=== PATIENT | female | born 1940 | race Caucasian/White ===

== ENCOUNTER 2020-08-04 12:43 | Outpatient (CLI) | payer MEDICARE, SELFPAY ==
[2020-08-04 13:02] LABS: Basophils Absolute Auto 0.08 K/mm3 (0.00-0.10); Basophils Percent Auto 1.2 % (0.0-1.0); Eosinophils Absolute Auto 0.06 K/mm3 (0.02-0.50); Eosinophils Percent Auto 0.9 % (1.0-6.0); Hematocrit 40.3 % (35.0-42.0); Hemoglobin 13.7 g/dL (11.7-13.8); Immature Granulocyte Absolute 0.02 K/mm3 (0.00-0.00); Immature Granulocyte Percent A 0.3 % (0.0-0.0); Lymphocytes Absolute Auto 2.56 K/mm3 (1.10-4.50); Lymphocytes Percent Auto 37.2 % (18.0-42.0); Mean Corpuscular Hemoglobin 30.2 pg (27.0-31.0); Mean Platelet Volume 11.6 fl (9.2-11.8); Monocytes Absolute Auto 0.37 K/mm3 (0.10-0.90); Monocytes Percent Auto 5.4 % (2.0-11.0); Neutrophils Absolute Auto 3.8 K/mm3 (1.7-7.2); Platelet Count Result 163 K/mm3 (150-420); Red Blood Count 4.53 M/mm3 (4.20-5.40); Red Cell Distribution Width 12.6 % (11.6-14.4); White Blood Count 6.9 K/mm3 (4.8-10.8)
[2020-08-04 13:26] LABS: Hemoglobin A1C 10.8 % (<5.7)
[2020-08-04 13:40] LABS: Glucose 283 mg/dL (70-99)
== END 2020-08-04 12:44 | disposition home or self-care (01) ==
PROVIDERS: PCP Family Medicine
DX: H35.63 Retinal hemorrhage, bilateral (principal); H35.82 Retinal ischemia; E11.3513 Type 2 diabetes mellitus with proliferative diabetic retinopathy with macular edema, bilateral
CPT/HCPCS: 36415; 82947; 83036; 85025

== ENCOUNTER 2021-03-23 11:12 | Outpatient (NON) | payer MEDICARE, SELFPAY ==
[2021-03-23 11:26] LABS: Basophils Absolute Auto 0.07 K/mm3 (0.00-0.10); Basophils Percent Auto 1.1 % (0.0-1.0); Eosinophils Absolute Auto 0.03 K/mm3 (0.02-0.50); Eosinophils Percent Auto 0.5 % (1.0-6.0); Hematocrit 41.5 % (35.0-42.0); Hemoglobin 14.2 g/dL (11.7-13.8); Immature Granulocyte Absolute 0.01 K/mm3 (0.00-0.00); Immature Granulocyte Percent A 0.2 % (0.0-0.0); Immature Platelet Fraction Pct 5.8 % (1.0-7.0); Lymphocytes Absolute Auto 1.72 K/mm3 (1.10-4.50); Lymphocytes Percent Auto 27.7 % (18.0-42.0); Mean Corpuscular HGB Conc 34.2 g/dL (32.0-36.0); Mean Corpuscular Hemoglobin 30.5 pg (27.0-31.0); Mean Corpuscular Volume 89.2 fL (78.0-102.0); Mean Platelet Volume 11.7 fl (9.2-11.8); Monocytes Absolute Auto 0.32 K/mm3 (0.10-0.90); Monocytes Percent Auto 5.2 % (2.0-11.0); Neutrophils Absolute Auto 4.1 K/mm3 (1.7-7.2); Neutrophils Percent Auto 65.3 % (50.0-70.0); Platelet Count Result 133 K/mm3 (150-420); Red Blood Count 4.65 M/mm3 (4.20-5.40); Red Cell Distribution Width 13.2 % (11.6-14.4); White Blood Count 6.2 K/mm3 (4.8-10.8)
[2021-03-23 11:34] LABS: Hemoglobin A1C 11.2 % (<5.7)
[2021-03-23 11:55] LABS: Alanine Aminotransferase 35 U/L (14-59); Albumin Level 4.1 g/dL (3.4-5.0); Alkaline Phosphatase 99 U/L (46-116); Anion Gap 9 mmol/L (8-16); Aspartate Amino Transferase 19 U/L (15-37); Bilirubin,Total 0.5 mg/dL (0.00-1.00); Blood Urea Nitrogen 21 mg/dL (7-18); Carbon Dioxide 28 mmol/L (21-32); Chloride 101 mmol/L (98-108); Cholesterol 203 mg/dL (0-200); Estimated Glomerular Filt Rate > 60; Glucose 281 mg/dL (70-99); HDL Direct 72 mg/dL (40-60); LDL Cholesterol Calculated 123 mg/dL (<130); Osmolality Calculated 299 mOsm/kg (285-295); Potassium 4.4 mmol/L (3.5-5.1); Sodium 138 mmol/L (136-145); Triglycerides 40 mg/dL (0-150)
== END 2021-03-23 11:13 | disposition home or self-care (01) ==
LOC: CHSLAB 11:16
PROVIDERS: Visit Provider Nurse Practitioner Family
DX: E11.9 Type 2 diabetes mellitus without complications (principal); I10 Essential (primary) hypertension
CPT/HCPCS: 36415; 80053; 80061; 83036; 85025; 85055

== ENCOUNTER 2021-08-14 20:02 | Inpatient (IN) | payer MEDICARE, SELFPAY ==
--- NOTE | ~2021-08-14 | CT_ITS ---
EXAMINATION: CT diagnostic chest w con DATE: 08/14/2021 22:39 INDICATION: Right axillary pain, redness, and swelling TECHNIQUE: Transaxial computed tomographic images of the chest were obtained after the administration of 75 cc of Omnipaque 350 intravenous contrast. The dose-length product (DLP) was 126.87 mGy-cm. Ite rative reconstruction was used. COMPARISON: None FINDINGS: There is scarring of the lung apices. Subtle groundglass opacities of the left lower lobe m ay reflect atelectasis or scarring. There is no pleural effusion or pneumothorax. The heart size is n ormal. Punctate calcifications in otherwise normal appearing liver and spleen likely represent healed granulomatous disease. There is moderate thoracic spondylosis. There is an approximately 5.6 x 4.2 cm fluid and soft tissue density mass of the right axilla with in distinct margins. There is edematous stranding of the surrounding fat. IMPRESSION: 1. Fluid and soft tissue density mass of the right axilla measuring up to 5.6 cm with surrounding fat stranding. Differential includes abscess versus phlegmon or less likely lymph node or other soft tis luz marina mass. Reviewed, dictated and finalized at location [employer] IMPRESSION: 1. Fluid and soft tissue density mass of the right axilla measuring up to 5.6 c m with surrounding fat stranding. Differential includes abscess versus phlegmon or less likely lymph node or other soft tissue mass.
[2021-08-14 20:07] VITALS: BP 147/58; PULSE 51; RESP 16; TEMP 38.1; O2SAT 100
[2021-08-14 21:06] VITALS: BP 138/62; PULSE 60; RESP 18; O2SAT 100
--- NOTE | 2021-08-14 21:12 | ED.GENADULT ---
HPI - General Adult General Chief complaint: Skin/Abscess/Foreign Body <Jose Armando Keating PA-C - Last Filed: 08/14/21 21:48> Stated complaint: infection right armpit <ANGELA Tadeo Last Filed: 08/14/21 21:48> Time Seen by Provider: 08/14/21 20:52 <ANGELA Tadeo Last Filed: 08/14/21 21:48> Source: patient and family <ANGELA Tadeo Last Filed: 08/14/21 21:48> Mode of arrival: ambulatory <ANGELA Tadeo Last Filed: 08/14/21 21:48> Limitations: physical limitation <ANGELA Tadeo Last Filed: 08/14/21 21:48> History of Present Illness HPI narrative: Patient 80-year-old female with a history of DM (managed with oral medications) presents to the ED with a 1 month history of a painful mass to the right axilla as well as a 1 day history of fever. Patient found to have temperature of 100.6 ?F upon arrival to our ED. Patient arrives to the ED with daughter although daughter states patient currently lives independently. Daughter recently started checking patient's blood glucose and obtained a level in the 300s earlier today. Patient states that she is compliant with medications. No recent history of headache, chest pain, cough, nausea, vomiting, dysuria, or hematuria. She states lesion to the right axilla has progressively become larger since onset. Daughter was unaware of this lesion until earlier today. No drainage from the area. Patient has received the COVID-19 vaccine and booster. <ANGELA Tadeo Last Filed: 08/14/21 21:48> Related Data Allergies/adverse reactions: Allergies Allergy/AdvReac Type Severity Reaction Status Date / Time No Known Allergies Allergy Unverified 03/25/21 10:56 <ANGELA Tadeo Last Filed: 08/14/21 21:48> Review of Systems Review of Systems: CONSTITUTIONAL: Fever, mild fatigue EYES: Denies visual changes, redness, or discharge. ENT: Denies rhinorrhea, congestion, sore throat, or otalgia. CARDIOVASCULAR: Denies chest pain, palpitations, or edema. RESPIRATORY: Denies cough or dyspnea. GASTROINTESTINAL: Denies abdominal pain, nausea, vomiting, or diarrhea. GENITOURINARY: Denies dysuria or hematuria. SKIN: Denies rash or itching. MUSCULOSKELETAL: Right lateral chest wall/axilla pain associated with mass. NEUROLOGIC: Denies headache, numbness, dizziness, or weakness. PSYCHIATRIC: Denies anxiety or depression. <Jose Armando Keating PA-C - Last Filed: 08/14/21 21:48> All systems reviewed & are unremarkable except as noted in HPI and below <Jose Armando Keating PA-C - Last Filed: 08/14/21 21:48> [facility] Past Medical History Medical History: Medical History Type 2 diabetes mellitus <Jose Armando Keating PA-C - Last Filed: 08/14/21 21:48> Surgical History Surgical History: Surgical History Hx of tonsillectomy <Jose Armando Keating PA-C - Last Filed: 08/14/21 21:48> Family History Family History: Family History Other Diabetes mellitus Family history of cardiovascular disease Family history of thyroid disease <Jose Armando Keating PA-C - Last Filed: 08/14/21 21:48> Social History Social History: Social History Smoking status: Never smoker Alcohol intake: never Substance use: never Gender identity (if verbalized by the patient): Female <Jose Armando Keating PA-C - Last Filed: 08/14/21 21:48> Exam Narrative: GENERAL: Mildly fatigued appearing elderly female HEAD: Normocephalic, atraumatic. EYES: PERRLA and EOMI. ENT: Nares clear, no rhinorrhea or epistaxis. Mucous membranes moist. Oropharynx without tonsillar hypertrophy exudate or other lesions. NECK: Supple. No adenopathy or masses. No carotid bruits or JVD CHEST: Clear to auscultation. N
[2021-08-14 21:28] LABS: Basophils Absolute Auto 0.1 K/mm3 (0.0-0.1); Basophils Percent Auto 0.3 % (0.2-1.2); Hematocrit 37.8 % (37.0-47.0); Hemoglobin 13.2 g/dL (12.0-15.0); Immature Granulocyte Absolute 0.19 K/mm3 (0.00-0.031); Immature Granulocyte Percent A 1.1 % (0-0.5); Lymphocytes Absolute Auto 1.57 K/mm3 (0.9-3.2); Lymphocytes Percent Auto 8.7 % (18.3-44.2); Mean Corpuscular HGB Conc 34.9 g/dl (32-36); Mean Corpuscular Hemoglobin 30.3 pg (26-34); Mean Corpuscular Volume 86.9 fl (80-100); Mean Platelet Volume 10.3 fl (7.4-10.4); Monocytes Percent Auto 5.5 % (2.6-8.5); Neutrophils Absolute Auto 15.2 K/mm3 (1.3-6.7); Neutrophils Percent Auto 84.4 % (45.5-73.1); Platelet Count Result 204 k/mm3 (150-375); Red Blood Count 4.35 M/mm3 (4.2-5.4); Red Cell Distribution Width 12.4 % (11.5-14.5)
[2021-08-14 21:37] LABS: Lactic Acid Reflex 1.3 mmol/L (0.7-2.1)
[2021-08-14 21:38] LABS: Alanine Aminotransferase 16 U/L (4-35); Albumin Level 3.8 g/dL (3.5-5.1); Alkaline Phosphatase 152 U/L (38-126); Anion Gap 12 mmol/L (8-16); Aspartate Amino Transferase 25 U/L (14-36); Bilirubin,Total 0.9 mg/dL (0.2-1.3); Blood Urea Nitrogen 10 mg/dL (7-17); Carbon Dioxide 22 mmol/L (22-30); Chloride 93 mmol/L (98-107); Estimated CRCL calculation 53 ml/min; Estimated Glomerular Filt Rate > 60; Glucose 273 mg/dL (65-110); Potassium 4.2 mmol/L (3.4-5.0); Sodium 127 mmol/L (137-145)
[2021-08-14] MEDS: SODIUM CHLORIDE 0.9% IV 1,000 ML 500 ML IV CONT (21:53)
[2021-08-14] MEDS: cefTRIAXone 2 GM in SODIUM CHLORIDE 0.9% IV 100 ML 200 ML IVPB (22:57)
[2021-08-14 23:44] LABS: Add Urine Microscopic? YES; Appearance Urine Clear (Clear); Bilirubin Urine Negative (Negative); Blood Urine Negative (Negative); Color Urine Straw (Yellow); Glucose Urine UA 3+ mg/dL (Negative); Ketones Urine 1+ mg/dL (Negative); Leukocyte Esterase Ur Negative LEU/UL (Negative); Nitrate Urine Negative (Negative); Protein Urine Negative (Negative); RBC Urine 0-2 /hpf (0-2); Specific Grav Ur 1.013 (1.001-1.035); Urobilinogen Urine Negative mg/dL (<2.0); WBC Urine 0-3 /hpf
[2021-08-14 23:50] VITALS: BP 145/64; PULSE 93; RESP 18; O2SAT 99
--- NOTE | 2021-08-15 | PM.IMHP ---
H&P: HPI History of Present Illness Date/Time: 08/15/21 00:00 Chief Complaint: Armpit swelling Narrative: This is an 80-year-old female with past medical history significant for dyslipidemia, type 2 diabetes mellitus. Patient presents to the emergency room for evaluation of mass in her armpit which is tender red and warm according to the patient this has been going on for least 1 month and initially was unsure about what he was and has gotten worse over the course of the last few days has not been feeling well has had chills and subjective fevers, poor appetite, denies any nausea, vomiting, abdominal pain, diarrhea. Preliminary workup in the emergency room was significant for CT of the chest fluid and soft tissue density mass of the right axilla measuring up to 5.6 cm with surrounding fat stranding, WBC 18,000, sodium 127. Patient has been admitted for further evaluation, management and treatment. Review of Systems Review of Systems: Jb armpit swelling redness warmth chills subjective fevers Constitutional: Constitutional: Reports chills, Reports fever(s), Reports malaise and Denies night sweats Eyes: Eyes: Denies change in vision ENT: Denies dysphagia, Denies nasal congestion, Denies nasal discharge, Denies nasal obstruction and Denies odynophagia Cardiovascular: Cardiovascular: Denies syncope, Denies pedal edema, Denies leg edema, Denies radiating jaw, neck or arm pain, Denies palpitations, Denies dyspnea, Denies dyspnea on exertion and Denies orthopnea Respiratory: Respiratory: Denies cough and Denies dyspnea Gastrointestinal: Gastrointestinal: Denies abdominal pain, Denies dyspepsia, Denies heartburn, Denies diarrhea, Denies nausea and Denies vomiting Genitourinary: Genitourinary: Denies dysuria Musculoskeletal: Comments: Right RP did swelling warmth and tenderness Integumentary/Breasts: Comments: Right arm P did swelling tenderness and warmth Neurologic: Denies vertigo, Denies dizziness, Denies syncope, Denies focal weakness and Denies Sensory deficit (Neuro) Psychiatric: Psychiatric: Reports no additional psychiatric complaints and Reports as per HPI Endocrine: Endocrine: Denies cold intolerance, Denies heat intolerance, Denies polyphagia, Denies polydipsia, Denies polyuria and Denies palpitations Hematologic/Lymphatic: Hematologic/Lymphatic: Reports no additional hematologic/lymphatic complaints and Reports as per HPI Allergic/Immunologic: Allergic/Immunologic: Reports no additional allergic/immunologic complaints and Reports as per HPI [facility] Past Medical History Medical History Type 2 diabetes mellitus Surgical History Surgical History Hx of tonsillectomy Family History Family History Other Diabetes mellitus Family history of cardiovascular disease Family history of thyroid disease Social History Social History Smoking status: Never smoker Alcohol intake: never Substance use: never Gender identity (if verbalized by the patient): Female Spiritual care concerns: No Meds Home Medications and Allergies Home Medications Medication Instructions Recorded Confirmed Type metformin 500 mg tablet,extended 500 mg PO BID #60 tablet 03/23/21 Rx release 24 hr atorvastatin 10 mg tablet See Rx Instructions .ROUTE 05/15/21 Rx .COMPLEX #30 tablet semaglutide [Rybelsus] 3 mg PO DAILY 08/15/21 08/15/21 History Allergies Allergy/AdvReac Type Severity Reaction Status Date / Time No Known Allergies Allergy Unverified 03/25/21 10:56 Vital Signs Vital Signs - 24 hr 08/14/21 20:07 08/14/21 21:06 08/14/21 23:50 Temperature 100.6 F H Pulse Rate 51 L 60 93 Respiratory Rate 16 18 18 Blood Pressure 147/58 H 138/62 145/64 H Pulse Oximetry 100 100 99 Exa
[2021-08-15 00:14] LABS: EDCOVIDSCREEN Negative (Negative)
[2021-08-15 00:15] VITALS: BP 120/70; PULSE 91; RESP 14; O2SAT 99
--- NOTE | 2021-08-15 01:09 | ADMGEN ---
This patient, Nusrat Hernández, was admitted to Medical Room 243-01. Patient/family oriented to hospital policies and general routines including ID bracelet, bed and alarms, visiting hours, pain management, procedures, bathroom and other care routines, personal items, smoking policy, room service/diet, and visiting hours. Information on how to activate the Rapid Response Team has been discussed. Patient/Family are encouraged to report perceived risks to care and to ask questions if they do not understand what they are told or what they should do.
[2021-08-15 01:10] VITALS: BP 124/55; PULSE 90; RESP 18; TEMP 36.3; O2SAT 100; BMI 20.7
[2021-08-15] MEDS: SODIUM CHLORIDE 0.9% IV 1,000 ML 125 ML IV CONT ×3 (01:17→20:51)
[2021-08-15 03:12] VITALS: BP 124/58; PULSE 86; RESP 16; TEMP 36.4; O2SAT 100
[2021-08-15 08:18] LABS: Glucose Point of Care 139 mg/dl (65-105)
[2021-08-15 09:30] LABS: Anion Gap 8 mmol/L (8-16); Blood Urea Nitrogen 6 mg/dL (7-17); Carbon Dioxide 23 mmol/L (22-30); Chloride 100 mmol/L (98-107); Estimated CRCL calculation 68 ml/min; Estimated Glomerular Filt Rate > 60; Glucose 164 mg/dL (65-110); Potassium 3.3 mmol/L (3.4-5.0); Sodium 131 mmol/L (137-145)
[2021-08-15 10:19] VITALS: O2SAT 97
--- NOTE | 2021-08-15 10:56 | PM.CNGS ---
Assessment and Plan Assessment and plan (1) Abscess of axilla, right: Code(s): L02.411 - Cutaneous abscess of right axilla Status: Acute Assessment and Plan: patient appears to have a fluctuant area in the right axilla that should be amenable to bedside incision and drainage. Will plan to proceed with I and D right axillary abscess with local anesthetic. Will get cultures of fluid collection to help identify adequate antibiotic choice. (2) Uncontrolled diabetes mellitus: Code(s): E11.65 - Type 2 diabetes mellitus with hyperglycemia Status: Acute History of Present Illness Consult details Consult date: 08/15/21 Reason for consult: other ( Right axillary abscess.) Requesting physician: Jesus Aguilar MD Narrative: This is an 80-year-old woman who presented to the emergency department last night with complaints of right axillary swelling and pain. She states that this has been gradually enlarging over the past several weeks. She does not know how it initially started. She has never had anything like this before. She was slightly febrile in the emergency department. A CT of her chest was performed and this showed evidence of a likely abscess in the right axillary region. She was admitted to the hospital and placed on broad-spectrum IV antibiotics. Review of Systems Review of Systems: All systems reviewed & are unremarkable except as noted in HPI and below Constitutional: Constitutional: Reports fever(s) Eyes: Eyes: Denies change in vision ENT: Denies hearing loss, Denies neck pain and Denies sore throat Cardiovascular: Cardiovascular: Denies chest pain and Denies dyspnea Respiratory: Respiratory: Denies cough, Denies dyspnea and Denies wheezing Gastrointestinal: Gastrointestinal: Denies change in bowel habits, Denies nausea and Denies vomiting Genitourinary: Genitourinary: Denies hematuria and Denies dysuria Musculoskeletal: Musculoskeletal: Denies arthralgias, Denies joint swelling and Denies neck pain Integumentary/Breasts: Skin/Breast: Reports as per HPI Allergic/Immunologic: Allergic/Immunologic: Denies wheezing PMFSH Past Medical History Medical History Type 2 diabetes mellitus Surgical History Surgical History Hx of tonsillectomy Family History Family History Other Diabetes mellitus Family history of cardiovascular disease Family history of thyroid disease Social History Social History Smoking status: Never smoker Alcohol intake: never Substance use: never Gender identity (if verbalized by the patient): Female Spiritual care concerns: No Meds Home Medications and Allergies Home Medications Medication Instructions Recorded Confirmed Type metformin 500 mg tablet,extended 500 mg PO BID #60 tablet 03/23/21 08/15/21 Rx release 24 hr atorvastatin 10 mg tablet See Rx Instructions .ROUTE 05/15/21 08/15/21 Rx .COMPLEX #30 tablet semaglutide [Rybelsus] 3 mg PO DAILY 08/15/21 08/15/21 History Allergies Allergy/AdvReac Type Severity Reaction Status Date / Time No Known Allergies Allergy Unverified 03/25/21 10:56 Vital Signs Vital Signs - 24 hr 08/14/21 20:07 08/14/21 21:06 08/14/21 23:50 Temperature 38.1 C H Pulse Rate 51 L 60 93 Respiratory Rate 16 18 18 Blood Pressure 147/58 H 138/62 145/64 H Pulse Oximetry 100 100 99 08/15/21 00:15 08/15/21 01:10 08/15/21 03:12 Temperature 36.3 C L 36.4 C Pulse Rate 91 90 86 Respiratory Rate 14 18 16 Blood Pressure 120/70 124/55 L 124/58 L Pulse Oximetry 99 100 100 08/15/21 10:19 Temperature Pulse Rate Respiratory Rate Blood Pressure Pulse Oximetry 97 Exam Const: General: alert; No acute distress Orientation/consciousness:
[2021-08-15 11:39] LABS: Glucose Point of Care 178 mg/dl (65-105)
--- NOTE | 2021-08-15 11:45 | W.PM.PROC2 ---
Procedure Note - Detailed Date of Procedure 08/15/21 Pre-op Diagnosis Right axillary abscess Post-op Diagnosis same Procedure Performed Incision and drainage of right axillary abscess Surgeon Devaughn Prado, DO Anesthesia local ( 1% lidocaine with epinephrine) Description of Procedure consent obtained prior to procedure. Patient was placed supine in hospital bed. Her right axillary area was prepped and draped in sterile fashion using Betadine prep. 1% lidocaine with epinephrine was infiltrated directly over the right axillary abscess. A 2 cm incision was made using 11 blade scalpel and incision was carried down all the way to the abscess cavity. About 1-2 oz of purulence fluid was evacuated. Cultures were taken for aerobic and anaerobic culture and sensitivity. The wound was then packed with quarter-inch iodoform gauze. 4 x 4 gauze and Medipore tape applied. Estimated Blood Loss 5 Urine Output 950 Packing Yes ( Quarter-inch iodoform) Complications No immediate complications Condition stable Disposition no change
--- NOTE | 2021-08-15 13:36 | PM.IMPN ---
Progress Note: A&P Assessment and Plan (1) Abscess of axilla, right: Code(s): L02.411 - Cutaneous abscess of right axilla Status: Acute Assessment and Plan: Primaxin plus ancomycin Cultures in progress (2) Fever: Code(s): R50.9 - Fever, unspecified Status: Acute Assessment and Plan: Supportive care Tylenol as needed (3) Acute hyponatremia: Code(s): E87.1 - Hypo-osmolality and hyponatremia Status: Acute Assessment and Plan: Gentle IV hydration with 0.9 normal saline Continue to monitor (4) Type 2 diabetes mellitus: Code(s): E11.9 - Type 2 diabetes mellitus without complications Status: Acute Assessment and Plan: Hold metformin and semaglutide Insulin sliding scale as needed Diabetic diet Subjective Date/time seen: 08/15/21 13:36 Interval history: admitted 08/14 with right axillary abscess and cellulitis 08/15 visit. Pain and right axillae improving. Denied other pain or shortness of breath fevers or chills. Denied GI dysfunction. Abnormal bleeding. Review of Systems Review of Systems: All systems reviewed & are unremarkable except as noted in HPI and below Exam Narrative: HEENT: PERRL, sclerae nonicteric, pharyngeal mucosa pink and intact NECK: No JVD CHEST: Clear to auscultation. Normal effort. HEART: NL S1/S2, regular, no murmur ABDOMEN: BS+, soft, nontender, no mass, no bruits EXTREMITIES: No cyanosis, edema, or clubbing NEUROLOGIC: CN intact and symmetric to inspection. MUSCULOSKELETAL: Tone and strength symmetric. PSYCH: Alert. Oriented to person, place, and time. SKIN: Right axillary wound with good granulation tissue and surrounding erythema Objective Data Vital Signs Vital Signs: Vital Signs - 24 hr 08/14/21 20:07 08/14/21 21:06 08/14/21 23:50 Temperature 100.6 F H Pulse Rate 51 L 60 93 Respiratory Rate 16 18 18 Blood Pressure 147/58 H 138/62 145/64 H Pulse Oximetry 100 100 99 08/15/21 00:15 08/15/21 01:10 08/15/21 03:12 Temperature 97.4 F L 97.6 F Pulse Rate 91 90 86 Respiratory Rate 14 18 16 Blood Pressure 120/70 124/55 L 124/58 L Pulse Oximetry 99 100 100 08/15/21 10:19 Temperature Pulse Rate Respiratory Rate Blood Pressure Pulse Oximetry 97 Intake/Output Intake/Output: Intake & Output 08/12/21 08/13/21 08/14/21 08/15/21 23:59 23:59 23:59 23:59 Intake Total 1350 1100 Output Total 950 950 Balance 400 150 Meds/Results Medications: Active Medications Generic Name Dose Route Start Last Admin Trade Name Freq PRN Reason Stop Dose Admin Acetaminophen 650 mg 08/14/21 23:16 Acetaminophen 325 Mg Tablet PO Q4H PRN Mild Pain (1-3) or Fever Atorvastatin Calcium 10 mg 08/15/21 21:00 Atorvastatin 10 Mg Tablet BY MOUTH HS KRISHAN Dextrose 12.5 gm 08/15/21 08:58 Dextrose 50% 25 Gm/50 Ml Syringe IV PUSH PRN PRN Hypoglycemia Protocol Glucagon 1 mg 08/15/21 08:58 Glucagon For Inj 1 Mg Vial IM PRN PRN Hypoglycemia Protocol Glucose 15 gm 08/15/21 08:58 Glucose Oral Gel 15 Gm Of Glucse In 37.5 Gm Tube PO PRN PRN Hypoglycemia Protocol Sodium Chloride 1,000 mls @ 125 mls/hr 08/14/21 23:20 08/15/21 10:03 Normal Saline Iv IV CONT 125 mls/hr .Q8H KRISHAN Administration Vancomycin HCl 1,000 mg in 250 mls @ 250 mls/hr 08/15/21 16:00 Vancomycin 1,000 Mg/D5w 250 Ml IVPB Q18H KRISHAN Dextrose 1,000 mls @ 100 mls/hr 08/15/21 08:58 Dextrose 5% 1,000 Ml IVPB PRN PRN Hypoglycemia Protocol Insulin Aspart 2 - 5 units 08/15/21 12:00 Insulin Aspart (*Bkc) 100 Units/Ml SUB-Q TIDWM KRISHAN Protocol Insulin Glargine 10 units 08/15/21 21:00 Insulin Glargine (*Bkc) 100 Units/Ml 0.2 units/kg (10 units) SUB-Q HS KRISHAN Metformin HCl 500 mg 08/15/21 17:00 Metformin Hcl Xr 500 Mg Tab.Sr.24h PO BIDWM KRISHAN Morphine Sulfate 4 mg 08/14
[2021-08-15 14:47] VITALS: BP 123/54; PULSE 85; RESP 18; TEMP 36.7; O2SAT 100
[2021-08-15 16:48] LABS: Glucose Point of Care 344 mg/dl (65-105)
[2021-08-15] MEDS: INSULIN ASPART (*BKC) 100 UNITS/ML SUB-Q (17:06)
[2021-08-15 18:39] LABS: Creatinine Urine 75.3 mg/dL
[2021-08-15 18:42] LABS: Sodium Urine Random 86 meq/L
[2021-08-15 19:44] VITALS: BP 117/52; PULSE 76; RESP 18; TEMP 37.1; O2SAT 99
[2021-08-15] MEDS: INSULIN GLARGINE (*BKC) 100 UNITS/ML 10 UNITS SUB-Q (20:51)
[2021-08-15 23:04] LABS: Glucose Point of Care 185 mg/dl (65-105)
[2021-08-16] MEDS: SODIUM CHLORIDE 0.9% IV 1,000 ML 125 ML IV CONT (05:28)
[2021-08-16] MEDS: ACETAMINOPHEN 325 MG TABLET 650 MG PO ×2 (05:34→14:46)
[2021-08-16 05:48] VITALS: BP 140/52; PULSE 73; RESP 18; TEMP 36.3; O2SAT 100
[2021-08-16 06:16] LABS: Hematocrit 35.1 % (37.0-47.0); Hemoglobin 11.7 g/dL (12.0-15.0); Mean Corpuscular HGB Conc 33.3 g/dl (32-36); Mean Corpuscular Hemoglobin 30.3 pg (26-34); Mean Corpuscular Volume 90.9 fl (80-100); Mean Platelet Volume 10.9 fl (7.4-10.4); Platelet Count Result 213 k/mm3 (150-375); Red Blood Count 3.86 M/mm3 (4.2-5.4); Red Cell Distribution Width 12.5 % (11.5-14.5); White Blood Count 10.4 K/mm3 (4.5-10.0)
[2021-08-16 06:28] LABS: Anion Gap 9 mmol/L (8-16); Blood Urea Nitrogen 8 mg/dL (7-17); Calcium 8.2 mg/dL (8.4-10.2); Carbon Dioxide 21 mmol/L (22-30); Chloride 104 mmol/L (98-107); Estimated CRCL calculation 56 ml/min; Estimated Glomerular Filt Rate > 60; Glucose 156 mg/dL (65-110); Potassium 3.2 mmol/L (3.4-5.0); Sodium 134 mmol/L (137-145)
[2021-08-16 08:02] LABS: Glucose Point of Care 145 mg/dl (65-105)
[2021-08-16] MEDS: POTASSIUM CHLORIDE 20 MEQ TABLET 40 MEQ PO ×2 (10:16→12:45)
[2021-08-16] MEDS: ENOXAPARIN 30 MG/0.3 ML SYRINGE SUB-Q (10:16)
--- NOTE | 2021-08-16 11:22 | PM.IMPN ---
Progress Note: A&P Assessment and Plan (1) Abscess of axilla, right: Code(s): L02.411 - Cutaneous abscess of right axilla Status: Acute Assessment and Plan: Primaxin plus vancomycin Cultures in progress (2) Acute hyponatremia: Code(s): E87.1 - Hypo-osmolality and hyponatremia Status: Acute Assessment and Plan: 08/16 Improved from 127 to 134 with hydration Continue to monitor (3) Type 2 diabetes mellitus: Qualifiers: Diabetes mellitus intermediate insulin use: unspecified roasterman insulin use status Diabetes mellitus complication status: with hyperglycemia Qualified Code(s): E11.65 - Type 2 diabetes mellitus with hyperglycemia Code(s): E11.9 - Type 2 diabetes mellitus without complications Status: Acute Assessment and Plan: Hold metformin and semaglutide Diabetic diet 08/16 FBS 239, 11am 177 continue glargine and SSI (4) Hypokalemia: Code(s): E87.6 - Hypokalemia Status: Acute Assessment and Plan: 08/16 3.2, po KCL ordered F/u lab Subjective Date/time seen: 08/16/21 11:22 Interval history: admitted 08/14 with right axillary abscess and cellulitis 08/16 visit. Right axillary pain continues to improve daily. Appetite improving. Denied other pain or shortness of breath fevers or chills. Denied GI dysfunction. Abnormal bleeding. Review of Systems Review of Systems: All systems reviewed & are unremarkable except as noted in HPI and below Exam Narrative: HEENT: PERRL, sclerae nonicteric, pharyngeal mucosa pink and intact NECK: No JVD CHEST: Clear to auscultation. Normal effort. HEART: NL S1/S2, regular, no murmur ABDOMEN: BS+, soft, nontender, no mass, no bruits EXTREMITIES: No cyanosis, edema, or clubbing NEUROLOGIC: CN intact and symmetric to inspection. MUSCULOSKELETAL: Tone and strength symmetric. PSYCH: Alert. Oriented to person, place, and time. SKIN: Right axillary wound with good granulation tissue and surrounding erythema Objective Data Vital Signs Vital Signs: Vital Signs - 24 hr 08/15/21 14:47 08/15/21 19:44 08/16/21 05:48 Temperature 98.1 F 98.7 F 97.4 F L Pulse Rate 85 76 73 Respiratory Rate 18 18 18 Blood Pressure 123/54 L 117/52 L 140/52 L Pulse Oximetry 100 99 100 Intake/Output Intake/Output: Intake & Output 08/13/21 08/14/21 08/15/21 08/16/21 23:59 23:59 23:59 23:59 Intake Total 1350 2880 1300 Output Total 950 1150 Balance 400 1730 1300 Meds/Results Medications: Active Medications Generic Name Dose Route Start Last Admin Trade Name Freq PRN Reason Stop Dose Admin Acetaminophen 650 mg 08/14/21 23:16 08/16/21 05:34 Acetaminophen 325 Mg Tablet PO 650 mg Q4H PRN Administration Mild Pain (1-3) or Fever Atorvastatin Calcium 10 mg 08/15/21 21:00 Atorvastatin 10 Mg Tablet BY MOUTH KRISHAN Dextrose 12.5 gm 08/15/21 08:58 Dextrose 50% 25 Gm/50 Ml Syringe IV PUSH PRN PRN Hypoglycemia Protocol Enoxaparin Sodium 30 mg 08/16/21 09:00 08/16/21 10:16 Enoxaparin 30 Mg/0.3 Ml Syringe SUB-Q 30 mg DAILY KRISHAN Administration Glucagon 1 mg 08/15/21 08:58 Glucagon For Inj 1 Mg Vial IM PRN PRN Hypoglycemia Protocol Glucose 15 gm 08/15/21 08:58 Glucose Oral Gel 15 Gm Of Glucse In 37.5 Gm Tube PO PRN PRN Hypoglycemia Protocol Vancomycin HCl 1,000 mg in 250 mls @ 250 mls/hr 08/15/21 16:00 08/16/21 10:16 Vancomycin 1,000 Mg/D5w 250 Ml IVPB 250 mls/hr Q18H KRISHAN Administration Dextrose 1,000 mls @ 100 mls/hr 08/15/21 08:58 Dextrose 5% 1,000 Ml IVPB PRN PRN Hypoglycemia Protocol Insulin Aspart 2 - 5 units 08/15/21 12:00 08/16/21 09:35 Insulin Aspart (*Bkc) 100 Units/Ml SUB-Q Not Given TIDWM [facility] Protocol Insulin Glargine 10 units 08/15/21 21:00 08/15/21 20:51 Insulin Glargine (*Bkc) 100 Units/Ml 0.2 units/kg (10 units) 10 units SUB-Q Adm
--- NOTE | 2021-08-16 12:08 | PM.PNGS ---
Progress Note: A&P Assessment and Plan (1) Abscess of axilla, right: Code(s): L02.411 - Cutaneous abscess of right axilla Status: Acute Assessment and Plan: Continue daily packing changes Culture showing gram + cocci, awaiting sensitivities Will likely need home health for wound care (2) Uncontrolled diabetes mellitus: Code(s): E11.65 - Type 2 diabetes mellitus with hyperglycemia Status: Acute Subjective Subjective Date/Time Seen: 08/16/21 12:08 Interval history: Doing well after I&D axillary abscess yesterday. No fevers. Pain controlled. Exam Skin: Other: Erythema improving. Dressing with slight purulent drainage. Objective Data Vital Signs Vital Signs: Vital Signs - 24 hr 08/15/21 14:47 08/15/21 19:44 08/16/21 05:48 Temperature 36.7 C 37.1 C 36.3 C L Pulse Rate 85 76 73 Respiratory Rate 18 18 18 Blood Pressure 123/54 L 117/52 L 140/52 L Pulse Oximetry 100 99 100 Intake/Output Intake/Output: Intake & Output 08/13/21 08/14/21 08/15/21 08/16/21 23:59 23:59 23:59 23:59 Intake Total 1350 2880 1300 Output Total 950 1150 Balance 400 1730 1300 Meds/Results Medications: Active Medications Generic Name Dose Route Start Last Admin Trade Name Freq PRN Reason Stop Dose Admin Acetaminophen 650 mg 08/14/21 23:16 08/16/21 05:34 Acetaminophen 325 Mg Tablet PO 650 mg Q4H PRN Administration Mild Pain (1-3) or Fever Atorvastatin Calcium 10 mg 08/15/21 21:00 Atorvastatin 10 Mg Tablet BY MOUTH KRISHAN Dextrose 12.5 gm 08/15/21 08:58 Dextrose 50% 25 Gm/50 Ml Syringe IV PUSH PRN PRN Hypoglycemia Protocol Enoxaparin Sodium 30 mg 08/16/21 09:00 08/16/21 10:16 Enoxaparin 30 Mg/0.3 Ml Syringe SUB-Q 30 mg DAILY KRISHAN Administration Glucagon 1 mg 08/15/21 08:58 Glucagon For Inj 1 Mg Vial IM PRN PRN Hypoglycemia Protocol Glucose 15 gm 08/15/21 08:58 Glucose Oral Gel 15 Gm Of Glucse In 37.5 Gm Tube PO PRN PRN Hypoglycemia Protocol Vancomycin HCl 1,000 mg in 250 mls @ 250 mls/hr 08/15/21 16:00 08/16/21 10:16 Vancomycin 1,000 Mg/D5w 250 Ml IVPB 250 mls/hr Q18H KRISHAN Administration Dextrose 1,000 mls @ 100 mls/hr 08/15/21 08:58 Dextrose 5% 1,000 Ml IVPB PRN PRN Hypoglycemia Protocol Insulin Aspart 2 - 5 units 08/15/21 12:00 08/16/21 09:35 Insulin Aspart (*Bkc) 100 Units/Ml SUB-Q Not Given TIDWM [facility] Protocol Insulin Glargine 10 units 08/15/21 21:00 08/15/21 20:51 Insulin Glargine (*Bkc) 100 Units/Ml 0.2 units/kg (10 units) 10 units SUB-Q Administration HS [facility] Metformin HCl 500 mg 08/15/21 17:00 Metformin Hcl Xr 500 Mg Tab.Sr.24h PO BIDWM [facility] Miscellaneous Information 1 each 08/15/21 00:01 08/16/21 07:39 Lovenox Needs Dose Verified. Based On Crcl Of 68 Patient's Dose Could Be 40mg. Please Cl XX 09/14/21 00:00 Not Given CLARIFY [facility] Morphine Sulfate 4 mg 08/14/21 23:16 Morphine Sulfate (*Crx) 4 Mg/Ml Inj IV PUSH Q2H PRN Pain Rated 7-10 Non-Formulary Medication 3 mg 08/15/21 09:00 Semaglutide [Rybelsus] PO 09/14/21 08:59 DAILY [facility] Ondansetron HCl 4 mg 08/14/21 23:16 Ondansetron Inj 4 Mg/2 Ml Vial IV PUSH Q4H PRN Nausea Potassium Chloride 40 meq 08/16/21 13:00 Potassium Chloride 20 Meq Tablet PO 08/16/21 13:01 ONCE ONE Radiology Results: ITS Impressions Chest CT 08/14/21 22:48 IMPRESSION: 1. Fluid and soft tissue density mass of the right axilla measuring up to 5.6 cm with surrounding fat stranding. Differential includes abscess versus phlegmon or less likely lymph node or other soft tissue mass. Labs Labs: Laboratory Results - last 24 hr 08/15/21 08/15/21 08/15/21 16:29 17:49 19:57 WBC RBC Hgb Hct MCV MCH MCHC RDW Plt Count MPV Sodium Potassium Chloride Carbon Dioxid
[2021-08-16 12:25] LABS: Glucose Point of Care 239 mg/dl (65-105)
[2021-08-16] MEDS: INSULIN ASPART (*BKC) 100 UNITS/ML SUB-Q (12:45)
[2021-08-16 14:00] VITALS: BP 120/78; PULSE 73; RESP 14; TEMP 35.8; O2SAT 100
[2021-08-16 16:45] LABS: Glucose Point of Care 177 mg/dl (65-105)
[2021-08-16] MEDS: INSULIN GLARGINE (*BKC) 100 UNITS/ML 10 UNITS SUB-Q (21:04)
[2021-08-16 22:00] VITALS: BP 146/60; PULSE 77; RESP 21; TEMP 36.4; O2SAT 100
[2021-08-16 22:13] LABS: Glucose Point of Care 192 mg/dl (65-105)
[2021-08-17 03:42] LABS: Hematocrit 35.5 % (37.0-47.0); Mean Corpuscular HGB Conc 33.8 g/dl (32-36); Mean Corpuscular Volume 88.8 fl (80-100); Platelet Count Result 234 k/mm3 (150-375); Red Cell Distribution Width 12.5 % (11.5-14.5); White Blood Count 7.5 K/mm3 (4.5-10.0)
[2021-08-17 03:59] LABS: Anion Gap 8 mmol/L (8-16); Blood Urea Nitrogen 7 mg/dL (7-17); Calcium 8.8 mg/dL (8.4-10.2); Carbon Dioxide 22 mmol/L (22-30); Chloride 105 mmol/L (98-107); Estimated CRCL calculation 68 ml/min; Estimated Glomerular Filt Rate > 60; Glucose 134 mg/dL (65-110); Sodium 135 mmol/L (137-145)
[2021-08-17 04:20] LABS: Vancomycin Trough 7.6 ug/mL (10.0-20.0)
[2021-08-17 06:00] VITALS: BP 141/63; PULSE 71; RESP 21; TEMP 36.3; O2SAT 100
[2021-08-17 08:17] LABS: Glucose Point of Care 131 mg/dl (65-105)
[2021-08-17] MEDS: ENOXAPARIN 30 MG/0.3 ML SYRINGE SUB-Q (08:36)
--- NOTE | 2021-08-17 09:33 | PM.PNGS ---
Progress Note: A&P Assessment and Plan (1) Abscess of axilla, right: Code(s): L02.411 - Cutaneous abscess of right axilla Status: Acute Assessment and Plan: Continue daily packing changes Culture showing gram + cocci, awaiting sensitivities Okay to discharge home from our standpoint on oral antibiotics when okay with other services. Will need home health for dressing changes and talked with patient about having her family help with dressing changes on the other days alternating with home health. (2) Uncontrolled diabetes mellitus: Code(s): E11.65 - Type 2 diabetes mellitus with hyperglycemia Status: Acute Additional Plan I have discussed the plan of care with Dr. Prado. Subjective Subjective Date/Time Seen: 08/17/21 09:33 Post Op day: 2 (I&D right axillary abscess) Patient reports: feels better, pain is less and afebrile Interval history: Patient seen and examined. Reports overall feeling better and feels like she is regaining her strength. Reports her right axillary swelling has come down, and she only has pain during dressing changes or when the area is touched. Review of Systems Review of Systems: All systems reviewed & are unremarkable except as noted in HPI and below Exam Const: General: comfortable, no acute distress, alert and awake Orientation/consciousness: patient oriented x3 Skin: Other: Right axillary dressing and packing removed. Erythema and induration improving, small amount of shen drainage on dressing with incision open and draining well. Psych: Insight: Good insight present (Psych) Judgement: Good judgement present (Psych) Objective Data Vital Signs Vital Signs: Vital Signs - 24 hr 08/16/21 14:00 08/16/21 22:00 08/17/21 06:00 Temperature 96.5 F L 97.6 F 97.4 F L Pulse Rate 73 77 71 Respiratory Rate 14 21 H 21 H Blood Pressure 120/78 146/60 H 141/63 H Pulse Oximetry 100 100 100 Intake/Output Intake/Output: Intake & Output 08/14/21 08/15/21 08/16/21 08/17/21 23:59 23:59 23:59 23:59 Intake Total 1350 2880 3475 800 Output Total 950 1150 700 650 Balance 400 1730 2775 150 Meds/Results Medications: Active Medications Generic Name Dose Route Start Last Admin Trade Name Freq PRN Reason Stop Dose Admin Acetaminophen 650 mg 08/14/21 23:16 08/16/21 14:46 Acetaminophen 325 Mg Tablet PO 650 mg Q4H PRN Administration Mild Pain (1-3) or Fever Atorvastatin Calcium 10 mg 08/15/21 21:00 Atorvastatin 10 Mg Tablet BY MOUTH [facility] Dextrose 12.5 gm 08/15/21 08:58 Dextrose 50% 25 Gm/50 Ml Syringe IV PUSH PRN PRN Hypoglycemia Protocol Enoxaparin Sodium 30 mg 08/16/21 09:00 08/17/21 08:36 Enoxaparin 30 Mg/0.3 Ml Syringe SUB-Q 30 mg DAILY KRISHAN Administration Glucagon 1 mg 08/15/21 08:58 Glucagon For Inj 1 Mg Vial IM PRN PRN Hypoglycemia Protocol Glucose 15 gm 08/15/21 08:58 Glucose Oral Gel 15 Gm Of Glucse In 37.5 Gm Tube PO PRN PRN Hypoglycemia Protocol Dextrose 1,000 mls @ 100 mls/hr 08/15/21 08:58 Dextrose 5% 1,000 Ml IVPB PRN PRN Hypoglycemia Protocol Vancomycin HCl 1,250 mg in 250 mls @ 200 mls/hr 08/17/21 05:00 08/17/21 06:02 Vancomycin 1,250 Mg/D5w 250 Ml IVPB Infused Q12H [facility] Infusion Insulin Aspart 2 - 5 units 08/15/21 12:00 08/17/21 08:35 Insulin Aspart (*Bkc) 100 Units/Ml SUB-Q Not Given TIDWM [facility] Protocol Insulin Glargine 10 units 08/15/21 21:00 08/16/21 21:04 Insulin Glargine (*Bkc) 100 Units/Ml 0.2 units/kg (10 units) 10 units SUB-Q Administration [facility] Metformin HCl 500 mg 08/15/21 17:00 Metformin Hcl Xr 500 Mg Tab.Sr.24h PO BIDWM [facility] Miscellaneous Information 1 each 08/15/21 00:01 08/17/21 08:35 Lovenox Needs Dose Verified. Based On Crcl Of 68 Patient's Dose Could Be 40mg. Please Cl XX 09/14/21 00:00 Not Given CLARIFY [facility] Morphine Sulfate 4 mg 08/14
[2021-08-17] MEDS: ACETAMINOPHEN 325 MG TABLET 650 MG PO (09:41)
[2021-08-17 12:03] LABS: Glucose Point of Care 208 mg/dl (65-105)
[2021-08-17] MEDS: INSULIN ASPART (*BKC) 100 UNITS/ML SUB-Q (12:13)
[2021-08-17 13:34] LABS: Hemoglobin A1C 10.3 % (<5.7)
[2021-08-17 14:12] VITALS: BP 156/69; PULSE 80; RESP 14; TEMP 36.4; O2SAT 100
--- NOTE | 2021-08-17 14:55 | PM.DS ---
DS: Admitting Diagnosis Discharge Date 08/17/2021 Admitting Diagnosis 1. Right axillary abscess. 2. Hyponatremia. 3. Type 2 diabetes mellitus. DS: Discharge Diagnosis Discharge Diagnosis (1) Abscess of axilla, right: Code(s): L02.411 - Cutaneous abscess of right axilla Status: Acute Assessment and Plan: status post I and D, culture grew out Streptococcus group A (2) Acute hyponatremia: Code(s): E87.1 - Hypo-osmolality and hyponatremia Status: Acute (3) Type 2 diabetes mellitus: Qualifiers: Diabetes mellitus watermaster insulin use: unspecified watermaster insulin use status Diabetes mellitus complication status: with hyperglycemia Qualified Code(s): E11.65 - Type 2 diabetes mellitus with hyperglycemia Code(s): E11.9 - Type 2 diabetes mellitus without complications Status: Acute DS: Summary Hospital Course Reason for hospitalization: 80-year-old female with uncontrolled diabetes admitted through the emergency department with fever and right axillary abscess. Hospital Course: The patient presented to the emergency department on 08/14/2021 for evaluation of a painful ingrowing mass in the right axilla that have been present for nearly 1 month. She decided to seek treatment when she developed a fever and on arrival to the ED her temperature was 100.6?. She did not have a fever throughout the rest of her say. Blood pressures were stable though there were some readings up into the 140s systolic. [place] [address] on admission and with treatment it dropped to 7.5 on day of discharge. She had a random glucose of 344 and was started on 10 units glargine with improvement. Her hemoglobin A1c was 10.3% and the patient admitted that she has not been taking her metformin or semaglutide prescribed by her primary care provider in February 2021. After much discussion it was obvious that she did not understand how to do Accu-Cheks or monitor her glucose at home and she would not be able to administer insulin to herself. I spoke with her primary care provider via phone who agreed and we decided to go ahead and start the patient back on metformin and semaglutide with close follow-up. The patient was encouraged to monitor Accu-Cheks and keep a log and the nurse was going to instruct her on this. She would benefit from seeing a diabetes educator as an outpatient. The patient did have sodium is lows 127 on admission though she was also hyperglycemic as detailed above. Sodium was 135 on day of discharge with improving glucose as well. A couple of days she had mild hypokalemia potassium was replaced and monitored. Dr. Prado performed a bedside incision and drainage on 08/15/2021 and she was started on vancomycin on admission. Wound cultures were obtained and group A Streptococcus was isolated. With antibiotics and local wound care, her fever resolved and infection improved and she was safe for discharge home with home health for dressing changes. She was sent with a prescription for Keflex for 7 more days. Status at Discharge Cognitive/behavioral status at discharge: Stable mood. Fair insight to medical problems. Functional status at discharge: uses cane/walker Overall status at discharge: patient is back to baseline Time Spent with Patient Time attestation: Total time spent providing and/or coordinating discharge services: 40 minutes. Time spent: Greater than 30 minutes Exam Narrative: General: Well-developed elderly female sitting in a chair at the side of the bed. Weight: 49.7 kg. BMI: 20.7. HEENT: PERRL, EOMI. Sclerae anicteric. Oral mucosa moist. Neck: Supple. Respiratory: Lungs are clear to auscultation bilaterally. Cardiovascular: Regular rate and rhythm with S1-S2. 2/6 high-pitched systolic murmur at the upper sternal border. Musculoskeletal: Right axillary dressing is clean, dry, and intact and was not removed for evaluation. No surrounding erythema or warmth. Gastrointestinal:
== END 2021-08-17 18:35 | disposition home health service (06) | DRG 603 ==
LOC: ANHED 23:16 → ANH2MED 08-15 00:36
PROVIDERS: Internal Medicine; Physician Assistant; Admitting Provider Internal Medicine; Emergency Provider Emergency Medicine; PCP Nurse Practitioner Family; Visit Provider Internal Medicine
DX: L02.411 Cutaneous abscess of right axilla (principal); E87.1 Hypo-osmolality and hyponatremia; B95.0 Streptococcus, group A, as the cause of diseases classified elsewhere; E11.65 Type 2 diabetes mellitus with hyperglycemia; Z20.822 Contact with and (suspected) exposure to COVID-19; E78.5 Hyperlipidemia, unspecified; E87.6 Hypokalemia; Z91.14 Patient's other noncompliance with medication regimen
CPT/HCPCS: 36415; 51701; 71260; 80048; 80053; 80202; 81001; 82533; 82570; 82948; 83036; 83605; 84300; 84443; 85025; 85027; 87040; 87070; 87075; 87077; 87205; 87426; 96361; 96365; 96366; 96367; 96372; 99285; A9270; C9803; G0378; J0696; J0743; J1650; J1815; J3370; J7030; Q9967

== ENCOUNTER 2021-08-24 09:52 | Outpatient (CLI) | payer MEDICARE, SELFPAY ==
[2021-08-24 10:33] LABS: Alanine Aminotransferase 27 U/L (14-59); Albumin Level 3.8 g/dL (3.4-5.0); Alkaline Phosphatase 137 U/L (46-116); Anion Gap 7 mmol/L (8-16); Aspartate Amino Transferase 24 U/L (15-37); Bilirubin,Total 0.5 mg/dL (0.00-1.00); Blood Urea Nitrogen 9 mg/dL (7-18); Calcium 9.3 mg/dL (8.5-10.1); Carbon Dioxide 30 mmol/L (21-32); Chloride 99 mmol/L (98-108); Estimated Glomerular Filt Rate > 60; Glucose 162 mg/dL (70-99); Osmolality Calculated 284 mOsm/kg (285-295); Potassium 4.2 mmol/L (3.5-5.1); Sodium 136 mmol/L (136-145); Total Protein 7.6 g/dL (6.4-8.2)
== END 2021-08-24 09:53 | disposition home or self-care (01) ==
LOC: CHSLAB 09:54
PROVIDERS: PCP Family Medicine; Visit Provider Family Medicine
DX: E87.6 Hypokalemia (principal); E87.1 Hypo-osmolality and hyponatremia
CPT/HCPCS: 36415; 80053

== ENCOUNTER 2021-09-02 15:11 | Outpatient (NON) | payer MEDICARE, SELFPAY | END 2021-09-02 15:12 | disposition home or self-care (01) | LOC: CHSLAB 15:14 | PROVIDERS: PCP Nurse Practitioner Family; Visit Provider Nurse Practitioner Family | DX: R19.7 Diarrhea, unspecified (principal) | CPT/HCPCS: 87045; 87269; 87324; 87427 ==

== ENCOUNTER 2021-11-21 11:16 | Inpatient (IN) | payer MEDICARE, SELFPAY ==
[2021-11-21] VITALS (7 sets, daily range): BP systolic 106–143; BP diastolic 45–71; PULSE 72–89; RESP 16–22; TEMP 37.2–37.8; O2SAT 97–100; BMI 22.1
--- NOTE | ~2021-11-21 | CT_ITS ---
EXAMINATION: CT abdomen pelvis w con DATE: 11/21/2021 13:09 INDICATION: Nausea, loss of appetite. Labial abscess. TECHNIQUE: Computed tomography (CT) of the abdomen and pelvis was performed with 100 CC Omnipaque 350 intravenous contrast. Automated exposure control and iterative reconstruction technique were employe d. Exam dose: 362.83 mGy-cm total exam DLP. COMPARISON: None. FINDINGS: There is minimal dependent atelectasis of both lower lobes. Normal heart size. No pericardi al or pleural effusion. Numerous calcified hepatic and splenic granulomas consistent with old granulomatous disease. No hepat ic, splenic, pancreatic, and adrenal or renal space-occupying mass lesion is evident with the excepti on of a probable small cyst in each kidney. The gallbladder is present. No gallbladder wall thickening or pericholecystic fluid or fat stranding. No bile duct or pancreatic duct dilatation. No urinary tract calculus or hydroureteronephrosis is evident. The urinary bladder is relatively evac uated with moderate thickening of the wall; cystitis is not excluded. Uterus and adnexal areas are un remarkable. There is atherosclerotic calcification but normal caliber of the abdominal aorta and iliac arteries. No intraperitoneal or retroperitoneal or pelvic mass lesion or adenopathy or ascites. Normal appendix. Diverticulosis of the colon; no evidence of diverticulitis. No bowel obstruction, chaz wel wall thickening, pneumatosis or intraperitoneal free air. There is subcutaneous fat soft tissue infiltration along the left perineum extending into the left bu ttock, without evidence of abscess formation or skin thickening. There is left inguinal lymphadenopat hy with an inguinal lymph node measuring up to 12 x 20 mm. Scoliosis and degenerative change of the lumbar spine including severe degenerative disc disease thro ughout the lumbar and lumbosacral area. No suspicious osteolytic or osteoblastic lesions. IMPRESSION: Soft tissue fat infiltration of left perineum and buttock area and left inguinal adenopa thy, consistent with clinically reported infection. No abscess cavity is evident. Diffuse thickening and urinary bladder wall; cystitis is not excluded Diverticulosis of the colon; no evidence of diverticulitis Reviewed, dictated and finalized at [facility]. Reviewed, dictated and finalized at location [facility]. IMPRESSION: Soft tissue fat infiltration of left perineum and buttock area and left inguinal adenopathy, consistent with clinically reported infection. No ab scess cavity is evident. Diffuse thickening and urinary bladder wall; cystitis is not excluded Diverticulosis of the colon; no evidence of diverticulitis
--- NOTE | ~2021-11-21 | US_ITS ---
EXAMINATION: US soft tissue pelvic DATE: 11/25/2021 08:24 INDICATION: Left labial abscess. TECHNIQUE: Multiple transabdominal sonographic images of the pelvis were obtained. COMPARISON: CT abdomen and pelvis 11/23/21, 11/21/21 FINDINGS: In the left perineum, there is heterogeneous echogenicity measuring 8.5 x 5.1 x 4.2 cm, consistent wi th cellulitis. IMPRESSION: 1. Cellulitis in left perineum. No well-defined drainable abscess. Reviewed, dictated and finalized at location [facility].
--- NOTE | ~2021-11-21 | US_ITS ---
EXAMINATION: US abdomen limited DATE: 11/25/2021 08:31 INDICATION: Abnormal liver function tests. TECHNIQUE: Multiple grayscale and Doppler ultrasound images of the abdomen were obtained. COMPARISON: CT abdomen and pelvis 11/23/21 FINDINGS: The visualized portions of the head and body of the pancreas are normal. The liver is vicente l without focal lesion. There is normal flow in main portal vein. The gallbladder is normal in size. No gallstones or gallbladder wall thickening. There is no sonographic Anderson sign. The common duct is normal and measures 4 mm. IMPRESSION: 1. Normal right upper quadrant ultrasound. Reviewed, dictated and finalized at location [facility].
--- NOTE | ~2021-11-21 | CT_ITS ---
EXAMINATION: CT abdomen pelvis w con DATE: 11/23/2021 14:36 INDICATION: Perineal cellulitis. TECHNIQUE: Computed tomography (CT) of the abdomen and pelvis was performed with 100 mL Omnipaque 350 intravenous contrast. Automated exposure control and iterative reconstruction technique were employe d. The dose-length product was 269.65 mGy-cm. COMPARISON: CT abdomen and pelvis 11/21/2021 FINDINGS: The visualized portions of the lung bases demonstrate moderate-sized pleural effusions and dependent atelectasis. The heart size is normal. No pericardial effusion. The liver demonstrates juan carlos portal edema. Calcifications in the liver and spleen are consistent with old granulomatous disease. T here is a small sliding hiatal hernia. The gallbladder is normal in size. The pancreas and adrenal gl ands are normal. There is cortical thinning of the kidneys. There are cysts in the kidneys measuring up to 3 mm. The bladder is distended. There is diverticulosis of the colon without evidence of divert iculitis. The appendix is normal. There is a mildly enlarged left inguinal lymph node measuring 16 x 21 mm. There is no free intraperitoneal fluid. There is subcutaneous fat stranding in the perineum o n the left. No soft tissue gas identified. There is thoracolumbar dextroscoliosis and severe spondylo sis. IMPRESSION: 1. Subcutaneous fat stranding in the peritoneum on the left, consistent with cellulitis. No abscess o r soft tissue gas. 2. Mild left inguinal lymphadenopathy, likely reactive. 3. Worsened moderate-sized pleural effusions. Reviewed, dictated and finalized at location B. IMPRESSION: 1. Subcutaneous fat stranding in the peritoneum on the left, consistent with ce llulitis. No abscess or soft tissue gas. 2. Mild left inguinal lymphadenopathy, likely reactive. 3. Worsened moderate-sized pleural effusions.
--- NOTE | ~2021-11-21 | US_ITS ---
EXAMINATION: US soft tissue pelvic DATE: 11/27/2021 15:52 INDICATION: Left labial cellulitis. TECHNIQUE: Multiple grayscale ultrasound images of the pelvis were obtained. COMPARISON: CT abdomen and pelvis 11/23/2021 FINDINGS: In the left perineum, there is a large distribution of heterogeneous echogenicity. IMPRESSION: 1. Heterogeneous echogenicity in the left perineum, consistent with cellulitis. No definite drainable fluid collection identified. Consider CT of the pelvis and proximal thighs with contrast. Reviewed, dictated and finalized at location A. IMPRESSION: 1. Heterogeneous echogenicity in the left perineum, consistent with cellulitis. No definite drainable fluid collection identified. Consider CT of the pelvis a nd proximal thighs with contrast.
[2021-11-21 11:44] LABS: Basophils Absolute Auto 0.1 K/mm3 (0.0-0.1); Basophils Percent Auto 0.4 % (0.2-1.2); Eosinophils Absolute Auto 0.5 K/mm3 (0-0.3); Eosinophils Percent Auto 2.7 % (0-4.4); Hematocrit 39.8 % (37.0-47.0); Hemoglobin 13.2 g/dL (12.0-15.0); Immature Platelet Fraction Pct 8.4 % (0.9-11.2); Lymphocytes Percent Auto 5.5 % (18.3-44.2); Mean Corpuscular HGB Conc 33.2 g/dl (32-36); Mean Corpuscular Hemoglobin 30.6 pg (26-34); Mean Corpuscular Volume 92.3 fl (80-100); Mean Platelet Volume 11.2 fl (7.4-10.4); Monocytes Absolute Auto 1.6 K/mm3 (0.1-0.6); Monocytes Percent Auto 8.3 % (2.6-8.5); Neutrophils Absolute Auto 16.1 K/mm3 (1.3-6.7); Neutrophils Percent Auto 81.1 % (45.5-73.1); Platelet Count Result 139 k/mm3 (150-375); Red Blood Count 4.31 M/mm3 (4.2-5.4); Red Cell Distribution Width 13.6 % (11.5-14.5); White Blood Count 19.9 K/mm3 (4.5-10.0)
--- NOTE | 2021-11-21 11:44 | ED.NAVMDI ---
HPI - Nausea/Vomiting/Diarrhea General Chief complaint: Nausea/Vomiting/Diarrhea <Karina Clayton PA-C - Last Filed: 11/21/21 15:39> Stated complaint: n/v <Karina Clayton PA-C - Last Filed: 11/21/21 15:39> Time Seen by Provider: 11/21/21 11:16 <Karina Clayton PA-C - Last Filed: 11/21/21 15:39> Source: patient <ANGELA Chiu Last Filed: 11/21/21 15:39> Mode of arrival: EMS <ANGELA Chiu Last Filed: 11/21/21 15:39> Limitations: no limitations <ANGELA Chiu Last Filed: 11/21/21 15:39> History of Present Illness HPI Narrative: This is a 80-year-old female that presents to the emergency department for left labial swelling noted over the last week. Associated with nausea and generalized weakness. Reports her blood sugars have been running high in the 200s this week. Denies fever, drainage from the area, vomiting, dysuria, or abdominal pain. <ANGELA Chiu Last Filed: 11/21/21 15:39> Related Data Home medications: Home Medications Medication Instructions Recorded Confirmed loperamide 2 mg tablet 2 mg PO Q6H PRN 08/31/21 <ANGELA Chiu Last Filed: 11/21/21 15:39> Allergies/Adverse reactions: Allergies Allergy/AdvReac Type Severity Reaction Status Date / Time No Known Allergies Allergy Verified 11/21/21 11:28 <ANGELA Chiu Last Filed: 11/21/21 15:39> Review of Systems Review of Systems: CONSTITUTIONAL: Denies fever GASTROINTESTINAL: Reports nausea. Denies abdominal pain, vomiting GENITOURINARY: Denies dysuria <ANGELA Chiu Last Filed: 11/21/21 15:39> All systems reviewed & are unremarkable except as noted in HPI and below <ANGELA Chiu Last Filed: 11/21/21 15:39> [facility] Past Medical History Medical History: Medical History (Updated 11/21/21 @ 15:39 by Karmen De La Garza PA-C) Hyperlipidemia Hypertension Type 2 diabetes mellitus Complicated by diabetic retinopathy. <Karina Clayton PA-C - Last Filed: 11/21/21 15:39> Surgical History Surgical History: Surgical History (Updated 11/21/21 @ 15:37 by Karmen De La Garza PA-C) History of cataract extraction History of tonsillectomy <Karina Clayton PA-C - Last Filed: 11/21/21 15:39> Family History Family History: Family History Other Diabetes mellitus Family history of cardiovascular disease Family history of thyroid disease <Karina Clayton PA-C - Last Filed: 11/21/21 15:39> Social History Social History: Social History (Updated 11/21/21 @ 15:38 by Karmen De La Garza PA-C) Social History: Surrogate decision maker: Jyoti Finnegan, daughter. Code status: Do not resuscitate. Smoking status: Never smoker Alcohol intake: never Substance use: never Additional living arrangements comments: Lives in [place]. Ambulates with a walker. Spiritual care concerns: No <Karina Clayton PA-C - Last Filed: 11/21/21 15:39> Exam Narrative: GENERAL: Elderly, well-nourished, and in no acute distress. HEAD: Normocephalic, atraumatic. EYES: EOMI. ENT: Mucous membranes moist. Oropharynx without tonsillar hypertrophy exudate or other lesions. CHEST: Clear to auscultation. No respiratory distress. No wheezes rales or rhonchi HEART: Regular rate and rhythm. No murmur heard. Normal peripheral pulses. ABDOMEN: Soft, nontender, nondistended, normal active bowel sounds. EXTREMITIES: Normal range of motion. No edema. SKIN: Warm, dry, no rash. NEURO: No focal deficits. Alert and oriented x3. PSYCH: Normal mood and affect FEMALE GENITAL: Large area of edema and erythema to the left labia diffusely <Karina Clayton PA-C - Last Filed: 11/21/21 15:39> Course OUTPATIENT PROGRAM COORDINATOR/PA Physician Supervision For this patient encounter, I reviewed the OUTPATIENT PROGRAM COORDINATOR or PA documentation, treatment plan, and medical decision making; and I had face-to-fac
[2021-11-21 11:53] LABS: Alanine Aminotransferase 60 U/L (4-35); Alkaline Phosphatase 302 U/L (38-126); Anion Gap 10 mmol/L (8-16); Aspartate Amino Transferase 58 U/L (14-36); Bilirubin,Total 2.2 mg/dL (0.2-1.3); Blood Urea Nitrogen 11 mg/dL (7-17); Calcium 8.4 mg/dL (8.4-10.2); Carbon Dioxide 24 mmol/L (22-30); Chloride 94 mmol/L (98-107); Estimated CRCL calculation 58 ml/min; Estimated Glomerular Filt Rate > 60; Glucose 189 mg/dL (65-110); Lipase 70 U/L (23-300); Potassium 3.6 mmol/L (3.4-5.0); Sodium 128 mmol/L (137-145)
[2021-11-21 12:01] LABS: Add Urine Microscopic? YES; Appearance Urine Clear (Clear); Bilirubin Urine Negative (Negative); Blood Urine Negative (Negative); Color Urine Amber (Yellow); Glucose Urine UA 3+ mg/dL (Negative); Ketones Urine 2+ mg/dL (Negative); Leukocyte Esterase Ur Negative LEU/UL (Negative); Mucus Urine Rare /lpf; Nitrate Urine Negative (Negative); Protein Urine 2+ mg/dL (Negative)
[2021-11-21] MEDS: SODIUM CHLORIDE 0.9% IV 500 ML 999 ML IV CONT (12:07)
[2021-11-21 12:11] LABS: Lactic Acid Reflex 2.3 mmol/L (0.7-2.0)
[2021-11-21 12:13] LABS: INR 1.2
[2021-11-21 12:14] LABS: Partial Thromboplastin Time 38.9 SECONDS (22.3-36.8)
[2021-11-21] MEDS: SODIUM CHLORIDE 0.9% IV 1,000 ML 999 ML IV CONT (14:01)
[2021-11-21 14:58] LABS: Reflex Lactic Acid Yes or No Add Lactic
[2021-11-21 15:28] LABS: Lactic Acid 1.3 mmol/L (0.7-2.0)
--- NOTE | 2021-11-21 16:45 | PM.IMHP ---
H&P: HPI History of Present Illness Date/Time: 11/21/21 16:45 Chief Complaint: Left labial swelling, weakness, and elevated blood sugars. Narrative: This is a pleasant 80-year-old female with type 2 diabetes mellitus who presented to the emergency department from home for evaluation of left labial swelling, weakness, and elevated blood sugars. About a week and half ago she noticed a small bump on her left labia which has gotten progressively larger and more painful as the days have gone on. She has been taking ibuprofen though that upset her stomach and she is now having nausea and her appetite has dropped off. Her glucose has also been climbing and has been consistently in the 200s this week. Additionally she reports a low-grade temperature of right around 100? F. She decided come in today for evaluation as the pain is just not improving and the swelling seems to be expanding. Temperature was 100.1? F on arrival to the emergency department at her other vital signs have been stable. A CT of the abdomen and pelvis showed soft tissue fat infiltration of the left perineum and buttock area and left inguinal adenopathy with no abscess evident. I was asked to admit the patient in this setting for further treatment of cellulitis of the labia and perineum. At the time my evaluation she is resting comfortably and has no specific complaints aside from discomfort in the perineum from sitting down. Review of Systems Review of Systems: Twelve systems were reviewed. No blurry vision, polydipsia, or polyuria. She denies cold and flu symptoms. No cough. No sick contacts. No vomiting or diarrhea. No dysuria. Except as documented, all other systems were reviewed and are negative. [facility] Past Medical History Medical History (Updated 11/21/21 @ 23:39 by Karmen De La Garza PA-C) Hyperlipidemia Hypertension Type 2 diabetes mellitus Complicated by diabetic retinopathy. Surgical History Surgical History (Updated 11/21/21 @ 15:37 by Karmen De La Garza PA-C) History of cataract extraction History of tonsillectomy Family History Family History Other Diabetes mellitus Family history of cardiovascular disease Family history of thyroid disease Social History Social History (Updated 11/21/21 @ 15:38 by Karmen De La Garza PA-C) Social History: Surrogate decision maker: Jyoti Finnegan, daughter. Code status: Do not resuscitate. Smoking status: Never smoker Alcohol intake: never Substance use: never Additional living arrangements comments: Lives in [place]. Ambulates with a walker. Spiritual care concerns: No Meds Home Medications and Allergies Home Medications Medication Instructions Recorded Confirmed Type flash glucose scanning reader #1 ea 08/18/21 11/21/21 Rx loperamide 2 mg tablet 2 mg PO Q6H PRN 08/31/21 11/21/21 History dulaglutide 0.75 mg/0.5 mL 0.75 mg SUBCUT WEEKLY #2 ml 09/04/21 11/21/21 Rx subcutaneous pen injector atorvastatin 10 mg tablet See Rx Instructions .ROUTE 10/05/21 11/21/21 Rx .COMPLEX #90 tablet metformin 500 mg tablet,extended See Rx Instructions .ROUTE 10/05/21 11/21/21 Rx release 24 hr .COMPLEX #180 tablet flash glucose sensor See Rx Instructions .ROUTE 11/03/21 11/21/21 Rx .COMPLEX #1 kit Allergies Allergy/AdvReac Type Severity Reaction Status Date / Time No Known Allergies Allergy Verified 11/21/21 11:28 Vital Signs Vital Signs - 24 hr 11/21/21 11:17 11/21/21 14:19 11/21/21 15:09 Temperature 98.9 F Pulse Rate 89 84 72 Respiratory Rate 22 H 20 18 Blood Pressure 143/63 H 114/45 L 115/47 L Pulse Oximetry 100 98 97 Exam Narrative: General: Well-developed elderly female sitting up in bed. Nontoxic in appearance. Weight: 55 kg. BMI: 22.2. HEENT: Wearing glasses. PERRL, EOMI. Sclerae anicteric. Tacky mucous membranes. Neck: Supple. Respiratory: Lungs are clear to auscultation bilaterally.
--- NOTE | 2021-11-21 16:59 | ADMGEN ---
This patient, Nusrat Hernández, was admitted to 3 [facility] Surg Room 312-01 at 1640. Patient/family oriented to hospital policies and general routines including ID bracelet, bed and alarms, visiting hours, pain management, procedures, bathroom and other care routines, personal items, smoking policy, room service/diet, and visiting hours. Information on how to activate the Rapid Response Team has been discussed. Patient/Family are encouraged to report perceived risks to care and to ask questions if they do not understand what they are told or what they should do.
[2021-11-21 17:01] LABS: Glucose Point of Care 168 mg/dl (65-105)
[2021-11-22] MEDS: SODIUM CHLORIDE 0.9% IV 1,000 ML 100 ML IV CONT (00:55)
[2021-11-22] MEDS: diphenhydrAMINE HCl INJ 50 MG/ML VIAL 25 MG IV PUSH (00:55)
[2021-11-22 06:00] VITALS: BP 125/61; PULSE 81; RESP 22; TEMP 37.6; O2SAT 96
[2021-11-22 06:12] LABS: Hematocrit 31.1 % (37.0-47.0); Hemoglobin 10.8 g/dL (12.0-15.0); Immature Platelet Fraction Pct 7.4 % (0.9-11.2); Mean Corpuscular HGB Conc 34.7 g/dl (32-36); Mean Corpuscular Volume 89.4 fl (80-100); Mean Platelet Volume 11.3 fl (7.4-10.4); Platelet Count Result 126 k/mm3 (150-375); Red Blood Count 3.48 M/mm3 (4.2-5.4); Red Cell Distribution Width 13.2 % (11.5-14.5); White Blood Count 12.5 K/mm3 (4.5-10.0)
[2021-11-22 06:21] LABS: Alanine Aminotransferase 43 U/L (4-35); Albumin Level 2.9 g/dL (3.5-5.1); Alkaline Phosphatase 240 U/L (38-126); Anion Gap 3 mmol/L (8-16); Aspartate Amino Transferase 40 U/L (14-36); Bilirubin,Total 1.5 mg/dL (0.2-1.3); Blood Urea Nitrogen 10 mg/dL (7-17); Calcium 7.7 mg/dL (8.4-10.2); Carbon Dioxide 25 mmol/L (22-30); Chloride 100 mmol/L (98-107); Estimated CRCL calculation 71 ml/min; Estimated Glomerular Filt Rate > 60; Glucose 123 mg/dL (65-110); Hemoglobin A1C 6.6 % (<5.7); Magnesium 1.9 mg/dL (1.6-2.3); Potassium 3.3 mmol/L (3.4-5.0); Sodium 128 mmol/L (137-145)
[2021-11-22 08:04] LABS: Glucose Point of Care 137 mg/dl (65-105)
[2021-11-22] MEDS: ENOXAPARIN 40 MG/0.4 ML SYRINGE SUB-Q (08:07)
[2021-11-22] MEDS: CALCIUM CARBONATE (OSCAL) 500 MG TABLET PO ×2 (08:07→17:06)
[2021-11-22 11:49] LABS: Glucose Point of Care 181 mg/dl (65-105)
[2021-11-22 13:48] VITALS: BP 124/59; PULSE 85; RESP 20; TEMP 36.6; O2SAT 97
--- NOTE | 2021-11-22 15:55 | PM.IMPN ---
Progress Note: A&P Assessment and Plan (1) Cellulitis of labia: Code(s): N76.2 - Acute vulvitis Status: Acute Assessment and Plan: Left labia has an area that appears to be coming to a head though has not opened, or drained that I can see on exam. No large area of fluctuance or abscess noted on CT upon admission. White blood cell count today 12.5 (19.9). Continue with IV antibiotics to include imipenem and vancomycin. Daily skin exams, with consult to surgery should abscess developed. Blood cultures show no growth. (2) Type 2 diabetes mellitus: Qualifiers: Diabetes mellitus half-way insulin use: unspecified continuous churn buttermaker insulin use status Diabetes mellitus complication status: with hyperglycemia Qualified Code(s): E11.65 - Type 2 diabetes mellitus with hyperglycemia Code(s): E11.9 - Type 2 diabetes mellitus without complications Status: Acute Assessment and Plan: Glucose has been running high over the past 1 week, concurrent with her infection. Continue Trulicity Continue sliding scale insulin, Accu-Cheks, and hypoglycemic protocol. Hemoglobin A1c 6.6 Diabetic diet (3) Hyponatremia: Code(s): E87.1 - Hypo-osmolality and hyponatremia Status: Acute Assessment and Plan: Hyponatremic at 128 upon arrival. She continues to be hyponatremic today, after IV fluid resuscitation. Salt tabs 1 g q.a.m. (4) Elevated LFTs: Code(s): R79.89 - Other specified abnormal findings of blood chemistry Status: Acute Assessment and Plan: May be related to infection, but these continue to be down trending after admission. Abdominal exam is benign. Hypoalbuminemia today at 2.9. Blood pressures have remained stable Hepatitis panel Additional Plan Plan to discuss tomorrow with the patient whether not she desires assessment for her depression, as this may be having a negative impact on her health. Of note she has quite a distinct systolic ejection murmur consistent with moderate aortic stenosis. Will advise that she follow up outpatient with Cardiology. Subjective Date/time seen: 11/22/21 15:55 80-year-old female past medical history of diabetes mellitus, dyslipidemia, and hypertension, who presents to us for swelling of the labia. Interval history: She reports she is feeling much better today, and without pain, unless the site is touched directly. She states she noticed drainage last night coming from the labia. She denies current fevers, chills, shortness of breath, chest pain. She does report incidentally that her in April, and she does suffer from sometimes crippling depression where-in she does not leave her house for days to weeks. She has not seen seen anyone for this. She reports she noticed the bump on her labia a week and half ago, and was also having issues with nausea, decreased appetite, and high blood sugars, but she was too embarrassed to go see her doctor due to the bump on her labia. Review of Systems Review of Systems: All systems reviewed & are unremarkable except as noted in HPI and below Exam Narrative: GENERAL APPEARANCE: Alert and oriented x 3, in no apparent distress. HEENT: PERRL, EOMI. Sclerae anicteric. Moist mucous membranes. NECK: Supple. No JVD or obvious carotid bruits. RESPIRATORY: Respirations are nonlabored. Breath sounds are equal and clear bilaterally. No wheezes, Rhonchi, or rales. CARDIOVASCULAR: Systolic ejection murmur over the pulmonary and aortic areas, with radiation to the bilateral carotids, with normal S1-S2. No murmurs, gallops, or rubs. GASTROINTESTINAL: Soft, flat, and benign. No mass, tenderness, guarding, or rebound. No organomegaly or hernia. Bowel sounds are present. SKIN: Warm, dry, well perfused. Good turgor. Firm, erythematous, warm, nonfluctuant area on the left labia majora, without evidence of the drainage on exam. EXTREMITIES: Chr
[2021-11-22 16:40] LABS: Glucose Point of Care 149 mg/dl (65-105)
[2021-11-22 20:33] LABS: Glucose Point of Care 229 mg/dl (65-105)
[2021-11-22 22:00] VITALS: BP 152/77; PULSE 83; RESP 18; TEMP 37.2; O2SAT 96
[2021-11-23 06:00] VITALS: BP 153/67; PULSE 81; RESP 18; TEMP 36.6; O2SAT 96
[2021-11-23 06:29] LABS: Estimated CRCL calculation 71 ml/min; Estimated Glomerular Filt Rate > 60
[2021-11-23 07:43] LABS: Glucose Point of Care 169 mg/dl (65-105)
[2021-11-23] MEDS: CALCIUM CARBONATE (OSCAL) 500 MG TABLET PO ×2 (08:52→18:31)
[2021-11-23] MEDS: ENOXAPARIN 40 MG/0.4 ML SYRINGE SUB-Q (08:52)
[2021-11-23 08:59] LABS: Basophils Absolute Auto 0.1 K/mm3 (0.0-0.1); Basophils Percent Auto 0.6 % (0.2-1.2); Eosinophils Absolute Auto 0.1 K/mm3 (0-0.3); Eosinophils Percent Auto 0.5 % (0-4.4); Hematocrit 32.9 % (37.0-47.0); Hemoglobin 11.4 g/dL (12.0-15.0); Immature Granulocyte Percent A 0.9 % (0-0.5); Lymphocytes Absolute Auto 1.67 K/mm3 (0.9-3.2); Lymphocytes Percent Auto 15.2 % (18.3-44.2); Mean Corpuscular HGB Conc 34.7 g/dl (32-36); Mean Corpuscular Hemoglobin 30.6 pg (26-34); Mean Corpuscular Volume 88.4 fl (80-100); Mean Platelet Volume 11.9 fl (7.4-10.4); Monocytes Absolute Auto 0.9 K/mm3 (0.1-0.6); Monocytes Percent Auto 8.3 % (2.6-8.5); Neutrophils Absolute Auto 8.2 K/mm3 (1.3-6.7); Neutrophils Percent Auto 74.5 % (45.5-73.1); Platelet Count Result 175 k/mm3 (150-375); Red Blood Count 3.72 M/mm3 (4.2-5.4); Red Cell Distribution Width 13.2 % (11.5-14.5)
[2021-11-23 09:08] LABS: Alanine Aminotransferase 46 U/L (4-35); Albumin Level 2.9 g/dL (3.5-5.1); Alkaline Phosphatase 309 U/L (38-126); Anion Gap 5 mmol/L (8-16); Aspartate Amino Transferase 46 U/L (14-36); Bilirubin,Total 0.7 mg/dL (0.2-1.3); Blood Urea Nitrogen 8 mg/dL (7-17); Calcium 7.9 mg/dL (8.4-10.2); Carbon Dioxide 25 mmol/L (22-30); Chloride 100 mmol/L (98-107); Estimated CRCL calculation 71 ml/min; Estimated Glomerular Filt Rate > 60; Glucose 157 mg/dL (65-110); Sodium 130 mmol/L (137-145)
[2021-11-23 11:29] LABS: Glucose Point of Care 223 mg/dl (65-105)
--- NOTE | 2021-11-23 11:43 | PM.IMPN ---
Progress Note: A&P Assessment and Plan (1) Cellulitis of labia: Code(s): N76.2 - Acute vulvitis Status: Acute Assessment and Plan: Left labia has an area has come to a head, with some mild drainage, of concern, the initial area has extended down to the perineum and left buttock, with the patient endorsing new significant tenderness and burning in the perineum. White blood cell count today 11 (12.5), (19.9). Patient continues to be afebrile. Patient is also endorsing significant discomfort in the bladder area, with hesitancy to use her bed craft. Initial CT of abdomen pelvis showed diffuse thickening of urinary bladder wall, initial UA showed protein, glucose, ketones, urobilinogen, and 6-10 rbc's per high powered field. Will proceed to rule out concurrent UTI. Repeat CT showed subcutaneous fat stranding in the perineum on the left, consistent with cellulitis. No abscess or soft tissue gas. I discussed these results with the radiologist in comparison with her prior imaging, the opinion was that not much change had occurred between the two images. CT also showed worsened moderate sized pleural effusions bilaterally. Left labial wound culture UA with reflex to culture today. Continue with broad-spectrum IV antibiotics to include imipenem and vancomycin. Daily skin exams, with consult to surgery pending CT abdomen pelvis Blood cultures show no growth. 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 Continue Trulicity Continue sliding scale insulin, Accu-Cheks, and hypoglycemic protocol. Hemoglobin A1c 6.6 Diabetic diet (3) Elevated LFTs: Code(s): R79.89 - Other specified abnormal findings of blood chemistry Status: Acute Assessment and Plan: May be related to infection, but these continue to be down trending after admission. Abdominal exam is benign. Hypoalbuminemia today at 2.9. Blood pressures have remained stable Hepatitis panel (4) Electrolyte abnormality: Code(s): E87.8 - Other disorders of electrolyte and fluid balance, not elsewhere classified Status: Acute Assessment and Plan: K 3.0 today. KCl 40meq today and tomorrow AM. Recheck in AM. Hyponatremic at 130 today, somewhat improved from 128. Salt tabs 1 g q.a.m. Ca 7.9 today. OSCAL 500 BID Additional Plan Discussed patient's mental health, patient declined to meet with a psychiatrist, and is not interested in psychiatric medications to treat her depression at this time. Denies SI, HI. Discussed likely finding of aortic stenosis with the patient, she is not followed by a computer applications engineer, we will provide a referral for her. She is not symptomatic at this time, and we will not pursue additional testing/echocardiogram during her stay. Transition patient from Lovenox SCDs today for DVT prophylaxis. Subjective Date/time seen: 11/23/21 11:43 Interval history: 80-year-old female past medical history of diabetes mellitus, dyslipidemia, and hypertension, who presents to us for swelling of the labia. Patient reports increased discomfort today, though she denies pain. She states her bladder feels uncomfortably full, and that she does not enjoy using her bed craft. She denies urinary urgency, frequency, or dysuria. She states she had a significant amount of burning in her perineum last night that caused her discomfort. She denies any active drainage. We discussed her depression and mental health concerns after the recent loss of her hus
[2021-11-23] MEDS: SODIUM CHLORIDE 1 GM TABLET PO (12:06)
[2021-11-23] MEDS: INSULIN ASPART (*BKC) 100 UNITS/ML SUB-Q (12:06)
[2021-11-23 14:00] VITALS: BP 137/69; PULSE 80; RESP 18; TEMP 37.1; O2SAT 94
[2021-11-23 14:04] LABS: Hepatitis B Surface Antigen Negative (Negative)
[2021-11-23 14:10] LABS: HAV RESULT Negative (Negative); Hepatitis B Core IgM Result Negative (Negative)
[2021-11-23 14:21] LABS: Hepatitis C Virus Antibody Negative (Negative)
[2021-11-23 15:21] LABS: Appearance Urine Clear (Clear); Bilirubin Urine Negative (Negative); Color Urine Yellow (Yellow); Glucose Urine UA 2+ mg/dL (Negative); Ketones Urine Negative (Negative); Leukocyte Esterase Ur Negative LEU/UL (Negative); Nitrate Urine Negative (Negative); Protein Urine Negative (Negative); Specific Grav Ur 1.015 (1.001-1.035); Urobilinogen Urine 0.2 mg/dL (<2.0); pH Urine 7.5 (5.0-9.0)
[2021-11-23 15:26] LABS: Add Urine Microscopic? YES; Blood Urine Trace-Intact (Negative)
[2021-11-23 15:27] LABS: Squamous Epithelial Cell Urine Rare /hpf (Few); WBC Urine 0-3 /hpf
[2021-11-23] MEDS: HYDROmorphone HCL INJ (*CRX) 1 MG/ML SYR 0.5 MG IV PUSH (15:31)
[2021-11-23] MEDS: POTASSIUM CHLORIDE 20 MEQ PACKET (FOR LIQUID) 40 MEQ PO (15:45)
[2021-11-23 16:31] LABS: Glucose Point of Care 160 mg/dl (65-105)
[2021-11-23 19:44] LABS: Vancomycin Trough 8.4 ug/mL (10.0-20.0)
[2021-11-23 21:53] VITALS: BP 140/56; PULSE 80; RESP 18; TEMP 35.6; O2SAT 97
[2021-11-23 22:33] LABS: Glucose Point of Care 148 mg/dl (65-105)
[2021-11-24] MEDS: ACETAMINOPHEN 325 MG TABLET 650 MG PO (03:32)
[2021-11-24 06:00] VITALS: BP 158/71; PULSE 78; RESP 18; TEMP 36.1; O2SAT 100
[2021-11-24 08:23] LABS: Basophils Absolute Auto 0.1 K/mm3 (0.0-0.1); Eosinophils Absolute Auto 0.1 K/mm3 (0-0.3); Eosinophils Percent Auto 0.6 % (0-4.4); Hematocrit 35.6 % (37.0-47.0); Hemoglobin 12.4 g/dL (12.0-15.0); Immature Granulocyte Absolute 0.16 K/mm3 (0.00-0.031); Immature Granulocyte Percent A 1.6 % (0-0.5); Lymphocytes Absolute Auto 1.65 K/mm3 (0.9-3.2); Mean Corpuscular HGB Conc 34.8 g/dl (32-36); Mean Corpuscular Hemoglobin 30.8 pg (26-34); Mean Corpuscular Volume 88.3 fl (80-100); Mean Platelet Volume 10.6 fl (7.4-10.4); Monocytes Absolute Auto 0.9 K/mm3 (0.1-0.6); Monocytes Percent Auto 9.3 % (2.6-8.5); Neutrophils Absolute Auto 6.8 K/mm3 (1.3-6.7); Neutrophils Percent Auto 70.5 % (45.5-73.1); Platelet Count Result 245 k/mm3 (150-375); Red Blood Count 4.03 M/mm3 (4.2-5.4); Red Cell Distribution Width 13.1 % (11.5-14.5); White Blood Count 9.7 K/mm3 (4.5-10.0)
[2021-11-24] MEDS: CALCIUM CARBONATE (OSCAL) 500 MG TABLET PO (08:30)
[2021-11-24] MEDS: SODIUM CHLORIDE 1 GM TABLET PO (08:30)
--- NOTE | 2021-11-24 08:33 | PM.IMPN ---
Progress Note: A&P Assessment and Plan (1) Cellulitis of labia: Code(s): N76.2 - Acute vulvitis Status: Acute Assessment and Plan: Left labia has an area has come to a head, with some mild drainage, with extension down to the perineum and left buttock, with the patient endorsing significant tenderness and burning in the perineum. White blood cell count today 9.7 (11) (12.5), (19.9). Patient continues to be afebrile. She was able to ambulate with walker to the restroom today for the first time. She feels quite weak. Repeat CT showed subcutaneous fat stranding in the perineum on the left, consistent with cellulitis. No abscess or soft tissue gas. I discussed these results with the radiologist. CT also showed worsened moderate sized pleural effusions bilaterally, though patient is asymptomatic with benign exam. UA without evidence of infection. VSS Left labial wound culture with no organisms seen, nursing advised they were not able to collect drainage purulent material. Blood cultures negative Continue vancomycin and imipenem Start daily probiotic given history of C.Diff Consult to gynecology for inputs. Continue Incentive spirometry (2) Type 2 diabetes mellitus: Qualifiers: Diabetes mellitus complication status: with hyperglycemia Diabetes mellitus long-term insulin use: unspecified long-term insulin use status Qualified Code(s): E11.65 - Type 2 diabetes mellitus with hyperglycemia Code(s): E11.9 - Type 2 diabetes mellitus without complications Status: Acute Assessment and Plan: Glucose 148 today. Continue Trulicity Continue sliding scale insulin, Accu-Cheks, and hypoglycemic protocol. Hemoglobin A1c 6.6 Diabetic diet (3) Elevated LFTs: Code(s): R79.89 - Other specified abnormal findings of blood chemistry Status: Acute Assessment and Plan: AST/ALT continue to be down trending after admission. Abdominal exam is benign. Alk Phos is uptrending 315 (309) (240) Hepatitis panel negative RUQ ultrasound ordered. (4) Electrolyte abnormality: Code(s): E87.8 - Other disorders of electrolyte and fluid balance, not elsewhere classified Status: Acute Assessment and Plan: K 3.1 today. KCl 40meq today. Recheck in AM. Hyponatremic at 136 today, somewhat improved from 130 Salt tabs 1 g q.a.m. Repeat labs AM Ca 8.5 today. Continue to monitor D/C Oscal Additional Plan Discussed patient's mental health, patient declined to meet with a psychiatrist, and is not interested in psychiatric medications. Will provide patient with grief support group information via engraver flatware visit today. PT and OT are evaluating this patient, advised patient will benefit from skilled PT services. Discussed heart murmur on exam consistent with aortic stenosis with the patient, she is not followed by a legal arbitrator, we will provide a referral for her. She is not symptomatic at this time, and we will not pursue additional testing/echocardiogram during her stay. Transition patient from Lovenox SCDs today for DVT prophylaxis. Subjective Date/time seen: 11/24/21 08:33 Interval history: 80-year-old female past medical history of diabetes mellitus, dyslipidemia, and hypertension, who presents to us for swelling of the labia. Patient reports she is up and ambulating with a walker to the restroom today for the 1st time. She endorses continued dizziness and weakness. She denies chest pain, shortness a breath, abdominal pain, dysuria, bowel or bladder changes. She was seen by the engraver flatware today at my request, and found his prayer with her to be calming. Review of Systems Review of Systems: All systems reviewed & are unremarkable except as noted in HPI and below Exam Narrative: GENERAL APPEARANCE: Thin elderly woman, sitting in chair. She appeared uncomfortable today is sitting in the chair likely due to her alberto
[2021-11-24 08:38] LABS: Alanine Aminotransferase 42 U/L (4-35); Albumin Level 3.1 g/dL (3.5-5.1); Alkaline Phosphatase 315 U/L (38-126); Anion Gap 7 mmol/L (8-16); Aspartate Amino Transferase 34 U/L (14-36); Bilirubin,Total 0.6 mg/dL (0.2-1.3); Blood Urea Nitrogen 5 mg/dL (7-17); Calcium 8.5 mg/dL (8.4-10.2); Carbon Dioxide 28 mmol/L (22-30); Chloride 101 mmol/L (98-107); Estimated CRCL calculation 71 ml/min; Estimated Glomerular Filt Rate > 60; Glucose 175 mg/dL (65-110); Potassium 3.1 mmol/L (3.4-5.0); Sodium 136 mmol/L (137-145)
[2021-11-24 11:53] LABS: Glucose Point of Care 215 mg/dl (65-105)
[2021-11-24] MEDS: INSULIN ASPART (*BKC) 100 UNITS/ML SUB-Q ×2 (12:26→17:39)
[2021-11-24 14:00] VITALS: BP 163/72; PULSE 83; RESP 18; TEMP 36.9; O2SAT 98
[2021-11-24] MEDS: POTASSIUM CHLORIDE 20 MEQ PACKET (FOR LIQUID) 40 MEQ PO (14:45)
[2021-11-24 16:22] LABS: Glucose Point of Care 170 mg/dl (65-105)
[2021-11-24 16:47] LABS: Glucose Point of Care 220 mg/dl (65-105)
--- NOTE | 2021-11-24 16:59 | WPDCN ---
Assessment and Plan Assessment and plan (1) Type 2 diabetes mellitus: Qualifiers: Diabetes mellitus complication status: with hyperglycemia Diabetes mellitus salvage determiner insulin use: unspecified usp insulin use status Qualified Code(s): E11.65 - Type 2 diabetes mellitus with hyperglycemia Code(s): E11.9 - Type 2 diabetes mellitus without complications Status: Acute Assessment and Plan: - Recommend tighter glucose control as this is the leading cause for a labial infection (2) Cellulitis of labia: Code(s): N76.2 - Acute vulvitis Status: Acute Assessment and Plan: - Labial US ordered for the AM to rule out abscess/fluid collection - If fluid collection noted; would need to perform I&D in OR due to large size/pain control - Will continue vancomycin - Will switch imipenem to zosyn - Can apply ice or heat packs depending on patients preference - Pain control with tylenol, if not adequate, ok to give norco - Will order diflucan 150mg PO once - Will continue to follow daily; will likely need multiple more days in hospital HPI Data of Consult Date/Time: 11/24/21 16:59 Requesting Physician: Brianna Chiu PA-C Primary Care Provider: Nafisa Sutherland NP Consult Narrative Narrative: Nusrat Hernández is a 80 year old female admitted with a left labial cellulitis/abscess. It initially presented about two weeks ago as a small bump on her left labia and progressively worsened. She was having pain; taking ibuprofen which lead to an upset stomach. She began having decreased appetite and low grade fevers leading to dehydration. She has been admitted inpatient since 11/21/21. In the ER, she was found to have a leukocytosis of almost 20; now down trended to 9.7. She has been afebrile. Blood and wound cultures are negative. She has been on vancomycin and imipenem. The abscess began draining today. Of note, she also has uncontrolled DM with her blood glucose >200's. Review of Systems Review of Systems: All systems reviewed & are unremarkable except as noted in HPI and below (HPI) PMFSH Past Medical History Medical History Hyperlipidemia Hypertension Type 2 diabetes mellitus Complicated by diabetic retinopathy. Surgical History Surgical History History of cataract extraction History of tonsillectomy Family History Family History Other Diabetes mellitus Family history of cardiovascular disease Family history of thyroid disease Social History Social History Social History: Surrogate decision maker: Jyoti Finnegan, daughter. Code status: Do not resuscitate. Smoking status: Never smoker Alcohol intake: never Substance use: never Additional living arrangements comments: Lives in [place]. Ambulates with a walker. Spiritual care concerns: No Meds Home Medications and Allergies Home Medications Medication Instructions Recorded Confirmed Type flash glucose scanning reader #1 ea 08/18/21 11/21/21 Rx loperamide 2 mg tablet 2 mg PO Q6H PRN 08/31/21 11/21/21 History dulaglutide 0.75 mg/0.5 mL 0.75 mg SUBCUT WEEKLY #2 ml 09/04/21 11/21/21 Rx subcutaneous pen injector atorvastatin 10 mg tablet See Rx Instructions .ROUTE 10/05/21 11/21/21 Rx .COMPLEX #90 tablet metformin 500 mg tablet,extended See Rx Instructions .ROUTE 10/05/21 11/21/21 Rx release 24 hr .COMPLEX #180 tablet flash glucose sensor See Rx Instructions .ROUTE 11/03/21 11/21/21 Rx .COMPLEX #1 kit Allergies Allergy/AdvReac Type Severity Reaction Status Date / Time No Known Allergies Allergy Verified 11/21/21 11:28 Vital Signs Vital Signs - 24 hr 11/23/21 21:53 11/24/21 06:00 11/24/21 14:00 Temperature 96.0 F L 97.0 F L 98.5 F Pulse Rate 8
[2021-11-24] MEDS: SACCHAROMYCES BOULARDII 250 MG CAPSULE PO (18:25)
[2021-11-24 20:46] VITALS: BP 175/82; PULSE 98; RESP 16; TEMP 37; O2SAT 93
[2021-11-25] MEDS: ACETAMINOPHEN 325 MG TABLET 650 MG PO (00:10)
[2021-11-25 05:36] VITALS: BP 145/55; PULSE 69; RESP 16; TEMP 35.9; O2SAT 100
[2021-11-25 06:31] LABS: Estimated CRCL calculation 71 ml/min; Estimated Glomerular Filt Rate > 60
[2021-11-25 08:27] LABS: Basophils Absolute Auto 0.1 K/mm3 (0.0-0.1); Basophils Percent Auto 1.2 % (0.2-1.2); Eosinophils Absolute Auto 0.1 K/mm3 (0-0.3); Eosinophils Percent Auto 1.1 % (0-4.4); Hematocrit 34.2 % (37.0-47.0); Hemoglobin 11.7 g/dL (12.0-15.0); Immature Granulocyte Percent A 3.3 % (0-0.5); Lymphocytes Absolute Auto 1.71 K/mm3 (0.9-3.2); Lymphocytes Percent Auto 18.6 % (18.3-44.2); Mean Corpuscular HGB Conc 34.2 g/dl (32-36); Mean Corpuscular Hemoglobin 30.9 pg (26-34); Mean Corpuscular Volume 90.2 fl (80-100); Mean Platelet Volume 10.7 fl (7.4-10.4); Monocytes Absolute Auto 0.9 K/mm3 (0.1-0.6); Monocytes Percent Auto 9.4 % (2.6-8.5); Neutrophils Absolute Auto 6.1 K/mm3 (1.3-6.7); Neutrophils Percent Auto 66.4 % (45.5-73.1); Platelet Count Result 280 k/mm3 (150-375); Red Blood Count 3.79 M/mm3 (4.2-5.4); Red Cell Distribution Width 13.3 % (11.5-14.5); White Blood Count 9.2 K/mm3 (4.5-10.0)
[2021-11-25 08:52] LABS: Glucose Point of Care 230 mg/dl (65-105)
[2021-11-25] MEDS: FLUCONAZOLE 150 MG TABLET PO (09:02)
[2021-11-25] MEDS: SACCHAROMYCES BOULARDII 250 MG CAPSULE PO ×2 (09:02→16:52)
[2021-11-25] MEDS: INSULIN ASPART (*BKC) 100 UNITS/ML SUB-Q ×2 (09:03→12:05)
[2021-11-25 09:55] LABS: Alanine Aminotransferase 42 U/L (4-35); Albumin Level 3.1 g/dL (3.5-5.1); Alkaline Phosphatase 293 U/L (38-126); Anion Gap 7 mmol/L (8-16); Aspartate Amino Transferase 35 U/L (14-36); Bilirubin,Total 0.3 mg/dL (0.2-1.3); Blood Urea Nitrogen 7 mg/dL (7-17); Calcium 8.7 mg/dL (8.4-10.2); Carbon Dioxide 24 mmol/L (22-30); Chloride 106 mmol/L (98-107); Estimated CRCL calculation 58 ml/min; Estimated Glomerular Filt Rate > 60; Glucose 173 mg/dL (65-110); Potassium 3.7 mmol/L (3.4-5.0); Sodium 137 mmol/L (137-145)
[2021-11-25 11:50] LABS: Glucose Point of Care 348 mg/dl (65-105)
--- NOTE | 2021-11-25 13:52 | PCOTNOTE ---
Patient refusing to participate in any ADLs out of bed. Patient upset about poor evening, slightly upset with night RN. Patient not seen for OT this date.
--- NOTE | 2021-11-25 13:52 | PCPTNOTE ---
Addendum entered by Juan Deleon, BOTTOM BLEACHER 11/25/21 13:57: Patient declined PT services at 11:05. Original Note: Patient declined PT this A.M. stating she has been out of the room for testing and is having groin pain. PT will continue to follow per plan of care.
--- NOTE | 2021-11-25 13:54 | PM.GYNPNOP ---
LINKING MACHINE OPERATOR - A/P Assessment and plan (1) Cellulitis of labia: Code(s): N76.2 - Acute vulvitis Status: Acute Assessment and Plan: - Labial US this AM shows cellulitis only; no drainable abscess - Continue vancomycin and zosyn - WBC down trending; currently 9.2, afebrile, pain improving - Nurse to apply ice and/or heat packs depending on patients preference-- encouraged to try and lay flat; avoid significant pressure on the area; can place barrier cream - Pain control with tylenol, if not adequate, ok to give norco - Will continue to follow daily; will likely need multiple more days in hospital - When discharged; will be rx'ed bacctrim DS (2) Type 2 diabetes mellitus: Qualifiers: Diabetes mellitus mcc insulin use: unspecified mcc insulin use status Diabetes mellitus complication status: with hyperglycemia Qualified Code(s): E11.65 - Type 2 diabetes mellitus with hyperglycemia Code(s): E11.9 - Type 2 diabetes mellitus without complications Status: Acute Time Spent With Patient Time: Total time spent is greater than 50% in coordination of care (as documented) at patient's floor/unit and/or counseling patient: Time with patient: less than 15 minutes LINKING MACHINE OPERATOR- PN:Subj Post-Op Subjective Date/time seen: 11/25/21 13:54 Interval history: 80-year-old female past medical history of diabetes mellitus, dyslipidemia, and hypertension, admitted with vulvar cellulitis. She reports continued swelling/burning/irritation of her labia. Minimal drainage noted. US performed this morning. Patient reports she has been up and ambulating with a walker. Tolerating regular diet. She is feeling stronger. She denies chest pain, shortness a breath, abdominal pain, dysuria, bowel or bladder changes. Afebrile. WBC downtrending. Review of Systems Review of Systems: All systems reviewed & are unremarkable except as noted in HPI and below (HPI) Exam Const: General: cooperative, comfortable and no acute distress : Other: left labial edema, erythema, and induration measuring 9x6cm extending down into left buttock; small area of drainage of top of left labia, only ~1cc of purulent discharge expressed; mildly tender to touch no obvious change since yesterday LINKING MACHINE OPERATOR - PN: Obj Data Vital Signs Vital Signs: Vital Signs - 24 hr 11/24/21 14:00 11/24/21 20:46 11/25/21 05:36 Temperature 98.5 F 98.6 F 96.7 F L Pulse Rate 83 98 69 Respiratory Rate 18 16 16 Blood Pressure 163/72 H 175/82 H 145/55 H Pulse Oximetry 98 93 100 Intake/Output Intake/Output: Intake & Output 11/22/21 11/23/21 11/24/21 11/25/21 23:59 23:59 23:59 23:59 Intake Total 3530 2210 1340 590 Output Total 8420 024 3709 350 Balance 2230 1260 -660 240 Meds/Results Medications: Active Medications Generic Name Dose Route Start Last Admin Trade Name Freq PRN Reason Stop Dose Admin Acetaminophen 650 mg 11/24/21 02:28 11/25/21 00:10 Acetaminophen 325 Mg Tablet PO 650 mg Q6H PRN Administration Mild Pain (1-3) or Fever Glucagon 1 mg 11/21/21 23:38 Glucagon For Inj 1 Mg Vial IM PRN PRN Hypoglycemia Protocol Glucose 15 gm 11/21/21 23:38 Glucose Oral Gel 15 Gm Of Glucse In 37.5 Gm Tube PO PRN PRN Hypoglycemia Protocol Vancomycin HCl 1,250 mg in 250 mls @ 200 mls/hr 11/24/21 17:00 11/25/21 07:01 Vancomycin 1,250 Mg/D5w 250 Ml IVPB Infused Q12H KRISHAN Infusion Piperacillin/Tazobactam/Dextrose 3.375 gm in 50 mls @ 100 mls/hr 11/24/21 18:00 11/25/21 12:11 Zosyn 3.375 Gm/D5w 50ml Pm IVPB 100 mls/hr Q6H KRISHAN Administration Insulin Aspart 4 - 8 units 11/25/21 08:00 11/25/21 12:05 Insulin Aspart (*Bkc) 100 Units/Ml SUB-Q 6 units TIDWM KRISHAN Administration Protocol Insulin Glargine 8 units 11/25/21 21:00 Insulin Glargine (*Bkc) 100 Units/Ml 0.15 units/kg (8 units) SUB-Q HS KRISHAN Miscellaneous Information 0 each 11/21/21 00:01 11/24/21 08:0
[2021-11-25 14:00] VITALS: BP 144/65; PULSE 86; RESP 18; TEMP 36.2; O2SAT 98
--- NOTE | 2021-11-25 14:23 | PM.IMPN ---
Progress Note: A&P Assessment and Plan (1) Cellulitis of labia: Code(s): N76.2 - Acute vulvitis Status: Acute Assessment and Plan: Left labia has an area that has come to a head, with some mild drainage, with extension down to the perineum and left buttock, with the patient endorsing significant tenderness and burning in the perineum. White blood cell count downtrending. Patient continues to be afebrile. Repeat CT showed subcutaneous fat stranding in the perineum on the left, consistent with cellulitis. No abscess or soft tissue gas. I CT also showed worsened moderate sized pleural effusions bilaterally, though patient is asymptomatic with benign exam. UA without evidence of infection. VSS US shows no drainable fluid collection Left labial wound culture with no organisms seen, nursing advised they were not able to collect drainage purulent material. Blood cultures negative Continue vancomycin, imipenem switched to zosyn per OBGYN Start daily probiotic given history of C.Diff Consult to gynecology for inputs. Continue Incentive spirometry (2) Type 2 diabetes mellitus: Qualifiers: Diabetes mellitus termite exterminator insulin use: unspecified termite exterminator insulin use status Diabetes mellitus complication status: with hyperglycemia Qualified Code(s): E11.65 - Type 2 diabetes mellitus with hyperglycemia Code(s): E11.9 - Type 2 diabetes mellitus without complications Status: Acute Assessment and Plan: Glucose 173 today. Continue Trulicity Continue sliding scale insulin, Accu-Cheks, and hypoglycemic protocol. Hemoglobin A1c 6.6 Diabetic diet Increased from moderate to high dose SS, also added 8 units of Lantus for tonight. She was 348 today at lunch. Need to get tighter glucose control in light of current infection. (3) Elevated LFTs: Code(s): R79.89 - Other specified abnormal findings of blood chemistry Status: Acute Assessment and Plan: AST/ALT continue to be down trending after admission. Abdominal exam is benign. Alk Phos is also downtrending today. Hepatitis panel negative RUQ ultrasound unremarkable. (4) Electrolyte abnormality: Code(s): E87.8 - Other disorders of electrolyte and fluid balance, not elsewhere classified Status: Acute Assessment and Plan: -mild hypokalemia, monitored and replaced, resolved -hyponatremic, mild, resolved, stop salt tabs -Ca 8.7 today. Continue to monitor D/C Oscal Subjective Date/time seen: 11/25/21 14:23 Interval history: 80-year-old female past medical history of diabetes mellitus, dyslipidemia, and hypertension, admitted with vulvar cellulitis. Pt just had an ice pack placed to the area and states it is helping, she has no pain currently. She had trouble sleeping last night. No N/V/abd pain/fever/chills/cp/sob. Review of Systems Review of Systems: All systems reviewed & are unremarkable except as noted in HPI and below Exam Narrative: General: No acute distress, non toxic appearing, elderly Eyes: PERRL, no scleral icterus HEENT: NCAT, external ears normal, MMM Respiratory: No respiratory distress, Lungs CTA bilaterally, no wheezing Cardiovascular: RRR, no murmur Abdominal: Soft, nontender, non distended, no rebound or guarding Musculoskeletal: Moves all 4 extremities, no edema Neurological: A/Ox3, speech clear, no facial asymmetry Skin: Warm, dry, chronic skin changes BLE, vulvar area not examined today as she was just seen by OBGYN and has dressing/ice pack in place Psychiatric: Normal affect, normal mood Objective Data Vital Signs Vital Signs: Vital Signs - 24 hr 11/24/21 20:46 11/25/21 05:36 Temperature 98.6 F 96.7 F L Pulse Rate 98 69 Respiratory Rate 16 16 Blood Pressure 175/82 H 145/55 H Pulse Oximetry 93 100 Intake/Output Intake/Output: Intake & Output 11/22/21 11/23/21 11/24/21 11/25/21 23:59 23:59 23:59 23:59 Intake
--- NOTE | 2021-11-25 15:25 | PCPTNOTE ---
Patient declined PT at this time, due to pain in groin.
[2021-11-25 16:52] LABS: Glucose Point of Care 182 mg/dl (65-105)
[2021-11-25] MEDS: MELATONIN 5 MG TABLET PO (20:18)
[2021-11-25] MEDS: INSULIN GLARGINE (*BKC) 100 UNITS/ML 8 UNITS SUB-Q (20:19)
[2021-11-25 21:33] VITALS: BP 168/86; PULSE 84; RESP 16; TEMP 37.1; O2SAT 100
[2021-11-25 21:53] LABS: Glucose Point of Care 266 mg/dl (65-105)
[2021-11-26 04:20] LABS: Basophils Absolute Auto 0.2 K/mm3 (0.0-0.1); Basophils Percent Auto 1.4 % (0.2-1.2); Eosinophils Absolute Auto 0.2 K/mm3 (0-0.3); Eosinophils Percent Auto 1.4 % (0-4.4); Hematocrit 37.9 % (37.0-47.0); Hemoglobin 12.7 g/dL (12.0-15.0); Immature Granulocyte Absolute 0.44 K/mm3 (0.00-0.031); Immature Granulocyte Percent A 3.6 % (0-0.5); Lymphocytes Absolute Auto 2.25 K/mm3 (0.9-3.2); Lymphocytes Percent Auto 18.2 % (18.3-44.2); Mean Corpuscular HGB Conc 33.5 g/dl (32-36); Mean Corpuscular Hemoglobin 30.8 pg (26-34); Mean Platelet Volume 9.7 fl (7.4-10.4); Monocytes Percent Auto 7.9 % (2.6-8.5); Neutrophils Absolute Auto 8.3 K/mm3 (1.3-6.7); Neutrophils Percent Auto 67.5 % (45.5-73.1); Platelet Count Result 308 k/mm3 (150-375); Red Blood Count 4.12 M/mm3 (4.2-5.4); Red Cell Distribution Width 13.4 % (11.5-14.5); White Blood Count 12.3 K/mm3 (4.5-10.0)
[2021-11-26 04:41] LABS: Alanine Aminotransferase 34 U/L (4-35); Albumin Level 3.3 g/dL (3.5-5.1); Alkaline Phosphatase 283 U/L (38-126); Anion Gap 7 mmol/L (8-16); Aspartate Amino Transferase 30 U/L (14-36); Bilirubin,Total 0.6 mg/dL (0.2-1.3); Blood Urea Nitrogen 15 mg/dL (7-17); Calcium 8.5 mg/dL (8.4-10.2); Carbon Dioxide 27 mmol/L (22-30); Chloride 99 mmol/L (98-107); Estimated CRCL calculation 34 ml/min; Estimated Glomerular Filt Rate 60; Glucose 163 mg/dL (65-110); Potassium 3.9 mmol/L (3.4-5.0); Sodium 133 mmol/L (137-145)
[2021-11-26 05:14] LABS: Vancomycin Trough 23.5 ug/mL (10.0-20.0)
[2021-11-26 05:26] VITALS: BP 157/72; PULSE 77; RESP 16; TEMP 36.1; O2SAT 97
[2021-11-26 08:14] LABS: Glucose Point of Care 187 mg/dl (65-105)
[2021-11-26] MEDS: SACCHAROMYCES BOULARDII 250 MG CAPSULE PO ×2 (08:29→17:28)
--- NOTE | 2021-11-26 09:38 | PM.IMPN ---
Progress Note: A&P Assessment and Plan (1) Cellulitis of labia: Code(s): N76.2 - Acute vulvitis Status: Acute Assessment and Plan: Left labia with cellulitis and extension down to the perineum and left buttock, with the patient endorsing significant tenderness and burning in the perineum. White blood cell count downtrending. Patient continues to be afebrile. Repeat CT showed subcutaneous fat stranding in the perineum on the left, consistent with cellulitis. No abscess or soft tissue gas. US shows no drainable fluid collection Left labial wound culture positive for staph aureus, susceptibility report pending Blood cultures NGTD CHAR FILTER OPERATOR consult placed Continue vancomycin, imipenem switched to zosyn per OBGYN Started daily probiotic given history of C.Diff (2) Type 2 diabetes mellitus: Qualifiers: Diabetes mellitus complication status: with hyperglycemia Diabetes mellitus terminal operations manager insulin use: unspecified terminal operations manager insulin use status Qualified Code(s): E11.65 - Type 2 diabetes mellitus with hyperglycemia Code(s): E11.9 - Type 2 diabetes mellitus without complications Status: Acute Assessment and Plan: Glucose 163 today. Continue Trulicity Continue sliding scale insulin, Accu-Cheks, and hypoglycemic protocol. Hemoglobin A1c 6.6 Diabetic diet Need to get tighter glucose control in light of current infection. Saw improvement today after increasing to high dose sliding scale and adding Lantus 8 yesterday. Will increase to Lantus 10 tonight. (3) Elevated LFTs: Code(s): R79.89 - Other specified abnormal findings of blood chemistry Status: Acute Assessment and Plan: Hepatitis panel negative RUQ ultrasound unremarkable. Trending down (4) Electrolyte abnormality: Code(s): E87.8 - Other disorders of electrolyte and fluid balance, not elsewhere classified Status: Acute Assessment and Plan: -mild hypokalemia, monitored and replaced, resolved -hyponatremic, mild, resolved, stopped salt tabs -Ca 8.5 today. Continue to monitor D/C Oscal (5) Pleural effusion: Code(s): J90 - Pleural effusion, not elsewhere classified Status: Acute Assessment and Plan: -CT also showed worsened moderate sized pleural effusions bilaterally, though patient is asymptomatic with benign exam Subjective Date/time seen: 11/26/21 09:38 Interval history: 80-year-old female past medical history of diabetes mellitus, dyslipidemia, and hypertension, admitted with vulvar cellulitis. Pt was walking back from the bathroom today on my arrival. She states pain is overall improving, she thinks the area was draining overnight. Had some burning when she went to the bathroom and tried to clean herself. No fevers, cp, sob. Review of Systems Review of Systems: All systems reviewed & are unremarkable except as noted in HPI and below Exam Narrative: General: No acute distress, non toxic appearing, elderly Eyes: PERRL, no scleral icterus HEENT: NCAT, external ears normal, MMM Respiratory: No respiratory distress, Lungs CTA bilaterally, no wheezing Cardiovascular: RRR, no murmur Abdominal: Soft, nontender, non distended, no rebound or guarding Musculoskeletal: Moves all 4 extremities, no edema Neurological: A/Ox3, speech clear, no facial asymmetry Skin: Warm, dry, chronic skin changes BLE, left labial erythema and edema extending to perineum, no active drainage Psychiatric: Normal affect, normal mood Objective Data Vital Signs Vital Signs: Vital Signs - 24 hr 11/25/21 14:00 11/25/21 21:33 11/26/21 05:26 Temperature 97.1 F L 98.7 F 96.9 F L Pulse Rate 86 84 77 Respiratory Rate 18 16 16 Blood Pressure 144/65 H 168/86 H 157/72 H Pulse Oximetry 98 100 97 Intake/Output Intake/Output: Intake & Output 11/23/21 11/24/21 11/25/21 11/26/21 23:59 23:59 23:59 23:59 Intake Total 2210 1340 32
[2021-11-26 11:24] LABS: Glucose Point of Care 276 mg/dl (65-105)
[2021-11-26] MEDS: INSULIN ASPART (*BKC) 100 UNITS/ML SUB-Q (12:27)
--- NOTE | 2021-11-26 13:28 | PM.GYNPNOP ---
POWER HAIR CLIPPER - A/P Assessment and plan (1) Cellulitis of labia: Code(s): N76.2 - Acute vulvitis Status: Acute Assessment and Plan: - Labial US and CT continue to show cellulitis only; plan to order repeat US in AM as there are 3 areas draining - Wound culture obtained from drainage today - Continue vancomycin and zosyn-- will likely transition to PO in the next 1-2 days - WBC stable, afebrile, pain improving - Nurse to apply ice and/or heat packs depending on patients preference-- encouraged to try and lay flat; avoid significant pressure on the area; can place barrier cream Time Spent With Patient Time: Total time spent is greater than 50% in coordination of care (as documented) at patient's floor/unit and/or counseling patient: Time with patient: less than 15 minutes POWER HAIR CLIPPER- PN:Karla Post-Op Subjective Date/time seen: 11/26/21 13:28 Interval history: 80-year-old female past medical history of diabetes mellitus, dyslipidemia, and hypertension, admitted with vulvar cellulitis. She reports the swelling/burning/irritation of her left labia is decreased after using the ice packs. She has noticed more drainage; small areas of bleeding on her teodora. Patient reports she has been up and ambulating with a walker; working with OT and feeling stronger. Tolerating regular diet; using restroom normally. She denies chest pain, shortness a breath, abdominal pain, dysuria, bowel or bladder changes. Review of Systems Review of Systems: All systems reviewed & are unremarkable except as noted in HPI and below (HPI) Exam : Other: left labia; erythematous, significant less edema today; 3 areas draining purulent discharge-- wound culture collected POWER HAIR CLIPPER - PN: Obj Data Vital Signs Vital Signs: Vital Signs - 24 hr 11/25/21 14:00 11/25/21 21:33 11/26/21 05:26 Temperature 97.1 F L 98.7 F 96.9 F L Pulse Rate 86 84 77 Respiratory Rate 18 16 16 Blood Pressure 144/65 H 168/86 H 157/72 H Pulse Oximetry 98 100 97 Intake/Output Intake/Output: Intake & Output 11/23/21 11/24/21 11/25/21 11/26/21 23:59 23:59 23:59 23:59 Intake Total 2210 1340 3210 1450 Output Total 950 2000 1620 Balance 1260 -660 1590 1450 Meds/Results Medications: Active Medications Generic Name Dose Route Start Last Admin Trade Name Freq PRN Reason Stop Dose Admin Acetaminophen 650 mg 11/24/21 02:28 11/25/21 00:10 Acetaminophen 325 Mg Tablet PO 650 mg Q6H PRN Administration Mild Pain (1-3) or Fever Glucagon 1 mg 11/21/21 23:38 Glucagon For Inj 1 Mg Vial IM PRN PRN Hypoglycemia Protocol Glucose 15 gm 11/21/21 23:38 Glucose Oral Gel 15 Gm Of Glucse In 37.5 Gm Tube PO PRN PRN Hypoglycemia Protocol Piperacillin/Tazobactam/Dextrose 3.375 gm in 50 mls @ 100 mls/hr 11/24/21 18:00 11/26/21 12:27 Zosyn 3.375 Gm/D5w 50ml Pm IVPB Infused Q6H KRISHAN Infusion Vancomycin HCl 1,250 mg in 250 mls @ 200 mls/hr 11/26/21 12:00 11/26/21 13:13 Vancomycin 1,250 Mg/D5w 250 Ml IVPB 200 mls/hr Q18H KRISHAN Administration Insulin Aspart 4 - 8 units 11/25/21 08:00 11/26/21 12:27 Insulin Aspart (*Bkc) 100 Units/Ml SUB-Q 5 units TIDWM KRISHAN Administration Protocol Insulin Glargine 10 units 11/26/21 21:00 Insulin Glargine (*Bkc) 100 Units/Ml SUB-Q HS KRISHAN Melatonin 5 mg 11/25/21 21:00 11/25/21 20:18 Melatonin 5 Mg Tablet PO 5 mg HS KRISHAN Administration Miscellaneous Information 0 each 11/21/21 00:01 11/24/21 08:02 Dulaglutide [Trulicity] 0.75 Mg/0.5 Ml Pen = Non Form, Recommend Hold While In Hosp. XX 12/21/21 00:00 Not Given CLARIFY KRISHAN Non-Formulary Medication 0.75 mg 11/28/21 09:00 Dulaglutide [Trulicity] SUB-Q 12/28/21 08:59 WEEKLY KRISHAN Saccharomyces Boulardii 250 mg 11/24/21 17:00 11/26/21 08:29 Saccharomyces Boulardii 250 Mg Capsule PO 250 mg BID KRISHAN Administration Radiology Results: ITS Impressions Abdomen/Pelvis CT
[2021-11-26 14:00] VITALS: BP 150/67; PULSE 81; RESP 16; TEMP 36.6; O2SAT 100
[2021-11-26 16:27] LABS: Glucose Point of Care 159 mg/dl (65-105)
[2021-11-26] MEDS: MELATONIN 5 MG TABLET PO (20:44)
[2021-11-26] MEDS: INSULIN GLARGINE (*BKC) 100 UNITS/ML 10 UNITS SUB-Q (20:44)
[2021-11-26 20:58] LABS: Glucose Point of Care 231 mg/dl (65-105)
[2021-11-26 22:00] VITALS: BP 151/66; PULSE 90; RESP 18; TEMP 36.7; O2SAT 97
[2021-11-27 05:50] VITALS: BP 134/70; PULSE 73; RESP 18; TEMP 36.6; O2SAT 98
[2021-11-27 07:05] LABS: Basophils Absolute Auto 0.2 K/mm3 (0.0-0.1); Basophils Percent Auto 1.6 % (0.2-1.2); Eosinophils Absolute Auto 0.2 K/mm3 (0-0.3); Eosinophils Percent Auto 1.7 % (0-4.4); Hemoglobin 11.4 g/dL (12.0-15.0); Lymphocytes Absolute Auto 2.25 K/mm3 (0.9-3.2); Lymphocytes Percent Auto 22.7 % (18.3-44.2); Mean Corpuscular HGB Conc 33.5 g/dl (32-36); Mean Corpuscular Hemoglobin 30.3 pg (26-34); Mean Corpuscular Volume 90.4 fl (80-100); Mean Platelet Volume 9.8 fl (7.4-10.4); Monocytes Absolute Auto 0.7 K/mm3 (0.1-0.6); Monocytes Percent Auto 7.1 % (2.6-8.5); Neutrophils Absolute Auto 6.2 K/mm3 (1.3-6.7); Neutrophils Percent Auto 62.9 % (45.5-73.1); Platelet Count Result 334 k/mm3 (150-375); Red Blood Count 3.76 M/mm3 (4.2-5.4); Red Cell Distribution Width 13.6 % (11.5-14.5); White Blood Count 9.9 K/mm3 (4.5-10.0)
[2021-11-27 07:26] LABS: Alanine Aminotransferase 23 U/L (4-35); Alkaline Phosphatase 209 U/L (38-126); Anion Gap 5 mmol/L (8-16); Aspartate Amino Transferase 24 U/L (14-36); Bilirubin,Total 0.5 mg/dL (0.2-1.3); Blood Urea Nitrogen 19 mg/dL (7-17); Calcium 8.2 mg/dL (8.4-10.2); Carbon Dioxide 27 mmol/L (22-30); Chloride 101 mmol/L (98-107); Estimated CRCL calculation 34 ml/min; Estimated Glomerular Filt Rate 60; Glucose 194 mg/dL (65-110); Potassium 3.4 mmol/L (3.4-5.0); Sodium 133 mmol/L (137-145)
[2021-11-27 08:15] LABS: Glucose Point of Care 225 mg/dl (65-105)
[2021-11-27] MEDS: INSULIN ASPART (*BKC) 100 UNITS/ML SUB-Q (08:29)
[2021-11-27] MEDS: SACCHAROMYCES BOULARDII 250 MG CAPSULE PO ×2 (08:30→16:42)
--- NOTE | 2021-11-27 13:47 | PM.IMPN ---
Progress Note: A&P Assessment and Plan (1) Cellulitis of labia: Code(s): N76.2 - Acute vulvitis Status: Acute Assessment and Plan: - No drainable fluid collection identified. - Wound culture grew out MRSA with sensitivity to the Vancomycin she is on. - Continue abx for now. - GOVERNOR ASSEMBLER HYDRAULIC is covering. (2) Type 2 diabetes mellitus: Qualifiers: Diabetes mellitus custodial insulin use: unspecified extermination supervisor insulin use status Diabetes mellitus complication status: with hyperglycemia Qualified Code(s): E11.65 - Type 2 diabetes mellitus with hyperglycemia Code(s): E11.9 - Type 2 diabetes mellitus without complications Status: Acute Assessment and Plan: - Continue Trulicity. - COntinue SSI, hypoglycemic protocol and glucose checks. - A1C is 6.6. - Diabetic diet. - Continue Lantus 10 units QHS. (3) Elevated LFTs: Code(s): R79.89 - Other specified abnormal findings of blood chemistry Status: Resolved Assessment and Plan: RESOLVED (4) Electrolyte abnormality: Code(s): E87.8 - Other disorders of electrolyte and fluid balance, not elsewhere classified Status: Resolved Assessment and Plan: RESOLVED (5) Pleural effusion: Code(s): J90 - Pleural effusion, not elsewhere classified Status: Acute Assessment and Plan: -CT also showed worsened moderate sized pleural effusions bilaterally, though patient is asymptomatic with benign exam - Continue to monitor. Time Spent With Patient Time with patient: 15 - 25 minutes Subjective Date/time seen: 11/27/21 1130 This pt. was examined at the bedside today in interval assessment. She denies any new complaints and states her pain is well controlled. Her culture grew out MRSA that is sensitive to the Vancomycin she is on. She is being followed by GOVERNOR ASSEMBLER HYDRAULIC. There is no CP, Dyspnea, N/V/D, or urinary complaints. We are awaiting GOVERNOR ASSEMBLER HYDRAULIC recs to change abx to po for discharge. Review of Systems Review of Systems: All systems reviewed & are unremarkable except as noted in HPI and below Exam Const: General: comfortable and no acute distress HENMT: Mouth: Yes moist mucous membranes Eyes: Sclera: sclerae normal Neck: Neck: supple and no JVD Lymphatic: lymphadenopathy not noted Resp: Effort & Inspection: normal respiratory effort Auscultation: clear to auscultation bilaterally Cardio: Rate: regular rate Rhythm: regular rhythm GI: GI Palp: Yes Soft to palpation and No Tenderness to palpation present (GI) Auscultation: normal bowel sounds Skin: General skin exam: normal color and no rashes or lesions noted Other: Perineal area treated by GOVERNOR ASSEMBLER HYDRAULIC. Neuro: General: gait normal Speech: normal speech Motor exam (neuro): 5/5 motor strength present throughout and Normal motor muscle tone present throughout Sensory Exam: normal sensation Extrem: General: normal to inspection Psych: Mental Status: mental status grossly normal Thought content: Yes Normal thought content present Objective Data Vital Signs Vital Signs: Vital Signs - 24 hr 11/26/21 14:00 11/26/21 22:00 11/27/21 05:50 Temperature 97.9 F 98.0 F 97.8 F Pulse Rate 81 90 73 Respiratory Rate 16 18 18 Blood Pressure 150/67 H 151/66 H 134/70 Pulse Oximetry 100 97 98 Intake/Output Intake/Output: Intake & Output 11/24/21 11/25/21 11/26/21 11/27/21 23:59 23:59 23:59 23:59 Intake Total 1340 3210 2290 740 Output Total 1999 1620 300 Balance -660 1590 2290 440 Meds/Results Medications: Active Medications Generic Name Dose Route Start Last Admin Trade Name Freq PRN Reason Stop Dose Admin Acetaminophen 650 mg 11/24/21 02:28 11/25/21 00:10 Acetaminophen 325 Mg Tablet PO 650 mg Q6H PRN Administration Mild Pain (1-3) or Fever Glucagon 1 mg 11/21/21 23:38 Glucagon For Inj 1 Mg Vial IM PRN PRN Hypoglycemia Protocol Glucose 15 gm 11/21/21 23:38 Glucose Oral Gel 15 Gm Of Glucse In 37.5
[2021-11-27 14:00] VITALS: BP 130/70; PULSE 76; RESP 18; TEMP 36.6; O2SAT 98
--- NOTE | 2021-11-27 14:03 | PM.GYNPNOP ---
OPS MANAGER - A/P Assessment and plan (1) Cellulitis of labia: Code(s): N76.2 - Acute vulvitis Status: Acute Assessment and Plan: - Repeat labial US pending to verify no obvious abscess since 3 areas have been draining - Wound culture from admission is growing MRSA sensitive to vanco and bactrim - Transitioned to Bactrim DS today; first dose tonight-- to be continued BID x 10 days - WBC stable, afebrile, pain improving - Nurse to apply ice and/or heat packs depending on patients preference-- encouraged to try and lay flat; avoid significant pressure on the area; can place barrier cream-- can do all at home + juan carlos bottle - If no abscess noted on repeat US and medically stable, ok with discharge home tomorrow, 11/28/21 - My office will contact her with appt for 12/11/21 AM Time Spent With Patient Time: Total time spent is greater than 50% in coordination of care (as documented) at patient's floor/unit and/or counseling patient: Time with patient: less than 15 minutes OPS MANAGER- PN:Subj Post-Op Subjective Date/time seen: 11/27/21 14:03 Interval history: 80-year-old female past medical history of diabetes mellitus, dyslipidemia, and hypertension, admitted with vulvar cellulitis. She reports the swelling/burning/irritation of her left labia is decreased after using the ice/heat. She has noticed less drainage today. Repeat US has not be performed. Patient reports she has been up and ambulating with her walker; feeling stronger. Tolerating regular diet; using restroom normally. She denies chest pain, shortness a breath, abdominal pain, dysuria, bowel or bladder changes. Review of Systems Review of Systems: All systems reviewed & are unremarkable except as noted in HPI and below (HPI) Exam : Other: left labial edema and erythema extending into the left buttock; significantly improved. 1 small area of drainage on top. tender to touch OPS MANAGER - PN: Obj Data Vital Signs Vital Signs: Vital Signs - 24 hr 11/26/21 22:00 11/27/21 05:50 Temperature 98.0 F 97.8 F Pulse Rate 90 73 Respiratory Rate 18 18 Blood Pressure 151/66 H 134/70 Pulse Oximetry 97 98 Intake/Output Intake/Output: Intake & Output 05/10/1311/25/21 11/26/21 11/27/21 23:59 23:59 23:59 23:59 Intake Total 1340 3210 2290 740 Output Total 1999 1620 300 Balance -660 1590 2290 440 Meds/Results Medications: Active Medications Generic Name Dose Route Start Last Admin Trade Name Freq PRN Reason Stop Dose Admin Acetaminophen 650 mg 11/24/21 02:28 11/25/21 00:10 Acetaminophen 325 Mg Tablet PO 650 mg Q6H PRN Administration Mild Pain (1-3) or Fever Glucagon 1 mg 11/21/21 23:38 Glucagon For Inj 1 Mg Vial IM PRN PRN Hypoglycemia Protocol Glucose 15 gm 11/21/21 23:38 Glucose Oral Gel 15 Gm Of Glucse In 37.5 Gm Tube PO PRN PRN Hypoglycemia Protocol Piperacillin/Tazobactam/Dextrose 3.375 gm in 50 mls @ 100 mls/hr 11/24/21 18:00 11/27/21 12:17 Zosyn 3.375 Gm/D5w 50ml Pm IVPB 100 mls/hr Q6H KRISHAN Administration Vancomycin HCl 1,250 mg in 250 mls @ 200 mls/hr 11/26/21 12:00 11/27/21 05:28 Vancomycin 1,250 Mg/D5w 250 Ml IVPB 200 mls/hr Q18H KRISHAN Administration Insulin Aspart 4 - 8 units 11/25/21 08:00 11/27/21 12:18 Insulin Aspart (*Bkc) 100 Units/Ml SUB-Q Not Given TIDWM KRISHAN Protocol Insulin Glargine 10 units 11/26/21 21:00 11/26/21 20:44 Insulin Glargine (*Bkc) 100 Units/Ml SUB-Q 10 units HS KRISHAN Administration Melatonin 5 mg 11/25/21 21:00 11/26/21 20:44 Melatonin 5 Mg Tablet PO 5 mg HS KRISHAN Administration Miscellaneous Information 0 each 11/21/21 00:01 11/27/21 01:18 Dulaglutide [Trulicity] 0.75 Mg/0.5 Ml Pen = Non Form, Recommend Hold While In Hosp. XX 12/21/21 00:00 Not Given CLARIFY KRISHAN Non-Formulary Medication 0.75 mg 11/28/21 09:00 Dulaglutide [Trulicity] SUB-Q 12/28/21 08:59 WEEKLY KRISHAN Saccharomyces Boulardii 250 mg
[2021-11-27 16:31] LABS: Glucose Point of Care 179 mg/dl (65-105)
[2021-11-27] MEDS: MELATONIN 5 MG TABLET PO (20:09)
[2021-11-27] MEDS: INSULIN GLARGINE (*BKC) 100 UNITS/ML 10 UNITS SUB-Q (20:09)
[2021-11-27 20:23] LABS: Glucose Point of Care 198 mg/dl (65-105)
[2021-11-27 21:24] VITALS: BP 135/70; PULSE 71; RESP 18; TEMP 36.6; O2SAT 97
[2021-11-28 05:51] VITALS: BP 158/73; PULSE 73; RESP 19; TEMP 36.1; O2SAT 97
[2021-11-28 07:12] LABS: Basophils Absolute Auto 0.1 K/mm3 (0.0-0.1); Basophils Percent Auto 1.3 % (0.2-1.2); Eosinophils Absolute Auto 0.2 K/mm3 (0-0.3); Eosinophils Percent Auto 2.3 % (0-4.4); Hematocrit 35.3 % (37.0-47.0); Hemoglobin 11.7 g/dL (12.0-15.0); Immature Granulocyte Absolute 0.23 K/mm3 (0.00-0.031); Immature Granulocyte Percent A 2.6 % (0-0.5); Lymphocytes Absolute Auto 1.98 K/mm3 (0.9-3.2); Lymphocytes Percent Auto 22.6 % (18.3-44.2); Mean Corpuscular HGB Conc 33.1 g/dl (32-36); Mean Corpuscular Hemoglobin 30.2 pg (26-34); Mean Corpuscular Volume 91.2 fl (80-100); Mean Platelet Volume 9.9 fl (7.4-10.4); Monocytes Absolute Auto 0.7 K/mm3 (0.1-0.6); Monocytes Percent Auto 7.4 % (2.6-8.5); Neutrophils Absolute Auto 5.6 K/mm3 (1.3-6.7); Neutrophils Percent Auto 63.8 % (45.5-73.1); Platelet Count Result 337 k/mm3 (150-375); Red Blood Count 3.87 M/mm3 (4.2-5.4); Red Cell Distribution Width 13.7 % (11.5-14.5); White Blood Count 8.8 K/mm3 (4.5-10.0)
[2021-11-28 07:33] LABS: Alanine Aminotransferase 22 U/L (4-35); Albumin Level 3.3 g/dL (3.5-5.1); Alkaline Phosphatase 212 U/L (38-126); Anion Gap 5 mmol/L (8-16); Aspartate Amino Transferase 26 U/L (14-36); Bilirubin,Total 0.4 mg/dL (0.2-1.3); Blood Urea Nitrogen 17 mg/dL (7-17); Calcium 8.6 mg/dL (8.4-10.2); Carbon Dioxide 27 mmol/L (22-30); Chloride 103 mmol/L (98-107); Estimated CRCL calculation 34 ml/min; Estimated Glomerular Filt Rate 60; Glucose 147 mg/dL (65-110); Magnesium 2.3 mg/dL (1.6-2.3); Potassium 3.7 mmol/L (3.4-5.0); Sodium 135 mmol/L (137-145)
[2021-11-28 08:12] LABS: Glucose Point of Care 153 mg/dl (65-105)
[2021-11-28] MEDS: SACCHAROMYCES BOULARDII 250 MG CAPSULE PO (09:24)
--- NOTE | 2021-11-28 10:08 | PM.DS ---
DS: Admitting Diagnosis Discharge Date 11/28/2021 Admitting Diagnosis Cellulitis of the labia, type 2 diabetes mellitus, hyponatremia, transaminitis DS: Discharge Diagnosis Discharge Diagnosis (1) Cellulitis of labia: Code(s): N76.2 - Acute vulvitis Status: Acute Assessment and Plan: - No drainable fluid collection identified. - Wound culture grew out MRSA with sensitivity to the Vancomycin she is on. - Continue abx for now. - FRUIT I FARMWORKER is covering. -date of discharge: 11/28/2021 -patient's wound cultures grew out MRSA as well as Staph aureus. Sensitivity show that it is sensitive to sulfamethoxazole. Patient will be discharged home on Bactrim DS for 10 days b.i.d. according to type rolling machine operator. Checker Loader note reviewed they will contact patient for follow-up appointment. Patient may continue with ice and or heat to the affected area depending on patient preference, as well as she is encouraged to try to lay flat and avoid significant pressure on the area. Patient may use a. Vital and barrier cream at home. Repeat ultrasound was performed that showed a heterogenous echogenicity in the left perineum consistent with cellulitis. There was no definite drainable fluid collection identified. Based upon GYNs note patient is stable for discharge today. (2) Type 2 diabetes mellitus: Qualifiers: Diabetes mellitus termite control technician insulin use: unspecified prison insulin use status Diabetes mellitus complication status: with hyperglycemia Qualified Code(s): E11.65 - Type 2 diabetes mellitus with hyperglycemia Code(s): E11.9 - Type 2 diabetes mellitus without complications Status: Acute Assessment and Plan: - Continue Trulicity. - COntinue SSI, hypoglycemic protocol and glucose checks. - A1C is 6.6. - Diabetic diet. - Continue Lantus 10 units QHS. -date of discharge: 11/28/2021 -adequate control. Patient will be advised to continue her home diabetes mellitus regimen. (3) Elevated LFTs: Code(s): R79.89 - Other specified abnormal findings of blood chemistry Status: Resolved Assessment and Plan: RESOLVED (4) Electrolyte abnormality: Code(s): E87.8 - Other disorders of electrolyte and fluid balance, not elsewhere classified Status: Resolved Assessment and Plan: RESOLVED (5) Pleural effusion: Code(s): J90 - Pleural effusion, not elsewhere classified Status: Acute Assessment and Plan: -CT also showed worsened moderate sized pleural effusions bilaterally, though patient is asymptomatic with benign exam - Continue to monitor. -date of discharge: 11/28/2021 -no symptoms or complications related to this incidental finding. Patient is stable for return home today. DS: Summary Hospital Course Reason for hospitalization: Left labial swelling with weakness and elevated glucose. Hospital Course: This very pleasant 80-year-old female patient with significant past medical history of type 2 diabetes mellitus, hypertension and hyperlipidemia presented to the emergency room on November 21, 2021 with complaints of having swelling to her left labia as well as generalized weakness and elevated glucose more so than what they normally are. She endorsed that approximately 1 week prior she had noticed a small bump on her left labia that progressively worsened, got larger and more painful. [id number] medications for pain did not improve the pain and actually just upset her stomach. Her glucose that she checks regularly she is a diabetic rosa into the 100s and consistently stay there. In addition patient developed a low temperature of approximately 100?. CT of the abdomen and pelvis upon arrival to the emergency room showed soft tissue fat infiltration of the left perineum and buttock area as well as left inguinal lymphadenopathy without abscess present. Patient was admitted to the hospital then for treatment of acute left labial cellulitis. Checker Loader was consulted and ultrasound was p
[2021-11-28 12:32] LABS: Glucose Point of Care 174 mg/dl (65-105)
== END 2021-11-28 12:35 | disposition home health service (06) | DRG 758 ==
LOC: ANHED 11:45 → ANH3MEDSUR 14:44
PROVIDERS: Physician Assistant; Student in an Organized Health Care Education/Training Program; Admitting Provider Family Medicine; Emergency Provider Emergency Medicine; PCP Nurse Practitioner Family; Visit Provider Nurse Practitioner Adult Health
DX: N76.2 Acute vulvitis (principal); E87.1 Hypo-osmolality and hyponatremia; J90 Pleural effusion, not elsewhere classified; E11.65 Type 2 diabetes mellitus with hyperglycemia; R79.89 Other specified abnormal findings of blood chemistry; Z66 Do not resuscitate; E78.5 Hyperlipidemia, unspecified; E87.8 Other disorders of electrolyte and fluid balance, not elsewhere classified; I10 Essential (primary) hypertension; E11.319 Type 2 diabetes mellitus with unspecified diabetic retinopathy without macular edema; Z79.899 Other long term (current) drug therapy; Z79.84 Long term (current) use of oral hypoglycemic drugs
CPT/HCPCS: 36415; 51701; 74177; 76705; 76857; 80053; 80074; 80202; 81001; 82565; 82948; 83036; 83605; 83690; 83735; 85025; 85027; 85055; 85610; 85730; 86140; 87040; 87070; 87147; 87181; 87186; 87205; 96361; 96365; 96366; 96368; 96372; 96375; 96376; 97110; 97112; 97116; 97161; 97165; 97530; 99285; A9270; G0378; J0696; J0743; J1170; J1200; J1650; J1815; J2543; J3370; J7030; J7040; Q9967

== ENCOUNTER 2021-12-04 10:31 | Outpatient (CLI) | payer MEDICARE, SELFPAY ==
--- NOTE | ~2021-12-04 | US_ITS ---
EXAMINATION: US soft tissue pelvic INDICATION: Acute vulvitis TECHNIQUE: Targeted ultrasound of the left labia is performed. COMPARISON: 11/27/2021 FINDINGS: There is persistent heterogeneous echogenicity in the region of the left labia. No drainabl e fluid collection is identified. Overall thickness of the heterogeneous area does not appear signifi cantly changed. IMPRESSION: 1. Persistent heterogeneous echogenicity of the left labia without definite interval change. Reviewed, dictated and finalized at location A. IMPRESSION: 1. Persistent heterogeneous echogenicity of the left labia without definite int erval change.
[2021-12-04 10:57] LABS: Basophils Absolute Auto 0.06 K/mm3 (0.00-0.10); Basophils Percent Auto 0.7 % (0.0-1.0); Hematocrit 37.8 % (35.0-42.0); Hemoglobin 12.6 g/dL (11.7-13.8); Immature Granulocyte Absolute 0.02 K/mm3 (0.00-0.00); Immature Granulocyte Percent A 0.2 % (0.0-0.0); Lymphocytes Absolute Auto 1.65 K/mm3 (1.10-4.50); Mean Corpuscular HGB Conc 33.3 g/dL (32.0-36.0); Mean Corpuscular Hemoglobin 30.4 pg (27.0-31.0); Mean Corpuscular Volume 91.3 fL (78.0-102.0); Mean Platelet Volume 10.1 fl (9.2-11.8); Monocytes Absolute Auto 0.37 K/mm3 (0.10-0.90); Monocytes Percent Auto 4.5 % (2.0-11.0); Neutrophils Absolute Auto 6.2 K/mm3 (1.7-7.2); Neutrophils Percent Auto 74.6 % (50.0-70.0); Platelet Count Result 359 K/mm3 (150-420); Red Blood Count 4.14 M/mm3 (4.20-5.40); Red Cell Distribution Width 13.8 % (11.6-14.4); White Blood Count 8.3 K/mm3 (4.8-10.8)
[2021-12-04 11:14] LABS: Alanine Aminotransferase 11 U/L (14-59); Albumin Level 3.9 g/dL (3.4-5.0); Alkaline Phosphatase 176 U/L (46-116); Anion Gap 8 mmol/L (8-16); Aspartate Amino Transferase 15 U/L (15-37); Bilirubin,Total 0.4 mg/dL (0.00-1.00); Blood Urea Nitrogen 34 mg/dL (7-18); Calcium 9.9 mg/dL (8.5-10.1); Carbon Dioxide 26 mmol/L (21-32); Chloride 96 mmol/L (98-108); Estimated Glomerular Filt Rate 24; Glucose 170 mg/dL (70-99); Osmolality Calculated 281 mOsm/kg (285-295); Potassium 5.2 mmol/L (3.5-5.1); Sodium 130 mmol/L (136-145)
== END 2021-12-04 10:32 | disposition home or self-care (01) ==
LOC: CHSLAB 10:36
PROVIDERS: PCP Family Medicine; Visit Provider Nurse Practitioner Family
DX: N76.2 Acute vulvitis (principal)
CPT/HCPCS: 36415; 76857; 80053; 85025

== ENCOUNTER 2021-12-07 13:38 | Outpatient (CLI) | payer MEDICARE, SELFPAY ==
[2021-12-07 14:03] LABS: Basophils Absolute Auto 0.11 K/mm3 (0.00-0.10); Basophils Percent Auto 1.5 % (0.0-1.0); Eosinophils Absolute Auto 0.03 K/mm3 (0.02-0.50); Eosinophils Percent Auto 0.4 % (1.0-6.0); Hematocrit 38.6 % (35.0-42.0); Hemoglobin 12.7 g/dL (11.7-13.8); Immature Granulocyte Absolute 0.03 K/mm3 (0.00-0.00); Immature Granulocyte Percent A 0.4 % (0.0-0.0); Lymphocytes Absolute Auto 2.38 K/mm3 (1.10-4.50); Lymphocytes Percent Auto 32.1 % (18.0-42.0); Mean Corpuscular HGB Conc 32.9 g/dL (32.0-36.0); Mean Corpuscular Hemoglobin 30.2 pg (27.0-31.0); Mean Corpuscular Volume 91.7 fL (78.0-102.0); Mean Platelet Volume 10.6 fl (9.2-11.8); Monocytes Absolute Auto 0.52 K/mm3 (0.10-0.90); Neutrophils Absolute Auto 4.4 K/mm3 (1.7-7.2); Neutrophils Percent Auto 58.6 % (50.0-70.0); Platelet Count Result 305 K/mm3 (150-420); Red Blood Count 4.21 M/mm3 (4.20-5.40); Red Cell Distribution Width 13.4 % (11.6-14.4); White Blood Count 7.4 K/mm3 (4.8-10.8)
[2021-12-07 14:19] LABS: Alanine Aminotransferase 14 U/L (14-59); Albumin Level 4.2 g/dL (3.4-5.0); Alkaline Phosphatase 163 U/L (46-116); Anion Gap 9 mmol/L (8-16); Aspartate Amino Transferase 21 U/L (15-37); Bilirubin,Total 0.5 mg/dL (0.00-1.00); Blood Urea Nitrogen 44 mg/dL (7-18); Calcium 9.8 mg/dL (8.5-10.1); Carbon Dioxide 26 mmol/L (21-32); Chloride 95 mmol/L (98-108); Estimated Glomerular Filt Rate 20; Glucose 168 mg/dL (70-99); Osmolality Calculated 285 mOsm/kg (285-295); Potassium 4.9 mmol/L (3.5-5.1); Sodium 130 mmol/L (136-145); Total Protein 8.3 g/dL (6.4-8.2)
== END 2021-12-07 13:39 | disposition home or self-care (01) ==
LOC: CHSLAB 13:43
PROVIDERS: PCP Family Medicine; Visit Provider Nurse Practitioner Family
DX: E87.1 Hypo-osmolality and hyponatremia (principal)
CPT/HCPCS: 36415; 80053; 85025

== ENCOUNTER 2021-12-08 11:04 | Observation (INO) | payer MEDICARE, SELFPAY ==
[2021-12-08] VITALS (8 sets, daily range): BP systolic 129–163; BP diastolic 54–73; PULSE 75–101; RESP 15–23; TEMP 36.2–37.3; O2SAT 100
--- NOTE | ~2021-12-08 | US_ITS ---
US renal BI 12/08/2021 16:29 Procedure: Realtime transabdominal ultrasound of the kidneys and bladder. Indication: Acute renal insufficiency Comparison: CT dated 11/23/2021 Findings: Renal echotexture is normal bilaterally without hydronephrosis, contour deforming mass or r enal calculus. The right kidney measures 11.1 cm and left kidney measures 11.4 cm. Bladder within no rmal limits. Impression: 1: Unremarkable renal ultrasound. No stones, masses or hydronephrosis. Reviewed, dictated and finalized at location A. Impression: 1: Unremarkable renal ultrasound. No stones, masses or hydronephrosis.
--- NOTE | 2021-12-08 12:42 | ED.RECABL ---
HPI - Recheck/Abnormal Lab/Rx General Chief Complaint: Recheck/Abnormal Lab/Rx Stated Complaint: kidney failure Time Seen by Provider: 12/08/21 12:41 Source: patient Mode of arrival: ambulatory Limitations: no limitations History of Present Illness HPI narrative: Patient had a phone call from her family physician today to go to the emergency room because of elevated creatinine. Patient had regular blood work-up yesterday. Currently is asymptomatic, denying any symptoms. Patient report was nauseated over the last 3 days and probably did not drink enough fluid at that time. Related Data Home Medications Medication Instructions Recorded Confirmed loperamide 2 mg tablet 2 mg PO Q6H PRN 08/31/21 11/21/21 Allergies Allergy/AdvReac Type Severity Reaction Status Date / Time No Known Allergies Allergy Verified 12/08/21 12:43 Review of Systems Review of Systems: All systems reviewed & are unremarkable except as noted in HPI and below PMFSH Past Medical History Medical History Hyperlipidemia Hypertension Type 2 diabetes mellitus Complicated by diabetic retinopathy. Surgical History Surgical History History of cataract extraction History of tonsillectomy Family History Family History Other Diabetes mellitus Family history of cardiovascular disease Family history of thyroid disease Social History Social History Social History: Surrogate decision maker: Jyoti Finnegan, daughter. Code status: Do not resuscitate. Smoking status: Never smoker Alcohol intake: never Substance use: never Additional living arrangements comments: Lives in [place]. Ambulates with a walker. Spiritual care concerns: No Exam Narrative: General appearance: Well-developed, well-nourished Skin: Normal color Head: Normocephalic, nontraumatic Eyes: Clear conjunctiva ENT: Oropharynx normal, ears normal, nose normal Neck: Supple, nontender Chest and respiratory: Airway patent, no respiratory distress, no accessory muscle use Heart: Regular rate/rhythm Abdomen: Soft, nontender, no organomegaly, quiet bowel sounds Vascular: Normal peripheral pulses, normal capillary refill. Musculoskeletal: Normal range of motion, nontender back Neurologic: Alert and oriented ?3, STENCIL TYPIST is normal as tested, no gross motor deficit Course Course Emergency Course: BENJAMÍN high likely secondary to poor fluid intake. Consultations Consultation #1: Dr. Yeboah Date: 12/08/21 Time: 15:45 Vital Signs Vital signs: Vital Signs Temperature 36.3 C L 12/08/21 11:39 Pulse Rate 101 H 12/08/21 11:39 Respiratory Rate 15 12/08/21 11:39 Blood Pressure 148/71 H 12/08/21 11:39 Temperature 36.3 C L 12/08/21 11:39 Pulse Rate 82 12/08/21 14:33 Respiratory Rate 15 12/08/21 14:33 Blood Pressure 150/73 H 12/08/21 14:33 Pulse Oximetry 100 12/08/21 14:33 MDM - Recheck/Abnormal Lab/Rx Differential Diagnosis Differential diagnosis: Likely other (Dehydration, electrolyte imbalance,) Lab Data Result diagrams: 12/08/21 13:04 12/08/21 13:04 Labs: Lab Results 12/08/21 12/08/21 12/08/21 Range/Units 13:04 13:04 14:36 WBC 6.4 (4.5-10.0) K/mm3 RBC 4.27 (4.2-5.4) M/mm3 Hgb 12.9 (12.0-15.0) g/dL Hct 39.1 (37.0-47.0) % MCV 91.6 (80-100) fl MCH 30.2 (26-34) pg MCHC 33.0 (32-36) g/dl RDW 13.9 (11.5-14.5) % Plt Count 260 (150-375) k/mm3 MPV 10.6
[2021-12-08] MEDS: SODIUM CHLORIDE 0.9% IV 1,000 ML 999 ML IV CONT (13:03)
[2021-12-08 13:11] LABS: Basophils Absolute Auto 0.1 K/mm3 (0.0-0.1); Basophils Percent Auto 1.4 % (0.2-1.2); Eosinophils Percent Auto 0.2 % (0-4.4); Hematocrit 39.1 % (37.0-47.0); Hemoglobin 12.9 g/dL (12.0-15.0); Immature Granulocyte Absolute 0.01 K/mm3 (0.00-0.031); Immature Granulocyte Percent A 0.2 % (0-0.5); Lymphocytes Absolute Auto 1.59 K/mm3 (0.9-3.2); Lymphocytes Percent Auto 24.8 % (18.3-44.2); Mean Corpuscular Hemoglobin 30.2 pg (26-34); Mean Corpuscular Volume 91.6 fl (80-100); Mean Platelet Volume 10.6 fl (7.4-10.4); Monocytes Absolute Auto 0.4 K/mm3 (0.1-0.6); Monocytes Percent Auto 6.9 % (2.6-8.5); Neutrophils Absolute Auto 4.3 K/mm3 (1.3-6.7); Neutrophils Percent Auto 66.5 % (45.5-73.1); Platelet Count Result 260 k/mm3 (150-375); Red Blood Count 4.27 M/mm3 (4.2-5.4); Red Cell Distribution Width 13.9 % (11.5-14.5); White Blood Count 6.4 K/mm3 (4.5-10.0)
[2021-12-08 13:22] LABS: Alanine Aminotransferase 21 U/L (6-35); Albumin Level 4.6 g/dL (3.5-5.1); Alkaline Phosphatase 156 U/L (38-126); Anion Gap 11 mmol/L (8-16); Aspartate Amino Transferase 34 U/L (14-36); Bilirubin,Total 0.5 mg/dL (0.2-1.3); Blood Urea Nitrogen 45 mg/dL (7-17); Calcium 9.7 mg/dL (8.4-10.2); Carbon Dioxide 20 mmol/L (22-30); Chloride 102 mmol/L (98-107); Estimated CRCL calculation 16 ml/min; Estimated Glomerular Filt Rate 27; Glucose 149 mg/dL (65-110); Potassium 5.3 mmol/L (3.4-5.0); Sodium 133 mmol/L (137-145)
[2021-12-08 14:45] LABS: Appearance Urine Clear (Clear); Bilirubin Urine Negative (Negative); Color Urine Yellow (Yellow); Glucose Urine UA Negative (Negative); Ketones Urine Negative (Negative); Leukocyte Esterase Ur Negative LEU/UL (Negative); Nitrate Urine Negative (Negative); Protein Urine Negative (Negative); Specific Grav Ur 1.015 (1.001-1.035); Urobilinogen Urine 0.2 mg/dL (<2.0)
[2021-12-08 14:50] LABS: Add Urine Microscopic? YES; Blood Urine Trace-Intact (Negative)
[2021-12-08 14:58] LABS: RBC Urine 0-2 /hpf (0-2); WBC Urine 0-3 /hpf
--- NOTE | 2021-12-08 15:43 | PM.IMHP ---
H&P: HPI History of Present Illness Date/Time: 12/08/21 15:43 Chief Complaint: 80 years old female with past medical history of hyperlipidemia diabetes recent labia majora infection status post incision and drainage was discharged on Bactrim patient presented to her primary care physician lab work was done creatinine was 2.8 patient was sent to the ER for evaluation patient was complaining of nausea decreased appetite few days ago improved yesterday Bactrim was discontinued by her primary care physician and patient was started on clindamycin for recent MRSA infection I offered the patient to do perineal exam patient declined her son was in the room patient stated that her primary care physician/her container finisher have evaluated her perineal area a couple of days ago Review of Systems Review of Systems: Twelve system review was done negative except mentioned in HPI PMFSH Past Medical History Medical History Hyperlipidemia Hypertension Type 2 diabetes mellitus Complicated by diabetic retinopathy. Surgical History Surgical History History of cataract extraction History of tonsillectomy Family History Family History Other Diabetes mellitus Family history of cardiovascular disease Family history of thyroid disease Social History Social History Social History: Surrogate decision maker: Jyoti Finnegan, daughter. Code status: Do not resuscitate. Smoking status: Never smoker Alcohol intake: never Substance use: never Additional living arrangements comments: Lives in [place]. Ambulates with a walker. Spiritual care concerns: No Meds Home Medications and Allergies Home Medications Medication Instructions Recorded Confirmed Type flash glucose scanning reader #1 ea 08/18/21 11/21/21 Rx loperamide 2 mg tablet 2 mg PO Q6H PRN 08/31/21 11/21/21 History dulaglutide 0.75 mg/0.5 mL 0.75 mg SUBCUT WEEKLY #2 ml 09/04/21 11/21/21 Rx subcutaneous pen injector atorvastatin 10 mg tablet See Rx Instructions .ROUTE 10/05/21 11/21/21 Rx .COMPLEX #90 tablet metformin 500 mg tablet,extended See Rx Instructions .ROUTE 10/05/21 11/21/21 Rx release 24 hr .COMPLEX #180 tablet flash glucose sensor See Rx Instructions .ROUTE 11/03/21 11/21/21 Rx .COMPLEX #1 kit clindamycin HCl 300 mg capsule 300 mg PO Q6H 10 Days #40 cap 12/04/21 Rx ondansetron 4 mg disintegrating 4 mg PO Q8H PRN #7 tablet 12/04/21 Rx tablet Allergies Allergy/AdvReac Type Severity Reaction Status Date / Time No Known Allergies Allergy Verified 12/08/21 12:43 Vital Signs Vital Signs - 24 hr 12/08/21 11:39 12/08/21 12:38 12/08/21 12:40 Temperature 97.3 F L Pulse Rate 101 H 90 Respiratory Rate 15 23 H Blood Pressure 148/71 H 163/71 H Pulse Oximetry 100 100 12/08/21 14:33 Temperature Pulse Rate 82 Respiratory Rate 15 Blood Pressure 150/73 H Pulse Oximetry 100 Exam Narrative: General: Well-developed . HEENT: Sclerae anicteric. Neck: Supple. Respiratory: Lungs are clear to auscultation bilaterally. Cardiovascular: Regular rate and rhythm with S1-S2. Gastrointestinal: Abdomen is soft, nontender, and nondistended with positive bowel sounds. Skin: Warm and dry. Extremities: no edema. Neurological: Alert. Oriented. Moves all extremities. Psychiatric: Appropriate H&P: Results Labs Labs: Short CBC 12/08/21 Range/Units 13:04 WBC 6.4 (4.5-10.0) K/mm3 Hgb 12.9 (12.0-15.0) g/dL Hct 39.1 (37.0-47.0) % Plt Count 260 (150-375) k/mm3 BMP 12/08/21 13:04 Sodium 133 L Potassium 5.3 H Chloride 102 Carbon Dioxide 20 L BUN 45 H D Creatinine 1.80 H Glucose 149 H Calcium 9.7 Liver Function 12/08/21 Range/Units
[2021-12-08 16:12] LABS: Creatinine Urine 26.5 mg/dL; Total Protein Urine Random 14 mg/dL
[2021-12-08 16:12] LABS: Creatine Kinase 43 U/L (30-135)
[2021-12-08 16:15] LABS: Potassium Urine Random 25.1 meq/L; Sodium Urine Random 57 meq/L
--- NOTE | 2021-12-08 18:45 | ADMGEN ---
This patient, Nusrat Hernández, was admitted to 3 [facility] Room 313-01. Report received from LINDA Mederos. Patient/family oriented to hospital policies and general routines including ID bracelet, bed and alarms, visiting hours, pain management, procedures, bathroom and other care routines, personal items, smoking policy, room service/diet, and visiting hours. Information on how to activate the Rapid Response Team has been discussed. Patient/Family are encouraged to report perceived risks to care and to ask questions if they do not understand what they are told or what they should do.
[2021-12-08] MEDS: SODIUM CHLORIDE 0.9% IV 1,000 ML 100 ML IV CONT (18:50)
[2021-12-08 20:50] LABS: Glucose Point of Care 152 mg/dl (65-105)
[2021-12-08] MEDS: CLINDAMYCIN HCL 150 MG CAP 300 MG PO (21:05)
[2021-12-08] MEDS: HEPARIN SODIUM 5,000 UNITS/ML VIAL 5000 UNITS SUB-Q (21:13)
[2021-12-09 05:24] VITALS: BP 121/51; PULSE 71; RESP 18; TEMP 36.3; O2SAT 97
[2021-12-09 06:14] LABS: Basophils Absolute Auto 0.1 K/mm3 (0.0-0.1); Basophils Percent Auto 1.6 % (0.2-1.2); Eosinophils Percent Auto 0.9 % (0-4.4); Hematocrit 35.1 % (37.0-47.0); Hemoglobin 11.3 g/dL (12.0-15.0); Immature Granulocyte Absolute 0.01 K/mm3 (0.00-0.031); Immature Granulocyte Percent A 0.2 % (0-0.5); Lymphocytes Absolute Auto 1.76 K/mm3 (0.9-3.2); Lymphocytes Percent Auto 40.8 % (18.3-44.2); Mean Corpuscular HGB Conc 32.2 g/dl (32-36); Mean Corpuscular Hemoglobin 30.1 pg (26-34); Mean Corpuscular Volume 93.4 fl (80-100); Mean Platelet Volume 10.6 fl (7.4-10.4); Monocytes Absolute Auto 0.4 K/mm3 (0.1-0.6); Neutrophils Percent Auto 47.5 % (45.5-73.1); Platelet Count Result 198 k/mm3 (150-375); Red Blood Count 3.76 M/mm3 (4.2-5.4); White Blood Count 4.3 K/mm3 (4.5-10.0)
[2021-12-09] MEDS: CLINDAMYCIN HCL 150 MG CAP 300 MG PO ×2 (06:18→13:18)
[2021-12-09] MEDS: SODIUM CHLORIDE 0.9% IV 1,000 ML 100 ML IV CONT ×2 (06:18→10:05)
[2021-12-09 06:55] LABS: Alanine Aminotransferase 14 U/L (6-35); Albumin Level 3.3 g/dL (3.5-5.1); Alkaline Phosphatase 115 U/L (38-126); Anion Gap 4 mmol/L (8-16); Aspartate Amino Transferase 25 U/L (14-36); Bilirubin,Total 0.2 mg/dL (0.2-1.3); Blood Urea Nitrogen 31 mg/dL (7-17); Calcium 8.6 mg/dL (8.4-10.2); Carbon Dioxide 19 mmol/L (22-30); Chloride 112 mmol/L (98-107); Estimated CRCL calculation 24 ml/min; Estimated Glomerular Filt Rate 43; Glucose 151 mg/dL (65-110); Potassium 4.3 mmol/L (3.4-5.0); Sodium 135 mmol/L (137-145)
[2021-12-09 07:53] LABS: Glucose Point of Care 156 mg/dl (65-105)
[2021-12-09] MEDS: HEPARIN SODIUM 5,000 UNITS/ML VIAL 5000 UNITS SUB-Q (09:53)
--- NOTE | 2021-12-09 10:28 | PM.DS ---
DS: Admitting Diagnosis Discharge Date 12/10/2019 Admitting Diagnosis Acute renal failure DS: Discharge Diagnosis Discharge Diagnosis (1) BENJAMÍN (acute kidney injury): Code(s): N17.9 - Acute kidney failure, unspecified Status: Acute Assessment and Plan: Multifactorial most likely related to Bactrim and dehydration Continue IV fluid DC Bactrim Renal ultrasound Improved repeat CMP in 1 week (2) Electrolyte abnormality: Code(s): E87.8 - Other disorders of electrolyte and fluid balance, not elsewhere classified Status: Resolved Assessment and Plan: Mild hyperkalemia most likely related to Bactrim expected to improve with IV hydrate Resolved repeat CMP in 1 week (3) Hypertension: Code(s): I10 - Essential (primary) hypertension Status: Acute Assessment and Plan: Chest resume home medication (4) Cellulitis of labia: Code(s): N76.2 - Acute vulvitis Status: Acute Assessment and Plan: I offer perineal exam patient decline Continue clindamycin Follow-up with consultant technology and PCP as outpatient (5) Type 2 diabetes mellitus: Qualifiers: Diabetes mellitus long term care social worker insulin use: unspecified long term care social worker insulin use status Diabetes mellitus complication status: with hyperglycemia Qualified Code(s): E11.65 - Type 2 diabetes mellitus with hyperglycemia Code(s): E11.9 - Type 2 diabetes mellitus without complications Status: Acute Assessment and Plan: Insulin sliding scale Hold metformin and Trulicity DS: Summary Hospital Course Hospital Course: Patient presented to the hospital with acute renal failure most likely related to dehydration and Bactrim Bactrim was discontinued before admission patient also has hyperkalemia was treated with IV hydration acute renal failure and hyperkalemia has significantly improved patient to follow-up with PCP as outpatient in 1 week repeat CBC and CMP in 1 week Time Spent with Patient Time attestation: Total time spent providing and/or coordinating discharge services: 35 minutes Exam Narrative: General: Well-developed . HEENT: Sclerae anicteric. Neck: Supple. Respiratory: Lungs are clear to auscultation bilaterally. Cardiovascular: Regular rate and rhythm with S1-S2. Gastrointestinal: Abdomen is soft, nontender, and nondistended with positive bowel sounds. Skin: Warm and dry. Extremities: no edema. Neurological: Alert. Oriented. Moves all extremities. Psychiatric: Appropriate DS: Data Data Completed and Pending Labs on day of discharge: Labs from last 24 hours 12/09/21 12/09/21 12/09/21 07:38 06:02 06:02 WBC 4.3 L RBC 3.76 L Hgb 11.3 L Hct 35.1 L MCV 93.4 MCH 30.1 MCHC 32.2 RDW 14.0 Plt Count 198 MPV 10.6 H Immature Gran % (Auto) 0.2 Neut % (Auto) 47.5 Lymph % (Auto) 40.8 [place] % (Auto) 9.0 H Eos % (Auto) 0.9 Baso % (Auto) 1.6 H Lymph # (Auto) 1.76 [place] # (Auto) 0.4 Eos # (Auto) 0.0 Baso # (Auto) 0.1 Abs Immat Gran (auto) 0.01 Absolute Neuts (auto) 2.0 Absolute Nucleated RBC 0.0 Nucleated RBC % 0.0 Sodium 135 L Potassium 4.3 Chloride 112 H Carbon Dioxide 19 L Anion Gap 4 L BUN 31 H D Creatinine 1.20 H Estim Creat Clear Calc 24 Estimated GFR 43 L Glucose 151 H POC Capillary Glucose 156 H Uric Acid Calcium 8.6 Total Bilirubin 0.2 AST 25 ALT 14 Alkaline Phosphatase 115 Total Creatine Kinase Total Protein 6.0 L Albumin 3.3 L Urine Color Urine Appearance Urine pH Ur Specific [place] Urine Protein Urine Glucose (UA) Urine Ketones Ur Blood (Man) Urine Nitrate Urine Bilirubin Urine Urobilinogen Leukocyte Esterase Rfl Urine RBC Urine WBC Hyaline Casts Granular Casts Urine Osmolality U Random Total Protein Ur Random Sodium Ur Random Potassium Urine Creatinine
[2021-12-09 11:22] VITALS: BMI 20.6
[2021-12-09 11:39] VITALS: BP 130/59; PULSE 86; RESP 20; TEMP 36; O2SAT 100
[2021-12-09 11:48] LABS: Glucose Point of Care 167 mg/dl (65-105)
--- NOTE | 2021-12-09 13:19 | PCNSR ---
On 12/09/21, the student, Marino Jack, provided care and completed [facility] documentation on this patient. I have reviewed the student's documentation and agree with the findings.
[2021-12-09 14:00] VITALS: BP 165/64; PULSE 82; RESP 20; TEMP 36.4; O2SAT 100
[2021-12-09 14:03] VITALS: BP 145/60
[2021-12-11 19:22] LABS: Osmolality, Urine 265 mOsm/kg (50-1200)
== END 2021-12-09 16:30 | disposition home health service (06) ==
LOC: ANHED 15:47 → ANH3MEDSUR 17:56
PROVIDERS: Admitting Provider Internal Medicine; Emergency Provider Emergency Medicine; PCP Family Medicine; Visit Provider Internal Medicine
DX: N17.9 Acute kidney failure, unspecified (principal); E78.5 Hyperlipidemia, unspecified; E11.9 Type 2 diabetes mellitus without complications; E87.8 Other disorders of electrolyte and fluid balance, not elsewhere classified; I10 Essential (primary) hypertension; N76.2 Acute vulvitis
CPT/HCPCS: 36415; 51701; 76775; 80053; 81001; 81050; 82550; 82570; 82948; 83935; 84133; 84156; 84300; 84550; 85025; 96360; 96361; 97161; 99285; A9270; G0378; J1644; J7030

== ENCOUNTER 2021-12-11 12:21 | Outpatient (NON) | payer MEDICARE, SELFPAY ==
[2021-12-11 12:33] LABS: Hematocrit 36.6 % (35.0-42.0); Hemoglobin 12.3 g/dL (11.7-13.8); Mean Corpuscular HGB Conc 33.6 g/dL (32.0-36.0); Mean Corpuscular Hemoglobin 30.3 pg (27.0-31.0); Mean Corpuscular Volume 90.1 fL (78.0-102.0); Platelet Count Result 227 K/mm3 (150-420); Red Blood Count 4.06 M/mm3 (4.20-5.40); Red Cell Distribution Width 13.6 % (11.6-14.4); White Blood Count 6.2 K/mm3 (4.8-10.8)
[2021-12-11 18:57] LABS: Alanine Aminotransferase 21 U/L (14-59); Albumin Level 3.9 g/dL (3.4-5.0); Alkaline Phosphatase 129 U/L (46-116); Anion Gap 10 mmol/L (8-16); Aspartate Amino Transferase 20 U/L (15-37); Bilirubin,Total 0.5 mg/dL (0.00-1.00); Blood Urea Nitrogen 29 mg/dL (7-18); Calcium 9.3 mg/dL (8.5-10.1); Carbon Dioxide 22 mmol/L (21-32); Chloride 100 mmol/L (98-108); Estimated Glomerular Filt Rate 48; Glucose 105 mg/dL (70-99); Osmolality Calculated 279 mOsm/kg (285-295); Potassium 4.4 mmol/L (3.5-5.1); Sodium 132 mmol/L (136-145); Total Protein 7.7 g/dL (6.4-8.2)
== END 2021-12-11 12:22 | disposition home or self-care (01) ==
LOC: CHSHH 12:24
PROVIDERS: Visit Provider Internal Medicine
DX: N17.9 Acute kidney failure, unspecified (principal)
CPT/HCPCS: 80053; 85027

== ENCOUNTER 2022-04-30 12:18 | Emergency (ER) | payer MEDICARE, SELFPAY ==
[2022-04-30 12:24] VITALS: BP 177/70; PULSE 90; RESP 16; TEMP 36.8; O2SAT 100
[2022-04-30 14:57] VITALS: BP 176/101; PULSE 84; O2SAT 100
--- NOTE | 2022-04-30 15:31 | ED.GENADULT ---
HPI - General Adult General Chief complaint: Skin/Abscess/Foreign Body Stated complaint: cellulitis Time Seen by Provider: 04/30/22 12:45 History of Present Illness HPI narrative: 81-year-old female with a past medical history of vaginal cellulitis presents to our department with an abscess on her left labia. Patient's primary doctor did an ultrasound in the office which showed the fluid collection patient's left labia. He sent her to the ER for fluid drainage. Patient denies fever, urinary symptoms, vaginal discharge. She has noticed a small amount of white discharge from the area of fluctuance. Related Data Home Medications Medication Instructions Recorded Confirmed loperamide 2 mg tablet (Imodium 2 mg PO Q6H PRN Diarrhea 08/31/21 12/16/21 A-D) metformin 500 mg tablet,extended 500 mg PO BID 12/08/21 12/16/21 release 24 hr Allergies Allergy/AdvReac Type Severity Reaction Status Date / Time No Known Allergies Allergy Verified 04/30/22 12:58 Review of Systems Review of Systems: CONSTITUTIONAL: Denies fever, chills, or sweats. EYES: Denies visual changes, redness, or discharge. ENT: Denies rhinorrhea, congestion, sore throat, or otalgia. CARDIOVASCULAR: Denies chest pain, palpitations, or edema. RESPIRATORY: Denies cough or dyspnea. GASTROINTESTINAL: Denies abdominal pain, nausea, vomiting, or diarrhea. GENITOURINARY: Denies dysuria or hematuria. SKIN: Denies rash or itching. MUSCULOSKELETAL: Denies back pain, joint pain, or myalgia. NEUROLOGIC: Denies headache, numbness, or weakness. PSYCHIATRIC: Denies anxiety or depression. [facility] Past Medical History Medical History Hyperlipidemia Hypertension Type 2 diabetes mellitus Complicated by diabetic retinopathy. Surgical History Surgical History History of cataract extraction History of tonsillectomy Family History Family History Other Diabetes mellitus Family history of cardiovascular disease Family history of thyroid disease Social History Social History Social History: Surrogate decision maker: Jyoti Finnegan, daughter. Code status: Do not resuscitate. Smoking status: Never smoker Alcohol intake: never Substance use: never Additional living arrangements comments: Lives in [place]. Ambulates with a walker. Spiritual care concerns: No Exam Narrative: GENERAL: Well-appearing, well-nourished, and in no acute distress. HEAD: Normocephalic, atraumatic. EYES: PERRLA and EOMI. ENT: Nares clear, no rhinorrhea or epistaxis. Mucous membranes moist. NECK: Supple. CHEST: Clear to auscultation. No respiratory distress. HEART: Regular rate and rhythm. No murmur heard. Normal peripheral pulses. ABDOMEN: Soft, nontender, nondistended, normal active bowel sounds. EXTREMITIES: Normal range of motion. No edema. SKIN: Warm, dry, no rash. NEURO: No focal deficits. Alert and oriented x3. PSYCH: Normal mood and affect. Gu: Left labia majora is erythematous and there is an area of fluctuance with surrounding induration. Course Vital Signs Vital signs: Vital Signs Temperature 98.3 F 04/30/22 12:24 Pulse Rate 90 04/30/22 12:24 Respiratory Rate 16 04/30/22 12:24 Blood Pressure 177/70 H 04/30/22 12:24 Pulse Oximetry 100 04/30/22 12:24 Oxygen Delivery Room Air 04/30/22 12:24 Temperature 98.3 F 04/30/22 12:24 Pulse Rate 84 04/30/22 14:57 Respiratory Rate 16 04/30/22 12:24 Blood Pressure 176/101 H 04/30/22 14:57 Pulse Oximetry 100 04/30/22 14:57 Oxygen Delivery Room Air 04/30/22 12:24 Procedures Abscess I/D bartholin's gland: Date of Incision: 04/30/22 Side (if applicable): left Sedation/analgesia: other (Local) Local Anesthetic: lidocaine 1% Amount of
[2022-04-30] MEDS: CLINDAMYCIN HCL 150 MG CAP 450 MG PO (15:41)
== END 2022-04-30 16:21 | disposition home or self-care (01) ==
PROVIDERS: Emergency Provider Emergency Medicine; PCP Family Medicine
DX: N75.1 Abscess of Bartholin's gland (principal); E78.5 Hyperlipidemia, unspecified; I10 Essential (primary) hypertension; E11.319 Type 2 diabetes mellitus with unspecified diabetic retinopathy without macular edema; Z98.49 Cataract extraction status, unspecified eye; Z79.84 Long term (current) use of oral hypoglycemic drugs; Z79.85 Long-term (current) use of injectable non-insulin antidiabetic drugs
CPT/HCPCS: 56420; 99283; A9270

== ENCOUNTER 2023-02-07 14:41 | Outpatient (NON) | payer MEDICARE, SELFPAY ==
[2023-02-07 14:53] LABS: Basophils Absolute Auto 0.09 K/mm3 (0.00-0.10); Basophils Percent Auto 1.5 % (0.0-1.0); Eosinophils Absolute Auto 0.04 K/mm3 (0.02-0.50); Eosinophils Percent Auto 0.7 % (1.0-6.0); Hematocrit 39.4 % (35.0-42.0); Hemoglobin 13.4 g/dL (11.7-13.8); Immature Granulocyte Absolute 0.02 K/mm3 (0.00-0.00); Immature Granulocyte Percent A 0.3 % (0.0-0.0); Lymphocytes Absolute Auto 1.59 K/mm3 (1.10-4.50); Lymphocytes Percent Auto 27.3 % (18.0-42.0); Mean Corpuscular Hemoglobin 31.1 pg (27.0-31.0); Mean Corpuscular Volume 91.4 fL (78.0-102.0); Mean Platelet Volume 11.6 fl (9.2-11.8); Monocytes Absolute Auto 0.37 K/mm3 (0.10-0.90); Monocytes Percent Auto 6.3 % (2.0-11.0); Neutrophils Absolute Auto 3.7 K/mm3 (1.7-7.2); Neutrophils Percent Auto 63.9 % (50.0-70.0); Platelet Count Result 159 K/mm3 (150-420); Red Blood Count 4.31 M/mm3 (4.20-5.40); Red Cell Distribution Width 13.1 % (11.6-14.4); White Blood Count 5.8 K/mm3 (4.8-10.8)
[2023-02-07 15:46] LABS: Alanine Aminotransferase 25 U/L (14-59); Alkaline Phosphatase 112 U/L (46-116); Anion Gap 11 mmol/L (8-16); Aspartate Amino Transferase 22 U/L (15-37); Bilirubin,Total 0.4 mg/dL (0.00-1.00); Blood Urea Nitrogen 20 mg/dL (7-18); Calcium 8.9 mg/dL (8.5-10.1); Carbon Dioxide 27 mmol/L (21-32); Chloride 101 mmol/L (98-108); Cholesterol 190 mg/dL (0-200); Estimated Glomerular Filt Rate > 60; Glucose 190 mg/dL (70-99); HDL Direct 71 mg/dL (40-60); LDL Cholesterol Calculated 102 mg/dL (<130); Osmolality Calculated 295 mOsm/kg (285-295); Potassium 3.9 mmol/L (3.5-5.1); Sodium 139 mmol/L (136-145); Total Protein 6.9 g/dL (6.4-8.2); Triglycerides 84 mg/dL (0-150)
[2023-02-09 20:05] LABS: Vitamin D 25 Hydroxy 14 ng/mL (30-100)
== END 2023-02-07 14:42 | disposition home or self-care (01) ==
PROVIDERS: Visit Provider Nurse Practitioner Family
DX: E11.65 Type 2 diabetes mellitus with hyperglycemia (principal); I10 Essential (primary) hypertension; Z79.899 Other long term (current) drug therapy
CPT/HCPCS: 36415; 80053; 80061; 82306; 85025

== ENCOUNTER 2023-11-13 20:33 | Emergency (ER) | payer MEDICARE, SELFPAY ==
--- NOTE | ~2023-11-13 | CT_ITS ---
EXAMINATION: CT abdomen pelvis w con DATE: 11/13/2023 23:11 INDICATION: Sacral decubitus ulcer. TECHNIQUE: Computed tomography (CT) of the abdomen and pelvis was performed with 100 mL Omnipaque 350 intravenous contrast. Automated exposure control and iterative reconstruction technique were employe d. The dose-length product was 350.37 mGy-cm. COMPARISON: None. FINDINGS: The visualized portions of the lung bases demonstrate minimal atelectasis. No pleural effus ion. The heart size is normal. There are calcifications of the aortic valve. No pericardial effusion. There is a small sliding hiatal hernia. Calcifications in the liver and spleen are consistent with o ld granulomatous disease. The gallbladder, pancreas, adrenal glands, and kidneys are normal. There is diverticulosis of the colon without evidence of diverticulitis. There are no dilated loops of bowel. The appendix is normal. Aortic atherosclerosis is noted. There is a sacral decubitus ulcer. There is thoracolumbar dextroscoliosis and severe spondylosis. IMPRESSION: 1. Sacral decubitus ulcer. No evidence of osteomyelitis. 2. Small sliding hiatal hernia. Reviewed, dictated and finalized at location E.
[2023-11-13 20:40] VITALS: BP 154/86; PULSE 90; RESP 20; TEMP 36.6; O2SAT 100
--- NOTE | 2023-11-13 20:46 | ED.GENADULT ---
HPI - General Adult General Chief complaint: Wound/Laceration Stated complaint: Decub Coccyx Time Seen by Provider: 11/13/23 20:35 History of Present Illness HPI narrative: the patient is an 82-year-old woman with history of insulin-dependent diabetes, hypertension, hyperlipidemia, hyponatremia, anxiety. She has been cared for by her daughter at home. More recently, the patient has become nonambulatory although she is able to pivot and move herself around in the bed. She is unable to ambulate due to severe anxiety. She has been completely bedridden and not ambulating since August 2023. She has a scooter that she uses to get around the house. She has been seen by home health. They discharged her from their care on 10/27/2023. The patient has had a decubitus ulcer forming on the sacral region and it started bothering her a bit more over the last few days. She also reports dysuria. The PCP was notified, who called in a prescription for Keflex 500 mg p.o. b.i.d.. She has taken 3 pills of this, starting yesterday. Denies abdominal pain or nausea vomiting or chest pain. No fevers or chills. Related Data Home Medications Medication Instructions Recorded Confirmed escitalopram oxalate 10 mg tablet 10 mg PO DAILY 11/13/23 11/14/23 [id number] acid 0.4 1 tablet PO DAILY 11/13/23 11/14/23 mg-lycopene 300 mcg-lutein 250 mcg tablet vit C 250 mg-vit E 90 mg-zinc 40 1 tablet PO BID 11/13/23 11/14/23 mg-copper 1 gg-taexrj-vuxaon capsule (PreserVision AREDS-2) cholecalciferol (vitamin D3) 1,250 1,250 mcg PO [id number] 11/14/23 11/14/23 mcg (50,000 unit) capsule docusate sodium 50 mg capsule 50 mg PO DAILY 11/14/23 11/14/23 dulaglutide 0.75 mg/0.5 mL 0.75 mg subcut WEEKLY 11/14/23 11/14/23 subcutaneous [facility] ([facility] ibuprofen 200 mg tablet (Motrin IB) 200 mg PO Q6H PRN Pain (Scale 11/14/23 11/14/23 Score 4-6) neomycin-bacitracn Zn-polymyx 3.5 1 applic topical BID 11/14/23 11/14/23 mg-400 unit-5,000 unit/gram top oint (Triple Antibiotic) Allergies Allergy/AdvReac Type Severity Reaction Status Date / Time No Known Allergies Allergy Verified 11/14/23 01:22 Review of Systems Review of Systems: All systems reviewed & are unremarkable except as noted in HPI and below Constitutional: Constitutional: Denies chills, Denies excessive sweating, Denies fatigue, Denies fever(s) and Denies headache(s) Eyes: Eyes: Denies change in vision and Denies photophobia ENT: Denies dysphagia, Denies dizziness, Denies headache(s), Denies lip swelling, Denies nasal congestion, Denies sore throat and Denies tongue swelling Cardiovascular: Cardiovascular: Denies chest pain, Denies syncope, Denies rapid heart rate and Denies dyspnea Respiratory: Respiratory: Denies cough, Denies dyspnea and Denies wheezing Gastrointestinal: Gastrointestinal: Denies abdominal pain, Denies constipation, Denies dysphagia, Denies diarrhea, Denies nausea and Denies vomiting Genitourinary: Genitourinary: Denies hematuria, Denies urinary frequency, Reports dysuria and Denies urinary urgency Musculoskeletal: Musculoskeletal: Denies back pain, Denies myalgias, Denies arthralgias, Denies joint swelling and Denies numbness Integumentary/Breasts: Skin/Breast: Denies pruritus, Denies erythema and Reports rash (at sacrum) Neurologic: Denies confusion, Denies dizziness, Denies syncope, Denies headache(s), Denies focal weakness and Denies numbness Psychiatric: Psychiatric: Denies anxiety and Denies confusion Hematologic/Lymphatic: Hematologic/Lymphatic: Denies easy bleeding and Denies easy bruising Allergic/Immunologic: Allergic/Immunologic: Denies lip swelling, Denies tongue swelling and Denies wheezing PMFSH Past Medical History Medical History Hyperlipidemia Hypertension Type 2 diabetes mellitus Complicated by diabetic retinopathy. Surgical History Surgical History (Reviewe
[2023-11-13 21:29] LABS: Basophils Absolute Auto 0.07 K/mm3 (0.00-0.10); Basophils Percent Auto 0.9 % (0.0-1.0); Eosinophils Absolute Auto 0.06 K/mm3 (0.02-0.50); Eosinophils Percent Auto 0.7 % (1.0-6.0); Hematocrit 39.8 % (35.0-42.0); Hemoglobin 13.3 g/dL (11.7-13.8); Immature Granulocyte Absolute 0.06 K/mm3 (0.00-0.00); Immature Granulocyte Percent A 0.7 % (0.0-0.0); Lymphocytes Absolute Auto 1.87 K/mm3 (1.10-4.50); Lymphocytes Percent Auto 22.9 % (18.0-42.0); Mean Corpuscular HGB Conc 33.4 g/dL (32-36); Mean Corpuscular Hemoglobin 29.8 pg (27.0-31.0); Mean Corpuscular Volume 89.2 fL (78.0-102.0); Mean Platelet Volume 10.4 fl (9.2-11.8); Monocytes Percent Auto 7.4 % (2.0-11.0); Neutrophils Percent Auto 67.4 % (50.0-70.0); Platelet Count Result 235 K/mm3 (150-420); Red Blood Count 4.46 M/mm3 (4.20-5.40); Red Cell Distribution Width 12.9 % (11.6-14.4); White Blood Count 8.2 K/mm3 (4.8-10.8)
[2023-11-13] MEDS: ceFAZolin 1 GM/NS 50 ML 1 GM/50 ML BAG IVPB (21:30)
[2023-11-13 21:41] LABS: Partial Thromboplastin Time 28.2 Sec (23.9-30.70)
[2023-11-13 21:42] LABS: Alanine Aminotransferase 33 U/L (14-59); Albumin Level 3.4 g/dL (3.4-5.0); Alkaline Phosphatase 139 U/L (46-116); Anion Gap 9 mmol/L (4-12); Aspartate Amino Transferase 25 U/L (15-37); Bilirubin,Total 0.4 mg/dL (0.00-1.00); Blood Urea Nitrogen 13 mg/dL (7-18); CRP 2.7 mg/dL (0.0-0.9); Calcium 9.3 mg/dL (8.5-10.1); Carbon Dioxide 30 mmol/L (21-32); Chloride 100 mmol/L (98-108); Estimated CRCL calculation 30 ml/min; Estimated Glomerular Filt Rate 56; Glucose 153 mg/dL (70-99); Magnesium 1.9 mg/dL (1.8-2.4); Osmolality Calculated 291 mOsm/kg (285-295); Potassium 3.9 mmol/L (3.5-5.1); Sodium 139 mmol/L (136-145); Total Protein 6.9 g/dL (6.4-8.2)
[2023-11-13 21:49] LABS: Lactic Acid Reflex 1.3 mmol/L (0.4-2.0)
[2023-11-13 22:01] LABS: Bilirubin Urine Negative (Negative); Blood Urine Negative (Negative); Color Urine Yellow (Yellow); Glucose Urine UA Negative (Negative); Ketones Urine Trace (Negative); Leukocyte Esterase Ur 1+ LEU/UL (Negative); Nitrate Urine Negative (Negative); Protein Urine Negative (Negative); Specific Grav Ur 1.015 (1.010-1.020); Urobilinogen Urine 0.2 mg/dL (0.2-1.0)
[2023-11-13 22:03] VITALS: BP 140/79; PULSE 88; RESP 18; O2SAT 99
--- NOTE | 2023-11-13 22:04 | PC.NURSE ---
Pr rolls side to side per self and is able to lift her bottom to assist in taking off her depend and sitting on bedpan. Pt urinated small amt on bedpan, Urine sent to lab per order. Pt repositioned self in turning to her Rt side lying position. Awaiting lab reports for POC decision.
[2023-11-13 22:10] LABS: Add Urine Microscopic? YES; Appearance Urine Sl Cloudy (Clear); Bacteria Urine 1+ /hpf; Hyaline Casts Urine 15-19 /lpf; Mucus Urine Moderate /lpf; Squamous Epithelial Cell Urine Few /hpf (Few); WBC Clumps Urine Present /hpf; WBC Urine 16-20 /hpf (0-3)
[2023-11-13 22:37] LABS: Erythrocyte Sedimentation Rate 35 mm/hr (0-20)
[2023-11-14 00:47] VITALS: BP 139/67; PULSE 81; RESP 18; TEMP 37; O2SAT 98
[2023-11-14] MEDS: PIPERACILLN/TAZ 3.375GM/NS50ML 3.375 GM/50 ML BAG IVPB (00:47)
--- NOTE | 2023-11-14 01:33 | PC.NURSE ---
Pt asssited in turning and urinated on bedpan. Cleaned and new mepilex applied to wound on coccyx. Pt tolerated well, call received from Jeri gaston bed info given and report called to Callie at [place]. Pt to go to Rm [phone] #[phone]
--- NOTE | 2023-11-14 01:52 | PC.NURSE ---
Pt report given to [facility] for transfer. pt transferred to cot s difficulty.
[2023-11-14 01:58] VITALS: BP 138/79; PULSE 75; RESP 20; O2SAT 100
--- NOTE | 2023-11-16 13:21 | PC.NURSE ---
FINAL URINE CULTURE RESULTS: NO GROWTH.
--- NOTE | 2023-11-20 12:35 | PC.NURSE ---
FINAL BLOOD CULTURE NO GROWTH AFTER 5 DAYS
== END 2023-11-14 01:58 | disposition short-term general hospital (02) ==
PROVIDERS: Emergency Provider Emergency Medicine; PCP Nurse Practitioner Family
DX: L89.159 Pressure ulcer of sacral region, unspecified stage (principal); N39.0 Urinary tract infection, site not specified; I10 Essential (primary) hypertension; E78.5 Hyperlipidemia, unspecified; E11.319 Type 2 diabetes mellitus with unspecified diabetic retinopathy without macular edema; F41.9 Anxiety disorder, unspecified; Z79.85 Long-term (current) use of injectable non-insulin antidiabetic drugs
CPT/HCPCS: 36415; 74177; 80053; 81001; 83605; 83735; 85025; 85610; 85652; 85730; 86140; 87040; 87086; 96365; 96367; 99285; J0690; J2543; Q9967

== ENCOUNTER 2023-11-14 03:46 | Inpatient (IN) | payer MEDICARE, SELFPAY ==
[2023-11-14 02:56] VITALS: BP 154/78; PULSE 77; RESP 16; TEMP 36.2; O2SAT 98; BMI 22.8
[2023-11-14 04:08] VITALS: PULSE 77; RESP 16; O2SAT 98
--- NOTE | 2023-11-14 04:09 | ADMGEN ---
This patient, Nusrat Hernández, was admitted to [address] [place] [address] Room 317-02. Patient/family oriented to hospital policies and general routines including ID bracelet, bed and alarms, visiting hours, pain management, procedures, bathroom and other care routines, personal items, smoking policy, room service/diet, and visiting hours. Information on how to activate the Rapid Response Team has been discussed. Patient/Family are encouraged to report perceived risks to care and to ask questions if they do not understand what they are told or what they should do.
[2023-11-14 06:00] VITALS: BP 181/64; PULSE 85; RESP 18; TEMP 36.4; O2SAT 95
--- NOTE | 2023-11-14 08:39 | PM.IMHP ---
H&P: HPI History of Present Illness Date/Time: 11/14/23 08:39 Chief Complaint: Sacral wound Narrative: This is an 82-year-old female with past medical history significant for diabetes, hypertension, anxiety, and recurrent MRSA infections who presented to [place] [facility] with complaints of pain with urination and generalized weakness with a worsening abscess on her sacrum. She was transferred to [facility] for surgical evaluation of likely MRSA abscess. The patient reports that prior to August this year she was independent of all ADLs but since August has been experiencing increased weakness and fatigue. She reports debilitating anxiety about walking. She is afraid she will fall and break her hip. She was recently started on BuSpar for this. She also reports weakness with ambulation and ?frozen feet?. Because of this she has spent a lot of time in bed. She thought she had the start of a pressure ulcer. She has been having nausea without vomiting as well as suprapubic pain and dysuria. She denies headache, dizziness, shortness of breath, and chest pain. In the ER labs were fairly unremarkable other than an elevated CRP at 2.7. Her UA was concerning for UTI for which she received Rocephin. CT abdomen and pelvis shows a small decubitus ulcer without osteomyelitis. Urine and blood cultures are pending. She was admitted [facility] in this setting with general surgery consult and Wound consult. Review of Systems Review of Systems: All systems reviewed & are unremarkable except as noted in HPI and below PMFSH Past Medical History Medical History (Updated 11/14/23 @ 17:33 by Ya Ely APRN) Diabetic retinopathy Hyperlipidemia Hypertension Left genital labial abscess MRSA infection Type 2 diabetes mellitus Complicated by diabetic retinopathy. Surgical History Surgical History History of cataract extraction History of tonsillectomy Family History Family History Other Diabetes mellitus Family history of cardiovascular disease Family history of thyroid disease Social History Social History (Updated 11/14/23 @ 17:31 by Ya Ely APRN) Social History: Surrogate decision maker: Jyoti Finnegan, daughter. Code status: Do not resuscitate. Smoking status: Never smoker Alcohol intake: never Substance use: never Do You Feel Safe in your Home?: Yes Lack of Transportation: YES Lack of Food: Never True Current Housing: I Have Housing Concerned About Future Housing: No Difficulty Paying Gas/Electric Bills: No Difficulty Paying for Meds: No Currently Unemployed: No Education: High School Diploma/GED Difficulty w/ Childcare or Family Care: No Living arrangements: with family Additional living arrangements comments: Lives in [place] with her son Shahriar. Her daughter Tameka sees her often. Patient requires Min to moderate assist with ADLs. Ambulates with a walker. 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 Spiritual care concerns: No Meds Home Medications and Allergies Home Medications Medication Instructions Recorded Confirmed Type flash glucose scanning reader #1 ea 04/19/23 11/14/23 Rx (FreeStyle Clement 2 [place]) buspirone 5 mg tablet 5 mg PO BID #60 tabs 10/06/23 11/14/23 Rx flash glucose sensor (FreeStyle #1 kit 11/10/23 11/14/23 Rx Clement 2 Sensor kit) escitalopram oxalate 10 mg tablet 10 mg PO DAILY 11/13/23 11/14/23 History neqmrghw-iit-qtfpo acid 0.4 1 tablet PO DAILY 11/13/23 11/14/23 History mg-lycopene 300 mcg-lutein 250 mcg tablet vit C 250 mg-vit E 90 mg-zinc 40 1 tablet PO BID 11/13/23 11/14/23 History mg-copper 1 zq-ovixwr-jwcrku capsule (PreserVision AREDS-2) cholecalciferol (vitamin D3) 1,250 1,250 mcg PO [id number] 11/14/23 11/14/23 History mcg (50,000 unit) capsule docusate
[2023-11-14] MEDS: ESCITALOPRAM OXALATE 10 MG TABLET PO (09:20)
[2023-11-14] MEDS: OPTI-GEN TAB 1 TABLET PO ×2 (09:20→16:56)
[2023-11-14] MEDS: busPIRone HCL 5 MG TABLET PO ×2 (09:20→16:56)
[2023-11-14] MEDS: DOCUSATE SODIUM 100 MG CAPSULE PO (09:20)
[2023-11-14] MEDS: MULTIVITAMINS /C LUTEIN (CENTRUM SILVER) TABLET *BKC 1 TAB PO (09:20)
[2023-11-14] MEDS: IBUPROFEN 200 MG TABLET PO (09:31)
[2023-11-14 09:43] LABS: Basophils Absolute Auto 0.1 K/mm3 (0.0-0.1); Basophils Percent Auto 1.3 % (0.2-1.2); Eosinophils Absolute Auto 0.1 K/mm3 (0-0.3); Eosinophils Percent Auto 1.3 % (0-4.4); Hematocrit 40.5 % (37.0-47.0); Hemoglobin 13.4 g/dL (12.0-15.0); Immature Granulocyte Absolute 0.04 K/mm3 (0.00-0.031); Immature Granulocyte Percent A 0.6 % (0-0.5); Lymphocytes Absolute Auto 1.99 K/mm3 (0.9-3.2); Lymphocytes Percent Auto 29.4 % (18.3-44.2); Mean Corpuscular HGB Conc 33.1 g/dl (32-36); Mean Corpuscular Volume 90.6 fl (80-100); Mean Platelet Volume 10.2 fl (7.4-10.4); Monocytes Absolute Auto 0.6 K/mm3 (0.1-0.6); Monocytes Percent Auto 8.6 % (2.6-8.5); Neutrophils Percent Auto 58.8 % (45.5-73.1); Platelet Count Result 228 k/mm3 (150-375); Red Blood Count 4.47 M/mm3 (4.2-5.4); White Blood Count 6.8 K/mm3 (4.5-10.0)
[2023-11-14 09:55] LABS: Alanine Aminotransferase 23 U/L (6-35); Albumin Level 3.8 g/dL (3.5-5.1); Alkaline Phosphatase 116 U/L (38-126); Anion Gap 5 mmol/L (4-12); Aspartate Amino Transferase 27 U/L (14-36); Bilirubin,Total 0.6 mg/dL (0.2-1.3); Blood Urea Nitrogen 11 mg/dL (7-17); Calcium 9.3 mg/dL (8.4-10.2); Carbon Dioxide 26 mmol/L (22-30); Chloride 101 mmol/L (98-107); Estimated CRCL calculation 33 ml/min; Estimated Glomerular Filt Rate > 60; Glucose 180 mg/dL (65-110); Magnesium 2.1 mg/dL (1.6-2.3); Potassium 4.2 mmol/L (3.4-5.0); Sodium 132 mmol/L (137-145)
[2023-11-14] MEDS: NEOMYCIN/POLYMYXIN/BACITRACIN OINTMENT 15 GM TUBE 1 APPLIC TOPICAL (10:15)
[2023-11-14 14:00] VITALS: BP 166/76; PULSE 88; RESP 18; TEMP 35.6; O2SAT 98
[2023-11-14] MEDS: cefTRIAXone 2 GM/NS 100 ML 2 GM/100 ML BAG IVPB (14:08)
--- NOTE | 2023-11-14 14:33 | PM.CNGS ---
Assessment and Plan Assessment and plan (1) Decubitus ulcer of sacral region: Code(s): L89.159 - Pressure ulcer of sacral region, unspecified stage Status: Acute Assessment and Plan: Necrotic sacral decubitus ulcer with purulent drainage and induration. We would recommend proceeding with complex incision, drainage, and debridement of sacral decubitus ulcer in the OR by Dr. Gibbs. Will continue local wound care for now with dry cover dressings daily. Continue IV ceftriaxone. She has a history of MRSA, will add IV vancomycin to provide appropriate coverage. Wound cultures can be obtained in the OR. We have added her onto the surgery schedule for tomorrow and will make her NPO after midnight. Description of the procedure, risks, benefits, alternatives, and expected recovery/wound care were discussed with the patient in detail. She agrees to proceed. (2) Type 2 diabetes mellitus with hyperglycemia: Code(s): E11.65 - Type 2 diabetes mellitus with hyperglycemia Status: Acute (3) Urinary tract infection: Code(s): N39.0 - Urinary tract infection, site not specified Status: Acute Plan I have discussed the patient's case and plan of care with Dr. Gibbs. Thank you for allowing us to see the patient in consultation and we will continue to follow along with you. History of Present Illness Consult details Consult date: 11/14/23 Reason for consult: other (Sacral wound) Requesting physician: Ya Ely, VALERI Narrative: This is an 82-year-old woman with insulin-dependent diabetes mellitus, hypertension, and other medical problems, who we have been asked to see in surgical consultation for a sacral wound. She was brought in to [facility] yesterday for evaluation of a sacral wound. She reports becoming less ambulatory over the past year. She has had a steady decline due to knee pain and anxiety, per the patient. She was able to pivot and transfer from bed to chair. Her daughter is her primary caregiver, and she has also had home health coming to the house recently for therapy. Her daughter is at the bedside and helps provide additional history. Patient reports she has not walked since August of this year. Her daughter has been helping care for her and they either. Her daughter noticed what she thought was a pimple in the sacral area a few weeks ago. She has been cleaning this area and applying antibiotic ointment to the area. This area has grown in size and began draining purulent drainage about a week ago. She denies fever or chills. Her daughter reports a decrease in drainage over the past few days. Labs in the ER were unremarkable. White blood cell count normal. CT scan of the abdomen and pelvis showed a sacral decubitus ulcer with no evidence of osteomyelitis. She was then transferred to [facility] and our service was consulted. She is now seen on the medical floor with her daughter at the bedside. In review of her electronic medical record, it does appear she has a history of MRSA infection from a culture during hospitalization for cellulitis/abscess of her labia in 2021. She is currently on IV ceftriaxone. Wound care was consulted and saw the patient this morning. They report purulent drainage coming from the sacral wound earlier this morning. Review of Systems Review of Systems: All systems reviewed & are unremarkable except as noted in HPI and below PMFSH Past Medical History Medical History Hyperlipidemia Hypertension Type 2 diabetes mellitus Complicated by diabetic retinopathy. Surgical History Surgical History History of cataract extraction History of tonsillectomy Family History Family History Other Diabetes mellitus Family history of cardiovascular disease Family history of thyroid disease Social Hist
[2023-11-14] MEDS: VANCOMYCIN 1,000 MG/NS 250 ML 1,000 MG/250 ML BAG 250 MG IVPB (16:53)
[2023-11-14 20:38] LABS: Glucose Point of Care 196 mg/dl (65-105)
[2023-11-14 20:40] VITALS: BP 144/70; PULSE 82; RESP 14; TEMP 36.2; O2SAT 98
[2023-11-14] MEDS: HYDROcodone/acetaminophen (*CRX) 5-325 MG TABLET 1 TAB PO (22:48)
[2023-11-15] VITALS (12 sets, daily range): BP systolic 124–151; BP diastolic 51–86; PULSE 67–82; RESP 12–24; TEMP 36.2–37.6; O2SAT 95–99
--- NOTE | 2023-11-15 | ECHO_ITS ---
Patient Info Name: Nusrat Hernández Age: 82 years : 1940 Gender: Female Ht: 60 in Wt: 124 lbs BSA: 1.55 m2 HR: 82 bpm BP: 144 / 70 mmHg Heart Rhythm: Sinus Rhythm Technical Quality: Fair Exam Date: 11/15/2023 9:04 AM Exam Location: Echo Lab Patient Status: Inpatient Admit Date: 11/14/2023 Staff Ordering Physician: Ya Ely APRN Weaving Inspector: Francoise Moody RDCS Attending Provider: Avila Chávez MD Referring Physician: Solis PARKS; Exam Type: CA echo dop color flow w con Study Info Indications - murmur Complete two-dimensional, color flow and Doppler transthoracic echocardiogram is performed with contrast to opacify the left ventricle and to improve the deliniation of the left ventricle endocardial borders. Contrast/Agitated Saline Contrast/Ag. Saline: Definity Amount: 3.00 ml Summary 1. Definity contrast administered improved wall motion interpretation. 2. Left ventricular chamber dimension is normal. 3. Left ventricular systolic function is normal, estimated at 60-65%. 4. The left ventricular diastolic function is abnormal. 5. E/e' 10 is mildly elevated. 6. The aortic valve is not well visualized. Cannot determine number of aortic valve leaflets. 7. There is moderate aortic valve sclerosis. 8. There is mild to moderate aortic valve regurgitation. 9. There is moderate aortic valve stenosis based on a peak velocity of 295.73 cm/s, mean gradient of 21 mmHg, and aortic valve area of 1.44 cm2. 10. No pulmonary hypertension, estimated pulmonary arterial systolic pressure is 16 mmHg. Left Ventricle Definity contrast administered improved wall motion interpretation. E/e' 10 is mildly elevated. Left ventricular chamber dimension is normal. Left ventricular systolic function is normal, estimated at 60-65%. The left ventricular diastolic function is abnormal. Right Ventricle Right ventricular chamber dimension is normal. Right ventricular systolic function is normal. Left Atria Left atrial chamber dimension is normal. Right Atria Right atrial chamber dimension is normal. Aortic Valve The aortic valve is not well visualized. Cannot determine number of aortic valve leaflets. There is moderate aortic valve stenosis based on a peak velocity of 295.73 cm/s, mean gradient of 21 mmHg, and aortic valve area of 1.44 cm2. There is moderate aortic valve sclerosis. There is mild to moderate aortic valve regurgitation. Pulmonic Valve There is no pulmonic regurgitation. Mitral Valve There is no mitral valve stenosis. There is no mitral valve regurgitation. Tricuspid Valve There is no tricuspid valve regurgitation. No pulmonary hypertension, estimated pulmonary arterial systolic pressure is 16 mmHg. Pericardium/Pleural There is no pericardial effusion. Inferior Vena Cava Normal inferior vena cava with >50% collapse upon inspiration consistent with normal right atrial pressure, 5 mmHg. Aorta The aortic root size at the sinus of Valsalva is normal. Left Ventricular Outflow Tract Name Value Normal LVOT 2D LVOT Diameter 2.12 cm LVOT Doppler LVOT Peak Gradient 5 mmHg LVOT Mean Gradient 3 mmHg
[2023-11-15] MEDS: HYDROcodone/acetaminophen (*CRX) 5-325 MG TABLET 1 TAB PO ×2 (03:06→17:03)
[2023-11-15 06:30] LABS: Estimated CRCL calculation 38 ml/min; Estimated Glomerular Filt Rate > 60
--- NOTE | 2023-11-15 07:53 | PM.IMPN ---
Progress Note: A&P Assessment and Plan (1) MRSA infection: Code(s): A49.02 - Methicillin resistant Staphylococcus aureus infection, unspecified site Status: Acute Assessment and Plan: History of MRSA infections to axilla abscess and labia abscess. Now here with sacral abscess with purulent drainage. Wound care consulted recs appreciated Photo in chart Surgery was consulted and is taking her for I&D tomorrow Contact precautions Vancomycin on board Blood cultures pending 11/14: Going for I&D today Preliminary blood cultures with no growth to date (2) Decubitus ulcer of sacral region: Code(s): L89.159 - Pressure ulcer of sacral region, unspecified stage Status: Inactive Assessment and Plan: See 1. (3) Urinary tract infection: Code(s): N39.0 - Urinary tract infection, site not specified Status: Inactive Assessment and Plan: UA concerning for infection in patient with dysuria Started on Rocephin Urine culture pending 11/14: Urine culture pending Output 2050 ml for the last 24 hours (4) Type 2 diabetes mellitus with hyperglycemia: Code(s): E11.65 - Type 2 diabetes mellitus with hyperglycemia Status: Acute Assessment and Plan: Last A1c last year was 6.6% patient taking Trulicity Repeat hemoglobin A1c Sliding scale insulin with corrective low-dose Hypoglycemia protocol ordered 11/14: A1c pending Blood glucose ranging 186-135 (5) Anxiety: Code(s): F41.9 - Anxiety disorder, unspecified Status: Acute Assessment and Plan: Debilitating anxiety related to falling PCP recently started her on BuSpar and escitalopram (6) Weakness: Code(s): R53.1 - Weakness Status: Acute Assessment and Plan: Progressive weakness related to immobility PT OT consult recs appreciated Up ad pasha with assistance Fall precautions (7) Malnutrition: Code(s): E46 - Unspecified protein-calorie malnutrition Status: Acute Assessment and Plan: Appears thin and frail Start Glucerna shakes after surgery Dietitian consulted and recs appreciated Subjective Date/time seen: 11/15/23 07:53 Interval history: 82 year old female with PMH of DM, HTN, anxiety, and recurrent MRSA infections who presented with dysuria, weakness, and sacral abscess. 11/14: No acute events overnight. Patient is going with surgery today at 1:00 pm. for I and D of sacral abscess. She has no questions or concerns at this time. Review of Systems Review of Systems: All systems reviewed & are unremarkable except as noted in HPI and below Exam Narrative: General: well appearing, thin, frail appears stated age. HEENT: normocephalic, atraumatic. Mucous membranes moist. EOMI, PERRLA, bilateral sclera anicteric, no conjunctival injection. Neck supple without JVD, lymphadenopathy, or bruit. Respiratory: clear to auscultation bilaterally. No rales/rhonic/wheezes. Cardiovascular: Regular rate and rhythm, normal S1-S2 upon auscultation. No murmurs, rubs, or clicks. PMI is nondisplaced, capillary refill less than 3 second. Abdomen: Soft, round, no pulsatile masses, nondistended and nontender. No rebound, no guarding. No CVA tenderness, no hepatosplenomegaly. Bowel sounds present to all four quadrants. No high pitch or tinkling sounds, resonant to percussion. Extremities: No cyanosis, clubbing, or edema present. Pulses are palpable 2/2. Active ROM to all four extremities. Neuro: Alert and orientated x 4. PERRLA. Cranial nerves 2-12 intact without focal deficit. Skin: Warm, dry, and intact, without rash, erythema, or lesion. Sacral wound with red demarcation, hard edges, and purulence drainage. Lines: PIV Incisions: Psych: pleasant, cooperative, normal speech, normal affect, no hallucinations, no dysarthria, anxiety Objective Data Vital Signs Vital Signs: Vital Signs - 24 hr 11/14/23 08:00 11/14/23 14:00 11/14/23
[2023-11-15 08:09] LABS: Glucose Point of Care 135 mg/dl (65-105)
[2023-11-15 08:57] LABS: Basophils Absolute Auto 0.1 K/mm3 (0.0-0.1); Basophils Percent Auto 1.6 % (0.2-1.2); Eosinophils Absolute Auto 0.2 K/mm3 (0-0.3); Eosinophils Percent Auto 2.4 % (0-4.4); Hematocrit 42.8 % (37.0-47.0); Hemoglobin 14.4 g/dL (12.0-15.0); Immature Granulocyte Absolute 0.06 K/mm3 (0.00-0.031); Immature Granulocyte Percent A 0.8 % (0-0.5); Lymphocytes Absolute Auto 3.02 K/mm3 (0.9-3.2); Lymphocytes Percent Auto 42.6 % (18.3-44.2); Mean Corpuscular HGB Conc 33.6 g/dl (32-36); Mean Corpuscular Hemoglobin 30.9 pg (26-34); Mean Corpuscular Volume 91.8 fl (80-100); Mean Platelet Volume 10.7 fl (7.4-10.4); Monocytes Absolute Auto 0.6 K/mm3 (0.1-0.6); Monocytes Percent Auto 8.7 % (2.6-8.5); Neutrophils Absolute Auto 3.1 K/mm3 (1.3-6.7); Neutrophils Percent Auto 43.9 % (45.5-73.1); Platelet Count Result 261 k/mm3 (150-375); Red Blood Count 4.66 M/mm3 (4.2-5.4); Red Cell Distribution Width 13.3 % (11.5-14.5); White Blood Count 7.1 K/mm3 (4.5-10.0)
[2023-11-15 09:09] LABS: Alanine Aminotransferase 24 U/L (6-35); Alkaline Phosphatase 115 U/L (38-126); Anion Gap 5 mmol/L (4-12); Aspartate Amino Transferase 31 U/L (14-36); Bilirubin,Total 0.5 mg/dL (0.2-1.3); Blood Urea Nitrogen 11 mg/dL (7-17); Calcium 9.7 mg/dL (8.4-10.2); Carbon Dioxide 29 mmol/L (22-30); Chloride 103 mmol/L (98-107); Estimated CRCL calculation 38 ml/min; Estimated Glomerular Filt Rate > 60; Glucose 124 mg/dL (65-110); Potassium 4.2 mmol/L (3.4-5.0); Sodium 137 mmol/L (137-145)
[2023-11-15] MEDS: PERFLUTREN LIPID MICROSPHERES 1.5 ML VIAL DILUTED TO 10 ML TOTAL VOLUME IV PUSH (09:20)
[2023-11-15] MEDS: cefTRIAXone 2 GM/NS 100 ML 2 GM/100 ML BAG IVPB (09:37)
--- NOTE | 2023-11-15 10:18 | IVDEFINITY ---
Prior to administration of IV Definity the patient was educated on the risks and benefits of the imaging enhancing agent including potential adverse side effects. The patient verbalized understanding. Allergies were verified. No exclusion criteria were identified and at least one of the following inclusion criteria were met: 1) physician request, 2) patient technically difficult to image (per the [place] [employer]ocardi[employer] guidelines of two or more segments not discernable within the apical view), or 3) questionable left ventricular function. ?
--- NOTE | 2023-11-15 11:49 | WPDHPUPDATE1 ---
History and Physical Update Update Date/Time: 11/15/23 11:49 History and Physical has been reviewed, including an updated exam of the patient. There are NO changes in the patient's condition. Risks, benefits, and alternatives have been discussed and questions answered. Patient agrees to proceed with procedure.
[2023-11-15 12:03] LABS: Glucose Point of Care 155 mg/dl (65-105)
--- NOTE | 2023-11-15 12:54 | WPDANESEPPF ---
Anes - Initial Pre Proc Eval Procedure: Operation Date: 11/15/23 13:00 Proposed Procedures p Complex Incision,Drainage and Debridement Sacral Decubitis Ulcer - Pierce Gibbs MD Date/Time: 11/15/23 12:54 Surgeon: Avila Chávez MD Pre Op Diagnosis: Decubitus Ulcer Patient Data Age: 82 Gender: F Height: 1.52 m Weight: 53.2 kg Last Vital Signs Temp 99.7 F H 11/15/23 12:27 Pulse 81 11/15/23 12:27 Resp 16 11/15/23 12:27 BP 141/63 H 11/15/23 12:27 Pulse Ox 98 11/15/23 12:27 O2 Del Method Room Air 11/15/23 12:27 Allergies Allergy/AdvReac Type Severity Reaction Status Date / Time No Known Allergies Allergy Verified 11/14/23 01:22 Home Medications Medication Instructions Recorded Confirmed Type flash glucose scanning reader #1 ea 04/19/23 11/14/23 Rx (FreeStyle Clement 2 [place]) buspirone 5 mg tablet 5 mg PO BID #60 tabs 10/06/23 11/14/23 Rx flash glucose sensor (FreeStyle #1 kit 11/10/23 11/14/23 Rx Clement 2 Sensor kit) escitalopram oxalate 10 mg tablet 10 mg PO DAILY 11/13/23 11/14/23 History rlorplef-sza-dyatd acid 0.4 1 tablet PO DAILY 11/13/23 11/14/23 History mg-lycopene 300 mcg-lutein 250 mcg tablet vit C 250 mg-vit E 90 mg-zinc 40 1 tablet PO BID 11/13/23 11/14/23 History mg-copper 1 sb-vajzwj-khwnif capsule (PreserVision AREDS-2) cholecalciferol (vitamin D3) 1,250 1,250 mcg PO [id number] 11/14/23 11/14/23 History mcg (50,000 unit) capsule docusate sodium 50 mg capsule 50 mg PO DAILY 11/14/23 11/14/23 History dulaglutide 0.75 mg/0.5 mL 0.75 mg subcut WEEKLY 11/14/23 11/14/23 History subcutaneous pen injector (Trulicity) ibuprofen 200 mg tablet (Motrin IB) 200 mg PO Q6H PRN Pain (Scale 11/14/23 11/14/23 History Score 4-6) neomycin-bacitracn Zn-polymyx 3.5 1 applic topical BID 11/14/23 11/14/23 History mg-400 unit-5,000 unit/gram top oint (Triple Antibiotic) Laboratory Tests 11/14/23 11/15/23 11/15/23 20:11 06:04 06:04 WBC 7.1 K/mm3 (4.5-10.0) RBC 4.66 M/mm3 (4.2-5.4) Hgb 14.4 g/dL (12.0-15.0) Hct 42.8 % (37.0-47.0) MCV 91.8 fl (80-100) MCH 30.9 pg (26-34) MCHC 33.6 g/dl (32-36) RDW 13.3 % (11.5-14.5) Plt Count 261 k/mm3 (150-375) MPV 10.7 H fl (7.4-10.4) Immature Gran % (Auto) 0.8 H % (0-0.5) Neut % (Auto) 43.9 L % (45.5-73.1) Lymph % (Auto) 42.6 % (18.3-44.2) [place] % (Auto) 8.7 H % (2.6-8.5) Eos % (Auto) 2.4 % (0-4.4) Baso % (Auto) 1.6 H % (0.2-1.2) Lymph # (Auto) 3.02 K/mm3 (0.9-3.2) [place] # (Auto) 0.6 K/mm3 (0.1-0.6) Eos # (Auto) 0.2 K/mm3 (0-0.3) Baso # (Auto) 0.1 K/mm3 (0.0-0.1) Abs Immat Gran (auto) 0.06 H K/mm3 (0.00-0.031) Absolute Neuts (auto) 3.1 K/mm3 (1.3-6.7) Absolute Nucleated RBC 0.000 K/mm3 (0.0-0.012) Nucleated RBC % 0.0 % (0.0-0.2) Sodium 137 mmol/L (137-145) Potassium 4.2 mmol/L (3.4-5.0) Chloride 103 mmol/L (98-107) Carbon Dioxide 29 mmol/L (22-30) Anion Gap 5 mmol/L (4-12) BUN 11 mg/dL (7-17) Creatinine 0.70 mg/dL 0.70 mg/dL (0.7-1.0) (0.7-1.0) Estim Creat Clear Calc 38 ml/min Estimated GFR Glucose POC Capillary Glucose 196 H mg/dl (65-105) Hemoglobin A1c Calcium Total Bilirubin AST ALT Alkaline Phosphatase Total Protein Albumin 11/15/23 11/15/23 11/15/23 06:04 06:04 08:04 WBC RBC Hgb Hct MCV MCH MCHC RDW Plt Count MPV Immature Gran % (Auto) Neut % (Au
[2023-11-15] MEDS: LIDOCAINE HCL 1% LOCAL INJ 20 ML VIAL 10 ML INFILTRATE (14:05)
[2023-11-15] MEDS: LACTATED RINGERS 1,000 ML 30 ML IV CONT (14:20)
[2023-11-15 14:45] LABS: Glucose Point of Care 112 mg/dl (65-105)
--- NOTE | 2023-11-15 15:06 | P.OP_ITS ---
Procedure Note - Detailed Date of Procedure 11/15/23 Pre-op Diagnosis Sacral decubitus Ulcer (stage 3) Post-op Diagnosis Same Procedure Performed Sharp excisional debridement of skin and subcutaneous soft tissue with scalpel and scissors of sacral decubitus wound and application of wound VAC (9 sq cm) Surgeon Pierce Gibbs MD Anesthesia General Indications Patient is a 82-year-old female who has recently become debilitated and has not been very mobile. She spends the majority her time in bed. She is admitted to the hospital weakness and found to have a sacral decubitus ulcer which appeared to be at least stage II to stage III. Bone was exposed. She presents now for debridement of the nonviable tissue in the wound and placement of wound VAC. Findings the patient has stage III sacral decubitus ulcer with erosion of the ulcers through the skin into the subcutaneous tissues. There is no involvement of the periosteum or bone of the sacrum. No exposed bone. When the area was completely debrided back to good healthy bleeding tissue it measured 3x3x1.5cm. A wound VAC was placed. Description of Procedure After informed consent was obtained patient brought to the operating room she was placed in the supine position on the operating table and then general LMA anesthesia was administered. She was then turned to the left lateral decubitus position on operating table. The area of the lower back, sacrum, and perianal region was then prepped and draped in usual sterile fashion. A time-out was then performed correctly identifying the patient as well as procedure to be performed. She was already getting scheduled IV antibiotics on the floor. I 1st started by utilizing sharp scissors to perform excisional debridement of the necrotic fatty tissue at the base of the wound. This is then followed by sharp excisional debridement with a scalpel of the nonviable edges. The dissection was carried down in subcutaneous tissues but there was no exposure of the periosteum or sacral bone. No evidence of osteomyelitis was seen. When I finished the debridement the wound measured 3cm in length by 3cm width by 1.5cm in depth. Hemostasis in the skin edges and subcutaneous tissues was then ac hieved electrocautery. I then injected 20cc of 1% lidocaine without epinephrine around the wound edges. A wound VAC was then placed placing a small piece of black foam within the wound cavity and then extending the black sponge around the left hip and lateral thigh. The clear adhesive bandages were placed and then a suction pad was placed onto the wound VAC Trac. The wound VAC was placed dissection achieving a leak free seal. Additional pieces of clear adhesive was then placed inferiorly above the anal opening. The area is then cleaned the procedure was terminated. The patient tolerated the procedure well no complications. All sponges, needles, and instrument counts were correct at the end procedure. EBL was _10__cc. The patient was awakened and taken to recovery in stable and satisfactory condition. Implants none Estimated Blood Loss 10 Urine Output 1,350 Drains No Packing Yes ( wound VAC to sacral decubitus wound) Pathology None sent Complications No immediate complications Condition Stable Disposition PACU [facility] Billing Surgery - Charge Forward: Surgery Billing
[2023-11-15 16:56] LABS: Glucose Point of Care 105 mg/dl (65-105)
[2023-11-15] MEDS: ENOXAPARIN 40 MG/0.4 ML SYRINGE SUB-Q (17:02)
[2023-11-15] MEDS: DOCUSATE SODIUM 100 MG CAPSULE PO (17:02)
[2023-11-15] MEDS: OPTI-GEN TAB 1 TABLET PO (17:02)
[2023-11-15] MEDS: MULTIVITAMINS /C LUTEIN (CENTRUM SILVER) TABLET *BKC 1 TAB PO (17:03)
[2023-11-15] MEDS: ESCITALOPRAM OXALATE 10 MG TABLET PO (17:03)
[2023-11-15] MEDS: busPIRone HCL 5 MG TABLET PO (17:03)
[2023-11-15 19:35] LABS: Hemoglobin A1C 6.3 % (<5.7)
[2023-11-15 20:35] LABS: Glucose Point of Care 107 mg/dl (65-105)
[2023-11-16] MEDS: VANCOMYCIN 1,000 MG/NS 250 ML 1,000 MG/250 ML BAG 250 MG IVPB (04:23)
[2023-11-16 05:44] VITALS: BP 139/66; PULSE 73; RESP 14; TEMP 36.7; O2SAT 95
[2023-11-16 06:54] LABS: Basophils Absolute Auto 0.1 K/mm3 (0.0-0.1); Eosinophils Absolute Auto 0.1 K/mm3 (0-0.3); Eosinophils Percent Auto 1.2 % (0-4.4); Hematocrit 39.8 % (37.0-47.0); Hemoglobin 13.1 g/dL (12.0-15.0); Immature Granulocyte Absolute 0.06 K/mm3 (0.00-0.031); Immature Granulocyte Percent A 0.9 % (0-0.5); Lymphocytes Absolute Auto 2.64 K/mm3 (0.9-3.2); Lymphocytes Percent Auto 38.2 % (18.3-44.2); Mean Corpuscular HGB Conc 32.9 g/dl (32-36); Mean Corpuscular Hemoglobin 30.5 pg (26-34); Mean Corpuscular Volume 92.8 fl (80-100); Mean Platelet Volume 10.1 fl (7.4-10.4); Monocytes Absolute Auto 0.5 K/mm3 (0.1-0.6); Monocytes Percent Auto 7.5 % (2.6-8.5); Neutrophils Absolute Auto 3.6 K/mm3 (1.3-6.7); Neutrophils Percent Auto 51.2 % (45.5-73.1); Platelet Count Result 228 k/mm3 (150-375); Red Blood Count 4.29 M/mm3 (4.2-5.4); Red Cell Distribution Width 13.2 % (11.5-14.5); White Blood Count 6.9 K/mm3 (4.5-10.0)
[2023-11-16 07:02] LABS: Alanine Aminotransferase 20 U/L (6-35); Albumin Level 3.8 g/dL (3.5-5.1); Alkaline Phosphatase 104 U/L (38-126); Anion Gap 2 mmol/L (4-12); Aspartate Amino Transferase 28 U/L (14-36); Bilirubin,Total 0.4 mg/dL (0.2-1.3); Blood Urea Nitrogen 12 mg/dL (7-17); Calcium 9.1 mg/dL (8.4-10.2); Carbon Dioxide 31 mmol/L (22-30); Chloride 103 mmol/L (98-107); Estimated CRCL calculation 33 ml/min; Estimated Glomerular Filt Rate > 60; Glucose 113 mg/dL (65-110); Magnesium 2.2 mg/dL (1.6-2.3); Potassium 4.6 mmol/L (3.4-5.0); Sodium 136 mmol/L (137-145)
[2023-11-16 07:59] LABS: Glucose Point of Care 128 mg/dl (65-105)
--- NOTE | 2023-11-16 08:03 | WPDANESPN ---
Anes - Prog Note Post-Op Date/Time: 11/16/23 08:03 Cardiovascular status: normal Respiratory status: normal Airway patency: baseline Mental status: baseline Post-Op hydration status: normal Vital Signs: Last Vital Signs Temp 36.7 C 11/16/23 05:44 Pulse 73 11/16/23 05:44 Resp 14 11/16/23 05:44 BP 139/66 11/16/23 05:44 Pulse Ox 95 11/16/23 05:44 O2 Del Method Room Air 11/15/23 20:00 O2 Flow Rate 8 11/15/23 14:20 Pain Score (VAS): 0 I/O: Intake & Output 11/15/23 11/16/23 11/16/23 23:59 07:59 15:59 Intake Total 240 750 Output Total 200 Balance 40 750 Laboratory Tests 11/16/23 06:36 11/16/23 06:36 11/15/23 11/15/23 11/15/23 06:04 08:04 11:40 WBC 7.1 RBC 4.66 Hgb 14.4 Hct 42.8 MCV 91.8 MCH 30.9 MCHC 33.6 RDW 13.3 Plt Count 261 MPV 10.7 H Immature Gran % (Auto) 0.8 H Neut % (Auto) 43.9 L Lymph % (Auto) 42.6 [place] % (Auto) 8.7 H Eos % (Auto) 2.4 Baso % (Auto) 1.6 H Lymph # (Auto) 3.02 [place] # (Auto) 0.6 Eos # (Auto) 0.2 Baso # (Auto) 0.1 Abs Immat Gran (auto) 0.06 H Absolute Neuts (auto) 3.1 Absolute Nucleated RBC 0.000 Nucleated RBC % 0.0 Sodium 137 Potassium 4.2 Chloride 103 Carbon Dioxide 29 Anion Gap 5 BUN 11 Creatinine 0.70 Estim Creat Clear Calc 38 Estimated GFR > 60 Glucose 124 H POC Capillary Glucose 135 H 155 H Hemoglobin A1c 6.3 H Calcium 9.7 Magnesium Total Bilirubin 0.5 AST 31 ALT 24 Alkaline Phosphatase 115 Total Protein 7.0 Albumin 4.0 11/15/23 11/15/23 11/15/23 14:39 16:39 20:31 WBC RBC Hgb Hct MCV MCH MCHC RDW Plt Count MPV Immature Gran % (Auto) Neut % (Auto) Lymph % (Auto) [place] % (Auto) Eos % (Auto) Baso % (Auto) Lymph # (Auto) [place] # (Auto) Eos # (Auto) Baso # (Auto) Abs Immat Gran (auto) Absolute Neuts (auto) Absolute Nucleated RBC Nucleated RBC % Sodium Potassium Chloride Carbon Dioxide Anion Gap BUN Creatinine Estim Creat Clear Calc Estimated GFR Glucose POC Capillary Glucose 112 H 105 107 H Hemoglobin A1c Calcium Magnesium Total Bilirubin AST ALT Alkaline Phosphatase Total Protein Albumin 11/16/23 11/16/23 06:36 07:44 WBC 6.9 RBC 4.29 Hgb 13.1 Hct 39.8 MCV 92.8 MCH 30.5 MCHC 32.9 RDW 13.2 Plt Count 228 MPV 10.1 Immature Gran % (Auto) 0.9 H Neut % (Auto) 51.2 Lymph % (Auto) 38.2 [place] % (Auto) 7.5 Eos % (Auto) 1.2 Baso % (Auto) 1.0 Lymph # (Auto) 2.64 [place] # (Auto) 0.5 Eos # (Auto) 0.1 Baso # (Auto) 0.1 Abs Immat Gran (auto) 0.06 H Absolute Neuts (auto) 3.6 Absolute Nucleated RBC 0.000 Nucleated RBC % 0.0 Sodium 136 L Potassium 4.6 Chloride 103 Carbon Dioxide 31 H Anion Gap 2 L BUN 12 Creatinine 0.80 Estim Creat Clear Calc 33 Estimated GFR > 60 Glucose 113 H POC Capillary Glucose 128 H Hemoglobin A1c Calcium 9.1 Magnesium 2.2 Total Bilirubin 0.4 AST 28 ALT 20 Alkaline Phosphatase 104 Total Protein 7.0 Albumin 3.8 Post-procedural complaints: none Patient Feedback: Patient satisfied with anesthetic care.
[2023-11-16] MEDS: DOCUSATE SODIUM 100 MG CAPSULE PO (09:26)
[2023-11-16] MEDS: ESCITALOPRAM OXALATE 10 MG TABLET PO (09:27)
[2023-11-16] MEDS: OPTI-GEN TAB 1 TABLET PO ×2 (09:28→16:39)
[2023-11-16] MEDS: MULTIVITAMINS /C LUTEIN (CENTRUM SILVER) TABLET *BKC 1 TAB PO (09:28)
[2023-11-16] MEDS: busPIRone HCL 5 MG TABLET PO ×2 (09:28→16:39)
[2023-11-16 11:36] LABS: Glucose Point of Care 154 mg/dl (65-105)
[2023-11-16 11:49] VITALS: BMI 22.8
--- NOTE | 2023-11-16 14:05 | PM.IMPN ---
Progress Note: A&P Assessment and Plan (1) MRSA infection: Code(s): A49.02 - Methicillin resistant Staphylococcus aureus infection, unspecified site Status: Acute Assessment and Plan: History of MRSA infections to axilla abscess and labia abscess. Now here with sacral abscess with purulent drainage. Wound care consulted, recs appreciated Photo in chart Gen surgery - I&D yesterday wound vac in place Contact precautions Vancomycin Blood cultures pending (2) Decubitus ulcer of sacral region: Code(s): L89.159 - Pressure ulcer of sacral region, unspecified stage Status: Inactive Assessment and Plan: See above (3) Urinary tract infection: Code(s): N39.0 - Urinary tract infection, site not specified Status: Ruled-out Assessment and Plan: UA concerning for infection in patient with dysuria Rocephin d/c Urine culture negative (4) Type 2 diabetes mellitus with hyperglycemia: Code(s): E11.65 - Type 2 diabetes mellitus with hyperglycemia Status: Chronic Assessment and Plan: Last A1c last year was 6.6% patient taking Trulicity Repeat hemoglobin A1c Sliding scale insulin with corrective low-dose Hypoglycemia protocol ordered A1c 6.3 (5) Anxiety: Code(s): F41.9 - Anxiety disorder, unspecified Status: Chronic Assessment and Plan: Debilitating anxiety related to falling PCP recently started her on BuSpar and escitalopram (6) Weakness: Code(s): R53.1 - Weakness Status: Acute Assessment and Plan: Progressive weakness related to immobility PT OT consult recs appreciated Up ad pasha with assistance Fall precautions (7) Malnutrition: Code(s): E46 - Unspecified protein-calorie malnutrition Status: Acute Assessment and Plan: Appears thin and frail Start Glucerna shakes after surgery Dietitian consulted and recs appreciated Subjective Date/time seen: 11/16/23 14:05 Interval history: Patient is status post I& D of sacral abscess, wound vac in place. She is in no distress or pain this morning. BC still pending, will continue Vancomycin. UA culture was negative so Rocephin is d/c. Review of Systems Review of Systems: All systems reviewed & are unremarkable except as noted in HPI and below Exam Narrative: General: well appearing, thin, frail appears stated age. HEENT: normocephalic, atraumatic. Mucous membranes moist. EOMI, PERRLA Respiratory: clear to auscultation bilaterally. No rales/rhonic/wheezes. Cardiovascular: RRR, normal S1-S2 upon auscultation. Abdomen: Soft, round, no pulsatile masses, nondistended and nontender. No rebound, no guarding. BS present to all four quadrants. Extremities: No cyanosis, clubbing, or edema present. Pulses are palpable 2/2. Neuro: Alert and orientated x 4. Cranial nerves 2-12 intact without focal deficit. Skin: Warm, dry, and intact, without rash, erythema, or lesion. Wound vac in place, clean dry and intact. Psych: pleasant, cooperative, normal speech, normal affect Objective Data Vital Signs Vital Signs: Vital Signs - 24 hr 11/15/23 14:20 11/15/23 14:35 11/15/23 14:50 Temperature 97.5 F L Pulse Rate 73 77 76 Respiratory Rate 18 24 H 21 H Blood Pressure 132/65 151/69 H 141/67 H Pulse Oximetry 97 98 96 Oxygen Delivery Simple Face Mask Room Air Room Air Oxygen Flow Rate 8 11/15/23 15:05 11/15/23 15:20 11/15/23 15:35 Temperature Pulse Rate 75 73 74 Respiratory Rate 20 19 19 Blood Pressure 148/65 H 145/62 H 135/61 Pulse Oximetry 96 96 95 Oxygen Delivery Room Air Room Air Room Air Oxygen Flow Rate 11/15/23 15:50 11/15/23 16:00 11/15/23 21:15 Temperature 97.2 F L 97.9 F Pulse Rate 73 75 82 Respiratory Rate 19 16 16 Blood Pressure 137/66 124/65 150/51 H Pulse Oximetry 95 99 98 Oxygen Delivery Room Air Oxygen Flow Rate 11/15/23 20:00 11/16/23 05:44 11/16/23 08:00 Temperature 98.0 F Pu
--- NOTE | 2023-11-16 14:56 | PM.PNGS ---
Progress Note: A&P Assessment and Plan (1) Decubitus ulcer of sacral region: Code(s): L89.159 - Pressure ulcer of sacral region, unspecified stage Status: Inactive Assessment and Plan: Status post excisional debridement of sacral decubitus wound. Continue wound VAC therapy. Plan to take back to the OR on Tuesday for debridement and application of graft. Plan I have discussed the patient's case and plan of care with Dr. Gibbs. Subjective Subjective Date/Time Seen: 11/16/23 14:56 Post Op day: 1 (Sharp excisional debridement of sacral decubitus wound) Patient reports: no new complaints and afebrile Interval history: Patient seen today. No specific complaints other than some discomfort when sitting up in the chair with her sacral wound. Wound VAC functioning well. Exam Narrative: Wound VAC in place over sacral wound and functioning well, dressing dry and intact Objective Data Vital Signs Vital Signs: Vital Signs - 24 hr 11/15/23 15:05 11/15/23 15:20 11/15/23 15:35 Temperature Pulse Rate 75 73 74 Respiratory Rate 20 19 19 Blood Pressure 148/65 H 145/62 H 135/61 Pulse Oximetry 96 96 95 Oxygen Delivery Room Air Room Air Room Air 11/15/23 15:50 11/15/23 16:00 11/15/23 21:15 Temperature 97.2 F L 97.9 F Pulse Rate 73 75 82 Respiratory Rate 19 16 16 Blood Pressure 137/66 124/65 150/51 H Pulse Oximetry 95 99 98 Oxygen Delivery Room Air 11/15/23 20:00 11/16/23 05:44 11/16/23 08:00 Temperature 98.0 F Pulse Rate 82 73 Respiratory Rate 16 14 Blood Pressure 139/66 Pulse Oximetry 98 95 Oxygen Delivery Room Air Room Air 11/16/23 12:59 Temperature Pulse Rate Respiratory Rate Blood Pressure Pulse Oximetry Oxygen Delivery Room Air Intake/Output Intake/Output: Intake & Output 11/13/23 11/14/23 11/15/23 11/16/23 23:59 23:59 23:59 23:59 Intake Total 6057 525 9536 Output Total 1999 2900 1000 610 Meds/Results Medications: Active Medications Generic Name Dose Route Start Last Admin Trade Name Freq PRN Reason Stop Dose Admin Acetaminophen 650 mg 11/14/23 06:40 Acetaminophen 325 Mg Tablet PO Q4H PRN Mild Pain (1-3) or Fever Hydrocodone Bitart/Acetaminophen 1 tab 11/14/23 06:40 11/15/23 17:03 Hydrocodone/Acetaminophen (*Crx) 5-325 Mg Tablet PO 1 tab Q4H PRN Administration Moderate Pain (4-6) Al Hydrox/Mg Hydrox/Simethicone 30 ml 11/14/23 06:40 Mag Hydrox/Al Hydrox/Simeth 30 Ml Udc PO QID PRN Dyspepsia Buspirone HCl 5 mg 11/14/23 09:00 11/16/23 09:28 Buspirone Hcl 5 Mg Tablet PO 5 mg BID KRISHAN Administration Dextrose 12.5 gm 11/14/23 17:37 Dextrose 50% 25 Gm/50 Ml Syringe IV PUSH PRN PRN Hypoglycemia Protocol Docusate Sodium 100 mg 11/14/23 09:00 11/16/23 09:26 Docusate Sodium 100 Mg Capsule PO 100 mg DAILY KRISHAN Administration Enoxaparin Sodium 40 mg 11/14/23 09:00 11/16/23 09:33 Enoxaparin 40 Mg/0.4 Ml Syringe SUB-Q Not Given DAILY [facility] Ergocalciferol 50,000 units 11/27/23 09:00 Ergocalciferol 50,000 Units Capsule PO [id number] [facility] Escitalopram Oxalate 10 mg 11/14/23 09:00 11/16/23 09:27 Escitalopram Oxalate 10 Mg Tablet PO 10 mg DAILY KRISHAN Administration Glucagon 1 mg 11/14/23 17:37 Glucagon For Inj 1 Mg Vial IM PRN PRN Hypoglycemia Protocol Glucose 15 gm 11/14/23 17:37 Glucose Oral Gel 15 Gm Of Glucse In 37.5 Gm Tube PO PRN PRN Hypoglycemia Protocol Vancomycin HCl 1,000 mg in 250 mls @ 250 mls/hr 11/14/23 16:00 11/16/23 04:23 Vancomycin 1,000 Mg/Ns 250 Ml IVPB 250 mls/hr Q36H KRISHAN Administration Dextrose 1,000 mls @ 100 mls/hr 11/14/23 17:37 Dextrose 5% 1,000 Ml IVPB PRN PRN Hypoglycemia Protocol Ibuprofen 200 mg 11/14/23 06:39 11/14/23 09:31 Ibuprofen 200 Mg Tablet PO 200 mg Q6H PRN Administration Pain (Scale S
[2023-11-16 15:32] VITALS: BP 129/66; PULSE 81; RESP 16; TEMP 36.7; O2SAT 97
[2023-11-16] MEDS: SACCHAROMYCES BOULARDII 250 MG CAPSULE PO (16:39)
[2023-11-16 17:15] LABS: Glucose Point of Care 134 mg/dl (65-105)
[2023-11-16 20:00] VITALS: O2SAT 97
[2023-11-16 20:51] LABS: Glucose Point of Care 180 mg/dl (65-105)
[2023-11-16 22:00] VITALS: BP 124/56; PULSE 76; RESP 13; TEMP 36.6; O2SAT 97
[2023-11-17] MEDS: HYDROcodone/acetaminophen (*CRX) 5-325 MG TABLET 1 TAB PO ×2 (01:36→08:40)
[2023-11-17 05:35] VITALS: BP 148/61; PULSE 68; RESP 13; TEMP 36.1; O2SAT 98
[2023-11-17 06:11] LABS: Basophils Absolute Auto 0.1 K/mm3 (0.0-0.1); Basophils Percent Auto 1.1 % (0.2-1.2); Eosinophils Absolute Auto 0.1 K/mm3 (0-0.3); Eosinophils Percent Auto 1.6 % (0-4.4); Hematocrit 37.6 % (37.0-47.0); Hemoglobin 12.3 g/dL (12.0-15.0); Immature Granulocyte Absolute 0.05 K/mm3 (0.00-0.031); Immature Granulocyte Percent A 0.7 % (0-0.5); Lymphocytes Absolute Auto 3.04 K/mm3 (0.9-3.2); Lymphocytes Percent Auto 40.9 % (18.3-44.2); Mean Corpuscular HGB Conc 32.7 g/dl (32-36); Mean Corpuscular Hemoglobin 30.1 pg (26-34); Mean Corpuscular Volume 91.9 fl (80-100); Mean Platelet Volume 9.8 fl (7.4-10.4); Monocytes Absolute Auto 0.7 K/mm3 (0.1-0.6); Neutrophils Absolute Auto 3.5 K/mm3 (1.3-6.7); Neutrophils Percent Auto 46.7 % (45.5-73.1); Platelet Count Result 212 k/mm3 (150-375); Red Blood Count 4.09 M/mm3 (4.2-5.4); Red Cell Distribution Width 13.2 % (11.5-14.5); White Blood Count 7.4 K/mm3 (4.5-10.0)
[2023-11-17 06:25] LABS: Alanine Aminotransferase 18 U/L (6-35); Albumin Level 3.4 g/dL (3.5-5.1); Alkaline Phosphatase 92 U/L (38-126); Anion Gap 3 mmol/L (4-12); Aspartate Amino Transferase 27 U/L (14-36); Bilirubin,Total 0.4 mg/dL (0.2-1.3); Blood Urea Nitrogen 16 mg/dL (7-17); Carbon Dioxide 29 mmol/L (22-30); Chloride 103 mmol/L (98-107); Estimated CRCL calculation 30 ml/min; Estimated Glomerular Filt Rate 60; Glucose 117 mg/dL (65-110); Magnesium 2.1 mg/dL (1.6-2.3); Potassium 4.1 mmol/L (3.4-5.0); Sodium 135 mmol/L (137-145)
[2023-11-17 07:57] LABS: Glucose Point of Care 120 mg/dl (65-105)
[2023-11-17] MEDS: busPIRone HCL 5 MG TABLET PO ×2 (08:39→16:50)
[2023-11-17] MEDS: SACCHAROMYCES BOULARDII 250 MG CAPSULE PO ×2 (08:40→16:50)
[2023-11-17] MEDS: ESCITALOPRAM OXALATE 10 MG TABLET PO (08:40)
[2023-11-17] MEDS: OPTI-GEN TAB 1 TABLET PO ×2 (08:40→16:50)
[2023-11-17] MEDS: MULTIVITAMINS /C LUTEIN (CENTRUM SILVER) TABLET *BKC 1 TAB PO (08:44)
--- NOTE | 2023-11-17 11:13 | PM.IMPN ---
Progress Note: A&P Assessment and Plan (1) MRSA infection: Code(s): A49.02 - Methicillin resistant Staphylococcus aureus infection, unspecified site Status: Acute Assessment and Plan: History of MRSA infections to axilla abscess and labia abscess. Now here with sacral abscess with purulent drainage. Wound care consulted, recs appreciated Photo in chart Gen surgery - I&D yesterday wound vac in place Contact precautions Vancomycin Blood cultures pending (2) Decubitus ulcer of sacral region: Code(s): L89.159 - Pressure ulcer of sacral region, unspecified stage Status: Inactive Assessment and Plan: See above (3) Urinary tract infection: Code(s): N39.0 - Urinary tract infection, site not specified Status: Ruled-out Assessment and Plan: UA concerning for infection in patient with dysuria Rocephin d/c Urine culture negative (4) Type 2 diabetes mellitus with hyperglycemia: Code(s): E11.65 - Type 2 diabetes mellitus with hyperglycemia Status: Chronic Assessment and Plan: Last A1c last year was 6.6% patient taking Trulicity Repeat hemoglobin A1c Sliding scale insulin with corrective low-dose Hypoglycemia protocol ordered A1c 6.3 (5) Anxiety: Code(s): F41.9 - Anxiety disorder, unspecified Status: Chronic Assessment and Plan: Debilitating anxiety related to falling PCP recently started her on BuSpar and escitalopram (6) Weakness: Code(s): R53.1 - Weakness Status: Acute Assessment and Plan: Progressive weakness related to immobility PT OT consult recs appreciated Up ad pasha with assistance Fall precautions (7) Malnutrition: Code(s): E46 - Unspecified protein-calorie malnutrition Status: Acute Assessment and Plan: Appears thin and frail Start Glucerna shakes after surgery Dietitian consulted and recs appreciated Subjective Date/time seen: 11/17/23 11:13 Interval history: Patient is status post I& D of sacral abscess, wound vac in place. She is in no distress or pain this morning. Her only complaint is the diarrhea she has had overnight. Likely due to antibiotics, but will send stool culture. BC still pending, will continue Vancomycin. Plan for surgery to do debridement and skin graft tomorrow. Review of Systems Review of Systems: All systems reviewed & are unremarkable except as noted in HPI and below Exam Narrative: General: well appearing, thin, frail appears stated age. HEENT: normocephalic, atraumatic. Mucous membranes moist. EOMI, PERRLA Respiratory: clear to auscultation bilaterally. No rales/rhonic/wheezes. Cardiovascular: RRR, normal S1-S2 upon auscultation. Abdomen: Soft, round, no pulsatile masses, nondistended and nontender. No rebound, no guarding. BS present to all four quadrants. Extremities: No cyanosis, clubbing, or edema present. Pulses are palpable 2/2. Neuro: Alert and orientated x 4. Cranial nerves 2-12 intact without focal deficit. Skin: Warm, dry, and intact, without rash, erythema, or lesion. Wound vac in place, clean dry and intact. Psych: pleasant, cooperative, normal speech, normal affect Objective Data Vital Signs Vital Signs: Vital Signs - 24 hr 11/16/23 12:59 11/16/23 15:32 11/16/23 22:00 Temperature 98.1 F 97.9 F Pulse Rate 81 76 Respiratory Rate 16 13 Blood Pressure 129/66 124/56 L Pulse Oximetry 97 97 Oxygen Delivery Room Air 11/16/23 20:00 11/17/23 05:35 Temperature 96.9 F L Pulse Rate 68 Respiratory Rate 13 Blood Pressure 148/61 H Pulse Oximetry 97 98 Oxygen Delivery Room Air Intake/Output Intake/Output: Intake & Output 11/14/23 11/15/23 11/16/23 11/17/23 23:59 23:59 23:59 23:59 Intake Total 6199 928 6669 860 Output Total 2000 2900 1200 770 860 Meds/Results Medications: Active Medications Generic Name Dose Route Start Last Admin Trade Name Freq
--- NOTE | 2023-11-17 11:23 | PCPTNOTE ---
Attempted to see patient for PT, however patient needed wound vac dressing change. PA and nursing in room.
[2023-11-17 12:11] LABS: Glucose Point of Care 193 mg/dl (65-105)
--- NOTE | 2023-11-17 12:18 | PM.PNGS ---
Progress Note: A&P Assessment and Plan (1) Decubitus ulcer of sacral region: Code(s): L89.159 - Pressure ulcer of sacral region, unspecified stage Status: Inactive Assessment and Plan: Status post excisional debridement of sacral decubitus wound. Stool was getting into the wound vac dressing, therefore it was removed. Will apply wet to dry dressings today. Plan for debridement and application of graft in the OR tomorrow. Will make her NPO after midnight. Plan I have discussed the patient's case and plan of care with Dr. Gibbs. Subjective Subjective Date/Time Seen: 11/17/23 12:18 Patient reports: no new complaints, tolerating a regular diet and bowel movement Interval history: Patient seen today while PT is working with her. She had a BM and is getting cleaned up. I am able to see that stool is in the wound vac sponge and underneath the dressing. Patient reports having multiple bowel movements overnight. The nurse reports the nursing staff was having a hard time keeping a seal on the wound vac last night, but she is not sure if they had to apply a new dressing or do any trouble shooting. No other complaints from the patient. Exam Narrative: Wound vac dressing removed. The wound bed appears fairly clean with about 50% of the wound bed pink and about 50% with some loose yellow slough. The wound was cleaned out and irrigated with normal saline. Wet to dry gauze dressing applied. Skin around the wound appears red and the skin between the wound and anal opening appears slightly macerated. Objective Data Vital Signs Vital Signs: Vital Signs - 24 hr 11/16/23 12:59 11/16/23 15:32 11/16/23 22:00 Temperature 98.1 F 97.9 F Pulse Rate 81 76 Respiratory Rate 16 13 Blood Pressure 129/66 124/56 L Pulse Oximetry 97 97 Oxygen Delivery Room Air 11/16/23 20:00 11/17/23 05:35 11/17/23 08:30 Temperature 96.9 F L Pulse Rate 68 Respiratory Rate 13 Blood Pressure 148/61 H Pulse Oximetry 97 98 Oxygen Delivery Room Air Room Air Intake/Output Intake/Output: Intake & Output 11/14/23 11/15/23 11/16/23 11/17/23 23:59 23:59 23:59 23:59 Intake Total 3768 638 2839 860 Output Total 2000 2900 1200 Balance -200 -2010 770 860 Meds/Results Medications: Active Medications Generic Name Dose Route Start Last Admin Trade Name Freq PRN Reason Stop Dose Admin Acetaminophen 650 mg 11/14/23 06:40 Acetaminophen 325 Mg Tablet PO Q4H PRN Mild Pain (1-3) or Fever Hydrocodone Bitart/Acetaminophen 1 tab 11/14/23 06:40 11/17/23 08:40 Hydrocodone/Acetaminophen (*Crx) 5-325 Mg Tablet PO 1 tab Q4H PRN Administration Moderate Pain (4-6) Al Hydrox/Mg Hydrox/Simethicone 30 ml 11/14/23 06:40 Mag Hydrox/Al Hydrox/Simeth 30 Ml Udc PO QID PRN Dyspepsia Buspirone HCl 5 mg 11/14/23 09:00 11/17/23 08:39 Buspirone Hcl 5 Mg Tablet PO 5 mg BID KRISHAN Administration Dextrose 12.5 gm 11/14/23 17:37 Dextrose 50% 25 Gm/50 Ml Syringe IV PUSH PRN PRN Hypoglycemia Protocol Docusate Sodium 100 mg 11/14/23 09:00 11/17/23 08:39 Docusate Sodium 100 Mg Capsule PO Not Given DAILY [facility] Enoxaparin Sodium 40 mg 11/14/23 09:00 11/17/23 08:49 Enoxaparin 40 Mg/0.4 Ml Syringe SUB-Q Not Given DAILY [facility] Ergocalciferol 50,000 units 11/27/23 09:00 Ergocalciferol 50,000 Units Capsule PO [id number] [facility] Escitalopram Oxalate 10 mg 11/14/23 09:00 11/17/23 08:40 Escitalopram Oxalate 10 Mg Tablet PO 10 mg DAILY KRISHAN Administration Glucagon 1 mg 11/14/23 17:37 Glucagon For Inj 1 Mg Vial IM PRN PRN Hypoglycemia Protocol Glucose 15 gm 11/14/23 17:37 Glucose Oral Gel 15 Gm Of Glucse In 37.5 Gm Tube PO PRN PRN Hypoglycemia Protocol Vancomycin HCl 1,000 mg in 250 mls @ 250 mls/hr 11/14/23 16:00 11/16/23 04:23 Vancomycin 1,000 Mg/Ns 250 Ml IVPB 250 mls/hr Q36H KRISHAN Administ
[2023-11-17 13:43] VITALS: BP 148/76; PULSE 85; RESP 16; TEMP 36.1; O2SAT 99
[2023-11-17 13:44] VITALS: BP 124/73
[2023-11-17 15:02] LABS: Toxigenic C. Diff NEGATIVE (NEGATIVE)
[2023-11-17 16:53] LABS: Glucose Point of Care 174 mg/dl (65-105)
[2023-11-17 17:32] LABS: Vancomycin Trough 5.6 ug/mL (10.0-20.0)
[2023-11-17] MEDS: VANCOMYCIN 1,000 MG/NS 250 ML 1,000 MG/250 ML BAG 250 MG IVPB (18:10)
[2023-11-17 20:00] VITALS: O2SAT 99
[2023-11-17 21:40] LABS: Glucose Point of Care 151 mg/dl (65-105)
[2023-11-17 21:53] VITALS: BP 161/61; PULSE 79; RESP 14; TEMP 36.6; O2SAT 100
--- NOTE | 2023-11-17 23:54 | PC.NURSE ---
Multiple attempts of encouragement for patient to get up to [facility] for toileting, without success. Patient has had several loose BM's this evening and has soiled wound dressing, causing stool to get into wound bed. Patient says that she was told that she does not have to get out of bed. She says that she is too anxious to get out of bed and that she needs to rest for her surgery tomorrow. She also says that her surgery will fix the wound and she won't have to worry about poop getting in there after her surgery is done. Attempted to educate patient on wound healing after surgery, without success. Will cont to try to educate patient.
[2023-11-18] VITALS (14 sets, daily range): BP systolic 108–158; BP diastolic 47–69; PULSE 72–90; RESP 12–20; TEMP 36.1–37.3; O2SAT 98–100
[2023-11-18 06:43] LABS: Basophils Absolute Auto 0.1 K/mm3 (0.0-0.1); Basophils Percent Auto 0.7 % (0.2-1.2); Eosinophils Absolute Auto 0.1 K/mm3 (0-0.3); Eosinophils Percent Auto 1.2 % (0-4.4); Hematocrit 38.7 % (37.0-47.0); Hemoglobin 12.9 g/dL (12.0-15.0); Immature Granulocyte Absolute 0.07 K/mm3 (0.00-0.031); Immature Granulocyte Percent A 0.9 % (0-0.5); Lymphocytes Absolute Auto 2.41 K/mm3 (0.9-3.2); Lymphocytes Percent Auto 29.4 % (18.3-44.2); Mean Corpuscular HGB Conc 33.3 g/dl (32-36); Mean Corpuscular Hemoglobin 30.4 pg (26-34); Mean Corpuscular Volume 91.3 fl (80-100); Mean Platelet Volume 10.5 fl (7.4-10.4); Monocytes Absolute Auto 0.6 K/mm3 (0.1-0.6); Neutrophils Percent Auto 60.8 % (45.5-73.1); Platelet Count Result 228 k/mm3 (150-375); Red Blood Count 4.24 M/mm3 (4.2-5.4); Red Cell Distribution Width 13.1 % (11.5-14.5); White Blood Count 8.2 K/mm3 (4.5-10.0)
[2023-11-18 06:57] LABS: Alanine Aminotransferase 25 U/L (6-35); Albumin Level 3.6 g/dL (3.5-5.1); Alkaline Phosphatase 96 U/L (38-126); Anion Gap 2 mmol/L (4-12); Aspartate Amino Transferase 33 U/L (14-36); Bilirubin,Total 0.3 mg/dL (0.2-1.3); Blood Urea Nitrogen 17 mg/dL (7-17); Calcium 9.3 mg/dL (8.4-10.2); Carbon Dioxide 28 mmol/L (22-30); Chloride 105 mmol/L (98-107); Estimated CRCL calculation 43 ml/min; Estimated Glomerular Filt Rate > 60; Glucose 130 mg/dL (65-110); Magnesium 2.1 mg/dL (1.6-2.3); Sodium 135 mmol/L (137-145)
[2023-11-18 07:59] LABS: Glucose Point of Care 135 mg/dl (65-105)
--- NOTE | 2023-11-18 08:17 | PC.NURSE ---
Pt plan to have surgery today with many questions, consent yet to be obtained. Notified provider, Dr. Gibbs, at 0818 11/18/23.
--- NOTE | 2023-11-18 09:41 | WPDHPUPDATE1 ---
History and Physical Update Update Date/Time: 11/18/23 09:41 History and Physical has been reviewed, including an updated exam of the patient. There are NO changes in the patient's condition. Risks, benefits, and alternatives have been discussed and questions answered. Patient agrees to proceed with procedure.
--- NOTE | 2023-11-18 10:09 | PC.NURSE ---
Consent obtained for procedure today. Patient reports feeling anxious about getting up to go to bathroom at night time, resistant to get up at night time, insists that she will want to use bedpan for elimination needs. Patient stated the night crew does not want to take care of me, they do not want to take the time to help me. RN, [address], asked patient if she had given the night crew a chance to give her the time she needs to get up to the bathroom, patient replied with no. RN educated patient for 10+ minutes about importance of getting out of bed to increase strength, gain confidence in physical ability, and off of wound to encourage healing; offered to bring in bedside commode to ease anxiety. patient refused to use bedside commode. Patient does not have confidence in physical ability, fears falling and breaking hip and ending up in [facility] but she performs good with Physical Therapy. Patient seems emotionally dependent and has needed a lot of encouragement during encounters with hospital personnel.
--- NOTE | 2023-11-18 10:46 | PC.NURSE ---
To OR per bed, IV left forearm. Report given to Urszula MCKEON.
[2023-11-18] MEDS: LACTATED RINGERS 1,000 ML 30 ML IV CONT (11:00)
--- NOTE | 2023-11-18 11:33 | WPDANESEPPF ---
Anes - Initial Pre Proc Eval Procedure: Operation Date: 11/15/23 13:00 Proposed Procedures p Complex Incision,Drainage and Debridement Sacral Decubitis Ulcer - Pierce Gibbs MD Operation Date: 11/18/23 12:00 Proposed Procedures p Incision and Debridement Sacral Decubitus Ulcer with Application of Graft - Pierce Gibbs MD Date/Time: 11/18/23 11:33 Surgeon: Avila Chávez MD Pre Op Diagnosis: Decubitus Ulcer Patient Data Age: 82 Gender: F Height: 1.52 m Weight: 53.2 kg Last Vital Signs Temp 97.3 F L 11/18/23 05:54 Pulse 76 11/18/23 05:54 Resp 16 11/18/23 05:54 BP 158/64 H 11/18/23 05:54 Pulse Ox 100 11/18/23 05:54 O2 Del Method Room Air 11/17/23 20:00 O2 Flow Rate 8 11/15/23 14:20 Allergies Allergy/AdvReac Type Severity Reaction Status Date / Time No Known Allergies Allergy Verified 11/14/23 01:22 Home Medications Medication Instructions Recorded Confirmed Type flash glucose scanning reader #1 ea 04/19/23 11/14/23 Rx (FreeStyle Clement 2 [place]) buspirone 5 mg tablet 5 mg PO BID #60 tabs 10/06/23 11/14/23 Rx flash glucose sensor (FreeStyle #1 kit 11/10/23 11/14/23 Rx Clement 2 Sensor kit) escitalopram oxalate 10 mg tablet 10 mg PO DAILY 11/13/23 11/14/23 History yazavief-shm-pwzbd acid 0.4 1 tablet PO DAILY 11/13/23 11/14/23 History mg-lycopene 300 mcg-lutein 250 mcg tablet vit C 250 mg-vit E 90 mg-zinc 40 1 tablet PO BID 11/13/23 11/14/23 History mg-copper 1 pg-iyjksm-kyddcu capsule (PreserVision AREDS-2) cholecalciferol (vitamin D3) 1,250 1,250 mcg PO [id number] 11/14/23 11/14/23 History mcg (50,000 unit) capsule docusate sodium 50 mg capsule 50 mg PO DAILY 11/14/23 11/14/23 History dulaglutide 0.75 mg/0.5 mL 0.75 mg subcut WEEKLY 11/14/23 11/14/23 History subcutaneous pen injector (Trulicity) ibuprofen 200 mg tablet (Motrin IB) 200 mg PO Q6H PRN Pain (Scale 11/14/23 11/14/23 History Score 4-6) neomycin-bacitracn Zn-polymyx 3.5 1 applic topical BID 11/14/23 11/14/23 History mg-400 unit-5,000 unit/gram top oint (Triple Antibiotic) Laboratory Tests 11/17/23 11/17/23 11/17/23 12:00 13:14 16:10 WBC RBC Hgb Hct MCV MCH MCHC RDW Plt Count MPV Immature Gran % (Auto) Neut % (Auto) Lymph % (Auto) [place] % (Auto) Eos % (Auto) Baso % (Auto) Lymph # (Auto) [place] # (Auto) Eos # (Auto) Baso # (Auto) Abs Immat Gran (auto) Absolute Neuts (auto) Absolute Nucleated RBC Nucleated RBC % Sodium Potassium Chloride Carbon Dioxide Anion Gap BUN Creatinine Estim Creat Clear Calc Estimated GFR Glucose POC Capillary Glucose 193 H mg/dl (65-105) Calcium Magnesium Total Bilirubin AST ALT Alkaline Phosphatase Total Protein Albumin Vancomycin Trough 5.6 L ug/mL (10.0-20.0) C. difficile (PCR) Negative (NEGATIVE) 11/17/23 11/17/23 11/18/23 16:51 20:02 06:01 WBC 8.2 K/mm3 (4.5-10.0) RBC 4.24 M/mm3 (4.2-5.4) Hgb 12.9 g/dL (12.0-15.0) Hct 38.7 % (37.0-47.0) MCV 91.3 fl (80-100) MCH 30.4 pg (26-34) MCHC 33.3 g/dl (32-36) RDW 13.1 % (11.5-14.5) Plt Count 228 k/mm3 (150-375) MPV 10.5 H fl (7.4-10.4) Immature Gran % (Auto) 0.9 H % (0-0.5) Neut % (Auto) 60.8 % (45.5-73.1) Lymph % (Auto) 29.4 % (18.3-44.2) [place] % (Auto) 7.0 % (2.6-8.5) Eo
[2023-11-18] MEDS: VANCOMYCIN 1,000 MG/NS 250 ML 1,000 MG/250 ML BAG 250 MG IVPB (11:47)
--- NOTE | 2023-11-18 13:28 | PM.IMPN ---
Progress Note: A&P Assessment and Plan (1) MRSA infection: Code(s): A49.02 - Methicillin resistant Staphylococcus aureus infection, unspecified site Status: Acute Assessment and Plan: History of MRSA infections to axilla abscess and labia abscess. Now here with sacral abscess with purulent drainage. Wound care consulted, recs appreciated Photo in chart Gen surgery - I&D yesterday, to go today for skin graft wound vac in place Contact precautions Vancomycin Blood cultures pending (2) Decubitus ulcer of sacral region: Code(s): L89.159 - Pressure ulcer of sacral region, unspecified stage Status: Inactive Assessment and Plan: See above (3) Urinary tract infection: Code(s): N39.0 - Urinary tract infection, site not specified Status: Ruled-out Assessment and Plan: UA concerning for infection in patient with dysuria Rocephin d/c Urine culture negative (4) Type 2 diabetes mellitus with hyperglycemia: Code(s): E11.65 - Type 2 diabetes mellitus with hyperglycemia Status: Chronic Assessment and Plan: Last A1c last year was 6.6% patient taking Trulicity Repeat hemoglobin A1c Sliding scale insulin with corrective low-dose Hypoglycemia protocol ordered A1c 6.3 (5) Anxiety: Code(s): F41.9 - Anxiety disorder, unspecified Status: Chronic Assessment and Plan: Debilitating anxiety related to falling PCP recently started her on BuSpar and escitalopram (6) Weakness: Code(s): R53.1 - Weakness Status: Acute Assessment and Plan: Progressive weakness related to immobility PT OT consult recs appreciated Up ad pasha with assistance Fall precautions (7) Malnutrition: Code(s): E46 - Unspecified protein-calorie malnutrition Status: Acute Assessment and Plan: Appears thin and frail Start Glucerna shakes after surgery Dietitian consulted and recs appreciated Subjective Date/time seen: 11/18/23 13:28 Interval history: Patient is sitting up in chair this morning in no acute distress. Her only complaint is discomfort in her wound and now a yeast infection has developed. Vaginal cream ordered. BC still pending, will continue Vancomycin. Plan for surgery to do debridement and skin graft this afternoon. Review of Systems Review of Systems: All systems reviewed & are unremarkable except as noted in HPI and below Exam Narrative: General: well appearing, thin, frail appears stated age. HEENT: normocephalic, atraumatic. Mucous membranes moist. EOMI, PERRLA Respiratory: clear to auscultation bilaterally. No rales/rhonic/wheezes. Cardiovascular: RRR, normal S1-S2 upon auscultation. Abdomen: Soft, round, no pulsatile masses, nondistended and nontender. No rebound, no guarding. BS present to all four quadrants. Extremities: No cyanosis, clubbing, or edema present. Pulses are palpable 2/2. Neuro: Alert and orientated x 4. Cranial nerves 2-12 intact without focal deficit. Skin: Warm, dry, and intact, without rash, erythema, or lesion. Wound vac in place, clean dry and intact. Psych: pleasant, cooperative, normal speech, normal affect Objective Data Vital Signs Vital Signs: Vital Signs - 24 hr 11/17/23 13:43 11/17/23 13:44 11/17/23 20:00 Temperature 97.0 F L Pulse Rate 85 Respiratory Rate 16 Blood Pressure 148/76 H 124/73 Pulse Oximetry 99 99 Oxygen Delivery Room Air 11/17/23 21:53 11/18/23 05:54 Temperature 97.9 F 97.3 F L Pulse Rate 79 76 Respiratory Rate 14 16 Blood Pressure 161/61 H 158/64 H Pulse Oximetry 100 100 Oxygen Delivery Intake/Output Intake/Output: Intake & Output 11/15/23 11/16/23 11/17/23 11/18/23 23:59 23:59 23:59 23:59 Intake Total 890 1970 1940 Output Total 2900 1200 600 -2009 770 1340 Meds/Results Medications: Active Medications Generic Name Dose Route Start Last Admin Trade Name Freq PRN Reason Stop
--- NOTE | 2023-11-18 13:54 | SUR.OPER ---
WOUND VAC FUNCTIONING POST TRANSFER TO PATIENT BED.
--- NOTE | 2023-11-18 13:57 | SUR.OPER ---
WOUND NURSE INFORMED OF WOUND VAC APPLICATION 13:55 UNSCHEDULED.
[2023-11-18 15:00] LABS: Glucose Point of Care 111 mg/dl (65-105)
--- NOTE | 2023-11-18 15:25 | PC.NURSE ---
Returned from OR per bed. Report received from Nathalia MCKEON.
[2023-11-18 16:49] LABS: Glucose Point of Care 115 mg/dl (65-105)
--- NOTE | 2023-11-18 17:49 | P.OP_ITS ---
Procedure Note - Detailed Date of Procedure 11/18/23 Pre-op Diagnosis Decubitus Ulcer Post-op Diagnosis Same Procedure Performed Sharp excisional debridement of sacral wound with scalpel and application of Marigen Micro Xenograft and application of wound vac. Surgeon Pierce Gibbs MD Anesthesia General Indications patient is a 82-year-old female who recently has had problems with mobility and has been largely been lying in bed. She developed a stage III decubitus ulcer under sacrum . She underwent initial debridement of the wound 2 days ago in presents again for another evaluation under anesthesia and debridement and if appropriate application of a xenograft and another wound vac. Findings The sacral decubitus wound is largely clean with a very small amount of questionable viable tissue at the base. The wound had actually come smaller with application of wound VAC for 2 days and now measures [id number]. The base of the wound to covering the periosteum and sacrum and so there was no obvious evidence of osteomyelitis. There is no purulent drainage to suggest ongoing infection. Description of Procedure After informed consent was obtained patient was brought to the operating room she was placed under general LMA anesthesia and then turned onto the right lateral decubitus position on the operating table making sure that all the pressure points well padded. The area of the stage III sacral decubitus wound was then prepped and draped usual sterile fashion. A time-out was then performed correctly identifying the patient as well as procedure to be performed. She was already on scheduled antibiotics. I then proceeded to irrigate out the wound with sterile saline solution. About 95% of the wound was completely clean without any evidence of nonviable tissue. Just at the base t here was a very small amount of tissue that was a little darkened and possibly not completely viable and so that was removed sharply in an excisional fashion with scalpel dissection. I then measured the wound and it was [id number]. We then felt that it would be appropriate to place a Marigen xenograft consisting of granulated graft. The xenograft material was moistened with a few drops of sterile saline solution to rehydrate it to a consistency of a mushy material. We then placed it into the wound cavity which recovered completely and all the crevices due to it is granular consistency. When this was done I then placed a small piece Mepitel nonadherent covering and then a piece of black foam sponge on top of the opening. The wound VAC was then lateralized to the left hip region with black foam sponge on all covered with clear adhesive covering. The suction pad was then placed in the left hip and the wound VAC was turned on and we got a good seal with out any leaking. The patient tolerated the procedure well no complications. All sponges, needles, and instrument counts were correct at the end procedure. EBL was _5__cc. The patient was awakened and taken to recovery in stable and satisfactory condition. Implants Marigen Micro xenograft. Estimated Blood Loss 5 Urine Output 600 Drains No Packing Yes (Wound vac.) Pathology None sent Complications No immediate complications Condition Stable Disposition PACU [facility] Billing Surgery - Charge Forward: Surgery Billing
[2023-11-18] MEDS: OPTI-GEN TAB 1 TABLET PO (18:01)
[2023-11-18] MEDS: SACCHAROMYCES BOULARDII 250 MG CAPSULE PO (18:01)
[2023-11-18] MEDS: ESCITALOPRAM OXALATE 10 MG TABLET PO (18:01)
[2023-11-18] MEDS: busPIRone HCL 5 MG TABLET PO (18:01)
[2023-11-18] MEDS: MULTIVITAMINS /C LUTEIN (CENTRUM SILVER) TABLET *BKC 1 TAB PO (18:02)
[2023-11-18 21:59] LABS: Glucose Point of Care 212 mg/dl (65-105)
[2023-11-18] MEDS: MICONAZOLE NITRATE 2% VAGINAL CREAM 45 GM TUBE 1 APPFUL VAGINAL (22:00)
[2023-11-19 05:50] VITALS: BP 147/67; PULSE 71; RESP 20; TEMP 36.4; O2SAT 99
[2023-11-19] MEDS: VANCOMYCIN 1,000 MG/NS 250 ML 1,000 MG/250 ML BAG 250 MG IVPB (06:03)
[2023-11-19 06:33] LABS: Basophils Absolute Auto 0.1 K/mm3 (0.0-0.1); Basophils Percent Auto 0.7 % (0.2-1.2); Eosinophils Absolute Auto 0.1 K/mm3 (0-0.3); Eosinophils Percent Auto 1.3 % (0-4.4); Hematocrit 36.4 % (37.0-47.0); Hemoglobin 12.2 g/dL (12.0-15.0); Immature Granulocyte Absolute 0.07 K/mm3 (0.00-0.031); Lymphocytes Absolute Auto 2.61 K/mm3 (0.9-3.2); Lymphocytes Percent Auto 36.9 % (18.3-44.2); Mean Corpuscular HGB Conc 33.5 g/dl (32-36); Mean Corpuscular Hemoglobin 31.2 pg (26-34); Mean Corpuscular Volume 93.1 fl (80-100); Mean Platelet Volume 10.7 fl (7.4-10.4); Monocytes Absolute Auto 0.5 K/mm3 (0.1-0.6); Monocytes Percent Auto 6.6 % (2.6-8.5); Neutrophils Absolute Auto 3.8 K/mm3 (1.3-6.7); Neutrophils Percent Auto 53.5 % (45.5-73.1); Platelet Count Result 202 k/mm3 (150-375); Red Blood Count 3.91 M/mm3 (4.2-5.4); Red Cell Distribution Width 13.6 % (11.5-14.5); White Blood Count 7.1 K/mm3 (4.5-10.0)
[2023-11-19 06:41] LABS: Alanine Aminotransferase 22 U/L (6-35); Albumin Level 3.4 g/dL (3.5-5.1); Alkaline Phosphatase 88 U/L (38-126); Anion Gap 4 mmol/L (4-12); Aspartate Amino Transferase 30 U/L (14-36); Bilirubin,Total 0.4 mg/dL (0.2-1.3); Blood Urea Nitrogen 19 mg/dL (7-17); Calcium 9.3 mg/dL (8.4-10.2); Carbon Dioxide 27 mmol/L (22-30); Chloride 106 mmol/L (98-107); Estimated CRCL calculation 38 ml/min; Estimated Glomerular Filt Rate > 60; Glucose 124 mg/dL (65-110); Potassium 4.2 mmol/L (3.4-5.0); Sodium 137 mmol/L (137-145)
[2023-11-19 07:26] LABS: Glucose Point of Care 130 mg/dl (65-105)
--- NOTE | 2023-11-19 10:12 | PCPTNOTE ---
attempted PT re-eval, pt refused stating she needs her meds and she has to talk to someone who was physically in the surgery with her before she attempts to get out of bed, RN in room reasoning with pt and giving her information about the surgery performed, educated on the importance of getting out of bed, pt still refused, will follow
[2023-11-19] MEDS: ESCITALOPRAM OXALATE 10 MG TABLET PO (10:18)
[2023-11-19] MEDS: busPIRone HCL 5 MG TABLET PO ×2 (10:18→18:08)
[2023-11-19] MEDS: SACCHAROMYCES BOULARDII 250 MG CAPSULE PO ×2 (10:18→18:08)
[2023-11-19] MEDS: OPTI-GEN TAB 1 TABLET PO ×2 (10:18→18:08)
[2023-11-19] MEDS: MULTIVITAMINS /C LUTEIN (CENTRUM SILVER) TABLET *BKC 1 TAB PO (10:18)
[2023-11-19 11:42] LABS: Glucose Point of Care 211 mg/dl (65-105)
--- NOTE | 2023-11-19 12:13 | PCPTNOTE ---
attempted re-eval again on 11/18, pt continued to refuse to participate, PT offered to get commode for pt to use have a bowel movement, pt stated she wanted the bed craft, PT informed pt about the importance of getting up to commode to avoid pressure and fecal matter getting into the wound, pt stated that she did not care and is fine with getting fecal matter into the wound, then pt states that she already had a bowel movement, pt continued to complain that everyone comes in when she is trying to eat, PT informed pt that PT came in earlier to help when pt was not eating, RN and tech in room trying to reason with pt, pt refused, will follow
--- NOTE | 2023-11-19 12:29 | PC.NURSE ---
After multiple attempts this morning to educate patient on importance of getting up to commode to prevent fecal matter getting into wound vac, patient continues to refuse to get out of bed. Patient insists on using bed craft, refuses to get up today, as she did as well yesterday. Patient also refusing to work with physical therapy. We have offered to use [id number] equipment to ease her fear of falling, continued to refuse. RN, [address], has spoken with patient's youngest son, Jb, gave some information about patient's long-term health history. Apparently patient has approximately 30 yr history of vertigo that resulted in a fall with broken ankle, has unsteady balance. Her son is only concerned about getting her wound healed. RN educated patient's son about her refusal to get out of bed to commode regardless of resources available to get her there safely, patient is now getting fecal matter into wound vac, wound is not likely to heal under these circumstances. Patient's son reported he will be coming up to the floor to try to reason with patient.
--- NOTE | 2023-11-19 12:33 | PM.IMPN ---
Progress Note: A&P Assessment and Plan (1) MRSA infection: Code(s): A49.02 - Methicillin resistant Staphylococcus aureus infection, unspecified site Status: Acute Assessment and Plan: History of MRSA infections to axilla abscess and labia abscess. Now here with sacral abscess with purulent drainage. Wound care consulted, recs appreciated Photo in chart wound vac in place Contact precautions Vancomycin Blood cultures pending (2) Decubitus ulcer of sacral region: Code(s): L89.159 - Pressure ulcer of sacral region, unspecified stage Status: Inactive Assessment and Plan: See above (3) Urinary tract infection: Code(s): N39.0 - Urinary tract infection, site not specified Status: Ruled-out Assessment and Plan: UA concerning for infection in patient with dysuria Rocephin d/c Urine culture negative (4) Type 2 diabetes mellitus with hyperglycemia: Code(s): E11.65 - Type 2 diabetes mellitus with hyperglycemia Status: Chronic Assessment and Plan: Last A1c last year was 6.6% patient taking Trulicity Repeat hemoglobin A1c Sliding scale insulin with corrective low-dose Hypoglycemia protocol ordered A1c 6.3 (5) Anxiety: Code(s): F41.9 - Anxiety disorder, unspecified Status: Chronic Assessment and Plan: Debilitating anxiety related to falling PCP recently started her on BuSpar and escitalopram (6) Weakness: Code(s): R53.1 - Weakness Status: Acute Assessment and Plan: Progressive weakness related to immobility Patient is declining physical therapy this morning due to reported severe anxiety PT OT consult recs appreciated Up ad pasha with assistance Fall precautions (7) Malnutrition: Code(s): E46 - Unspecified protein-calorie malnutrition Status: Acute Assessment and Plan: Appears thin and frail Start Glucerna shakes after surgery Dietitian consulted and recs appreciated (8) Yeast infection involving the vagina and surrounding area: Code(s): B37.31 - Acute candidiasis of vulva and vagina Status: Acute Assessment and Plan: RN paper sample clerk by the bedside, exam reveals moderate thick curdy white discharge, bilateral groin and perineum excoriation -concern for severe vaginal candidiasis will use 150 mg p.o. 3 doses, once a day for 3 days -d/c cream, due to patient not willing to ambulate to use the bathroom the cream is coming in contact with the wound VAC dressing, concern for infection. will not use cream or powders at this time. Plan Continue home medications: VTE Prophylaxis: Lovenox subQ DIET: Dietary supplements, cardiac consistent carbohydrate diet Anticipated hospital stay: > 2 days Code Status: Full Subjective Date/time seen: 11/19/23 12:33 Interval history: Patient resting in bed, in no acute distress. This morning she declines physical therapy citing she is having severe anxiety and does not want to participate due to fear from falling. She continues to complain about an ongoing yeast infection, she states the cream that was given did not help with her symptoms. Review of Systems Review of Systems: All systems reviewed & are unremarkable except as noted in HPI and below Exam Narrative: General: well appearing, thin, frail appears stated age. HEENT: normocephalic, atraumatic. Mucous membranes moist. EOMI, PERRLA Respiratory: clear to auscultation bilaterally. No rales/rhonic/wheezes. Cardiovascular: RRR, normal S1-S2 upon auscultation. Abdomen: Soft, round, no pulsatile masses, nondistended and nontender. No rebound, no guarding. BS present to all four quadrants. Extremities: No cyanosis, clubbing, or edema present. Pulses are palpable 2/2. Neuro: Alert and orientated x 4. Cranial nerves 2-12 intact without focal deficit. Skin: Warm, dry, and intact, without rash, erythema, or lesion. Wound vac in place, clean dry and intact. Psych: p
[2023-11-19] MEDS: FLUCONAZOLE 150 MG TABLET PO (13:46)
[2023-11-19] MEDS: INSULIN ASPART (*BKC) 100 UNITS/ML SUB-Q (13:46)
[2023-11-19 14:00] VITALS: BP 167/77; PULSE 88; RESP 18; TEMP 36.3; O2SAT 98
[2023-11-19 17:18] LABS: Glucose Point of Care 188 mg/dl (65-105)
[2023-11-19 21:30] VITALS: BP 148/91; PULSE 70; RESP 16; TEMP 35.7; O2SAT 99
[2023-11-19 21:37] LABS: Glucose Point of Care 127 mg/dl (65-105)
[2023-11-19 23:33] LABS: Vancomycin Trough 12.8 ug/mL (10.0-20.0)
[2023-11-20] MEDS: VANCOMYCIN 1,000 MG/NS 250 ML 1,000 MG/250 ML BAG 250 MG IVPB ×2 (00:31→18:38)
[2023-11-20 06:00] VITALS: BP 142/70; PULSE 67; RESP 20; TEMP 36.1; O2SAT 94
[2023-11-20 06:53] LABS: Basophils Absolute Auto 0.1 K/mm3 (0.0-0.1); Basophils Percent Auto 1.1 % (0.2-1.2); Eosinophils Absolute Auto 0.1 K/mm3 (0-0.3); Eosinophils Percent Auto 1.1 % (0-4.4); Hematocrit 37.1 % (37.0-47.0); Hemoglobin 12.2 g/dL (12.0-15.0); Immature Granulocyte Absolute 0.07 K/mm3 (0.00-0.031); Lymphocytes Absolute Auto 2.44 K/mm3 (0.9-3.2); Mean Corpuscular HGB Conc 32.9 g/dl (32-36); Mean Corpuscular Hemoglobin 30.6 pg (26-34); Mean Platelet Volume 10.1 fl (7.4-10.4); Monocytes Absolute Auto 0.5 K/mm3 (0.1-0.6); Monocytes Percent Auto 7.5 % (2.6-8.5); Neutrophils Absolute Auto 3.8 K/mm3 (1.3-6.7); Neutrophils Percent Auto 54.3 % (45.5-73.1); Platelet Count Result 199 k/mm3 (150-375); Red Blood Count 3.99 M/mm3 (4.2-5.4); Red Cell Distribution Width 13.5 % (11.5-14.5)
[2023-11-20 07:04] LABS: Alanine Aminotransferase 25 U/L (6-35); Albumin Level 3.5 g/dL (3.5-5.1); Alkaline Phosphatase 90 U/L (38-126); Anion Gap 3 mmol/L (4-12); Aspartate Amino Transferase 30 U/L (14-36); Bilirubin,Total 0.4 mg/dL (0.2-1.3); Blood Urea Nitrogen 19 mg/dL (7-17); Calcium 9.2 mg/dL (8.4-10.2); Carbon Dioxide 27 mmol/L (22-30); Chloride 106 mmol/L (98-107); Estimated CRCL calculation 38 ml/min; Estimated Glomerular Filt Rate > 60; Glucose 136 mg/dL (65-110); Potassium 4.2 mmol/L (3.4-5.0); Sodium 136 mmol/L (137-145)
[2023-11-20 08:09] LABS: Glucose Point of Care 133 mg/dl (65-105)
--- NOTE | 2023-11-20 08:49 | PM.IMPN ---
Progress Note: A&P Assessment and Plan (1) MRSA infection: Code(s): A49.02 - Methicillin resistant Staphylococcus aureus infection, unspecified site Status: Acute Assessment and Plan: History of MRSA infections to axilla abscess and labia abscess. Now here with sacral abscess with purulent drainage. Wound care consulted, recs appreciated Photo in chart wound vac in place Contact precautions Vancomycin blood culture with no growth (2) Decubitus ulcer of sacral region: Code(s): L89.159 - Pressure ulcer of sacral region, unspecified stage Status: Inactive Assessment and Plan: See above (3) Urinary tract infection: Code(s): N39.0 - Urinary tract infection, site not specified Status: Ruled-out Assessment and Plan: UA concerning for infection in patient with dysuria -recheck UA (4) Type 2 diabetes mellitus with hyperglycemia: Code(s): E11.65 - Type 2 diabetes mellitus with hyperglycemia Status: Chronic Assessment and Plan: Last A1c last year was 6.6% patient taking Trulicity Sliding scale insulin with corrective low-dose Hypoglycemia protocol ordered A1c 6.3 on 11/15/23 (5) Anxiety: Code(s): F41.9 - Anxiety disorder, unspecified Status: Chronic Assessment and Plan: Debilitating anxiety related to falling continue BuSpar and escitalopram (6) Weakness: Code(s): R53.1 - Weakness Status: Acute Assessment and Plan: Progressive weakness related to immobility pt reports feeling better this am, citing she is willing to work with PT PT OT consult recs appreciated Up ad pasha with assistance Fall precautions (7) Malnutrition: Code(s): E46 - Unspecified protein-calorie malnutrition Status: Acute Assessment and Plan: Appears thin and frail continue Steve hurley Dietitian consulted and recs appreciated (8) Yeast infection involving the vagina and surrounding area: Code(s): B37.31 - Acute candidiasis of vulva and vagina Status: Acute Assessment and Plan: RN farm contractor buyer by the bedside, exam reveals moderate thick curdy white discharge, bilateral groin and perineum excoriation -concern for severe vaginal candidiasis will use 150 mg p.o. 3 doses, once a day for 3 days -d/c cream, due to patient not willing to ambulate to use the bathroom the cream is coming in contact with the wound VAC dressing, concern for infection. will not use cream or powders at this time. pt reports feeling somewhat better since she has started po medication, continue to monitor 2/3 doses given Plan Continue home medications: VTE Prophylaxis: Lovenox subQ DIET: Dietary supplements, cardiac consistent carbohydrate diet Anticipated hospital stay: > 2 days Code Status: Full Subjective Date/time seen: 11/20/23 08:49 Interval history: pt seen this am, she is resting on her side, wound vac in place, centeno in place. Pt states she feels so much better since Centeno has been placed, she states her vaginal irritations has decreased since she started by mouth medication. She denies any c/o at this time citing she was able to get some rest last night. She plans to participate with pt today. Review of Systems Review of Systems: All systems reviewed & are unremarkable except as noted in HPI and below Exam Narrative: General: well appearing, thin, frail appears stated age. HEENT: normocephalic, atraumatic. Mucous membranes moist. EOMI, PERRLA Respiratory: clear to auscultation bilaterally. No rales/rhonic/wheezes. Cardiovascular: RRR, normal S1-S2 upon auscultation. Abdomen: Soft, round, no pulsatile masses, nondistended and nontender. No rebound, no guarding. BS present to all four quadrants. Extremities: No cyanosis, clubbing, or edema present. Pulses are palpable 2/2. Neuro: Alert and orientated x 4. Cranial nerves 2-12 intact without focal deficit. Skin: Warm, dry, and intact, withou
[2023-11-20] MEDS: OPTI-GEN TAB 1 TABLET PO ×2 (10:21→17:48)
[2023-11-20] MEDS: MULTIVITAMINS /C LUTEIN (CENTRUM SILVER) TABLET *BKC 1 TAB PO (10:21)
[2023-11-20] MEDS: FLUCONAZOLE 150 MG TABLET PO (10:21)
[2023-11-20] MEDS: busPIRone HCL 5 MG TABLET PO ×2 (10:23→17:48)
[2023-11-20] MEDS: ESCITALOPRAM OXALATE 10 MG TABLET PO (10:23)
[2023-11-20] MEDS: SACCHAROMYCES BOULARDII 250 MG CAPSULE PO ×2 (10:23→17:48)
[2023-11-20 11:36] LABS: Glucose Point of Care 200 mg/dl (65-105)
[2023-11-20 14:00] VITALS: BP 124/60; PULSE 82; RESP 20; TEMP 36.5; O2SAT 98
[2023-11-20 16:34] LABS: Glucose Point of Care 161 mg/dl (65-105)
[2023-11-20 18:41] LABS: Appearance Urine Cloudy (Clear); Bacteria Urine None Seen /hpf; Bilirubin Urine Negative (Negative); Blood Urine Non-Hemolyzed Trace (Negative); Color Urine Dark Yellow (Yellow); Glucose Urine UA Negative (Negative); Ketones Urine Trace mg/dL (Negative); Leukocyte Esterase Ur 2+ LEU/UL (Negative); Need Manual Microscopic Reviewed; Nitrate Urine Negative (Negative); Protein Urine Trace mg/dL (Negative); Specific Grav Ur 1.018 (1.001-1.035); Squamous Epithelial Cell Urine None Seen /hpf (Few); Urobilinogen Urine 0.2 mg/dL (<2.0); pH Urine 5.5 (5.0-9.0)
[2023-11-20 18:42] LABS: Add Urine Microscopic? YES
[2023-11-20 20:00] VITALS: PULSE 81; RESP 16; O2SAT 98
[2023-11-20] MEDS: ACETAMINOPHEN 325 MG TABLET 650 MG PO (21:14)
[2023-11-20 21:20] VITALS: BP 130/57; PULSE 81; RESP 16; TEMP 36.6; O2SAT 98
[2023-11-20 21:25] LABS: Glucose Point of Care 197 mg/dl (65-105)
[2023-11-21 06:00] VITALS: BP 160/68; PULSE 72; RESP 16; TEMP 36.6; O2SAT 99
[2023-11-21 07:04] LABS: Basophils Absolute Auto 0.1 K/mm3 (0.0-0.1); Basophils Percent Auto 0.8 % (0.2-1.2); Eosinophils Absolute Auto 0.1 K/mm3 (0-0.3); Hematocrit 37.2 % (37.0-47.0); Hemoglobin 12.4 g/dL (12.0-15.0); Immature Granulocyte Absolute 0.07 K/mm3 (0.00-0.031); Lymphocytes Absolute Auto 2.45 K/mm3 (0.9-3.2); Lymphocytes Percent Auto 34.4 % (18.3-44.2); Mean Corpuscular HGB Conc 33.3 g/dl (32-36); Mean Corpuscular Hemoglobin 30.5 pg (26-34); Mean Corpuscular Volume 91.4 fl (80-100); Mean Platelet Volume 10.7 fl (7.4-10.4); Monocytes Absolute Auto 0.5 K/mm3 (0.1-0.6); Monocytes Percent Auto 7.3 % (2.6-8.5); Neutrophils Percent Auto 55.5 % (45.5-73.1); Platelet Count Result 193 k/mm3 (150-375); Red Blood Count 4.07 M/mm3 (4.2-5.4); Red Cell Distribution Width 13.6 % (11.5-14.5); White Blood Count 7.1 K/mm3 (4.5-10.0)
[2023-11-21 07:11] LABS: Alanine Aminotransferase 23 U/L (6-35); Albumin Level 3.5 g/dL (3.5-5.1); Alkaline Phosphatase 89 U/L (38-126); Anion Gap 5 mmol/L (4-12); Aspartate Amino Transferase 26 U/L (14-36); Bilirubin,Total 0.3 mg/dL (0.2-1.3); Blood Urea Nitrogen 21 mg/dL (7-17); Calcium 9.6 mg/dL (8.4-10.2); Carbon Dioxide 29 mmol/L (22-30); Chloride 106 mmol/L (98-107); Estimated CRCL calculation 38 ml/min; Estimated Glomerular Filt Rate > 60; Glucose 157 mg/dL (65-110); Magnesium 1.9 mg/dL (1.6-2.3); Potassium 4.2 mmol/L (3.4-5.0); Sodium 140 mmol/L (137-145)
[2023-11-21 07:43] LABS: Glucose Point of Care 135 mg/dl (65-105)
[2023-11-21] MEDS: FLUCONAZOLE 150 MG TABLET PO (08:47)
[2023-11-21] MEDS: MULTIVITAMINS /C LUTEIN (CENTRUM SILVER) TABLET *BKC 1 TAB PO (08:48)
[2023-11-21] MEDS: busPIRone HCL 5 MG TABLET PO ×2 (08:48→16:45)
[2023-11-21] MEDS: OPTI-GEN TAB 1 TABLET PO ×2 (08:48→16:45)
[2023-11-21] MEDS: ESCITALOPRAM OXALATE 10 MG TABLET PO (08:48)
[2023-11-21] MEDS: SACCHAROMYCES BOULARDII 250 MG CAPSULE PO ×2 (08:48→16:45)
[2023-11-21 08:50] VITALS: BP 127/65; PULSE 81; O2SAT 98
[2023-11-21 11:29] LABS: Glucose Point of Care 205 mg/dl (65-105)
[2023-11-21] MEDS: INSULIN ASPART (*BKC) 100 UNITS/ML SUB-Q (11:35)
[2023-11-21] MEDS: VANCOMYCIN 1,000 MG/NS 250 ML 1,000 MG/250 ML BAG 250 MG IVPB (11:35)
--- NOTE | 2023-11-21 12:31 | WPDPN ---
Progress Note: A&P Assessment and Plan (1) Sacral decubitus ulcer, stage III: Code(s): L89.153 - Pressure ulcer of sacral region, stage 3 Status: Acute Assessment and Plan: Stage III sacral decubitus ulcer is healing by secondary intention. The wound VAC was removed today and the wound is much smaller now. The graft was placed late last week has incorporated well. The wound is now small enough to do without the wound VAC. Will do daily dressing changes and after bowel movements. No need to replace the wound VAC. Patient can probably be discharged from the hospital with local wound care and follow up in our wound care clinic. Subjective Date/time seen: 11/21/23 12:31 Interval history: Patient did well over the weekend with a wound VAC in place. No complaints. Exam Skin: Other: Wound VAC removed today. The Marigen Micro granulated xenograft is wall incorporated. There is good granulation tissue throughout the base. Wound is now about 50% smaller than initially after debridement. It now measures approximately 2.5x1.5x0.7 cm. There is no surrounding bacteria cellulitis there is skin reaction from the wound VAC and perhaps a fungal infection. Objective Data Vital Signs Vital Signs: Vital Signs - 24 hr 11/20/23 14:00 11/20/23 21:20 11/20/23 20:00 Temperature 36.5 C 36.6 C Pulse Rate 82 81 81 Respiratory Rate 20 16 16 Blood Pressure 124/60 130/57 L Pulse Oximetry 98 98 98 Oxygen Delivery Room Air 11/21/23 06:00 11/21/23 08:50 11/21/23 08:50 Temperature 36.6 C Pulse Rate 72 81 Respiratory Rate 16 Blood Pressure 160/68 H 127/65 Pulse Oximetry 99 98 Oxygen Delivery Room Air Intake/Output Intake/Output: Intake & Output 11/18/23 11/19/23 11/20/23 11/21/23 23:59 23:59 23:59 23:59 Intake Total 1190 1170 2722 540 Output Total 0921 111 4072 1800 Balance -10 243 223 -0113 Meds/Results Medications: Active Medications Generic Name Dose Route Start Last Admin Trade Name Freq PRN Reason Stop Dose Admin Acetaminophen 650 mg 11/14/23 06:40 11/20/23 21:14 Acetaminophen 325 Mg Tablet PO 650 mg Q4H PRN Administration Mild Pain (1-3) or Fever Hydrocodone Bitart/Acetaminophen 1 tab 11/14/23 06:40 11/17/23 08:40 Hydrocodone/Acetaminophen (*Crx) 5-325 Mg Tablet PO 1 tab Q4H PRN Administration Moderate Pain (4-6) Al Hydrox/Mg Hydrox/Simethicone 30 ml 11/14/23 06:40 Mag Hydrox/Al Hydrox/Simeth 30 Ml Udc PO QID PRN Dyspepsia Buspirone HCl 5 mg 11/14/23 09:00 11/21/23 08:48 Buspirone Hcl 5 Mg Tablet PO 5 mg BID KRISHAN Administration Dextrose 12.5 gm 11/14/23 17:37 Dextrose 50% 25 Gm/50 Ml Syringe IV PUSH PRN PRN Hypoglycemia Protocol Docusate Sodium 100 mg 11/14/23 09:00 11/21/23 08:51 Docusate Sodium 100 Mg Capsule PO Not Given DAILY KRISHAN Doxycycline Hyclate 100 mg 11/21/23 18:00 Doxycycline Hyclate 100 Mg Tablet PO Q12H KRISHAN Enoxaparin Sodium 40 mg 11/14/23 09:00 11/21/23 08:58 Enoxaparin 40 Mg/0.4 Ml Syringe SUB-Q Not Given DAILY [facility] Ergocalciferol 50,000 units 11/27/23 09:00 Ergocalciferol 50,000 Units Capsule PO T2AQOPS [facility] Escitalopram Oxalate 10 mg 11/14/23 09:00 11/21/23 08:48 Escitalopram Oxalate 10 Mg Tablet PO 10 mg DAILY KRISHAN Administration Fentanyl Citrate 25 mcg 11/18/23 11:31 Fentanyl Citrate Inj (*Crx) 100 Mcg/2 Ml Vial IV PUSH Q2M PRN Pain Glucagon 1 mg 11/14/23 17:37 Glucagon For Inj 1 Mg Vial IM PRN PRN Hypoglycemia Protocol Glucose 15 gm 11/14/23 17:37 Glucose Oral Gel 15 Gm Of Glucse In 37.5 Gm Tube PO PRN PRN Hypoglycemia Protocol Dextrose 1,000 mls @ 100 mls/hr 11/14/23 17:37 Dextrose 5% 1,000 Ml IVPB PRN PRN Hypoglycemia Protocol Ibuprofen 200 mg 11/14/23 06:39 11/14/23 09:31 Ibuprofen 200 Mg Tablet PO 200 mg Q6H PRN Adm
[2023-11-21 14:00] VITALS: BP 120/48; PULSE 81; RESP 16; TEMP 36.7; O2SAT 98
--- NOTE | 2023-11-21 14:20 | P.PNIM_ITS ---
Progress Note: A&P Assessment and Plan (1) MRSA infection: Code(s): A49.02 - Methicillin resistant Staphylococcus aureus infection, unspecified site Status: Acute (2) Decubitus ulcer of sacral region: Code(s): L89.159 - Pressure ulcer of sacral region, unspecified stage Status: Inactive (3) Urinary tract infection: Code(s): N39.0 - Urinary tract infection, site not specified Status: Ruled-out (4) Type 2 diabetes mellitus with hyperglycemia: Code(s): E11.65 - Type 2 diabetes mellitus with hyperglycemia Status: Chronic (5) Anxiety: Code(s): F41.9 - Anxiety disorder, unspecified Status: Chronic (6) Weakness: Code(s): R53.1 - Weakness Status: Acute (7) Malnutrition: Code(s): E46 - Unspecified protein-calorie malnutrition Status: Acute (8) Yeast infection involving the vagina and surrounding area: Code(s): B37.31 - Acute candidiasis of vulva and vagina Status: Acute Plan Infected sacral decubitus wound * Previous MRSA + * No wound culture ordered * Blood cultures NGTD * responded to IV vancomycin * de-escalated to doxycycline * Surgery consulted * underwent debridement in the OR * Wound vac removed * Pain control * PT/OT * wound care consulted * q2hr turn and encourage ambulation * Daily wet to dry dressing changes or when soiled Diabetes * Encouraged glucose control for wound healing * Accu-Cheks a.c. HS * sliding scale insulin * hold oral diabetic medications * resume patient's home long-acting * Hemoglobin A1c goal less than 7 pending * lipid panel pending * Diabetic diet * consult to dietitian * Watch for hypoglycemia/hypoglycemic protocol ordered Anxiety * Severe * resumed home medications * follows at [facility] Vaginal yeast infection * severe vaginal candidiasis will use 150 mg p.o. 3 doses, once a day for 3 days Moderate malnutrition from poor oral calorie and protein intake * metal spinner consulted * Protein shakes with each meal * high protein meals for wound healing Code status: Full code per patient DVT prophylaxis: Lovenox Stress ulcer prophylaxis: Protonix 40 daily PT/OT notes: PT/OT recommended rehab Disposition: Patient continues in his medical decubitus wound cc working rehab services. Time Spent With Patient Time with patient: 15 - 25 minutes Subjective Date/time seen: 11/21/23 14:20 Interval history: 11/20: Patient doing well today, still with generalized weakness, normal WBC and remained afebrile. Blood cultures NGTD and surgery was able to remove wound vac. Patient with mild pain and irritation to wound encourage ambulation with PT and use of bedside commode to limit stool from getting into wound. De- escalated ABX to doxycycline PO. CC working on Rehab services. Review of Systems Review of Systems: All systems reviewed & are unremarkable except as noted in HPI and below Exam Narrative: General: well appearing, thin, frail appears stated age. HEENT: normocephalic, atraumatic. Mucous membranes moist. EOMI, PERRLA Respiratory: clear to auscultation bilaterally. No rales/rhonic/wheezes. Cardiovascular: RRR, normal S1-S2 upon auscultation. Abdomen: Soft, round, no pulsatile masses, nondistended and nontender. No rebound, no guarding. BS present to all four quadrants. Extremities: No cyanosis, clubbing, or edema present. Pulse
--- NOTE | 2023-11-21 14:20 | PM.IMPN ---
Progress Note: A&P Assessment and Plan (1) MRSA infection: Code(s): A49.02 - Methicillin resistant Staphylococcus aureus infection, unspecified site Status: Acute (2) Decubitus ulcer of sacral region: Code(s): L89.159 - Pressure ulcer of sacral region, unspecified stage Status: Inactive (3) Urinary tract infection: Code(s): N39.0 - Urinary tract infection, site not specified Status: Ruled-out (4) Type 2 diabetes mellitus with hyperglycemia: Code(s): E11.65 - Type 2 diabetes mellitus with hyperglycemia Status: Chronic (5) Anxiety: Code(s): F41.9 - Anxiety disorder, unspecified Status: Chronic (6) Weakness: Code(s): R53.1 - Weakness Status: Acute (7) Malnutrition: Code(s): E46 - Unspecified protein-calorie malnutrition Status: Acute (8) Yeast infection involving the vagina and surrounding area: Code(s): B37.31 - Acute candidiasis of vulva and vagina Status: Acute Plan Infected sacral decubitus wound Previous MRSA + No wound culture ordered Blood cultures NGTD responded to IV vancomycin de-escalated to doxycycline Surgery consulted underwent debridement in the OR Wound vac removed Pain control PT/OT wound care consulted q2hr turn and encourage ambulation Daily wet to dry dressing changes or when soiled Diabetes Encouraged glucose control for wound healing Accu-Cheks a.c. HS sliding scale insulin hold oral diabetic medications resume patient's home long-acting Hemoglobin A1c goal less than 7 pending lipid panel pending Diabetic diet consult to dietitian Watch for hypoglycemia/hypoglycemic protocol ordered Anxiety Severe resumed home medications follows at [facility] Vaginal yeast infection severe vaginal candidiasis will use 150 mg p.o. 3 doses, once a day for 3 days Moderate malnutrition from poor oral calorie and protein intake hearth feeder consulted Protein shakes with each meal high protein meals for wound healing Code status: Full code per patient DVT prophylaxis: Lovenox Stress ulcer prophylaxis: Protonix 40 daily PT/OT notes: PT/OT recommended rehab Disposition: Patient continues in his medical decubitus wound cc working rehab services. Time Spent With Patient Time with patient: 15 - 25 minutes Subjective Date/time seen: 11/21/23 14:20 Interval history: 11/20: Patient doing well today, still with generalized weakness, normal WBC and remained afebrile. Blood cultures NGTD and surgery was able to remove wound vac. Patient with mild pain and irritation to wound encourage ambulation with PT and use of bedside commode to limit stool from getting into wound. De-escalated ABX to doxycycline PO. CC working on Rehab services. Review of Systems Review of Systems: All systems reviewed & are unremarkable except as noted in HPI and below Exam Narrative: General: well appearing, thin, frail appears stated age. HEENT: normocephalic, atraumatic. Mucous membranes moist. EOMI, PERRLA Respiratory: clear to auscultation bilaterally. No rales/rhonic/wheezes. Cardiovascular: RRR, normal S1-S2 upon auscultation. Abdomen: Soft, round, no pulsatile masses, nondistended and nontender. No rebound, no guarding. BS present to all four quadrants. Extremities: No cyanosis, clubbing, or edema present. Pulses are palpable 2/2. Neuro: Alert and orientated x 4. Cranial nerves 2-12 intact without focal deficit. Skin: Warm, dry, and intact, without rash, erythema, or lesion. Wound vac in place, clean dry and intact. Psych: pleasant, cooperative, normal speech, normal affect Objective Data Vital Signs Vital Signs: Vital Signs - 24 hr 11/20/23 21:20 11/20/23 20:00 11/21/23 06:00 Temperature 97.9 F 97.9 F Pulse Rate 81 81 72 Respiratory Rate 16 16 16 Blood Pressure 130/57 L 160/68 H Pulse Oximetry 98 98 99 Oxygen Delivery Room Air
[2023-11-21 16:38] LABS: Glucose Point of Care 130 mg/dl (65-105)
[2023-11-21] MEDS: DOXYCYCLINE HYCLATE 100 MG TABLET PO (17:31)
[2023-11-21 20:11] LABS: Glucose Point of Care 162 mg/dl (65-105)
[2023-11-21 20:20] VITALS: BP 158/62; PULSE 71; RESP 20; TEMP 36.3; O2SAT 98
[2023-11-22] MEDS: DOXYCYCLINE HYCLATE 100 MG TABLET PO ×2 (05:22→17:28)
[2023-11-22 05:36] LABS: Hematocrit 38.4 % (37.0-47.0); Hemoglobin 12.4 g/dL (12.0-15.0); Mean Corpuscular HGB Conc 32.3 g/dl (32-36); Mean Corpuscular Hemoglobin 29.9 pg (26-34); Mean Corpuscular Volume 92.5 fl (80-100); Mean Platelet Volume 10.6 fl (7.4-10.4); Platelet Count Result 200 k/mm3 (150-375); Red Blood Count 4.15 M/mm3 (4.2-5.4); Red Cell Distribution Width 13.7 % (11.5-14.5); White Blood Count 7.2 K/mm3 (4.5-10.0)
[2023-11-22 05:49] LABS: Alanine Aminotransferase 23 U/L (6-35); Albumin Level 3.6 g/dL (3.5-5.1); Alkaline Phosphatase 94 U/L (38-126); Anion Gap 5 mmol/L (4-12); Aspartate Amino Transferase 27 U/L (14-36); Bilirubin,Total 0.4 mg/dL (0.2-1.3); Blood Urea Nitrogen 18 mg/dL (7-17); Calcium 9.4 mg/dL (8.4-10.2); Carbon Dioxide 28 mmol/L (22-30); Chloride 103 mmol/L (98-107); Estimated CRCL calculation 38 ml/min; Estimated Glomerular Filt Rate > 60; Glucose 143 mg/dL (65-110); Potassium 3.9 mmol/L (3.4-5.0); Sodium 136 mmol/L (137-145)
[2023-11-22 05:50] VITALS: BP 126/68; PULSE 71; RESP 18; TEMP 36; O2SAT 96
[2023-11-22 07:53] LABS: Glucose Point of Care 153 mg/dl (65-105)
[2023-11-22 07:53] LABS: Glucose Point of Care 147 mg/dl (65-105)
[2023-11-22] MEDS: MULTIVITAMINS /C LUTEIN (CENTRUM SILVER) TABLET *BKC 1 TAB PO (08:03)
[2023-11-22] MEDS: OPTI-GEN TAB 1 TABLET PO ×2 (08:03→16:18)
[2023-11-22] MEDS: busPIRone HCL 5 MG TABLET PO ×2 (08:03→16:18)
[2023-11-22] MEDS: SACCHAROMYCES BOULARDII 250 MG CAPSULE PO ×2 (08:03→16:18)
[2023-11-22] MEDS: ESCITALOPRAM OXALATE 10 MG TABLET PO (08:03)
[2023-11-22 11:29] LABS: Glucose Point of Care 255 mg/dl (65-105)
[2023-11-22] MEDS: INSULIN ASPART (*BKC) 100 UNITS/ML SUB-Q (11:36)
--- NOTE | 2023-11-22 13:31 | PM.PNGS ---
Progress Note: A&P Assessment and Plan (1) Sacral decubitus ulcer, stage III: Code(s): L89.153 - Pressure ulcer of sacral region, stage 3 Status: Acute Assessment and Plan: Stage III sacral decubitus ulcer is healing by secondary intention. Continue daily dressing changes and after bowel movements. She is surgically stable to be discharged from the hospital with local wound care and follow up in our wound care clinic. CC working on discharge planning and the patient is being evaluated by JOAQUIM. Plan I have discussed the patient's case and plan of care with Dr. Gibbs. Subjective Subjective Date/Time Seen: 11/22/23 13:31 Interval history: No new complaints. Wound vac removed yesterday and now doing daily wet to dry dressing changes. No issues overnight. Patient being evaluated for JOAQUIM today. Exam Narrative: Gauze dressing removed. The wound bed still appears fairly clean with about 50-60% of the wound bed pink and the remainder with some loose yellow slough. Wet to dry gauze dressing applied. Skin around the wound appears red and the skin between the wound and anal opening appears slightly macerated. Objective Data Vital Signs Vital Signs: Vital Signs - 24 hr 11/21/23 14:00 11/21/23 20:00 11/21/23 20:20 Temperature 98.0 F 97.3 F L Pulse Rate 81 71 Respiratory Rate 16 20 Blood Pressure 120/48 L 158/62 H Pulse Oximetry 98 98 Oxygen Delivery Room Air 11/22/23 05:50 11/22/23 08:05 Temperature 96.8 F L Pulse Rate 71 Respiratory Rate 18 Blood Pressure 126/68 Pulse Oximetry 96 Oxygen Delivery Room Air Intake/Output Intake/Output: Intake & Output 11/19/23 11/20/23 11/21/23 11/22/23 23:59 23:59 23:59 23:59 Intake Total 1170 7802 6914 987 Output Total 375 5060 3750 1600 Balance 797 216 -[phone] -691 Meds/Results Medications: Active Medications Generic Name Dose Route Start Last Admin Trade Name Freq PRN Reason Stop Dose Admin Acetaminophen 650 mg 11/14/23 06:40 11/20/23 21:14 Acetaminophen 325 Mg Tablet PO 650 mg Q4H PRN Administration Mild Pain (1-3) or Fever Hydrocodone Bitart/Acetaminophen 1 tab 11/14/23 06:40 11/17/23 08:40 Hydrocodone/Acetaminophen (*Crx) 5-325 Mg Tablet PO 1 tab Q4H PRN Administration Moderate Pain (4-6) Al Hydrox/Mg Hydrox/Simethicone 30 ml 11/14/23 06:40 Mag Hydrox/Al Hydrox/Simeth 30 Ml Udc PO QID PRN Dyspepsia Buspirone HCl 5 mg 11/14/23 09:00 11/22/23 08:03 Buspirone Hcl 5 Mg Tablet PO 5 mg BID KRISHAN Administration Dextrose 12.5 gm 11/14/23 17:37 Dextrose 50% 25 Gm/50 Ml Syringe IV PUSH PRN PRN Hypoglycemia Protocol Docusate Sodium 100 mg 11/14/23 09:00 11/22/23 08:03 Docusate Sodium 100 Mg Capsule PO Not Given DAILY KRISHAN Doxycycline Hyclate 100 mg 11/21/23 18:00 11/22/23 05:22 Doxycycline Hyclate 100 Mg Tablet PO 100 mg Q12H KRISHAN Administration Enoxaparin Sodium 40 mg 11/14/23 09:00 11/22/23 08:06 Enoxaparin 40 Mg/0.4 Ml Syringe SUB-Q Not Given DAILY [facility] Ergocalciferol 50,000 units 11/27/23 09:00 Ergocalciferol 50,000 Units Capsule PO [id number] [facility] Escitalopram Oxalate 10 mg 11/14/23 09:00 11/22/23 08:03 Escitalopram Oxalate 10 Mg Tablet PO 10 mg DAILY KRISHAN Administration Fentanyl Citrate 25 mcg 11/18/23 11:31 Fentanyl Citrate Inj (*Crx) 100 Mcg/2 Ml Vial IV PUSH Q2M PRN Pain Glucagon 1 mg 11/14/23 17:37 Glucagon For Inj 1 Mg Vial IM PRN PRN Hypoglycemia Protocol Glucose 15 gm 11/14/23 17:37 Glucose Oral Gel 15 Gm Of Glucse In 37.5 Gm Tube PO PRN PRN Hypoglycemia Protocol Dextrose 1,000 mls @ 100 mls/hr 11/14/23 17:37 Dextrose 5% 1,000 Ml IVPB PRN PRN Hypoglycemia Protocol Ibuprofen 200 mg 11/14/23 06:39 11/14/23 09:31 Ibuprofen 200 Mg Tablet PO 200 mg Q6H PRN Administration Pain (Scale Score 4-6) In
--- NOTE | 2023-11-22 13:51 | P.DS_ITS ---
DS: Admitting Diagnosis Discharge Date 11/22/2023 Admitting Diagnosis Sacral Decubitus wound DS: Discharge Diagnosis Discharge Diagnosis (1) MRSA infection: Code(s): A49.02 - Methicillin resistant Staphylococcus aureus infection, unspecified site Status: Acute (2) Decubitus ulcer of sacral region: Code(s): L89.159 - Pressure ulcer of sacral region, unspecified stage Status: Inactive (3) Urinary tract infection: Code(s): N39.0 - Urinary tract infection, site not specified Status: Ruled-out (4) Type 2 diabetes mellitus with hyperglycemia: Code(s): E11.65 - Type 2 diabetes mellitus with hyperglycemia Status: Chronic (5) Anxiety: Code(s): F41.9 - Anxiety disorder, unspecified Status: Chronic (6) Weakness: Code(s): R53.1 - Weakness Status: Acute (7) Malnutrition: Code(s): E46 - Unspecified protein-calorie malnutrition Status: Acute (8) Yeast infection involving the vagina and surrounding area: Code(s): B37.31 - Acute candidiasis of vulva and vagina Status: Acute Plan Infected sacral decubitus wound * Previous MRSA + * No wound culture ordered * Blood cultures NGTD * responded to IV vancomycin * de-escalated to doxycycline * Surgery consulted * underwent debridement in the OR * Wound vac removed * Pain control * PT/OT * wound care consulted * q2hr turn and encourage ambulation * Daily wet to dry dressing changes or when soiled Diabetes * Encouraged glucose control for wound healing * Accu-Cheks a.c. HS * sliding scale insulin * hold oral diabetic medications * resume patient's home long-acting * Hemoglobin A1c goal less than 7 pending * lipid panel pending * Diabetic diet * consult to dietitian * Watch for hypoglycemia/hypoglycemic protocol ordered Anxiety * Severe * resumed home medications * follows at [facility] Vaginal yeast infection * severe vaginal candidiasis will use 150 mg p.o. 3 doses, once a day for 3 days Moderate malnutrition from poor oral calorie and protein intake * dental equipment technician consulted * Protein shakes with each meal * high protein meals for wound healing Disposition: Patient discharged to SNF will need continued wound care DS: Summary Hospital Course Reason for hospitalization: Sacral Decubitus wound Hospital Course: Admission: Medical Record This is an 82-year-old female with past medical history significant for diabetes, hypertension, anxiety, and recurrent MRSA infections who presented to [facility] with complaints of pain with urination and generalized weakness with a worsening abscess on her sacrum.? She was transferred to [place] for surgical evaluation of likely MRSA abscess.? The patient reports that prior to August this year she was independent of all ADLs but since August has been experiencing increased weakness and fatigue.? She reports debilitating anxiety about walking.? She is afraid she will fall and break her hip.? She was recently started on BuSpar for this.? She also reports weakness with ambulation and ?frozen feet?.? Because of this she has spent a lot of time in bed.? She thought she had the start of a pressure ulcer.? She has been having nausea without vomiting as well as suprapubic pain and dysuria.? She denies headache, dizziness, shortness of breath, and chest pain. In the ER labs were fairly unremarkable other than an elevated CRP at 2.7.? Her UA was concerning for UTI for wh
--- NOTE | 2023-11-22 13:51 | PM.DS ---
DS: Admitting Diagnosis Discharge Date 11/22/2023 Admitting Diagnosis Sacral Decubitus wound DS: Discharge Diagnosis Discharge Diagnosis (1) MRSA infection: Code(s): A49.02 - Methicillin resistant Staphylococcus aureus infection, unspecified site Status: Acute (2) Decubitus ulcer of sacral region: Code(s): L89.159 - Pressure ulcer of sacral region, unspecified stage Status: Inactive (3) Urinary tract infection: Code(s): N39.0 - Urinary tract infection, site not specified Status: Ruled-out (4) Type 2 diabetes mellitus with hyperglycemia: Code(s): E11.65 - Type 2 diabetes mellitus with hyperglycemia Status: Chronic (5) Anxiety: Code(s): F41.9 - Anxiety disorder, unspecified Status: Chronic (6) Weakness: Code(s): R53.1 - Weakness Status: Acute (7) Malnutrition: Code(s): E46 - Unspecified protein-calorie malnutrition Status: Acute (8) Yeast infection involving the vagina and surrounding area: Code(s): B37.31 - Acute candidiasis of vulva and vagina Status: Acute Plan Infected sacral decubitus wound Previous MRSA + No wound culture ordered Blood cultures NGTD responded to IV vancomycin de-escalated to doxycycline Surgery consulted underwent debridement in the OR Wound vac removed Pain control PT/OT wound care consulted q2hr turn and encourage ambulation Daily wet to dry dressing changes or when soiled Diabetes Encouraged glucose control for wound healing Accu-Cheks a.c. HS sliding scale insulin hold oral diabetic medications resume patient's home long-acting Hemoglobin A1c goal less than 7 pending lipid panel pending Diabetic diet consult to dietitian Watch for hypoglycemia/hypoglycemic protocol ordered Anxiety Severe resumed home medications follows at [facility] Vaginal yeast infection severe vaginal candidiasis will use 150 mg p.o. 3 doses, once a day for 3 days Moderate malnutrition from poor oral calorie and protein intake electrical mechanic consulted Protein shakes with each meal high protein meals for wound healing Disposition: Patient discharged to SNF will need continued wound care DS: Summary Hospital Course Reason for hospitalization: Sacral Decubitus wound Hospital Course: Admission: Medical Record This is an 82-year-old female with past medical history significant for diabetes, hypertension, anxiety, and recurrent MRSA infections who presented to [facility] with complaints of pain with urination and generalized weakness with a worsening abscess on her sacrum.? She was transferred to [place] for surgical evaluation of likely MRSA abscess.? The patient reports that prior to August this year she was independent of all ADLs but since August has been experiencing increased weakness and fatigue.? She reports debilitating anxiety about walking.? She is afraid she will fall and break her hip.? She was recently started on BuSpar for this.? She also reports weakness with ambulation and ?frozen feet?.? Because of this she has spent a lot of time in bed.? She thought she had the start of a pressure ulcer.? She has been having nausea without vomiting as well as suprapubic pain and dysuria.? She denies headache, dizziness, shortness of breath, and chest pain. In the ER labs were fairly unremarkable other than an elevated CRP at 2.7.? Her UA was concerning for UTI for which she received Rocephin.? CT abdomen and pelvis shows a small decubitus ulcer without osteomyelitis.? Urine and blood cultures are pending.? She was admitted [place] in this setting with general surgery consult and Wound consult. Patient doing well today, still with generalized weakness, normal WBC and remained afebrile.? Blood cultures NGTD and surgery was able to remove wound vac.? Patient with mild pain and irritation to wound encourage ambulation with PT and use of bedside commode
[2023-11-22 14:00] VITALS: BP 113/51; PULSE 77; RESP 22; TEMP 36.6; O2SAT 97
--- NOTE | 2023-11-22 14:28 | P.PNIM_ITS ---
Progress Note: A&P Assessment and Plan (1) MRSA infection: Code(s): A49.02 - Methicillin resistant Staphylococcus aureus infection, unspecified site Status: Acute (2) Decubitus ulcer of sacral region: Code(s): L89.159 - Pressure ulcer of sacral region, unspecified stage Status: Inactive (3) Urinary tract infection: Code(s): N39.0 - Urinary tract infection, site not specified Status: Ruled-out (4) Type 2 diabetes mellitus with hyperglycemia: Code(s): E11.65 - Type 2 diabetes mellitus with hyperglycemia Status: Chronic (5) Anxiety: Code(s): F41.9 - Anxiety disorder, unspecified Status: Chronic (6) Weakness: Code(s): R53.1 - Weakness Status: Acute (7) Malnutrition: Code(s): E46 - Unspecified protein-calorie malnutrition Status: Acute (8) Yeast infection involving the vagina and surrounding area: Code(s): B37.31 - Acute candidiasis of vulva and vagina Status: Acute Plan Infected sacral decubitus wound * Previous MRSA + * No wound culture ordered * Blood cultures NGTD * responded to IV vancomycin * de-escalated to doxycycline * Surgery consulted * underwent debridement in the OR * Wound vac removed * Pain control * PT/OT * wound care consulted * q2hr turn and encourage ambulation * Daily wet to dry dressing changes or when soiled Diabetes * Encouraged glucose control for wound healing * Accu-Cheks a.c. HS * sliding scale insulin * hold oral diabetic medications * resume patient's home long-acting * Hemoglobin A1c goal less than 7 pending * lipid panel pending * Diabetic diet * consult to dietitian * Watch for hypoglycemia/hypoglycemic protocol ordered Anxiety * Severe * resumed home medications * follows at [facility] Vaginal yeast infection * severe vaginal candidiasis will use 150 mg p.o. 3 doses, once a day for 3 days Moderate malnutrition from poor oral calorie and protein intake * bone puller consulted * Protein shakes with each meal * high protein meals for wound healing Code status: Full code per patient DVT prophylaxis: Lovenox Stress ulcer prophylaxis: Protonix 40 daily PT/OT notes: PT/OT recommended rehab Disposition: Patient continues in his medical decubitus wound Insurance auth approved just waiting on bed at [facility]. Discharged tomorrow. Time Spent With Patient Time with patient: 15 - 25 minutes Subjective Date/time seen: 11/22/23 14:28 Interval history: 11/20: Patient doing well today, still with generalized weakness, normal WBC and re mained afebrile. Blood cultures NGTD and surgery was able to remove wound vac. Patient with mild pain and irritation to wound encourage ambulation with PT and use of bedside commode to limit stool from getting into wound. De-escalated ABX to doxycycline PO. CC working on Rehab services. 11/21: Patient set for discharge but no bed available. No acute distress or complaints wound improving wet to dry dressing in place. blood cultures NGTD. Review of Systems Review of Systems: All systems reviewed & are unremarkable except as noted in HPI and below Exam Narrative: General: well appearing, thin, frail appears stated age. HEENT: normocephalic, atraumatic. Mucous membranes moist. EOMI, PERRLA Respiratory: clear to auscultation bilaterally. No rales/rhonic/wheezes. Card
--- NOTE | 2023-11-22 14:28 | PM.IMPN ---
Progress Note: A&P Assessment and Plan (1) MRSA infection: Code(s): A49.02 - Methicillin resistant Staphylococcus aureus infection, unspecified site Status: Acute (2) Decubitus ulcer of sacral region: Code(s): L89.159 - Pressure ulcer of sacral region, unspecified stage Status: Inactive (3) Urinary tract infection: Code(s): N39.0 - Urinary tract infection, site not specified Status: Ruled-out (4) Type 2 diabetes mellitus with hyperglycemia: Code(s): E11.65 - Type 2 diabetes mellitus with hyperglycemia Status: Chronic (5) Anxiety: Code(s): F41.9 - Anxiety disorder, unspecified Status: Chronic (6) Weakness: Code(s): R53.1 - Weakness Status: Acute (7) Malnutrition: Code(s): E46 - Unspecified protein-calorie malnutrition Status: Acute (8) Yeast infection involving the vagina and surrounding area: Code(s): B37.31 - Acute candidiasis of vulva and vagina Status: Acute Plan Infected sacral decubitus wound Previous MRSA + No wound culture ordered Blood cultures NGTD responded to IV vancomycin de-escalated to doxycycline Surgery consulted underwent debridement in the OR Wound vac removed Pain control PT/OT wound care consulted q2hr turn and encourage ambulation Daily wet to dry dressing changes or when soiled Diabetes Encouraged glucose control for wound healing Accu-Cheks a.c. HS sliding scale insulin hold oral diabetic medications resume patient's home long-acting Hemoglobin A1c goal less than 7 pending lipid panel pending Diabetic diet consult to dietitian Watch for hypoglycemia/hypoglycemic protocol ordered Anxiety Severe resumed home medications follows at [facility] Vaginal yeast infection severe vaginal candidiasis will use 150 mg p.o. 3 doses, once a day for 3 days Moderate malnutrition from poor oral calorie and protein intake case management coordinator consulted Protein shakes with each meal high protein meals for wound healing Code status: Full code per patient DVT prophylaxis: Lovenox Stress ulcer prophylaxis: Protonix 40 daily PT/OT notes: PT/OT recommended rehab Disposition: Patient continues in his medical decubitus wound Insurance auth approved just waiting on bed at [facility]. Discharged tomorrow. Time Spent With Patient Time with patient: 15 - 25 minutes Subjective Date/time seen: 11/22/23 14:28 Interval history: 11/20: Patient doing well today, still with generalized weakness, normal WBC and remained afebrile. Blood cultures NGTD and surgery was able to remove wound vac. Patient with mild pain and irritation to wound encourage ambulation with PT and use of bedside commode to limit stool from getting into wound. De-escalated ABX to doxycycline PO. CC working on Rehab services. 11/21: Patient set for discharge but no bed available. No acute distress or complaints wound improving wet to dry dressing in place. blood cultures NGTD. Review of Systems Review of Systems: All systems reviewed & are unremarkable except as noted in HPI and below Exam Narrative: General: well appearing, thin, frail appears stated age. HEENT: normocephalic, atraumatic. Mucous membranes moist. EOMI, PERRLA Respiratory: clear to auscultation bilaterally. No rales/rhonic/wheezes. Cardiovascular: RRR, normal S1-S2 upon auscultation. Abdomen: Soft, round, no pulsatile masses, nondistended and nontender. No rebound, no guarding. BS present to all four quadrants. Extremities: No cyanosis, clubbing, or edema present. Pulses are palpable 2/2. Neuro: Alert and orientated x 4. Cranial nerves 2-12 intact without focal deficit. Skin: Warm, dry, and intact, without rash, erythema, or lesion. Sacral wound with Wet to dry dressing in place per surgery: There is good granulation tissue throughout the base.? Wound is now about 50% smaller than initially after debridem
[2023-11-22 17:24] LABS: Glucose Point of Care 149 mg/dl (65-105)
[2023-11-22 19:26] LABS: Glucose Point of Care 239 mg/dl (65-105)
== END 2023-11-22 19:40 | disposition swing bed (61) | DRG 574 ==
PROVIDERS: Nurse Practitioner; Nurse Practitioner Acute Care; Nurse Practitioner Family; Surgery; Admitting Provider Internal Medicine; PCP Nurse Practitioner Family; Visit Provider Nurse Practitioner Family
PROC: 0JB70ZZ Excision of Back Subcutaneous Tissue and Fascia, Open Approach (ICD-10-PCS; principal; 2023-11-15 13:00)
PROC: 0HR6XK3 Replacement of Back Skin with Nonautologous Tissue Substitute, Full Thickness, External Approach (ICD-10-PCS; principal; 2023-11-18 12:00)
DX: L89.153 Pressure ulcer of sacral region, stage 3 (principal); E44.0 Moderate protein-calorie malnutrition; N39.0 Urinary tract infection, site not specified; I10 Essential (primary) hypertension; E11.65 Type 2 diabetes mellitus with hyperglycemia; E11.319 Type 2 diabetes mellitus with unspecified diabetic retinopathy without macular edema; E78.5 Hyperlipidemia, unspecified; B37.2 Candidiasis of skin and nail; B37.31 Acute candidiasis of vulva and vagina; R01.1 Cardiac murmur, unspecified; R53.1 Weakness; F41.9 Anxiety disorder, unspecified; Z68.22 Body mass index [BMI] 22.0-22.9, adult; Z86.14 Personal history of Methicillin resistant Staphylococcus aureus infection
CPT/HCPCS: 36415; 80053; 80202; 81001; 82565; 82948; 83036; 83735; 85025; 85027; 87045; 87086; 87427; 87449; 87493; 96365; 96366; 96368; 96375; 97110; 97161; 97164; 97165; 97166; 97530; 97535; A9270; C8929; G0378; G0379; J0696; J1650; J1815; J2371; J2405; J2704; J3010; J3370; J7120; Q9957

== ENCOUNTER 2023-11-22 20:21 | Inpatient (IN) | payer MEDICARE, SELFPAY ==
[2023-11-22 20:30] VITALS: O2SAT 97
--- NOTE | 2023-11-22 21:15 | ADMGEN ---
This patient, Nusrat Hernández, was admitted to 2nd Floor Room 208-1. Patient oriented to hospital policies and general routines including ID bracelet, bed and alarms, visiting hours, pain management, procedures, bathroom and other care routines, personal items, smoking policy, room service/diet, and visiting hours. Information on how to activate the Rapid Response Team has been discussed. Patient are encouraged to report perceived risks to care and to ask questions if they do not understand what they are told or what they should do.
--- NOTE | 2023-11-22 22:02 | PC.NURSE ---
2020 Daughter, Sidra Finnegan, notified that patient has arrived at facility and is in Room 208. Daughter instructed on skilled swing bed program and floor routines.
[2023-11-22 23:17] LABS: Glucose Point of Care 143 mg/dl (65-105)
[2023-11-23] VITALS: BP 129/46; PULSE 72; RESP 20; TEMP 36.4; O2SAT 98
[2023-11-23 06:55] VITALS: BMI 23.3
[2023-11-23 08:00] VITALS: BP 112/52; PULSE 75; RESP 14; TEMP 36.4; O2SAT 97
--- NOTE | 2023-11-23 08:14 | PM.IMHP ---
H&P: HPI History of Present Illness Date/Time: 11/23/23 08:14 Chief Complaint: sacral decubitus ulcer, rehab Narrative: This is an 82-year-old female with past medical history significant for diabetes, hypertension, anxiety, and recurrent MRSA infections who presented to [facility] with complaints of pain with urination and generalized weakness with a worsening abscess on her sacrum.? She was transferred to [place] for surgical evaluation of likely MRSA abscess.? The patient reports that prior to August this year she was independent of all ADLs but since August has been experiencing increased weakness and fatigue.? She reports debilitating anxiety about walking.? She is afraid she will fall and break her hip.? She was recently started on BuSpar for this.? She also reports weakness with ambulation and ?frozen feet?.? Because of this she has spent a lot of time in bed and developed a stage III decubitus ulcer. General surgery took her on 11/14 for excisional debridement and wound vac placement. She went back on 11/17 to surgery for further debridement and xenograft placement. Her hospitalization was uneventful other than a significant yeast infection. Due to her prolonged immobility prior to her hospital stay she has developed further weakness and deconditioning after surgery requiring further PT and OT. She is being admitted to [facility] bed services in this setting. On exam today she is alert and orientated and in no acute distress. She denies pain. She reports that her anxiety has shown some improvement which she attributes to her medications. She is anxious to see what is expected of her with therapy. She denies any complaints at this time other than some redness and moisture to her groin. Review of Systems Review of Systems: All systems reviewed & are unremarkable except as noted in HPI and below PMFSH Past Medical History Medical History Diabetic retinopathy Hyperlipidemia Hypertension Left genital labial abscess MRSA infection Type 2 diabetes mellitus Complicated by diabetic retinopathy. Surgical History Surgical History History of cataract extraction History of tonsillectomy Family History Family History Other Diabetes mellitus Family history of cardiovascular disease Family history of thyroid disease Social History Social History (Updated 11/14/23 @ 17:31 by Ya Ely APRN) Social History: Surrogate decision maker: Jyoti Finnegan, daughter. Code status: Do not resuscitate. Smoking status: Never smoker Alcohol intake: never Substance use: never Do You Feel Safe in your Home?: Yes Lack of Transportation: No Lack of Food: Never True Current Housing: I Have Housing Concerned About Future Housing: No Difficulty Paying Gas/Electric Bills: No Difficulty Paying for Meds: No Currently Unemployed: No Education: High School Diploma/GED Difficulty w/ Childcare or Family Care: No Living arrangements: with family Additional living arrangements comments: Lives in [place] with her son Shahriar. Her daughter Tameka sees her often. Patient requires Min to moderate assist with ADLs. Ambulates with a walker. 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
[2023-11-23 09:29] VITALS: TEMP 36.6
[2023-11-23] MEDS: IBUPROFEN 200 MG TABLET PO ×2 (09:29→20:30)
[2023-11-23] MEDS: DOCUSATE SODIUM 100 MG CAPSULE PO (09:30)
[2023-11-23] MEDS: busPIRone HCL 5 MG TABLET PO ×2 (09:30→16:52)
[2023-11-23] MEDS: ESCITALOPRAM OXALATE 10 MG TABLET PO (09:31)
[2023-11-23] MEDS: NEOMYCIN/POLYMYXIN/BACITRACIN OINTMENT 15 GM TUBE 1 APPLIC TOPICAL ×2 (09:31→16:50)
[2023-11-23] MEDS: SACCHAROMYCES BOULARDII 250 MG CAPSULE PO ×2 (09:31→16:50)
[2023-11-23] MEDS: OPTI-GEN TAB 1 TABLET PO (09:31)
[2023-11-23] MEDS: DOXYCYCLINE HYCLATE 100 MG TABLET PO ×2 (09:31→20:30)
[2023-11-23] MEDS: TOLNAFTATE 1% POWDER 45 GM BTL 1 APPLIC TOPICAL ×2 (12:15→20:29)
[2023-11-23] MEDS: ENOXAPARIN 40 MG/0.4 ML SYRINGE SUB-Q (12:20)
[2023-11-23 15:56] VITALS: BP 135/52; PULSE 76; RESP 16; TEMP 36.3; O2SAT 97
[2023-11-23 16:49] LABS: Glucose Point of Care 173 mg/dl (65-105)
[2023-11-23] MEDS: ACETAMINOPHEN 325 MG TABLET 650 MG PO (16:51)
--- NOTE | 2023-11-23 18:29 | PC.NURSE ---
pt up in chair, visiting with son
[2023-11-23 20:31] LABS: Glucose Point of Care 214 mg/dl (65-105)
[2023-11-24] VITALS: BP 137/62; PULSE 68; RESP 20; TEMP 36.2; O2SAT 98
--- NOTE | 2023-11-24 01:00 | PC.NURSE ---
Education provided on need for high protein diet for wound healing. Discussed foods that are high in protein. Discussed need to turn side to side in bed as patient states she is sitting in chair more to encourage wound healing, prevent complications of staying in prolonged positioning.
[2023-11-24] MEDS: ACETAMINOPHEN 325 MG TABLET 650 MG PO (01:04)
--- NOTE | 2023-11-24 05:25 | PC.NURSE ---
C/O burning at excoriated areas of perineum and coccyx. Barrier cream applied. Patient states feels much better. Dressing to Decub on Right buttocks dry and intact.
--- NOTE | 2023-11-24 05:28 | PC.NURSE ---
Given warm blanket. States room cold this morning.
[2023-11-24 07:42] LABS: Glucose Point of Care 167 mg/dl (65-105)
[2023-11-24 07:46] VITALS: BP 130/67; PULSE 74; RESP 16; TEMP 36.2; O2SAT 98
[2023-11-24] MEDS: ENOXAPARIN 40 MG/0.4 ML SYRINGE SUB-Q (08:16)
[2023-11-24] MEDS: OPTI-GEN TAB 1 TABLET PO (08:18)
[2023-11-24] MEDS: SACCHAROMYCES BOULARDII 250 MG CAPSULE PO ×2 (08:18→17:04)
[2023-11-24] MEDS: DOCUSATE SODIUM 100 MG CAPSULE PO (08:19)
[2023-11-24] MEDS: DOXYCYCLINE HYCLATE 100 MG TABLET PO ×2 (08:19→20:32)
[2023-11-24] MEDS: busPIRone HCL 5 MG TABLET PO ×2 (08:20→17:04)
[2023-11-24] MEDS: ESCITALOPRAM OXALATE 10 MG TABLET PO (08:20)
[2023-11-24] MEDS: TOLNAFTATE 1% POWDER 45 GM BTL 1 APPLIC TOPICAL ×2 (08:21→20:33)
[2023-11-24] MEDS: NEOMYCIN/POLYMYXIN/BACITRACIN OINTMENT 15 GM TUBE 1 APPLIC TOPICAL (08:21)
--- NOTE | 2023-11-24 08:50 | PC.NURSE ---
Dressing changed to wound on R buttock. Wet to dry dressing applied. Patient tolerated well. Antifungal powder applied to red areas in groin and gluteal fold.
[2023-11-24 16:00] VITALS: BP 137/71; PULSE 81; RESP 18; TEMP 36.3; O2SAT 99
[2023-11-24 16:29] LABS: Glucose Point of Care 166 mg/dl (65-105)
[2023-11-24 16:29] LABS: Glucose Point of Care 190 mg/dl (65-105)
--- NOTE | 2023-11-24 18:37 | PC.NURSE ---
Staff went in to assist patient with getting to the commode. Patient starts to stand and then sits back down, repeatedly. Two staff attempted to assist patient to commode, and patient still would get almost to her feet and sit back down, stating that she could not get her legs under her. Staff attempted to assist patient to her feet, but patient did not want nurses to hold onto the gait belt, or place hands under arms, or assist in any other way. Nurses tried to assist patient with relaxation breathing, and eventually placed call light in patient's lap and told patient to call when she calms down and thinks she is ready to transfer.
--- NOTE | 2023-11-24 19:30 | PC.NURSE ---
Patient very weak this pm. This nurse tried to help her up using gait belt, walker, and my assistance and she refused to stand. She stated it was because of her anxiety. This nurse tried to console patient to no avail. Pt was also noted to be pushing back down instead of trying to stand. This nurse had to use the Lili plus to assist patient to bedside commode and into bed.
[2023-11-24] MEDS: ALPRAZolam (*CRX) 0.5 MG TABLET PO (20:32)
[2023-11-25] VITALS: BP 115/48; PULSE 79; RESP 16; TEMP 36.6; O2SAT 98
[2023-11-25 01:36] LABS: Glucose Point of Care 205 mg/dl (65-105)
[2023-11-25 07:28] LABS: Glucose Point of Care 147 mg/dl (65-105)
[2023-11-25 07:43] VITALS: BP 147/64; PULSE 67; RESP 16; TEMP 36.6; O2SAT 97
--- NOTE | 2023-11-25 08:01 | PC.NURSE ---
Wet to dry dressing to R buttock changed.
[2023-11-25] MEDS: ENOXAPARIN 40 MG/0.4 ML SYRINGE SUB-Q (08:25)
[2023-11-25] MEDS: SACCHAROMYCES BOULARDII 250 MG CAPSULE PO ×2 (08:25→17:00)
[2023-11-25] MEDS: OPTI-GEN TAB 1 TABLET PO (08:26)
[2023-11-25] MEDS: DOCUSATE SODIUM 100 MG CAPSULE PO (08:26)
[2023-11-25] MEDS: DOXYCYCLINE HYCLATE 100 MG TABLET PO ×2 (08:27→20:41)
[2023-11-25] MEDS: busPIRone HCL 5 MG TABLET PO ×2 (08:27→17:00)
[2023-11-25] MEDS: ESCITALOPRAM OXALATE 10 MG TABLET PO (08:27)
[2023-11-25] MEDS: TOLNAFTATE 1% POWDER 45 GM BTL 1 APPLIC TOPICAL ×2 (08:28→20:41)
[2023-11-25] MEDS: INSULIN HUMAN LISPRO (*BKC) 1,000 UNITS/10 ML VIAL SUB-Q (12:04)
[2023-11-25 16:00] VITALS: BP 143/58; PULSE 78; RESP 16; TEMP 36.4; O2SAT 99
[2023-11-25 16:36] LABS: Glucose Point of Care 248 mg/dl (65-105)
--- NOTE | 2023-11-25 18:02 | PC.NURSE ---
Patient asked to go to the bedside commode. Patient ambulated with 1 assist walker to commode from chair. Patient incontinent of stool. Patient sat on commode and voided. Nurse assisted patient in getting from clothes into gown and when it was time for patient to stand up, patient became very nervous and took multiple tries to get into a standing position. It Risk And Assurance Senior Manager used patient encouragement and patient was finally able to stand and walk to bed.
[2023-11-25 20:00] VITALS: PULSE 76; RESP 18; O2SAT 98
[2023-11-26] VITALS: BP 133/52; PULSE 72; RESP 17; TEMP 36.6; O2SAT 97
[2023-11-26 00:25] LABS: Glucose Point of Care 136 mg/dl (65-105)
--- NOTE | 2023-11-26 07:36 | PM.DS ---
DS: Admitting Diagnosis Discharge Date 11/25 Admitting Diagnosis weakness, rehab, sacral wound DS: Discharge Diagnosis Discharge Diagnosis (1) Sacral decubitus ulcer, stage III: Code(s): L89.153 - Pressure ulcer of sacral region, stage 3 Status: Acute Assessment and Plan: s/p debridement and xenograft placement with Dr Gibbs. Daily wet to dry dressing changes or as needed for soiled dressing Continue doxycycline through 12/03/23 Will follow up with local wound care or can be seen at wound care at [facility] at discharge (2) Yeast infection involving the vagina and surrounding area: Code(s): B37.31 - Acute candidiasis of vulva and vagina Status: Acute Assessment and Plan: Completed 3 days of Diflucan add nystatin for yeast to groin and skin folds (3) Malnutrition: Code(s): E46 - Unspecified protein-calorie malnutrition Status: Acute Assessment and Plan: Continue with Glucerna and Kan for added nutritional needs and promotion of wound healing (4) Weakness: Code(s): R53.1 - Weakness Status: Acute Assessment and Plan: 2/2 impaired mobility PT/OT consulted here for rehab/swing (5) Type 2 diabetes mellitus with hyperglycemia: Code(s): E11.65 - Type 2 diabetes mellitus with hyperglycemia Status: Chronic Assessment and Plan: ac/hs accu checks hypoglycemia protocol moderate dosing SSI blood glucose goal less than 180 g/dL a1c 6.3% (6) Anxiety: Code(s): F41.9 - Anxiety disorder, unspecified Status: Chronic Assessment and Plan: continue buspar and escitalopram DS: Summary Hospital Course Reason for hospitalization: weakness, rehab, sacral wound Hospital Course: This is an 82-year-old female with past medical history significant for diabetes, hypertension, anxiety, and recurrent MRSA infections who presented to [facility] with complaints of pain with urination and generalized weakness with a worsening abscess on her sacrum.? She was transferred to [place] for surgical evaluation of likely MRSA abscess.? The patient reports that prior to August this year she was independent of all ADLs but since August has been experiencing increased weakness and fatigue.? She reports debilitating anxiety about walking.? She is afraid she will fall and break her hip.? She was recently started on BuSpar for this.? She also reports weakness with ambulation and ?frozen feet?.? Because of this she has spent a lot of time in bed and developed a stage III decubitus ulcer. General surgery took her on 11/14 for excisional debridement and wound vac placement. She went back on 11/17 to surgery for further debridement and xenograft placement.? Her hospitalization was uneventful other than a significant yeast infection. Due to her prolonged immobility prior to her hospital stay she has developed further weakness and deconditioning after surgery requiring further PT and OT. She is being admitted to [facility] bed services in this setting. Patient has been accepted to [facility] rehab. Patient and family would like to transfer care to acute rehab. She is being discharged in care of her daughter to transport to [facility]. Time Spent with Patient Time attestation: Total time spent providing and/or coordinating discharge services:56 Exam Narrative: General: well appearing, thin, frail appears stated age. HEENT: normocephalic, atraumatic. Mucous membranes moist. EOMI, PERRLA, bilateral sclera anicteric, no conjunctival injection. Neck supple without JVD, lymphadenopathy, or bruit. Respiratory: clear to auscultation bilaterally. No rales/rhonic/wheezes. Cardiovascular: Regular rate and rhythm, normal S1-S2 upon auscultation. No murmurs, rubs, or clicks. PMI is nondisplaced, capillary refill less than 3 second. Abdomen: Soft, round, no pulsatile masses, nondistended and nontender. No rebound, no guarding. No CVA tenderness, no hepatospl
[2023-11-26 07:54] LABS: Glucose Point of Care 154 mg/dl (65-105)
[2023-11-26 08:00] VITALS: BP 137/60; PULSE 79; RESP 14; TEMP 36.4; O2SAT 97
[2023-11-26] MEDS: SACCHAROMYCES BOULARDII 250 MG CAPSULE PO (09:00)
[2023-11-26] MEDS: OPTI-GEN TAB 1 TABLET PO (09:00)
[2023-11-26] MEDS: TROLAMINE SALICYLATE 10% (*BKC) 113 GM CREAM 1 APPLIC TOPICAL (09:00)
[2023-11-26] MEDS: ENOXAPARIN 40 MG/0.4 ML SYRINGE SUB-Q (09:00)
[2023-11-26] MEDS: DOXYCYCLINE HYCLATE 100 MG TABLET PO (09:01)
[2023-11-26] MEDS: busPIRone HCL 5 MG TABLET PO (09:01)
[2023-11-26] MEDS: ESCITALOPRAM OXALATE 10 MG TABLET PO (09:01)
[2023-11-26] MEDS: DOCUSATE SODIUM 100 MG CAPSULE PO (09:01)
[2023-11-26] MEDS: TOLNAFTATE 1% POWDER 45 GM BTL 1 APPLIC TOPICAL (09:02)
[2023-11-26 12:02] LABS: Glucose Point of Care 202 mg/dl (65-105)
[2023-11-26] MEDS: INSULIN HUMAN LISPRO (*BKC) 1,000 UNITS/10 ML VIAL SUB-Q (12:40)
--- NOTE | 2023-11-26 14:02 | PC.NURSE ---
Pt transfered to [facility] acute rehab via [place] ambulance. Pt A/Ox3, VSS. Discharge info sent with ambulance crew.
== END 2023-11-26 14:00 | DRG 947 ==
PROVIDERS: Admitting Provider Internal Medicine; PCP Nurse Practitioner Family; Visit Provider Internal Medicine
DX: R53.1 Weakness (principal); L89.153 Pressure ulcer of sacral region, stage 3; E46 Unspecified protein-calorie malnutrition; I10 Essential (primary) hypertension; F41.9 Anxiety disorder, unspecified; E11.319 Type 2 diabetes mellitus with unspecified diabetic retinopathy without macular edema; B37.31 Acute candidiasis of vulva and vagina
CPT/HCPCS: 82948; 97110; 97161; 97165; 97530; 97535; A9270; J1650; J1815

== ENCOUNTER 2024-03-06 15:09 | Outpatient (CLI) | payer MEDICARE, SELFPAY ==
[2024-03-06 15:24] LABS: Basophils Absolute Auto 0.07 K/mm3 (0.00-0.10); Basophils Percent Auto 0.9 % (0.0-1.0); Eosinophils Absolute Auto 0.09 K/mm3 (0.02-0.50); Eosinophils Percent Auto 1.1 % (1.0-6.0); Hematocrit 37.1 % (35.0-42.0); Hemoglobin 12.4 g/dL (11.7-13.8); Immature Granulocyte Absolute 0.03 K/mm3 (0.00-0.00); Immature Granulocyte Percent A 0.4 % (0.0-0.0); Lymphocytes Absolute Auto 2.98 K/mm3 (1.10-4.50); Lymphocytes Percent Auto 36.7 % (18.0-42.0); Mean Corpuscular HGB Conc 33.4 g/dL (32-36); Mean Corpuscular Hemoglobin 31.2 pg (27.0-31.0); Mean Corpuscular Volume 93.2 fL (78.0-102.0); Mean Platelet Volume 10.3 fl (9.2-11.8); Monocytes Percent Auto 7.4 % (2.0-11.0); Neutrophils Absolute Auto 4.35 K/mm3 (1.70-7.20); Neutrophils Percent Auto 53.5 % (50.0-70.0); Platelet Count Result 146 K/mm3 (150-420); Red Blood Count 3.98 M/mm3 (4.20-5.40); Red Cell Distribution Width 13.5 % (11.6-14.4); White Blood Count 8.1 K/mm3 (4.8-10.8)
[2024-03-06 15:41] LABS: Hemoglobin A1C 6.6 % (<5.7)
[2024-03-06 16:15] LABS: Alanine Aminotransferase 33 U/L (14-59); Alkaline Phosphatase 106 U/L (46-116); Anion Gap 8 mmol/L (4-12); Aspartate Amino Transferase 21 U/L (15-37); Bilirubin,Total 0.3 mg/dL (0.00-1.00); Blood Urea Nitrogen 21 mg/dL (7-18); Calcium 9.4 mg/dL (8.5-10.1); Carbon Dioxide 29 mmol/L (21-32); Chloride 101 mmol/L (98-108); Estimated Glomerular Filt Rate 54; Glucose 159 mg/dL (70-99); Osmolality Calculated 292 mOsm/kg (285-295); Potassium 5.1 mmol/L (3.5-5.1); Sodium 138 mmol/L (136-145); Total Protein 6.9 g/dL (6.4-8.2)
[2024-03-09 08:03] LABS: Vitamin D 25 Hydroxy 82 ng/mL (30-100)
== END 2024-03-06 15:10 | disposition home or self-care (01) ==
PROVIDERS: PCP Nurse Practitioner Family; Visit Provider Nurse Practitioner Family
DX: Z79.899 Other long term (current) drug therapy (principal); E11.65 Type 2 diabetes mellitus with hyperglycemia; I10 Essential (primary) hypertension
CPT/HCPCS: 36415; 80053; 82306; 83036; 85025

== ENCOUNTER 2024-05-02 10:35 | Outpatient (CLI) | payer MEDICARE, SELFPAY ==
--- NOTE | 2024-05-02 10:59 | ECG_ITS ---
Test Date: 2024-05-02 11:09:32 Measurements Intervals [place] Rate: 79 P: 74 MO: 168 QRS: 25 QRSD: 96 T: 65 QT: 383 QTc: 441 Interpretive Statements SINUS RHYTHM MINOR ST SEGMENT ABNORMALITY BORDERLINE ECG No previous ECG available for comparison Electronically Signed On 05-03-2024 07:59:06 CDT by Bari Marie M.D.
[2024-05-02 11:03] LABS: Basophils Percent Auto 1.1 % (0.0-1.0); Eosinophils Absolute Auto 0.14 K/mm3 (0.02-0.50); Eosinophils Percent Auto 1.5 % (1.0-6.0); Hematocrit 37.9 % (35.0-42.0); Hemoglobin 13.2 g/dL (11.7-13.8); Immature Granulocyte Absolute 0.03 K/mm3 (0.00-0.00); Immature Granulocyte Percent A 0.3 % (0.0-0.0); Lymphocytes Absolute Auto 3.39 K/mm3 (1.10-4.50); Lymphocytes Percent Auto 36.4 % (18.0-42.0); Mean Corpuscular HGB Conc 34.8 g/dL (32-36); Mean Corpuscular Hemoglobin 31.9 pg (27.0-31.0); Mean Corpuscular Volume 91.5 fL (78.0-102.0); Mean Platelet Volume 11.1 fl (9.2-11.8); Monocytes Absolute Auto 0.82 K/mm3 (0.10-0.90); Monocytes Percent Auto 8.8 % (2.0-11.0); Neutrophils Absolute Auto 4.84 K/mm3 (1.70-7.20); Neutrophils Percent Auto 51.9 % (50.0-70.0); Platelet Count Result 158 K/mm3 (150-420); Red Blood Count 4.14 M/mm3 (4.20-5.40); Red Cell Distribution Width 13.3 % (11.6-14.4); White Blood Count 9.3 K/mm3 (4.8-10.8)
[2024-05-02 12:08] LABS: Alanine Aminotransferase 24 U/L (14-59); Albumin Level 4.2 g/dL (3.4-5.0); Alkaline Phosphatase 94 U/L (46-116); Anion Gap 8 mmol/L (4-12); Aspartate Amino Transferase 15 U/L (15-37); Bilirubin,Total 0.4 mg/dL (0.00-1.00); Blood Urea Nitrogen 28 mg/dL (7-18); Calcium 9.7 mg/dL (8.5-10.1); Carbon Dioxide 28 mmol/L (21-32); Chloride 101 mmol/L (98-108); Estimated Glomerular Filt Rate 53; Free T4 Free Thyroxine 0.91 ng/dL (0.76-1.46); Glucose 160 mg/dL (70-99); Iron 52 ug/dL (50-170); Magnesium 2.3 mg/dL (1.8-2.4); Osmolality Calculated 292 mOsm/kg (285-295); Potassium 4.2 mmol/L (3.5-5.1); Sodium 137 mmol/L (136-145); Thyroid Stimulating Hormone 3.58 uIU/mL (0.36-3.74); Total Protein 7.3 g/dL (6.4-8.2); Vitamin B12 796 pg/mL (193-986)
[2024-05-03 21:03] LABS: Vitamin D 25 Hydroxy 74 ng/mL (30-100)
== END 2024-05-02 10:36 | disposition home or self-care (01) ==
PROVIDERS: PCP Nurse Practitioner Family; Visit Provider Nurse Practitioner Family
DX: Z01.818 Encounter for other preprocedural examination (principal); R53.83 Other fatigue; Z79.899 Other long term (current) drug therapy; E53.8 Deficiency of other specified B group vitamins; D64.9 Anemia, unspecified; R53.1 Weakness
CPT/HCPCS: 36415; 80053; 82306; 82607; 83540; 83735; 84439; 84443; 85025; 93005

== ENCOUNTER 2025-03-29 08:50 | Outpatient (CLI) | payer MEDICARE, SELFPAY ==
--- OUTSIDE RECORDS SUMMARY | 2025-03-21 10:50 | XMS_ITS ---
Author Organization [facility] Address [address] [place], [place] [id number] Care Team Providers Care Tank Setter Helper Name Role Phone MYNOR WHITTINGTON Unavailable [phone] unknown, unknown Unavailable Unavailable REASON FOR VISIT new patient Encounters Encounter Location Date Provider Diagnosis [address] [id number] 03/21/2025 MYNOR WHITTINGTON Plan Of Treatment Next Appt Details Provider Name:MYNOR KUMAR, 05/30/2025 02:50:00 PM, [address] [place] [address], [id number], Progress Notes * BETH BANUELOS MadayFaithOB:[birth year] (84 yo F)Acc No.[id number]:03/21/2025 Patient: Hugo GEORGETTEMaday ESCOTOra Provider: Robert WHITTINGTON :1940 A ge:84 Y S ex:Female Date:03/21/2025 Address:[address] [place], [place] [phone] Subjective: * Chief Complaints: * 1 . New patient. * Medical History: Objective: * Vitals: Assessment: Plan: * Treatment: * Billing Information: * Visit Code: * Procedure Codes: * Electronic signature of ALESSIA WHITTINGTON DPM on 03/29/2025 at 08:56 AM CDT Sign off status: Pending * Provider: Robert WHITTINGTON Date: 0 03/21/2025 Generated for Maciej rodríguez/Dennise/eTransmitting on: 0 03/29/2025 08:56 AM CDT
--- OUTSIDE RECORDS SUMMARY | 2025-03-28 09:00 | XMS_ITS ---
Author Organization [facility] Address [address] [place], [place] [address] Care Team Providers Care Manager Diabetes Name Role Phone MYNOR WHITTINGTON Unavailable [phone] unknown, unknown Unavailable Unavailable Allergies No Known Allergies REASON FOR VISIT *General care Medications Medication SIG (Take, Route, Fr equency, Duration) Notes Start Date End Date Status Clotrimazole 1 % 1 application Vice President And Portfolio Manager ally Twice a day; Duration: 14 days [...] 03/28/2025 Encounters Encounter Location Date Provider Diagnosis [facility] [address] [place], [place] [id number] 03/28/2025 MYNOR WHITTINGTON Tinea unguium B35.1 ; Pain in right foot M79.671 ; Pain in left foot M79.672 ; Ingrowing nail L60.0 ; Acquired keratosis [keratoderma] palmaris et plantaris L85.1 and Atherosclerosis of [place] arteries of right leg with ulceration of [...] to healthy appearing skin. 03/28/2025 Atherosclerosis of [place] arteries of right leg with ulceration of [...] Date Notes Clotrimazole 1 % 1 application Vice President And Portfolio Manager ally Twice a day; Duration: 14 days [...] down to healthy appearing skin. Atherosclerosis of [place] ar teries of right leg with ulceration [...] n: Provider Name:MYNOR KUMAR, 05/30/2025 02:50:00 PM, [address] [place] [address], [id number], Progress Notes * Tommy BURNETTOB:[birth year]15 (84 yo F)Acc No.[id number]:03/28/2025 Progress Notes Patient: Mayr ELLIOTT Provider: Robert WHITTINGTON :1940 A ge:84 Y S ex:Female Date:03/28/2025 Address:[address] [place] [address] Subjective: * Chief Complaints: * 1 . [...] - L85.1 6 . A therosclerosis of [place] arteries of right leg with ulceration of [...] healthy appearing skin. 4. A therosclerosis of [place] arteries of right leg with ulceration of [...] Procedure Codes: * Electronic signature of ALESSIA WHITITNGTON DPM on 03/29/2025 at 08:56 AM CDT Sign off status: Pending * Provider: Robert WHITTINGTON Date: 0 03/28/2025 Generated for Maciej rodríguez/Dennise/Wesley on: 0 03/29/2025 08:56 AM CDT History and Physical Notes * HPI [...]
--- NOTE | ~2025-03-29 | CT_ITS ---
EXAMINATION: CT abdomen pelvis w con DATE: 03/29/2025 10:00 INDICATION: Unspecified abdominal pain TECHNIQUE: Computed tomography (CT) of the abdomen and pelvis was performed with 100 mL Omnipaque-350 intravenous contrast. Automated exposure control and iterative reconstruction technique were employed. The dose-length product was 225.70 mGy-cm. COMPARISON: 11/13/2023 FINDINGS: Mild discoid atelectasis at the posterior sulcus of the right lower lobe. Heart size is normal. No pericardial or pleural effusion. Aortic valve calcification. Multiple small hepatic and splenic calcifications consistent with old granulomatous disease. Gallbladder, pancreas, bilateral adrenal glands and kidneys are normal. There is prominent mesenteric and upper abdominal retroperitoneal lymphadenopathy. This includes a lobular mesenteric mass likely representing a conglomeration of lymph nodes which measures 13 cm craniocaudally and 8.2 x 4.7 cm in maximal transaxial dimensions which surrounds the central mesenteric vasculature. Enlarged portacaval and left para-aortic and right paracaval lymph nodes measuring up to 4.0 x 2.2 cm in the left paravertebral region and 2.5 x 2.1 cm in the left periaortic region. No pathologically enlarged pelvic lymphadenopathy. There are few scattered sigmoid diverticula without adjacent from trace stranding to suggest diverticulitis. Small bowel and appendix are normal. Bladder, uterus and bilateral adnexa are unremarkable aside from increased prominence of the left gonadal vein consistent with pelvic vasculature congestion syndrome. Small amount of likely physiologic free fluid in the cul-de-sac. Thoracolumbar dextroscoliosis with severe spondylosis. IMPRESSION: 1. Bulky mesenteric and upper abdominal retroperitoneal lymphadenopathy and would favor lymphoma over a static disease related to other unknown primary malignancy. No other lesions suspicious for malignancy identified. Consider CT- guided biopsy. Reviewed, dictated and finalized at location A. IMPRESSION: 1. Bulky mesenteric and upper abdominal retroperitoneal lymphadenopathy and wou ld favor lymphoma over a static disease related to other unknown primary malign casa. No other lesions suspicious for malignancy identified. Consider CT-guided biopsy.
--- OUTSIDE RECORDS SUMMARY | 2025-03-29 08:56 | XMS_ITS | Clinical Summary ---
Author Organization [place] [address] [facility] [address] Address [address] [place] [id number] Care Team Providers Care Safety Council Director Name Role Phone Ezio Chadwick NP Primary Care Provider [phone] Allergies No known active allergies Medications doxycycline monohydrate (MONODOX) 100 mg capsule TAKE ONE CAPSULE BY MOUTH EVERY 12 HOURS UNTIL GONE 1 02/02/2018 Active ferrous sulfate 325 mg (65 mg of elemental iron) tabletIndication s:Iron Deficiency Anemia Take 1 tablet by mouth every other day. 0 01/03/2018 Active metFORMIN (GLUCOPHAGE) 1,000 mg tablet Take 1,000 mg by mouth 2 (two) times a day with meals. Active cyanocobalamin (Vitamin B-12) 1,000 mcg sublingual tablet Take 100 mcg by mouth daily. Active ascorbic acid (ascorbic acid with rosa hips) 500 mg tablet,chewable Acti ve pravastatin (PRAVACHOL) 20 mg tablet Take 20 mg by mouth daily. Active Active Problems Problem Noted Date Diagnosed Date Bleeding from varicose vein 03/01/2018 Surgical History Surgery Date Site/Laterality Comments TONSILLECTOMY Medical History Medical History Date Comments Hypertension Diabetes (HCC) Varicose veins of both lower extremities Family History Medical History Relation Name Comments Heart disease Mother Cancer Sister Relation Name Status Comments Mother Sister Social History Tobacco Use Types Packs/Day Years Used Date Smoking Tobacco: Never Assessed Comments Unknown Sex and Gender Information Value Date Recorded Sex Assigned at Not on file Legal Sex Female 2:14 PM CDT Gender Identity Not on file Sexual Orientation Not on file Obstetrics History Plan of Treatment Not on file Insurance MEDICARE To8to Care Teams Safety Council Director Relationship Specialty Start Date End Date Ezio Chadwick NP PCP - General Nurse Practitioner 02/03/18
--- OUTSIDE RECORDS SUMMARY | 2025-03-29 08:56 | XMS_ITS | Patient Health Record ---
Author Organization [facility] Address [address] [place], [place] [address] Care Team Providers Care Transport Truck Driver Name Role Phone ELISE MOE Unavailable [phone] Robin Durbin Unavailable Unavailable Reason For Referral No Information Plan Of Treatment No Information Insurance Providers Payer Name Payer Address Payer Phone Subscriber Number Group Number Insured Name Patient Relationship to Insured Coverage Start Date Coverage End Date Medicare Part B [place] [address] [place] [address] [id number] MALDONADO CAMPOS Self - patient is the insured [facility] Insurance [address] [address] [place] [address] [id number] MALDONADO CAMPOS Self - patient is the insured
--- OUTSIDE RECORDS SUMMARY | 2025-03-29 08:57 | XMS_ITS | Patient Health Record ---
Author Organization [facility] Address [address] [place], [place] [id number] Care Team Providers Care Consulting Application Engineer Name Role Phone MYNOR WHITTINGTON Unavailable [phone] unknown, unknown Unavailable Unavailable Allergies No Known Allergies Reason For Referral No Information Medications Medication SIG (Take, Route, Fr equency, Duration) Notes Start Date End Date Status Clotrimazole 1 % 1 application Associate Pastor ally Twice a day; Duration: 14 days 03/28/2025 09/11/2025 Active Dorzolamide HCl Acti ve Social History Tobacco Use: Social History Observation Description Date Details (start date - stop date) Never Smoker NA - NA Tobacco Control (Standard) Question Answer Notes Tobacco use: Nonsmoker Vital Signs Height-cm 154.94 cm 03/28/2025 Weight-kg 49.9 kg 03/28/2025 Height 61 in 03/28/2025 Weight 110 lbs 03/28/2025 BMI 20.78 kg/m2 03/28/2025 Encounters Encounter Location Date Provider Diagnosis [facility] [address] [place], [place] [id number] 03/28/2025 MYNOR WHITTINGTON Tinea unguium B35.1 ; Pain in right foot M79.671 ; Pain in left foot M79.672 ; Ingrowing nail L60.0 ; Acquired keratosis [keratoderma] palmaris et plantaris L85.1 and Atherosclerosis of [place] arteries of right leg with ulceration of [...] to healthy appearing skin. 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 Check and protect LE bilateral daily. Call if any changes or concerns. Plan Of Treatment Next Appt Details Provider Name:MYNOR KUMAR, 05/30/2025 02:50:00 PM, [address] [place] [address], [phone], Medical (General) History Medical History History ICD Code angina Epilepsy Diabetic
[2025-03-29 09:14] LABS: Hematocrit 34.0 % (35.0-42.0); Hemoglobin 11.1 g/dL (11.7-13.8); Immature Granulocyte Percent A 0.4 % (0.0-0.0); Lymphocytes Absolute Auto 2.23 K/mm3 (1.10-4.50); Mean Corpuscular HGB Conc 32.6 g/dL (32-36); Mean Corpuscular Hemoglobin 29.5 pg (27.0-31.0); Mean Corpuscular Volume 90.4 fL (78.0-102.0); Nucleated Red Blood Cells Absolute Auto 0.00 K/mm3 (0.00-0.00); Nucleated Red Blood Cells Perc 0.0 % (0-0.0); Platelet Count Result 258 K/mm3 (150-420); Red Blood Count 3.76 M/mm3 (4.20-5.40); White Blood Count 9.6 K/mm3 (4.8-10.8)
[2025-03-29 09:30] LABS: Alanine Aminotransferase 19 U/L (6-35); Albumin Level 4.0 g/dL (3.5-5.1); Alkaline Phosphatase 102 U/L (38-126); Anion Gap 11 mmol/L (4-12); Aspartate Amino Transferase 36 U/L (14-36); Bilirubin,Total 0.5 mg/dL (0.2-1.3); Blood Urea Nitrogen 31 mg/dL (7-17); Carbon Dioxide 27 mmol/L (22-30); Chloride 98 mmol/L (98-107); Estimated Glomerular Filt Rate 35; Glucose 197 mg/dL (65-110); Osmolality Calculated 293 mOsm/kg (285-295); Potassium 4.3 mmol/L (3.4-5.0); Sodium 136 mmol/L (137-145); Total Protein 6.6 g/dL (6.3-8.2)
[2025-03-29 09:34] LABS: Calcium 13.8 mg/dL (8.4-10.2); Hemoglobin A1C 7.1 % (<5.7)
[2025-03-29 09:43] LABS: Iron 36 ug/dL (37-170)
[2025-03-29 09:48] LABS: Free T4 Free Thyroxine 1.91 ng/dL (0.78-2.19)
[2025-03-29 09:52] LABS: Percent Iron Saturation 15 % (20-50)
[2025-03-29 10:01] LABS: Thyroid Stimulating Hormone 4.580 uIU/mL (0.465-4.680)
[2025-03-29 10:05] LABS: Ferritin 171.00 ng/mL (11.1-264)
== END 2025-03-29 08:51 | disposition home or self-care (01) ==
LOC: CHSIMG 08:52
PROVIDERS: PCP Nurse Practitioner Family; Visit Provider Nurse Practitioner Family
DX: R53.1 Weakness (principal); D64.9 Anemia, unspecified; I10 Essential (primary) hypertension; E11.65 Type 2 diabetes mellitus with hyperglycemia; Z79.899 Other long term (current) drug therapy; R10.9 Unspecified abdominal pain; R14.0 Abdominal distension (gaseous); R19.5 Other fecal abnormalities; R59.0 Localized enlarged lymph nodes
CPT/HCPCS: 36415; 74177; 80053; 82306; 82728; 83036; 83540; 83550; 84439; 84443; 84480; 85025; Q9967

== ENCOUNTER 2025-03-29 10:01 | Emergency (ER) | payer MEDICARE, SELFPAY ==
[2025-03-29] VITALS (17 sets, daily range): BP systolic 129–167; BP diastolic 58–72; PULSE 74–90; RESP 18–20; TEMP 36.6; O2SAT 95–100
--- NOTE | 2025-03-29 10:08 | ED_ITS ---
HPI - Recheck/Abnormal Lab/Rx General Chief Complaint: Recheck/Abnormal Lab/Rx Stated Complaint: low calcium Time Seen by Provider: 03/29/25 10:06 Source: patient Mode of arrival: ambulatory Limitations: no limitations History of Present Illness HPI narrative: Patient is an 84-year-old female with 1-2 weeks of abdominal pain and swelling with lab work and CT done today from primary doctor. Calcium was elevated and sent to the ER for this value. MD complaint: abnormal lab Initial visit (ago): hour(s) (2) Initial visit for: other ( patient has abdomen pain and swelling and had CT scan and labs done today by primary doctor With elevated calcium) Returns today for: called because of abnormal lab/test Description of abnormal result: elevated calcium on today labs Symptoms since prior visit: no new symptoms Context: called for abnormal lab result Associated symptoms: abdominal pain Treatments prior to arrival: other ( none) Related Data Home Medications ?Medication ?Instructions ?Recorded ?Confirmed ?Last Taken ?Type vit C 250 mg-vit E 90 mg-zinc 40 1 tablet PO BID 11/1203/21/25 11/22/23 08:05 History mg-copper 1 [id number]-dnuomf capsule (PreserVision AREDS-2) docusate sodium 50 mg capsule 50 mg PO DAILY 11/14/23 03/21/25 11/16/23 09:25 History Allergies Allergy/AdvReac Type Severity Reaction Status Date / Time No Known Allergies Allergy Verified 03/29/25 10:22 Review of Systems 2 Review of Systems: All systems reviewed & are unremarkable except as noted in HPI and below Constitutional: Constitutional: Reports no additional constitutional complaints Eyes: Eyes: Reports no additional eye complaints ENT: Reports system reviewed and no additional complaints, except as documented Cardiovascular: Cardiovascular: Reports no additional cardiovascular complaints Respiratory: Respiratory: Reports no additional respiratory complaints Gastrointestinal: Gastrointestinal: Reports no additional gastrointestinal complaints Genitourinary: Genitourinary: Reports no additional female genitourinary complaints Musculoskeletal: Musculoskeletal: Reports no additional musculoskeletal complaints Integumentary/Breasts: Skin/Breast: Reports system reviewed and no additional complaints, except as docu Neurologic: Reports system reviewed and no additional complaints, except as documented Psychiatric: Psychiatric: Reports no additional psychiatric complaints Endocrine: Endocrine: Reports no additional endocrine complaints Hematologic/Lymphatic: Hematologic/Lymphatic: Reports no additional hematologic/lymphatic complaints Allergic/Immunologic: Allergic/Immunologic: Reports no additional allergic/immunologic complaints PMFSH Past Medical History Medical History Axillary abscess MRSA infection Diabetic retinopathy Left genital labial abscess Hypertension Hyperlipidemia Type 2 diabetes mellitus Complicated by diabetic retinopathy. Surgical History Surgical History History of cataract extraction History of tonsillectomy Family History Family History Other Diabetes mellitus Family history of cardiovascular disease Family history of thyroid disease Social History Social History Social History: Surrogate decision maker: Jyoti Finnegan, daughter. Code status: Do not resuscitate. Smoking status: Never smoker Second hand tobacco smoke exposure: No Alcohol intake: never Substance use: never Substance use type: does not use Do You Feel Safe in your Home?: Yes Lack of Transportation: YES Lack of Food: Never True Current Housing: I Have Housing Concerned About Future Housing: No Difficulty Paying Gas/Electric Bills: No Difficulty Paying for Meds: No Currently Unemployed: No Education: High School Diploma/GED Difficulty w/ Childcare or Family Care: No Living arrangements: with family Additional living arrangements comments: Lives in [place] with her son Shahriar. Her daughter Tameka sees her often. Patient requires Min to moderate assist with ADLs. Ambulates with a walker. 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 Spiritual care concerns: No Exam 2 Const: General: healthy appearing Nutritional Appearance: well nourished Orientation/consciousness: patient oriented x3 HENMT: Head: normal to inspection Ears: external ears normal F frederick/Nose/Sinus: Normal external nose present Eyes: Conjunctivae: conjunctivae normal Pupils: Equal, round and reactive pupils present EOM: EOMs intact bilaterally Neck: Neck: normal visual inspection Chest: Chest palpation & inspection: normal inspection of the chest Resp: Effort & Inspection: normal respiratory effort and not labored A uscultation: clear to auscultation bilaterally and no crackles Cardio: Rate: regular rate Rhythm: regular rhythm Heart sounds: no murmurs GI: Inspection: distended GI Palp: Yes Soft to palpation, No Tenderness to palpation present (GI), No Guarding due to palpation present (GI), No Rigid due to palpation, No Hernia present, No Palpable mass present and No Rebound tenderness present Auscultation: normal bowel sounds : General: Yes bladder normal to palpation Back/Spine/Pelvis: Back: no CVA tenderness Skin: General skin exam: normal color Rashes: no rashes Wounds: no wounds Neuro: General: patient oriented x3, moves all extremities and no meningeal signs Extrem: General: normal to inspection Psych: Mental Status: mental status grossly normal Affect: normal affect Attitude: cooperative Course Vital Signs Vital signs: Vital Signs Temperature 36.6 C 03/29/25 10:02 Pulse Rate 90 03/29/25 10:02 Respiratory Rate 18 03/29/25 10:02 Blood Pressure 167/72 H 03/29/25 10:02 Pulse Oximetry 100 03/29/25 10:02 Oxygen Delivery Room Air 03/29/25 10:02 Temperature 36.6 C 03/29/25 10:02 Pulse Rate 74 03/29/25 11:46 Respiratory Rate 20 03/29/25 11:46 Blood Pressure 151/67 H 03/29/25 12:15 Pulse Oximetry 99 03/29/25 12:16 Oxygen Delivery Room Air 03/29/25 11:46 MDM - Recheck/Abnormal Lab/Rx MDM Narrative Medical decision making narrative: patient is an 84-year-old female with hypercalcemia on labs done today for abdominal pain. Also noted was elevated creatinine and newly added metformin. We will check ionized calcium. Pending CT scan of the abdomen results from today. I reviewed the case with edwina nurse practitioner DELVIS and they will follow up with suggested things on her discharge agenda. They will discuss her lymphoma. Daughter did not want further workup or inpatient status at this time. Patient did not want to be admitted and wanted go home. Outpatient workup for lymphoma it needed at this time. Medical Records Attestation: I reviewed the patient's medical records. Medical records narrative: Labs done from outpatient today Lab Data Attestation: I reviewed the patient's lab results. 03/29/25 10:53 Labs: Lab Results 03/29/25 03/29/25 Range/Units 10:46 10:53 Sodium 134 L (137-145) mmol/L Potassium 4.7 (3.4-5.0) mmol/L Chloride 97 L (98-107) mmol/L Carbon Dioxide 30 (22-30) mmol/L Anion Gap 7 (4-12) mmol/L BUN 30 H (7-17) mg/dL Creatinine 1.43 H (0.7-1.0) mg/dL Estim Creat Clear Calc 23 ml/min Estimated GFR 35 L (59 - ) Glucose 169 H (65-110) mg/dL Calculated Osmolality 288 (285-295) mOsm/kg Calcium 13.7 H* (8.4-10.2) mg/dL Ionized Calcium Pending Total Bilirubin 0.5 (0.2-1.3) mg/dL AST 37 H (14-36) U/L ALT 17 (6-35) U/L Alkaline Phosphatase 98 (38-126) U/L Total Protein 6.6 (6.3-8.2) g/dL Albumin 3.9 (3.5-5.1) g/dL PTH Intact Pending Cancelled Imaging Data Attestation: I personally reviewed and interpreted this imaging study as follows: Radiologist's impression: CT scan abdomen and pelvis with contrast from this morning shows Discharge Plan Discharge Clinical Impression: Hypercalcemia, BENJAMÍN (acute kidney injury) Lymphoma Qualifiers: Lymphoma type: unspecified type Lymphoma site: unspecified region Qualified Code(s): C85.90 - Non-Hodgkin lymphoma, unspecified, unspecified site Patient Disposition: Home Condition: Stable Instructions: Hypercalcemia (ED) Additional Instructions: Please follow-up with your primary provider in the next week to review CT scan results and repeat your creatinine level for your kidneys and calcium level and follow-up pending levels. You may need to stop metformin based on results of your kidney function after you talk to your primary doctor. Patient Language: Yi Prescriptions: No Action PreserVision AREDS-2 250-90-40-1 mg Capsule 1 tablet PO BID docusate sodium 50 mg Capsule 50 mg PO DAILY (DME) FreeStyle Clement 2 Sensor Kit See Rx Instructions .ROUTE .COMPLEX Qty: 2 1RF Dose Instruction: CONTINUOUS MONITOR. Rx Instructions: CONTINUOUS MONITOR. lorazepam 0.5 mg tablet 0.5 mg PO BID PRN (Reason: Anxiety) Qty: 20 0RF (DME) FreeStyle Clement 2 Phil Campbell Misc See Rx Instructions .ROUTE .COMPLEX Qty: 1 3RF Dose Instruction: CONTINUOUS MONITOR. NPI [id number] Rx Instructions: CONTINUOUS MONITOR. NPI [id number] (DME) FreeStyle Clement 3 Phil Campbell Misc See Rx Instructions .Route Qty: 1 0RF Rx Instructions: As directed (DME) FreeStyle Test Strip See Rx Instructions .Route Qty: 100 2RF Rx Instructions: Daily (DME) lancets [Accu-Chek Softclix Lancets] Misc See Rx Instructions .Route Qty: 100 2RF Rx Instructions: Daily escitalopram oxalate 10 mg tablet See Rx Instructions .ROUTE .COMPLEX Qty: 90 3RF Dose Instruction: 10 MG ORALLY DAILY Rx Instructions: 10 MG ORALLY DAILY lisinopril 10 mg tablet See Rx Instructions .ROUTE .COMPLEX Qty: 90 3RF Dose Instruction: 10 MG ORALLY DAILY Rx Instructions: 10 MG ORALLY DAILY (DME) blood-glucose meter [Blood Glucose Monitoring] Kit See Rx Instructions .Route Qty: 1 0RF Rx Instructions: As directed (DME) FreeStyle Clement 3 Sensor Device See Rx Instructions .ROUTE .COMPLEX Qty: 1 2RF Dose Instruction: WEAR SENSOR FOR 14 DAYS. REPLACE SENSOR EVERY 14 DAYS. Rx Instructions: WEAR SENSOR FOR 14 DAYS. REPLACE SENSOR EVERY 14 DAYS. cholecalciferol (vitamin D3) 1,250 mcg (50,000 unit) capsule See Rx Instructions .ROUTE .COMPLEX Qty: 12 0RF Dose Instruction: TAKE 1 CAPSULE BY MOUTH ONE TIME PER WEEK Rx Instructions: TAKE 1 CAPSULE BY MOUTH ONE TIME PER WEEK acetaminophen 325 mg Tablet 650 mg PO Q4H PRN (Reason: Mild Pain (1-3) Or Fever) Qty: 90 0RF ibuprofen [Motrin IB] 200 mg Tablet 200 mg PO Q6H PRN (Reason: Pain (Scale Score 4-6)) Qty: 30 0RF Saccharomyces boulardii [Florastor] 250 mg Capsule 250 mg PO BID Qty: 1 0RF nrzuorjq-njg-YO-lycopen-lutein 0.4 mg-300 mcg- 250 mcg Tablet 1 tablet PO DAILY Qty: 30 0RF Follow-up/Referrals: Jas Padgett DO [Primary Care Provider, Family Practice] Time of Disposition: 12:22
--- OUTSIDE RECORDS SUMMARY | 2025-03-29 10:14 | XMS_ITS | Clinical Summary ---
Author Organization [place] [address] [facility] [address] Address [address] [place] [id number] Care Team Providers Care Maintenance Representative Name Role Phone Ezio Chadwick NP Primary Care Provider [phone] Allergies No known active allergies Medications doxycycline [...] of Treatment Not on file Insurance MEDICARE [employer] Care Teams Maintenance Representative Relationship Specialty Start Date End Date Ezio Chadwick NP PCP - General Nurse Practitioner 02/03/18
--- OUTSIDE RECORDS SUMMARY | 2025-03-29 10:45 | XMS_ITS | Clinical Summary ---
Author Organization [place] [address] [facility] [address] Address [address] [place] [id number] Care Team Providers Care Inweaver Name Role Phone Ezio Chadwick NP Primary Care Provider [phone] Allergies No known active allergies Medications doxycycline [...] of Treatment Not on file Insurance MEDICARE [employer] Care Teams Inweaver Relationship Specialty Start Date End Date Ezio Chadwick NP PCP - General Nurse Practitioner 02/03/18
[2025-03-29 11:13] LABS: Alanine Aminotransferase 17 U/L (6-35); Albumin Level 3.9 g/dL (3.5-5.1); Alkaline Phosphatase 98 U/L (38-126); Anion Gap 7 mmol/L (4-12); Aspartate Amino Transferase 37 U/L (14-36); Bilirubin,Total 0.5 mg/dL (0.2-1.3); Blood Urea Nitrogen 30 mg/dL (7-17); Carbon Dioxide 30 mmol/L (22-30); Chloride 97 mmol/L (98-107); Estimated CRCL calculation 23 ml/min; Estimated Glomerular Filt Rate 35; Glucose 169 mg/dL (65-110); Osmolality Calculated 288 mOsm/kg (285-295); Potassium 4.7 mmol/L (3.4-5.0); Sodium 134 mmol/L (137-145); Total Protein 6.6 g/dL (6.3-8.2)
[2025-03-29 11:17] LABS: Calcium 13.7 mg/dL (8.4-10.2)
[2025-03-29] MEDS: ZOLEDRONIC ACID 4 MG/100 ML 100 ML 200 MG IVPB (11:45)
[2025-03-29] MEDS: SODIUM CHLORIDE 0.9% IV 500 ML 999 ML IV CONT (11:57)
[2025-03-30 15:09] LABS: Calcium, Ionized 7.1 mg/dL (4.5-5.6)
== END 2025-03-29 12:26 | disposition home or self-care (01) ==
PROVIDERS: Emergency Provider Emergency Medicine; PCP Family Medicine
DX: E83.52 Hypercalcemia (principal); N17.9 Acute kidney failure, unspecified; C85.90 Non-Hodgkin lymphoma, unspecified, unspecified site; I10 Essential (primary) hypertension; E78.5 Hyperlipidemia, unspecified; E11.9 Type 2 diabetes mellitus without complications
CPT/HCPCS: 36415; 74177; 80053; 82306; 82330; 82728; 83036; 83540; 83550; 83970; 84439; 84443; 84480; 85025; 96361; 96365; 99284; J3489; J7040; Q9967

== ENCOUNTER 2025-04-05 09:25 | Outpatient (CLI) | payer MEDICARE, SELFPAY ==
--- OUTSIDE RECORDS SUMMARY | 2025-03-21 10:50 | XMS_ITS ---
Author Organization [facility] Address [address] [place], [place] [address] Care Team Providers Care Manager Ethics Name Role Phone MYNOR WHITTINGTON Unavailable [phone] unknown, unknown Unavailable Unavailable REASON FOR VISIT new patient Encounters Encounter Location Date Provider Diagnosis [address] [id number] 03/21/2025 MYNOR WHITTINGTON Plan Of Treatment Next Appt Details Provider Name:MYNOR KUMAR, 05/30/2025 02:50:00 PM, [address] [place] [address], [id number], Progress Notes * BETH BANUELOS MadayFaithOB:[birth year] (84 yo F)Acc No.[id number]:03/21/2025 Patient: Hugo GEORGETTEMaday ESCOTOra Provider: Robert WHITTINGTON :1940 A ge:84 Y S ex:Female Date:03/21/2025 Address:[address] [place], [place] [phone] Subjective: * Chief Complaints: * 1 . New patient. * Medical History: Objective: * Vitals: Assessment: Plan: * Treatment: * Billing Information: * Visit Code: * Procedure Codes: * Electronic signature of ALESSIA WHITTINGTON DPM on 04/05/2025 at 09:52 AM CDT Sign off status: Pending * Provider: Robert WHITTINGTON Date: 0 03/21/2025 Generated for Maciej rodríguez/Dennise/eTransmitting on: 0 04/05/2025 09:52 AM CDT
--- OUTSIDE RECORDS SUMMARY | 2025-03-28 09:00 | XMS_ITS ---
Author Organization [facility] Address [address] [place], [place] [address] Care Team Providers Care Disability Advocate Name Role Phone MYNOR WHITTINGTON Unavailable [phone] unknown, unknown Unavailable Unavailable Allergies No Known Allergies REASON FOR VISIT *General care Medications Medication SIG (Take, Route, Fr equency, Duration) Notes Start Date End Date Status Clotrimazole 1 % 1 application Cable Television Program Director ally Twice a day; Duration: 14 days [...] 03/28/2025 Encounters Encounter Location Date Provider Diagnosis [facility] [address] [place], [place] [id number] 03/28/2025 MYNOR WHITTINGTON Tinea unguium B35.1 ; Pain in right foot M79.671 ; Pain in left foot M79.672 ; Ingrowing nail L60.0 ; Acquired keratosis [keratoderma] palmaris et plantaris L85.1 and Atherosclerosis of [place] arteries of right leg with ulceration of [...] to healthy appearing skin. 03/28/2025 Atherosclerosis of [place] arteries of right leg with ulceration of [...] Date Notes Clotrimazole 1 % 1 application Cable Television Program Director ally Twice a day; Duration: 14 days [...] down to healthy appearing skin. Atherosclerosis of [place] ar teries of right leg with ulceration [...] n: Provider Name:MYNOR KUMAR, 05/30/2025 02:50:00 PM, [address] [place] [address], [id number], Progress Notes * Tommy BURNETTOB:[birth year]15 (84 yo F)Acc No.[id number]:03/28/2025 Progress Notes Patient: Mary ELLIOTT Provider: Robert WHITTINGTON :1940 A ge:84 Y S ex:Female Date:03/28/2025 Address:[address] [place] [address] Subjective: * Chief Complaints: * 1 . [...] - L85.1 6 . A therosclerosis of [place] arteries of right leg with ulceration of [...] healthy appearing skin. 4. A therosclerosis of [place] arteries of right leg with ulceration of [...] 03/28/2025 Generated for Maciej rodríguez/Dennise/Wesley on: 0 04/05/2025 09:52 AM CDT History and Physical Notes * [...]
--- OUTSIDE RECORDS SUMMARY | 2025-04-05 09:52 | XMS_ITS | Patient Health Record ---
Author Organization [facility] Address [address] [place], [place] [id number] Care Team Providers Care Nurse Monitoring Name Role Phone ELISE MOE Unavailable [phone] Robin Durbin Unavailable Unavailable Reason For Referral No Information Plan Of Treatment No Information Insurance Providers Payer Name Payer Address Payer Phone Subscriber Number Group Number Insured Name Patient Relationship to Insured Coverage Start Date Coverage End Date Medicare Part B [place] [address] [place] [phone] [id number] MALDONADO CAMPOS Self - patient is the insured [facility] Insurance [address] [address] [place] [phone] [id number] MALDONADO CAMPOS Self - patient is the insured
[2025-04-05 09:53] LABS: Alanine Aminotransferase 18 U/L (6-35); Albumin Level 4.3 g/dL (3.5-5.1); Alkaline Phosphatase 123 U/L (38-126); Anion Gap 15 mmol/L (4-12); Aspartate Amino Transferase 46 U/L (14-36); Bilirubin,Total 1.0 mg/dL (0.2-1.3); Blood Urea Nitrogen 18 mg/dL (7-17); Calcium 11.5 mg/dL (8.4-10.2); Carbon Dioxide 23 mmol/L (22-30); Chloride 97 mmol/L (98-107); Estimated Glomerular Filt Rate 35; Glucose 171 mg/dL (65-110); Osmolality Calculated 285 mOsm/kg (285-295); Potassium 3.9 mmol/L (3.4-5.0); Sodium 135 mmol/L (137-145); Total Protein 7.3 g/dL (6.3-8.2)
--- OUTSIDE RECORDS SUMMARY | 2025-04-05 09:53 | XMS_ITS | Patient Health Record ---
Author Organization [facility] Address [address] [place], [place] [id number] Care Team Providers Care External Grinder Name Role Phone MYNOR WHITTINGTON Unavailable [phone] unknown, unknown Unavailable Unavailable Allergies No Known Allergies Reason For Referral No Information Medications Medication SIG (Take, Route, Fr equency, Duration) Notes Start Date End Date Status Clotrimazole 1 % 1 application Doweler ally Twice a day; Duration: 14 days [...] 03/28/2025 Encounters Encounter Location Date Provider Diagnosis [facility] [address] [place], [place] [id number] 03/28/2025 MYNOR WHITTINGTON Tinea unguium B35.1 ; Pain in right foot M79.671 ; Pain in left foot M79.672 ; Ingrowing nail L60.0 ; Acquired keratosis [keratoderma] palmaris et plantaris L85.1 and Atherosclerosis of [place] arteries of right leg with ulceration of [...] to healthy appearing skin. 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 Check and protect LE bilateral daily. Call if any changes or concerns. Plan Of Treatment Next Appt Details Provider Name:MYNOR KUMAR, 05/30/2025 02:50:00 PM, [address] [place] [address], [phone], Medical (General) History Medical History History ICD Code angina Epilepsy Diabetic
--- OUTSIDE RECORDS SUMMARY | 2025-04-05 09:53 | XMS_ITS | Clinical Summary ---
Author Organization [place] [address] [facility] [address] Address [address] [place] [phone] Care Team Providers Care Commercial Review Appraiser Name Role Phone Ezio Chadwick NP Primary Care Provider [phone] Allergies No known active allergies Medications doxycycline [...] of Treatment Not on file Insurance MEDICARE [id number] Care Teams Commercial Review Appraiser Relationship Specialty Start Date End Date Ezio Chadwick NP PCP - General Nurse Practitioner 02/03/18
[2025-04-06 15:09] LABS: Calcium, Ionized 6.0 mg/dL (4.5-5.6)
== END 2025-04-05 09:26 | disposition home or self-care (01) ==
PROVIDERS: PCP Nurse Practitioner Family; Visit Provider Nurse Practitioner Family
DX: E83.52 Hypercalcemia (principal); C85.90 Non-Hodgkin lymphoma, unspecified, unspecified site
CPT/HCPCS: 36415; 80053; 82330; 83615

== ENCOUNTER 2025-04-05 11:37 | Emergency (ER) | payer MEDICARE, SELFPAY ==
[2025-04-05 11:46] VITALS: BP 156/69; PULSE 96; RESP 16; TEMP 36.4; O2SAT 97
[2025-04-05 11:59] LABS: Hematocrit 34.9 % (35.0-42.0); Hemoglobin 11.6 g/dL (11.7-13.8); Immature Granulocyte Percent A 1.1 % (0.0-0.0); Lymphocytes Absolute Auto 1.25 K/mm3 (1.10-4.50); Mean Corpuscular HGB Conc 33.2 g/dL (32-36); Mean Corpuscular Hemoglobin 29.1 pg (27.0-31.0); Mean Corpuscular Volume 87.5 fL (78.0-102.0); Nucleated Red Blood Cells Absolute Auto 0.00 K/mm3 (0.00-0.00); Nucleated Red Blood Cells Perc 0.0 % (0-0.0); Platelet Count Result 282 K/mm3 (150-420); Red Blood Count 3.99 M/mm3 (4.20-5.40); White Blood Count 9.7 K/mm3 (4.8-10.8)
--- NOTE | 2025-04-05 12:04 | PC.NURSE ---
Pt's daughter telling pt to refuse IV placement and IV fluid administration. Pt's daughter states if pt's labs are normal then they are leaving immediately.
--- NOTE | 2025-04-05 12:10 | PC.NURSE ---
RN provides pt with white soda and crackers to attempt PO challenge.
[2025-04-05 12:11] LABS: Alanine Aminotransferase 18 U/L (6-35); Albumin Level 4.2 g/dL (3.5-5.1); Alkaline Phosphatase 121 U/L (38-126); Anion Gap 13 mmol/L (4-12); Aspartate Amino Transferase 44 U/L (14-36); Bilirubin,Total 0.8 mg/dL (0.2-1.3); Blood Urea Nitrogen 19 mg/dL (7-17); Calcium 11.3 mg/dL (8.4-10.2); Carbon Dioxide 26 mmol/L (22-30); Chloride 95 mmol/L (98-107); Estimated CRCL calculation 19 ml/min; Estimated Glomerular Filt Rate 35; Glucose 206 mg/dL (65-110); Osmolality Calculated 286 mOsm/kg (285-295); Potassium 4.1 mmol/L (3.4-5.0); Sodium 134 mmol/L (137-145); Total Protein 7.1 g/dL (6.3-8.2)
--- NOTE | 2025-04-05 12:25 | PC.NURSE ---
Pt finished white soda and several crackers. Pt denies any N/V at this time.
--- NOTE | 2025-04-05 12:29 | ED.GENADULT ---
HPI - General Adult General Chief complaint: Recheck/Abnormal Lab/Rx Stated complaint: sent by provider for ab normal labs Time Seen by Provider: 04/05/25 11:40 Source: patient and family Mode of arrival: ambulatory Limitations: no limitations History of Present Illness HPI narrative: 84-year-old with a history of hypertension, diabetes advised by head CT without difficulty the ER. Patient has no complaints at this time. She is unsure why she is here. Upon chart review she has mildly elevated Calcium level of 11.3 Related Data Home Medications ?Medication ?Instructions ?Recorded ?Confirmed ?Last Taken ?Type vit C 250 mg-vit E 90 mg-zinc 40 1 tablet PO BID 11/13/23 04/03/25 11/22/23 08:05 History mg-copper 1 lw-mndmif-eneksb capsule (PreserVision AREDS-2) docusate sodium 50 mg capsule 50 mg PO DAILY 11/14/23 04/03/25 11/16/23 09:25 History Allergies Allergy/AdvReac Type Severity Reaction Status Date / Time No Known Allergies Allergy Verified 04/03/25 14:44 [facility] Past Medical History Medical History Axillary abscess MRSA infection Diabetic retinopathy Left genital labial abscess Hypertension Hyperlipidemia Type 2 diabetes mellitus Complicated by diabetic retinopathy. Surgical History Surgical History History of cataract extraction History of tonsillectomy Family History Family History Other Diabetes mellitus Family history of cardiovascular disease Family history of thyroid disease Social History Social History Social History: Surrogate decision maker: Jyoti Finnegan, daughter. Code status: Do not resuscitate. Smoking status: Never smoker Second hand tobacco smoke exposure: No Alcohol intake: never Substance use: never Substance use type: does not use Do You Feel Safe in your Home?: Yes Lack of Transportation: YES Lack of Food: Never True Current Housing: I Have Housing Concerned About Future Housing: No Difficulty Paying Gas/Electric Bills: No Difficulty Paying for Meds: No Currently Unemployed: No Education: High School Diploma/GED Difficulty w/ Childcare or Family Care: No Living arrangements: with family Additional living arrangements comments: Lives in [place] with her son Shahriar. Her daughter Tameka sees her often. Patient requires Min to moderate assist with ADLs. Ambulates with a walker. 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 HEAD: Normocephalic, atraumatic. EYES: PERRLA and EOMI. ENT: Nares clear, no rhinorrhea or epistaxis. Mucous membranes moist. NECK: Supple. CHEST: Clear to auscultation. No respiratory distress. HEART: Regular rate and rhythm. No murmur heard. Normal peripheral pulses. EXTREMITIES: Normal range of motion. No edema. SKIN: Warm, dry, no rash. NEURO: No focal deficits. Alert and oriented x3. PSYCH: Normal mood and affect. Course Course Emergency Course: pain notified patient and daughter about her lab work. Discussed with the primary doctor, patient can be discharged home follow up in office Vital Signs Vital signs: Vital Signs Temperature 36.4 C 04/05/25 11:46 Pulse Rate 96 04/05/25 11:46 Respiratory Rate 16 04/05/25 11:46 Blood Pressure 156/69 H 04/05/25 11:46 Pulse Oximetry 97 04/05/25 11:46 Oxygen Delivery Room Air 04/05/25 11:46 Temperature 36.4 C 04/05/25 11:46 Pulse Rate 96 04/05/25 11:46 Respiratory Rate 16 04/05/25 11:46 Blood Pressure 156/69 H 04/05/25 11:46 Pulse Oximetry 97 04/05/25 11:46 Oxygen Delivery Room Air 04/05/25 11:46 Medical Decision Making Vital Signs Vital Signs: Vital Signs Temperature 36.4 C 04/05/25 11:46 Pulse Rate 96 04/05/25 11:46 Respiratory Rate 16 04/05/25 11:46 Blood Pressure 156/69 H 04/05/25 11:46 Pulse Oximetry 97 04/05/25 11:46 Oxygen Delivery Room Air 04/05/25 11:46 Temperature 36.4 C 04/05/25 11:46 Pulse Rate 96 04/05/25 11:46 Respiratory Rate 16 04/05/25 11:46 Blood Pressure 156/69 H 04/05/25 11:46 Pulse Oximetry 97 04/05/25 11:46 Oxygen Delivery Room Air 04/05/25 11:46 Lab Data 04/05/25 11:55 04/05/25 11:55 Labs: Lab Results 04/05/25 Range/Units 11:55 WBC 9.7 (4.8-10.8) K/mm3 RBC 3.99 L (4.20-5.40) M/mm3 Hgb 11.6 L (11.7-13.8) g/dL Hct 34.9 L (35.0-42.0) % MCV 87.5 (78.0-102.0) fL MCH 29.1 (27.0-31.0) pg MCHC 33.2 (32-36) g/dL RDW 12.3 (11.6-14.4) % Plt Count 282 (150-420) K/mm3 MPV 9.8 (9.2-11.8) fl Immature Gran % (Auto) 1.1 H (0.0-0.0) % Neut % (Auto) 79.1 H (50.0-70.0) % Lymph % (Auto) 13.0 L (18.0-42.0) % [place] % (Auto) 6.1 (2.0-11.0) % Eos % (Auto) 0.1 L (1.0-6.0) % Baso % (Auto) 0.6 (0.0-1.0) % Lymph # (Auto) 1.25 (1.10-4.50) K/mm3 [place] # (Auto) 0.59 (0.10-0.90) K/mm3 Eos # (Auto) 0.01 L (0.02-0.50) K/mm3 Baso # (Auto) 0.06 (0.00-0.10) K/mm3 Abs Immat Gran (auto) 0.11 H (0.00-0.00) K/mm3 Absolute Neuts (auto) 7.63 H (1.70-7.20) K/mm3 Absolute Nucleated RBC 0.00 (0.00-0.00) K/mm3 Nucleated RBC % 0.0 (0-0.0) % Sodium 134 L (137-145) mmol/L Potassium 4.1 (3.4-5.0) mmol/L Chloride 95 L (98-107) mmol/L Carbon Dioxide 26 (22-30) mmol/L Anion Gap 13 H (4-12) mmol/L BUN 19 H (7-17) mg/dL Creatinine 1.43 H (0.7-1.0) mg/dL Estim Creat Clear Calc 19 ml/min Estimated GFR 35 L (59 - ) Glucose 206 H (65-110) mg/dL Calculated Osmolality 286 (285-295) mOsm/kg Calcium 11.3 H (8.4-10.2) mg/dL Total Bilirubin 0.8 (0.2-1.3) mg/dL AST 44 H (14-36) U/L ALT 18 (6-35) U/L Alkaline Phosphatase 121 (38-126) U/L Total Protein 7.1 (6.3-8.2) g/dL Albumin 4.2 (3.5-5.1) g/dL Discharge Plan Discharge Clinical Impression: Weakness Patient Disposition: Home Condition: Stable Instructions: Weakness (ED) Additional Instructions: continue home medications, follow with your doctor Patient Language: Danish Prescriptions: New ondansetron 4 mg tablet,disintegrating 4 mg PO Q6-8H PRN (Reason: nausea and vomiting) Qty: 14 0RF No Action PreserVision AREDS-2 250-90-40-1 mg Capsule 1 tablet PO BID nystatin 100,000 unit/gram cream 1 applic topical BID Qty: 30 1RF docusate sodium 50 mg Capsule 50 mg PO DAILY (DME) FreeStyle Clement 2 Sensor Kit See Rx Instructions .ROUTE .COMPLEX Qty: 2 1RF Dose Instruction: CONTINUOUS MONITOR. Rx Instructions: CONTINUOUS MONITOR. lorazepam 0.5 mg tablet 0.5 mg PO BID PRN (Reason: Anxiety) Qty: 20 0RF (DME) FreeStyle Clement 2 [place] Misc See Rx Instructions .ROUTE .COMPLEX Qty: 1 3RF Dose Instruction: CONTINUOUS MONITOR. NPI [id number] Rx Instructions: CONTINUOUS MONITOR. NPI [id number] (DME) FreeStyle Clement 3 [place] Misc See Rx Instructions .Route Qty: 1 0RF Rx Instructions: As directed (DME) FreeStyle Test Strip See Rx Instructions .Route Qty: 100 2RF Rx Instructions: Daily (DME) lancets [Accu-Chek Softclix Lancets] Misc See Rx Instructions .Route Qty: 100 2RF Rx Instructions: Daily escitalopram oxalate 10 mg tablet See Rx Instructions .ROUTE .COMPLEX Qty: 90 3RF Dose Instruction: 10 MG ORALLY DAILY Rx Instructions: 10 MG ORALLY DAILY lisinopril 10 mg tablet See Rx Instructions .ROUTE .COMPLEX Qty: 90 3RF Dose Instruction: 10 MG ORALLY DAILY Rx Instructions: 10 MG ORALLY DAILY (DME) blood-glucose meter [Blood Glucose Monitoring] Kit See Rx Instructions .Route Qty: 1 0RF Rx Instructions: As directed (DME) FreeStyle Clement 3 Sensor Device See Rx Instructions .ROUTE .COMPLEX Qty: 1 2RF Dose Instruction: WEAR SENSOR FOR 14 DAYS. REPLACE SENSOR EVERY 14 DAYS. Rx Instructions: WEAR SENSOR FOR 14 DAYS. REPLACE SENSOR EVERY 14 DAYS. cholecalciferol (vitamin D3) 1,250 mcg (50,000 unit) capsule See Rx Instructions .ROUTE .COMPLEX Qty: 12 0RF Dose Instruction: TAKE 1 CAPSULE BY MOUTH ONE TIME PER WEEK Rx Instructions: TAKE 1 CAPSULE BY MOUTH ONE TIME PER WEEK acetaminophen 325 mg Tablet 650 mg PO Q4H PRN (Reason: Mild Pain (1-3) Or Fever) Qty: 90 0RF ibuprofen [Motrin IB] 200 mg Tablet 200 mg PO Q6H PRN (Reason: Pain (Scale Score 4-6)) Qty: 30 0RF Saccharomyces boulardii [Florastor] 250 mg Capsule 250 mg PO BID Qty: 1 0RF zetenegp-cav-TT-lycopen-lutein 0.4 mg-300 mcg- 250 mcg Tablet 1 tablet PO DAILY Qty: 30 0RF Follow-up/Referrals: Jas Padgett DO [Primary Care Provider, Family Practice] Time of Disposition: 12:31
--- OUTSIDE RECORDS SUMMARY | 2025-04-05 13:09 | XMS_ITS | Clinical Summary ---
Author Organization [place] [address] [facility] [address] Address [address] [place] [address] Care Team Providers Care Plant And Instrument Engineer Name Role Phone Ezio Chadwick NP Primary Care Provider [phone] Allergies No known active allergies Medications doxycycline [...] of Treatment Not on file Insurance MEDICARE [employer] Care Teams Plant And Instrument Engineer Relationship Specialty Start Date End Date Ezio Chadwick NP PCP - General Nurse Practitioner 02/03/18
== END 2025-04-05 12:39 | disposition home or self-care (01) ==
PROVIDERS: Emergency Provider Family Medicine; PCP Family Medicine
DX: R53.1 Weakness (principal); I10 Essential (primary) hypertension; E11.9 Type 2 diabetes mellitus without complications; E78.5 Hyperlipidemia, unspecified
CPT/HCPCS: 36415; 80053; 85025; 99283

== ENCOUNTER 2025-04-16 11:51 | Outpatient (CLI) | payer MEDICARE, SELFPAY ==
--- OUTSIDE RECORDS SUMMARY | 2025-03-21 10:50 | XMS_ITS ---
Author Organization [facility] Address [address] [place], [place] [id number] Care Team Providers Care Wire Basket Maker Name Role Phone MYNOR WHITTINGTON Unavailable [phone] unknown, unknown Unavailable Unavailable REASON FOR VISIT new patient Encounters Encounter Location Date Provider Diagnosis [address] [id number] 03/21/2025 MYNOR WHITTINGTON Plan Of Treatment Next Appt Details Provider Name:MYNOR KUMAR, 05/30/2025 02:50:00 PM, [address] [place] [address], [id number], Progress Notes * BETH BANUELOS MadayFaithOB:[birth year] (84 yo F)Acc No.[id number]:03/21/2025 Patient: Hugo GEORGETTEMaday ESCOTOra Provider: Robert WHITTINGTON :1940 A ge:84 Y S ex:Female Date:03/21/2025 Address:[address] [place], [place] [phone] Subjective: * Chief Complaints: * 1 . New patient. * Medical History: Objective: * Vitals: Assessment: Plan: * Treatment: * Billing Information: * Visit Code: * Procedure Codes: * Electronic signature of ALESSIA WHITTINGTON DPM on 04/16/2025 at 12:24 PM CDT Sign off status: Pending * Provider: Robert WHITTINGTON Date: 0 03/21/2025 Generated for Maciej rodríguez/Dennise/eTransmitting on: 0 04/16/2025 12:24 PM CDT
--- OUTSIDE RECORDS SUMMARY | 2025-03-28 09:00 | XMS_ITS ---
Author Organization [facility] Address [address] [place], [place] [address] Care Team Providers Care Chief Drafter Name Role Phone MYNOR WHITTINGTON Unavailable [phone] unknown, unknown Unavailable Unavailable Allergies No Known Allergies REASON FOR VISIT *General care Medications Medication SIG (Take, Route, Fr equency, Duration) Notes Start Date End Date Status Clotrimazole 1 % 1 application Hose Stripper ally Twice a day; Duration: 14 days 03/28/2025 09/11/2025 Active Dorzolamide HCl Acti ve Social History Tobacco Use: Social History Observation Description Date Details (start date - stop date) Never Smoker NA - NA Tobacco Control (Standard) Question Answer Notes Tobacco use: Nonsmoker Vital Signs Height 61 in 03/28/2025 Weight 110 lbs 03/28/2025 BMI 20.78 kg/m2 03/28/2025 Height-cm 154.94 cm 03/28/2025 Weight-kg 49.9 kg 03/28/2025 Encounters Encounter Location Date Provider Diagnosis [facility] [address] [place], [place] [id number] 03/28/2025 MYNOR WHITTINGTON Tinea unguium B35.1 ; Pain in right foot M79.671 ; Pain in left foot M79.672 ; Ingrowing nail L60.0 ; Acquired keratosis [keratoderma] palmaris et plantaris L85.1 and 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 The patient was educated regarding all treatment options that include topical and oral antifungal treatments. I discussed the options of taking a sample of the nail to confirm diagnosis. Nail clippings were not sent for pathology analysis. The patient was educated why and how the fungal infection evolved in their feet and the patient was given information regarding how to prevent further infection. The patient was told to keep feet dry and change socks. The patient was told to be careful with old shoes and excessive sweating. The patient was educated regarding both OTC and prescription treatments. 03/28/2025 Pain in right foot (ICD-10 - M79.671) 03/28/2025 Pain in left foot (ICD-10 - M79.672) 03/28/2025 Ingrowing nail (ICD-10 - L60.0) Slant Back Toenail: Following skin prep, the offending nail border was debrided without anesthesia. The patient was instructed on monitoring for infection or recurrence. 03/28/2025 Acquired keratosis [keratoderma] palmaris et plantaris (ICD-10 - L85.1) Hyperkeratosis x 2: The skin was prepped with isopropyl alcohol. Using a 15-blade scalpel, the hyperkeratotic skin lesions were sharply debrided down to healthy appearing skin. 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 Check and protect LE bilateral daily. Call if any changes or concerns. Plan Of Treatment Medication Medication Name Sig Start Date Stop Date Notes Clotrimazole 1 % 1 application Hose Stripper ally Twice a day; Duration: 14 days 03/28/2025 09/11/2025 Treatment Notes Assessment Notes Tinea unguium Aseptic debridement of elongated thickened nails x 10 using sterile nippers, nails were debrided in length and thickness by 30% utilizing a nail nipper without incident. The patient was educated regarding all treatment options that include topical and oral antifungal treatments. I discussed the options of taking a sample of the nail to confirm diagnosis. Nail clippings were not sent for pathology analysis. The patient was educated why and how the fungal infection evolved in their feet and the patient was given information regarding how to prevent further infection. The patient was told to keep feet dry and change socks. The patient was told to be careful with old shoes and excessive sweating. The patient was educated regarding both OTC and prescription treatments. Ingrowing nail Slant Back Toenail: Following skin prep, the offending nail border was debrided without anesthesia. The patient was instructed on monitoring for infection or recurrence. Acquired keratosis [keratode rma] palmaris et plantaris Hyperkeratosis x 2: The skin was prepped with isopropyl alcohol. Using a 15-blade scalpel, the hyperkeratotic skin lesions were sharply debrided down to healthy appearing skin. Atherosclerosis of [place] ar teries of right leg with ulceration of thigh Patient educated on risks and aggravatin g factors of PVD, including conservative treatment options such as a diet and exercise regimen to aid in slowing progression of vascular disease. Check and protect LE bilateral daily. Call if any changes or concerns. Next Appt Details Follow Up: 9 weeks Miguel A SIMS n: Provider Name:MYNOR KUMAR, 05/30/2025 02:50:00 PM, [address] [place] [address], [id number], Progress Notes * Tommy BURNETTOB:[birth year]15 (84 yo F)Acc No.[id number]:03/28/2025 Progress Notes Patient: Mary ELLIOTT Provider: Robert WHITTINGTON :1940 A ge:84 Y S ex:Female Date:03/28/2025 Address:[address] [place] [address] Subjective: * Chief Complaints: * 1 . *General care. * HPI: H PI: General care Simran amador presents to the office for diabetic foot care. Patient states that their nails are thickened, elongated and painful. Patient states that it is aggravated by shoe gear. Onset is gradual., Patient denies taking blood thinners., Date last seen by Dr. Durbin was 12/2024., Initials nd. N ew Complaint Simran amador was last seen in our practice over three years ago.. * ROS: G eneral / Constitutional: Patient denies c hills, fatigue. P atient complains of?pain. M usculoskeletal: Patient denies h ammertoes, bunions. P eripheral Vascular: Patient denies u lceration of feet. P atient complains of p ainful extremities. S kin: Patient complains of f ungal nails, dry skin, discoloration, calluses and corns. N eurologic: Patient denies N umbness, loss of use of extremity. ? * Medical History: A ngina, Epilepsy, Diabetic. * Surgical History: D enies Past Surgical History. * Hospitalization/Major Diagno stic Procedure: D enies Past Hospitalization. * Family History: N o Family History documented.. * Social History: T obacco Use: T obacco Control (Standard) T obacco use: N onsmoker. D rugs/Alcohol: D o you drink alcohol?: No. * Medications: T aking Dorzolamide HCl , Medication List reviewed and reconciled with the patient * Allergies: N .K.D.A. Objective: * Vitals: W t: 110 lbs, Wt-k.9 kg, Ht: 61 in, Ht-cm: 154.94 cm, BMI: 20.78 Index, Body Surface Area: 1.46. * Examination: C onstitutional: Constitutional T he patient is awake, alert, well developed, well groomed and well nourished.. D ermatologic: Skin findings: b ilateral, Skin is thin, atrophic and lacking pedal hair.. Nail pathology: N ails 1-5 bilateral are elongated, thick, discolored, and dystrophic with subungual debris. They are painful to palpation, severe length and?incurvation 1-10. Hyperkeratotic Skin Lesion T here is evidence of hyperkeratotic skin lesions present on the, bilateral, distal aspect of the 1st digit. M usculoskeletal: Muscle Strength M uscle strength is 5/5 in regards to dorsiflexion, plantarflexion, inversion, and eversion in bilateral lower extremities.. Hammertoes D orsally contracted digits 2-5 bilateral. The deformity is rigid and nonreducible. N eurologic: Mulders sign: b ilateral, negative. Gross sensation G ross sensation is intact to light touch..? V ascular: Dorsalis pedis pulse: b ilateral, 1/4. Posterior tibial pulse: b ilaterally, 1. Assessment: * Assessment: 1. T elaynea unguium - B35.1 (Primary) 2 . P ain in right foot - M79.671 ? 3 . P ain in left foot - M79.672 4 . I ngrowing nail - L60.0 5 . A cquired keratosis [keratoderma] palmaris et plantaris - L85.1 6 . A therosclerosis of cahto arteries of right leg with ulceration of thigh - I70.231 ? Plan: * Treatment: 2. I ngrowing nail Notes: Slant Back Toenail: Following skin prep, the offending nail border was debrided without anesthesia. The patient was instructed on monitoring for infection or recurrence. 3. A cquired keratosis [keratoderma] palmaris et plantaris Notes: Hyperkeratosis x 2: The skin was prepped with isopropyl alcohol. Using a 15-blade scalpel, the hyperkeratotic skin lesions were sharply debrided down to healthy appearing skin. 4. A therosclerosis of caht[place] arteries of right leg with ulceration of thigh Notes: Patient educated on risks and aggravating factors of PVD, including conservative treatment options such as a diet and exercise regimen to aid in slowing progression of vascular disease. Check and protect LE bilateral daily. Call if any changes or concerns. * Follow Up: 9 weeks GC * Billing Information: * Visit Code: * Procedure Codes: * Electronic signature of ALESSIA WHITTINGTON DPM on 04/16/2025 at 12:24 PM CDT Sign off status: Pending * Provider: Robert WHITTINGTON Date: 0 03/28/2025 Generated for Maciej rodríguez/Dennise/Wesley on: 0 04/16/2025 12:24 PM CDT History and Physical Notes * HPI (History of Present Illness) Category Sub-Category Detail Notes Category Not es HPI General care Patient presents to the office for diabetic foot care. Patient states that their nails are thickened, elongated and painful. Patient states that it is aggravated by shoe gear. Onset is gradual., Patient denies taking blood thinners., Date last seen by Dr. Durbin was 12/2024., Initials nd New Complaint Patient was last see n in our practice over three years ago. Examination Category Sub-Category Detail Notes Category Not es Constitutional Constitutional The patient is a wake, alert, well developed, well groomed and well nourished. Dermatologic Skin findings: bilateral, Skin is thin, atrophic and lacking pedal hair. Nail pathology: Nails 1-5 bilateral are elongated, thick, discolored, and dystrophic with subungual debris. They are painful to palpation, severe length and incurvation 1-10 Hyperkeratotic Skin Lesion There is evid ence of hyperkeratotic skin lesions present on the, bilateral, distal aspect of the 1st digit Musculoskeletal Muscle Strength Muscle strength is 5/5 in regards to dorsiflexion, plantarflexion, inversion, and eversion in bilateral lower extremities. Hammertoes Dorsally contracted digits 2-5 bilateral. The deformity is rigid and nonreducible Neurologic Mulders sign: bilateral, negative Gross sensation Gross sensation is i ntact to light touch. Vascular Dorsalis pedis pulse: bilateral, 1/4 Posterior tibial pulse: bilaterally, 1/4
--- NOTE | ~2025-04-16 | PE_ITS ---
EXAMINATION: PET skull to mid thigh DATE: 04/16/2025 13:46 INDICATION: Abnormal findings on diagnostic imaging. Abdominal lymphadenopathy. TECHNIQUE: Blood glucose level was 159 mg/dL. 10.407 mCi of 18- fluorodeoxyglucose (18-FDG) was administered i.v. Low dose computed tomography (CT) images were acquired from the base of the brain to the proximal thighs for attenuation correction and anatomic localization. Automated exposure control was employed. Dose-length product (DLP) was 570 mGy-cm. Positron emission tomography (PET) images were acquired in the same distribution. COMPARISON: CT abdomen and pelvis 03/29/2025 FINDINGS: Head/neck: There are likely changes of ocular lens replacement surgeries. There is left supraclavicular lymphadenopathy with increased activity. Chest: There is mild scarring at the lung apices. There are small pleural effusions. There is mild dependent atelectasis bilaterally. The heart size is normal. There are coronary artery calcifications. There are calcifications of the aortic valve. No pericardial effusion. There is a normal-sized paraes ophageal node with increased activity. There is a small sliding hiatal hernia. Abdomen/pelvis/proximal thighs: Calcifications in the liver and spleen are consistent with old granulomatous disease. The gallbladder is normal in size and contains sludge versus stones. The pancreas, adrenal glands, and kidneys are normal. There is diverticulosis of the colon without evidence of diverticulitis. The appendix is normal. There is diffuse bladder wall thickening. There is a small volume of ascites. There is bulky gastrohepatic, periportal, peripancreatic, periceliac, mesenteric, para-aortic, aortocaval, and left common iliac lymphadenopathy with increased activity. For example, an aortocaval node measures 4.4 x 2.9 cm with maximum SUV of 12.1. There is no osseous malignancy. IMPRESSION: 1. Lymphadenopathy in the chest, abdomen, and pelvis with increased activity, consistent with lymphoma (Deauville score of 5). 2. Small pleural effusions. 3. Small volume of ascites. 4. Diffuse bladder wall thickening suspicious for cystitis. Correlate with urinalysis. Reviewed, dictated and finalized at location [facility] IMPRESSION: 1. Lymphadenopathy in the chest, abdomen, and pelvis with increased activity, c onsistent with lymphoma (Deauville score of 5). 2. Small pleural effusions. 3. Small volume of ascites. 4. Diffuse bladder wall thickening suspicious for cystitis. Correlate with urin alysis.
--- OUTSIDE RECORDS SUMMARY | 2025-04-16 12:24 | XMS_ITS | Patient Health Record ---
Author Organization [facility] Address [address] [place], [place] [id number] Care Team Providers Care Clerical Aide Name Role Phone ELISE MOE Unavailable [phone] Robin Durbin Unavailable Unavailable Reason For Referral No Information Plan Of Treatment No Information Insurance Providers Payer Name Payer Address Payer Phone Subscriber Number Group Number Insured Name Patient Relationship to Insured Coverage Start Date Coverage End Date Medicare Part B [place] [address] [place] [address] [id number] MALDONADO CAMPOS Self - patient is the insured [facility] Insurance [address] [address] [place] [address] [id number] MALDONADO CAMPOS Self - patient is the insured
--- OUTSIDE RECORDS SUMMARY | 2025-04-16 12:24 | XMS_ITS | Clinical Summary ---
Author Organization [place] [address] [address] [facility] [address] Address [address] [place] [address] Care Team Providers Care Shore Working Supervisor Name Role Phone Ezio Chadwick NP Primary Care Provider Allergies No known active allergies Medications doxycycline [...] of Treatment Not on file Insurance MEDICARE [employer] Care Teams Shore Working Supervisor Relationship Specialty Start Date End Date Ezio Chadwick NP PCP - General Nurse Practitioner 02/03/18
--- OUTSIDE RECORDS SUMMARY | 2025-04-16 12:24 | XMS_ITS | Patient Health Record ---
Author Organization [facility] Address [address] [place], [place] [id number] Care Team Providers Care Retail Greeting Card Merchandiser Name Role Phone MYNOR WHITTINGTON Unavailable [phone] unknown, unknown Unavailable Unavailable Allergies No Known Allergies Reason For Referral No Information Medications Medication SIG (Take, Route, Fr equency, Duration) Notes Start Date End Date Status Clotrimazole 1 % 1 application Clothespin Machine Operator ally Twice a day; Duration: 14 days [...] 03/28/2025 Encounters Encounter Location Date Provider Diagnosis [facility] [address] [place], [place] [id number] 03/28/2025 MYNOR WHITTINGTON Tinea unguium B35.1 ; Pain in right foot M79.671 ; Pain in left foot M79.672 ; Ingrowing nail L60.0 ; Acquired keratosis [keratoderma] palmaris et plantaris L85.1 and Atherosclerosis of [place] arteries of right leg with ulceration of [...] to healthy appearing skin. 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 Check and protect LE bilateral daily. Call if any changes or concerns. Plan Of Treatment Next Appt Details Provider Name:MYNOR KUMAR, 05/30/2025 02:50:00 PM, [address] [place] [address], [id number], Insurance Providers Payer Name Payer Address Payer Phone Subscriber Number Group Number Insured Name Patient Relationship to Insured Coverage Start Date Coverage End Date Medicare Part B [place] [address] [place] [address] [id number] Mary Kirby Self - patient is the insured 5 [facility] ([facility] ATTN CLAIMS [address] [place] [address] [id number] Mary Kirby Self - patient is the insured 3 Medical (General) History Medical History History ICD Code angina Epilepsy Diabetic
== END 2025-04-16 11:52 | disposition home or self-care (01) ==
PROVIDERS: PCP Family Medicine; Visit Provider Nurse Practitioner Family
DX: R93.89 Abnormal findings on diagnostic imaging of other specified body structures (principal); C85.93 Non-Hodgkin lymphoma, unspecified, intra-abdominal lymph nodes; R59.0 Localized enlarged lymph nodes; J90 Pleural effusion, not elsewhere classified; R18.8 Other ascites
CPT/HCPCS: 78815; A9552

== ENCOUNTER 2025-04-23 13:53 | Outpatient (CLI) | payer MEDICARE, SELFPAY ==
--- OUTSIDE RECORDS SUMMARY | 2025-03-21 10:50 | XMS_ITS ---
Author Organization [facility] Address [address] [place], [place] [address] Care Team Providers Care Drafter Engineering Name Role Phone MYNOR WHITTINGTON Unavailable [phone] unknown, unknown Unavailable Unavailable REASON FOR VISIT new patient Encounters Encounter Location Date Provider Diagnosis [address] [id number] 03/21/2025 MYNOR WHITTINGTON Plan Of Treatment Next Appt Details Provider Name:MYNOR KUMAR, 05/30/2025 02:50:00 PM, [address] [place] [address], [phone], Progress Notes * BETH BANUELOS MadayFaithOB:[birth year] (84 yo F)Acc No.[id number]:03/21/2025 Patient: Hugo GEORGETTEMary ESCOTO Provider: Robert WHITTINGTON :1940 A ge:84 Y S ex:Female Date:03/21/2025 Address:[address] [place], [place] [phone] Subjective: * Chief Complaints: * 1 . New patient. * Medical History: Objective: * Vitals: Assessment: Plan: * Treatment: * Billing Information: * Visit Code: * Procedure Codes: * Electronic signature of ALESSIA WHITTINGTON DPM on 04/23/2025 at 02:11 PM CDT Sign off status: Pending * Provider: Robert WHITTINGTON Date: 0 03/21/2025 Generated for Maciej rodríguez/Dennise/eTransmitting on: 0 04/23/2025 02:11 PM CDT
--- OUTSIDE RECORDS SUMMARY | 2025-03-28 09:00 | XMS_ITS ---
Author Organization [facility] Address [address] [place], [place] [id number] Care Team Providers Care Trolley Car Overhauler Name Role Phone MYNOR WHITTINGTON Unavailable [phone] unknown, unknown Unavailable Unavailable Allergies No Known Allergies REASON FOR VISIT *General care Medications Medication SIG (Take, Route, Fr equency, Duration) Notes Start Date End Date Status Clotrimazole 1 % 1 application Manager Strategy ally Twice a day; Duration: 14 days [...] 03/28/2025 Encounters Encounter Location Date Provider Diagnosis [facility] [address] [place], [place] [id number] 03/28/2025 MYNOR WHITTINGTON Tinea unguium B35.1 ; Pain in right foot M79.671 ; Pain in left foot M79.672 ; Ingrowing nail L60.0 ; Acquired keratosis [keratoderma] palmaris et plantaris L85.1 and Atherosclerosis of [place] arteries of right leg with ulceration of [...] to healthy appearing skin. 03/28/2025 Atherosclerosis of [place] arteries of right leg with ulceration of [...] Date Notes Clotrimazole 1 % 1 application Manager Strategy ally Twice a day; Duration: 14 days [...] down to healthy appearing skin. Atherosclerosis of [place] ar teries of right leg with ulceration of thigh Patient educated on risks and aggravatin g factors of PVD, including conservative treatment options such as a diet and exercise regimen to aid in slowing progression of vascular disease. Check and protect LE bilateral daily. Call if any changes or concerns. Next Appt Details Follow Up: 9 weeks Miguel A SIMS n: Provider Name:MYNOR UKMAR, 05/30/2025 02:50:00 PM, [address] [place] [address], [id number], Progress Notes * Tommy BURNETTOB:[birth year]15 (84 yo F)Acc No.[id number]:03/28/2025 Progress Notes Patient: Mary ELLIOTT Provider: Robert WHITTINGTON :1940 A ge:84 Y S ex:Female Date:03/28/2025 Address:[address] [place] [address] Subjective: * Chief Complaints: * 1 . [...] ilateral, 1/4. Posterior tibial pulse: b ilaterally, 07/28. Assessment: * Assessment: 1. T elaynea unguium - B35.1 (Primary) 2 . P ain in right foot - M79.671 ? 3 . P ain in left foot - M79.672 4 . I ngrowing nail - L60.0 5 . A cquired keratosis [keratoderma] palmaris et plantaris - L85.1 6 . A therosclerosis of [place] arteries of right leg with ulceration of [...] healthy appearing skin. 4. A therosclerosis of [place] arteries of right leg with ulceration of thigh Notes: Patient educated on risks and aggravating factors of PVD, including conservative treatment options such as a diet and exercise regimen to aid in slowing progression of vascular disease. Check and protect LE bilateral daily. Call if any changes or concerns. * Follow Up: 9 weeks GC * Billing Information: * Visit Code: 37064 Office Visit, New Pt., Level 3. * Procedure Codes: * Electronic signature of ALESSIA WHITTINGTON DPM on 04/23/2025 at 02:11 PM CDT Sign off status: Pending * Provider: Robert WHITTINGTON Date: 0 03/28/2025 Generated for Maciej rodríguez/Dennise/Wesley on: 04/23/2025 02:11 PM CDT History and Physical Notes * [...]
[2025-04-23 14:06] LABS: Add Urine Microscopic? YES; Appearance Urine Clear (Clear); Glucose Urine UA Trace (Negative); Leukocyte Esterase Ur 1+ LEU/UL (Negative); Nitrate Urine Negative (Negative); Specific Grav Ur 1.025 (1.010-1.020)
--- OUTSIDE RECORDS SUMMARY | 2025-04-23 14:11 | XMS_ITS | Patient Health Record ---
Author Organization [facility] Address [address] [place], [place] [id number] Care Team Providers Care Allocations Clerk Name Role Phone ELISE MOE Unavailable [phone] Robin Durbin Unavailable Unavailable Reason For Referral No Information Plan Of Treatment No Information Insurance Providers Payer Name Payer Address Payer Phone Subscriber Number Group Number Insured Name Patient Relationship to Insured Coverage Start Date Coverage End Date Medicare Part B [place] [address] [place] [address] [id number] MALDONADO CAMPOS Self - patient is the insured [facility] Insurance [address] [address] [place] [address] [id number] MALDONADO CAMPOS Self - patient is the insured
--- OUTSIDE RECORDS SUMMARY | 2025-04-23 14:11 | XMS_ITS | Clinical Summary ---
Author Organization [place] [address] [address] [facility] [address] Address [address] [place] [address] Care Team Providers Care Wrinkle Chaser Name Role Phone Ezio Chadwick NP Primary Care Provider [phone] Allergies No known active allergies Medications doxycycline [...] History Medical History Date Comments Hypertension Diabetes Varicose veins of both lower extremities Family [...] of Treatment Not on file Insurance MEDICARE [employer] Care Teams Wrinkle Chaser Relationship Specialty Start Date End Date Ezio Chadwick NP PCP - General Nurse Practitioner 02/03/18
--- OUTSIDE RECORDS SUMMARY | 2025-04-23 14:12 | XMS_ITS | Patient Health Record ---
Author Organization [facility] Address [address] [place], [place] [id number] Care Team Providers Care Cpr Ambulance Driver Name Role Phone MYNOR WHITTINGTON Unavailable [phone] unknown, unknown Unavailable Unavailable Allergies No Known Allergies Reason For Referral No Information Medications Medication SIG (Take, Route, Fr equency, Duration) Notes Start Date End Date Status Clotrimazole 1 % 1 application Vice President Pharmacy ally Twice a day; Duration: 14 days [...] 03/28/2025 Encounters Encounter Location Date Provider Diagnosis [facility] [address] [place], [place] [id number] 03/28/2025 MYNOR WHITTINGTON Tinea unguium B35.1 ; Pain in right foot M79.671 ; Pain in left foot M79.672 ; Ingrowing nail L60.0 ; Acquired keratosis [keratoderma] palmaris et plantaris L85.1 and Atherosclerosis of [place] arteries of right leg with ulceration of [...] to healthy appearing skin. 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 Check and protect LE bilateral daily. Call if any changes or concerns. Plan Of Treatment Next Appt Details Provider Name:MYNOR KUMAR, 05/30/2025 02:50:00 PM, [address] [place] [address], [id number], Insurance Providers Payer Name Payer Address Payer Phone Subscriber Number Group Number Insured Name Patient Relationship to Insured Coverage Start Date Coverage End Date Medicare Part B [place] [address] [place] [address] [id number] Mary Kirby Self - patient is the insured 5 [facility] ([facility]) ATTN CLAIMS [address] [place] [address] [id number] Mary Kirby Self - patient is the insured 3 Medical (General) History Medical History History ICD Code angina Epilepsy Diabetic
== END 2025-04-23 13:54 | disposition home or self-care (01) ==
PROVIDERS: PCP Family Medicine; Visit Provider Nurse Practitioner Family
DX: R82.90 Unspecified abnormal findings in urine (principal); Z87.898 Personal history of other specified conditions
CPT/HCPCS: 81001; 87086

== ENCOUNTER 2025-05-01 11:09 | Outpatient (CLI) | payer MEDICARE, SELFPAY ==
--- NOTE | 2025-05-01 11:22 | CY_PTH ---
PATIENT: Nusrat Kirby LOC: [facility] U#:[id number] AGE/SX: 84/F ROOM: RE05/01/[address]: Demarcus Dang MD : 1940 BED: DIS: 05/01/2025 SPEC #: [id number] RECD: 05/01/25 11:47 STATUS: SOUT REQ #: [id number] EH: 05/01/25 11:[address]: Demarcus Dang DEPT: [facility] Cytology RECD BY: Lena Greenfield ENTERED: 05/01/25 11:48 SP TYPE: Cytology OTHR DR: Jas Padgett DO Tissues: A - Peripheral Blood Procedures: Flow Cytometry
[2025-05-01 11:26] LABS: Hematocrit 34.6 % (37.0-47.0); Hemoglobin 11.1 g/dL (12.0-15.0); Immature Granulocyte Percent A 1.1 % (0-0.5); Lymphocytes Absolute Auto 0.58 K/mm3 (0.9-3.2); Mean Corpuscular HGB Conc 32.1 g/dl (32-36); Mean Corpuscular Hemoglobin 27.8 pg (26-34); Mean Corpuscular Volume 86.7 fl (80-100); Nucleated Red Blood Cells Absolute Auto 0.000 K/mm3 (0.0-0.012); Nucleated Red Blood Cells Perc 0.0 % (0.0-0.2); Platelet Count Result 377 k/mm3 (150-375); Red Blood Count 3.99 M/mm3 (4.2-5.4); White Blood Count 10.3 K/mm3 (4.5-10.0)
[2025-05-01 12:01] LABS: Alanine Aminotransferase 15 U/L (6-35); Albumin Level 3.7 g/dL (3.5-5.1); Alkaline Phosphatase 248 U/L (38-126); Anion Gap 9 mmol/L (4-12); Aspartate Amino Transferase 43 U/L (14-36); Bilirubin,Total 1.0 mg/dL (0.2-1.3); Blood Urea Nitrogen 14 mg/dL (7-17); Calcium 10.7 mg/dL (8.4-10.2); Carbon Dioxide 29 mmol/L (22-30); Chloride 94 mmol/L (98-107); Estimated Glomerular Filt Rate 58; Glucose 198 mg/dL (65-110); Potassium 4.4 mmol/L (3.4-5.0); Sodium 132 mmol/L (137-145); Total Protein 7.1 g/dL (6.3-8.2)
== END 2025-05-01 11:10 | disposition home or self-care (01) ==
LOC: ANHLAB 11:11
PROVIDERS: PCP Family Medicine; Visit Provider Internal Medicine Hematology & Oncology
DX: C85.93 Non-Hodgkin lymphoma, unspecified, intra-abdominal lymph nodes (principal)
CPT/HCPCS: 36415; 80053; 83615; 85025; 88184

== ENCOUNTER 2025-05-06 11:39 | Inpatient (IN) | payer MEDICARE, SELFPAY ==
--- OUTSIDE RECORDS SUMMARY | 2025-03-21 10:50 | XMS_ITS ---
Author Organization [facility] Address [address] [place], [place] [phone] Care Team Providers Care Set And Exhibit Designer Name Role Phone MYNOR WHITTINGTON Unavailable [phone] unknown, unknown Unavailable Unavailable REASON FOR VISIT new patient Encounters Encounter Location Date Provider Diagnosis [address] [id number] 03/21/2025 MYNOR WHITTINGTON Plan Of Treatment Next Appt Details Provider Name:MYNOR KUMAR, 05/30/2025 02:50:00 PM, [address] [place] [address], [id number], Progress Notes * BETH BANUELOS MadayFaithOB:[birth year] (84 yo F)Acc No.[id number]:03/21/2025 Patient: Hugo GEORGETTEMary ESCOTO Provider: Robert WHITTINGTON :1940 A ge:84 Y S ex:Female Date:03/21/2025 Address:[address] [place], [place] [phone] Subjective: * Chief Complaints: * 1 . New patient. * Medical History: Objective: * Vitals: Assessment: Plan: * Treatment: * Billing Information: * Visit Code: * Procedure Codes: * Electronic signature of ALESSIA WHITTINGTON DPM on 05/06/2025 at 02:05 PM CDT Sign off status: Pending * Provider: Robert WHITTINGTON Date: 0 03/21/2025 Generated for Maciej rodríguez/Dennise/eTransmitting on: 1 02:05 PM CDT
--- OUTSIDE RECORDS SUMMARY | 2025-03-28 09:00 | XMS_ITS ---
Author Organization [facility] Address [address] [place], [place] [address] Care Team Providers Care Coremaker Name Role Phone MYNOR WHITTINGTON Unavailable [phone] unknown, unknown Unavailable Unavailable Allergies No Known Allergies REASON FOR VISIT *General care Medications Medication SIG (Take, Route, Fr equency, Duration) Notes Start Date End Date Status Clotrimazole 1 % 1 application Prover ally Twice a day; Duration: 14 days [...] 03/28/2025 Encounters Encounter Location Date Provider Diagnosis [facility] [address] [place], [place] [id number] 03/28/2025 MYNOR WHITTINGTON Tinea unguium B35.1 ; Pain in right foot M79.671 ; Pain in left foot M79.672 ; Ingrowing nail L60.0 ; Acquired keratosis [keratoderma] palmaris et plantaris L85.1 and Atherosclerosis of [place] arteries of right leg with ulceration of [...] to healthy appearing skin. 03/28/2025 Atherosclerosis of [place] arteries of right leg with ulceration of [...] Date Notes Clotrimazole 1 % 1 application Prover ally Twice a day; Duration: 14 days [...] down to healthy appearing skin. Atherosclerosis of [place] ar teries of right leg with ulceration [...] n: Provider Name:MYNOR KUMAR, 05/30/2025 02:50:00 PM, [address] [place] [address], [id number], Progress Notes * Tommy BURNETTOB:[birth year] (84 yo F)Acc No.[id number]:03/28/2025 Progress Notes Patient: Mary ELLIOTT Provider: Robert WHITTINGTON :1940 A ge:84 Y S ex:Female Date:03/28/2025 Address:[address] [place] [address] Subjective: * Chief Complaints: * 1 . [...] - L85.1 6 . A therosclerosis of [place] arteries of right leg with ulceration of [...] healthy appearing skin. 4. A therosclerosis of [place] arteries of right leg with ulceration of thigh Notes: Patient educated on risks and aggravating factors of PVD, including conservative treatment options such as a diet and exercise regimen to aid in slowing progression of vascular disease. Check and protect LE bilateral daily. Call if any changes or concerns. * Follow Up: 9 weeks GC * Billing Information: * Visit Code: 36208 Office Visit, New Pt., Level 3. * Procedure Codes: * Electronic signature of ALESSIA WHITTINGTON DPM on 05/06/2025 at 02:05 PM CDT Sign off status: Pending * Provider: Robert WHITTINGTON Date: 0 03/28/2025 Generated for Maciej rodríguez/Dennise/Wesley on: 1 02:05 PM CDT History and Physical Notes * [...]
--- NOTE | ~2025-05-06 | XR_ITS ---
Examination: XR chest 2V Clinical History: weakness Comparison: PET/CT 04/16/2025 Technique: PA and Lateral Findings: Cardiomediastinal silhouette normal size and configuration. Small posterior right basilar atelectasis and/or effusion. No acute bony abnormality. IMPRESSION: 1. Small right posterior basilar atelectasis and/or effusion persists. 2. Otherwise no acute abnormality. Reviewed, dictated and finalized at location R.
--- NOTE | ~2025-05-06 | XR_ITS ---
EXAMINATION: XR abdomen/kub 1V, 05/06/2025 13:32 CDT HISTORY: constipation COMPARISON: No comparisons available. Technique: 3 view. Findings: Moderate fecal content, no dilated bowel loops No free air. No abnormal calcifications No acute osseous abnormality. Impression: 1. No acute abnormality. Reviewed, dictated and finalized at location P. Impression: 1. No acute abnormality.
--- NOTE | ~2025-05-06 | US_ITS ---
EXAMINATION: US biopsy lymph node DATE: 05/09/2025 10:43 INDICATION: Left supraclavicular lymphadenopathy TECHNIQUE: The procedure including the risks and benefits was discussed with the patient. Risks discussed included bleeding and infection. The patient understood the risks and agreed to proceed. The skin overlying the left supraclavicular region was prepped and draped in usual sterile fashion. Anesthetic was administered with 1% lidocaine subcutaneously. An 18 gauge core biopsy needle was advanced under continuous ultrasound observation to the lesion of interest. 8 core biopsy specimens were obtained, 5 placed in RPMI media and 3 in formalin. The needle was removed and the entry site was cleaned and dressed. Post procedure ultrasound demonstrated no hemorrhage. FINDINGS: Ultrasound images demonstrate several enlarged left supraclavicular lymph nodes, 2 of the largest are closely apposed and measure 1.8 x 1.2 x 1.5 cm and 1.9 x 1.5 x 1.0 cm. Subsequent images demonstrate the biopsy needles advanced through both of these lymph nodes. IMPRESSION: 1. Successful Ultrasound-guided biopsy of a couple enlarged left supraclavicular lymph nodes. Reviewed, dictated and finalized at location A. IMPRESSION: 1. Successful Ultrasound-guided biopsy of a couple enlarged left supraclavicula r lymph nodes.
[2025-05-06 11:44] VITALS: BP 181/88; PULSE 100; RESP 20; TEMP 36.7; O2SAT 98
[2025-05-06 11:56] VITALS: PULSE 97
--- NOTE | 2025-05-06 12:00 | ECG_ITS ---
Test Date: 2025-05-06 12:08:59 Measurements Intervals Reliance Rate: 94 P: 25 LA: 130 QRS: -36 QRSD: 108 T: 29 QT: 367 QTc: 461 Interpretive Statements SINUS RHYTHM LEFT AXIS DEVIATION INCOMPLETE RIGHT BUNDLE BRANCH BLOCK VOLTAGE CRITERIA FOR LVH CONSIDER INFERIOR INFARCT, AGE INDETERMINATE BASELINE ARTIFACT- I, II, III, AVR, AVL, V1 ABNORMAL ECG Compared to ECG 05/02/2024 11:09:32 NO SIGNIFICANT CHANGE Electronically Signed On 05-06-2025 15:40:52 CDT by Domenico Byers D.O.
[2025-05-06 12:08] LABS: Hematocrit 36.6 % (37.0-47.0); Hemoglobin 12.2 g/dL (12.0-15.0); Immature Granulocyte Percent A 1.0 % (0-0.5); Lymphocytes Absolute Auto 1.22 K/mm3 (0.9-3.2); Mean Corpuscular HGB Conc 33.3 g/dl (32-36); Mean Corpuscular Hemoglobin 27.9 pg (26-34); Mean Corpuscular Volume 83.8 fl (80-100); Nucleated Red Blood Cells Absolute Auto 0.000 K/mm3 (0.0-0.012); Nucleated Red Blood Cells Perc 0.0 % (0.0-0.2); Platelet Count Result 375 k/mm3 (150-375); Red Blood Count 4.37 M/mm3 (4.2-5.4); White Blood Count 13.5 K/mm3 (4.5-10.0)
[2025-05-06 12:32] LABS: Alanine Aminotransferase 14 U/L (6-35); Albumin Level 3.6 g/dL (3.5-5.1); Alkaline Phosphatase 276 U/L (38-126); Anion Gap 11 mmol/L (4-12); Aspartate Amino Transferase 45 U/L (14-36); Bilirubin,Total 1.4 mg/dL (0.2-1.3); Blood Urea Nitrogen 13 mg/dL (7-17); Calcium 9.9 mg/dL (8.4-10.2); Carbon Dioxide 26 mmol/L (22-30); Chloride 91 mmol/L (98-107); Estimated CRCL calculation 33 ml/min; Estimated Glomerular Filt Rate > 60; Glucose 131 mg/dL (65-110); Potassium 3.6 mmol/L (3.4-5.0); Sodium 128 mmol/L (137-145); Total Protein 6.9 g/dL (6.3-8.2)
[2025-05-06] MEDS: SODIUM CHLORIDE 0.9% IV 1,000 ML 999 ML IV CONT (13:16)
[2025-05-06 13:18] VITALS: BP 156/77; PULSE 91; RESP 20; O2SAT 97
--- OUTSIDE RECORDS SUMMARY | 2025-05-06 14:05 | XMS_ITS | Patient Health Record ---
Author Organization [facility] Address [address] [place], [place] [id number] Care Team Providers Care Express Clerk Name Role Phone ELISE MOE Unavailable [phone] Robin Durbin Unavailable Unavailable Reason For Referral No Information Plan Of Treatment No Information Insurance Providers Payer Name Payer Address Payer Phone Subscriber Number Group Number Insured Name Patient Relationship to Insured Coverage Start Date Coverage End Date Medicare Part B [place] [address] [place] [address] [id number] MALDONADO CAMPOS Self - patient is the insured [facility] Insurance [address] [address] [place] [address] [id number] MALDONADO CAMPOS Self - patient is the insured
--- OUTSIDE RECORDS SUMMARY | 2025-05-06 14:05 | XMS_ITS | Encounter Summary ---
Author Organization [facility] Address [address] [place] [address] Care Team Providers Care School Cook Name Role Phone RustamJas coulter Primary Care Provider [phone] Encounter Details Date Type Department Care Team ([facility] Contact Info) Description 05/06/2025 Orders Only [facility] Oncology and Hematology - [place] [address] [place] [address] Demarcus Dang MD [address] [place] [phone] Social History Tobacco Use Types Packs/Day Years Used Date Smoking Tobacco: Never Smokeless Tobacco: Never Alcohol Use Standard Drinks/Week Comments Never 0 (1 standard drink = 0.6 oz pur e alcohol) Comments Unknown Sex and Gender Information Value Date Recorded Sex Assigned at Not on file Legal Sex Female 1:49 PM CDT Gender Identity Not on file Sexual Orientation Not on file documented as of this encounter Plan of Treatment Upcoming Encounters Date Type Department Care Team ([facility] Contact Info) Description 05/08/2025 4:35 PM CDT Telephone Check Up [facility] Oncology and Hematology - [place] [address] [place] [address] Demarcus Dang MD [address] [place] [phone] documented as of this encounter Procedures Procedure Name Priority Date/Time Associated Diagnosis Comments FLOW CYTOMETRY REPORT Routine 05/01/2025 11:17 AM CDT documented in this encounter Results * FLOW CYTOMETRY REPORT (05/01/2025 11:17 AM CDT) us Demarcus Dang MD PATHOLOGY/CYTOLOGY ORDERABLES F inal Result documented in this encounter Visit Diagnoses Not on filedocumented in this encounter Care Teams School Cook Relationship Specialty Start Date End Date Jas Padgett DO [address] [place] [address] PCP - General Family Practice 05/01/25 documented as of this encounter
--- OUTSIDE RECORDS SUMMARY | 2025-05-06 14:05 | XMS_ITS | Clinical Summary ---
Author Organization [place] [address] [facility] [address] Address [address] [place] [address] Care Team Providers Care Railroad Track Mechanic Name Role Phone Ezio Chadwick NP Primary Care Provider [phone] Allergies No known active allergies Medications doxycycline [...] of Treatment Not on file Insurance MEDICARE [employer] Care Teams Railroad Track Mechanic Relationship Specialty Start Date End Date Ezio Chadwick NP PCP - General Nurse Practitioner 02/03/18
--- OUTSIDE RECORDS SUMMARY | 2025-05-06 14:05 | XMS_ITS | Clinical Summary ---
Author Organization [facility] Pierre brenner Harpalisabelle Address [address] [place] [address] Care Team Providers Care Glass Cut Off Supervisor Name Role Phone Jas Padgett DO Primary Care Provider [phone] Allergies No known active allergies Medications escitalopram oxalate (LEXAPRO) 10 mg tablet Take 1 Tablet by mouth daily. 04/27/2025 Active traMADol (ULTRAM) 50 mg tablet Take 50 mg by mouth. 04/29/2025 Active lisinopriL (PRINIVIL) 10 mg tablet Take 1 Tablet by mouth daily. 03/12/2025 Active Active Problems No known active problems Encounters Date Type Department Care Team Description 05/06/2025 Telephone [facility] Oncology and Hematology - [place] [address] [place] [address] Demarcus Dang MD Update Questions 05/06/2025 Orders Only [facility] Hematology - [place] [address] [place] [address] Demarcus Dang MD 05/01/2025 10:30 AM CDT Office Visit [facility] Oncology and Hematology - [place] [address] [place] [address] Demarcus Dang MD Non-Hodgkin lymphoma of intra-abdominal lymph nodes, unspecified non-Hodgkin lymphoma type (CMS/HCC) (Primary Dx) from Last 3 Months Family History Medical History Relation Name Comments Diabetes Brother No Known Problems Child 1 No Known Problems Child 2 No Known Problems Child 3 No Known Problems Child 4 Lymphoma Sister Relation Name Status Comments Brother Child 1 Alive Child 2 Alive Child 3 Alive Child 4 Alive Sister Social History Tobacco Use Types Packs/Day Years Used Date Smoking Tobacco: Never Smokeless Tobacco: Never Tobacco Cessation:Counseling Given: Not Answered Alcohol Use Standard Drinks/Week Comments Never 0 (1 standard drink = 0.6 oz pur e alcohol) Comments Unknown Sex and Gender Information Value Date Recorded Sex Assigned at Not on file Legal Sex Female 1:49 PM CDT Gender Identity Not on file Sexual Orientation Not on file Last Filed Vital Signs Vital Sign Reading Time Taken Comments Blood Pressure 173/86 05/01/2025 10:28 AM CDT Pulse 97 05/01/2025 10:23 AM CDT Temperature 36.4 C (97.6 F) 05/01/2025 10:23 AM CDT Respiratory Rate 16 05/01/2025 10:23 AM CDT Oxygen Saturation 96% 05/01/2025 10:23 AM CDT Inhaled Oxygen Concentration - - Weight 47.6 kg (105 lb) 05/01/2025 10:23 AM CDT Height 152.4 cm (5') 05/01/2025 10:23 AM CDT Body Mass Index 20.51 05/01/2025 10:23 AM CDT Plan of Treatment Upcoming Encounters Date Type Department Care Team (Late st Contact Info) Description 05/08/2025 4:35 PM CDT Telephone Check Up [facility] Oncology and Hematology - [place] [address] [facility] [address] [place] [address] Demarcus Dang MD [address] [facility] [address] [place] [address] Health Maintenance Due Date Last Done Comments DTAP/TDAP/TD VACCINES (1 - Tdap) 12/15/1959 Traditional Medicare (ACO) Annual Wellness Visit 12/15 PNEUMOCOCCAL VACCINE 50+ YEARS (1 of 1 - PCV) 12/15/18 90 ZOSTER VACCINE (1 of 2) 12/15/1989 OSTEOPOROSIS SCREENING 12/15/2004 RSV VACCINE (60+ or ) (1 - 1-dose 75+ series) 12/15/2014 INFLUENZA VACCINE (#1) 2025 Procedures Procedure Name Priority Date/Time Associated Diagnosis Comments FLOW CYTOMETRY REPORT Routine 05/01/2025 11:17 AM CDT from Last 3 Months Results * FLOW CYTOMETRY REPORT (05/01/2025 11:17 AM CDT) Demarcus Dang MD PATHOLOGY/CYTOLOGY ORDERABLES F inal Result from Last 3 Months Insurance MEDICARE PART A AND B BCBS SUPP Care Teams Glass Cut Off Supervisor Relationship Specialty Start Date End Date Jas Padgett DO [address] [place] [address] PCP - General Family Practice 05/01/25
--- OUTSIDE RECORDS SUMMARY | 2025-05-06 14:06 | XMS_ITS | Patient Health Record ---
Author Organization [facility] Address [address] [place], [place] [id number] Care Team Providers Care Shellfish Farming Supervisor Name Role Phone MYNOR WHITTINGTON Unavailable [phone] unknown, unknown Unavailable Unavailable Allergies No Known Allergies Reason For Referral No Information Medications Medication SIG (Take, Route, Fr equency, Duration) Notes Start Date End Date Status Clotrimazole 1 % 1 application Press Tender Incendiary Grenade ally Twice a day; Duration: 14 days [...] Encounter Location Date Provider Diagnosis [facility] [address] [place], [place] [id number] 03/28/2025 MYNOR WHITTINGTON Tinea unguium B35.1 ; Pain in right foot M79.671 ; Pain in left foot M79.672 ; Ingrowing nail L60.0 ; Acquired keratosis [keratoderma] palmaris et plantaris L85.1 and Atherosclerosis of [place] arteries of right leg with ulceration of [...] to healthy appearing skin. 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 Check and protect LE bilateral daily. Call if any changes or concerns. Plan Of Treatment Next Appt Details Provider Name:MYNOR KUMAR, 05/30/2025 02:50:00 PM, [address] [place] [address], [id number], Insurance Providers Payer Name Payer Address Payer Phone Subscriber Number Group Number Insured Name Patient Relationship to Insured Coverage Start Date Coverage End Date Medicare Part B [place] [address] [place] [address] [id number] Mary Kirby Self - patient is the insured [address] [facility] ([facility]) ATTN CLAIMS [address] [place] [address] [id number] Mary Kirby Self - patient is the insured 3 Medical (General) History Medical History History ICD Code angina Epilepsy Diabetic
--- OUTSIDE RECORDS SUMMARY | 2025-05-06 14:06 | XMS_ITS | Encounter Summary ---
Author Organization [facility] [employer] Address [address] [place] [address] Care Team Providers Care Livestock Haulier Name Role Phone Lorin Jas Primary Care Provider [phone] Reason for Visit * Reason Onset Date Comments Update Questions 05/06/2025 Encounter Details Date Type Department Care Team ([facility] st Contact Info) Description 05/06/2025 Telephone [facility] Oncology and Hematology - [place] [address] [facility] [address] [place] [address] Demarcus Dang MD [address] [facility] [address] [place] [address] Update Questions Social History Tobacco Use Types Packs/Day Years [...] on file documented as of this encounter Miscellaneous Notes * Telephone Encounter - Monika Danielle - 05/06/2025 12:08 PM CDT Patient's son Jb called this morning and was wanting to talk with Dr. Dang and have patient directly admitted because she is getting weak and they need to get this biopsy done. I tried to explainto him that we could not directly admit to the hospital and that when she would go to the ER they decide if she should be admitted, I let him know that if they did not think she should be admitted then we really couldn't do anything about it. He did not want to hear it, and stated that she has lymphoma and that should be enough reason to admit her to the hospital. Patient daughter just called and stated that she had to call 911 and that her mother was in the ER currently. She was upset and did not know what to do. I let her know that the ER would take care of her and if they admitted her, then they could consult Dr. Dang and we could maybe get the biopsy done while she is inpatient, if they do not admit her we would have to get the biopsy outpatient. Daughter states that her mom is just getting so weak and not eating or drinking. She is going to let the office know what happens. Daughter also did not know that the brother called this morning and got upset because she is the one living with their mother and taking care of her and she states He's just an ass. documented in this encounter Plan of Treatment Upcoming Encounters Date Type Department Care Team (Late st Contact Info) Description 05/08/2025 4:35 PM CDT Telephone Check Up [facility] Oncology and Hematology - [place] [address] [place] [address] [facility] [address] [place] [address] Demarcus Dang MD [address] [facility] [address] [place] [address] documented as of this encounter Visit Diagnoses Not on filedocumented in this encounter Care Teams Livestock Haulier Relationship Specialty Start Date End Date Jas Padgett DO [address] [place] [address] PCP - General Family Practice 05/01/25 documented as of this encounter
[2025-05-06 15:09] LABS: Add Urine Microscopic? YES; Appearance Urine Clear (Clear); Glucose Urine UA 1+ mg/dL (Negative); Leukocyte Esterase Ur Negative LEU/UL (Negative); Nitrate Urine Negative (Negative); Specific Grav Ur 1.013 (1.001-1.035)
--- NOTE | 2025-05-06 16:39 | ED_ITS ---
HPI - General Adult General Chief complaint: Weakness Stated complaint: weakness Time Seen by Provider: 05/06/25 12:35 History of Present Illness HPI narrative: Patient is an 84-year-old female with history of you diagnosis lymphoma who is waiting to undergo biopsy who presents ER with increased weakness and confusion. Worsening over last two weaks. Poor oral intake. She is developing confusion about location and other daily facts. She is having constipation but is passing gas. She is seeing Dr. Dang. Related Data Home Medications ?Medication ?Instructions ?Recorded ?Confirmed ?Last Taken ?Type docusate sodium 50 mg capsule 50 mg PO TID constipatio n 11/14/23 05/06/25 11/16/23 09:25 History Allergies Allergy/AdvReac Type Severity Reaction Status Date / Time No Known Allergies Allergy Verified 05/06/25 20:34 Review of Systems 2 Review of Systems: ROS unobtainable: Yes unobtainable due to mental status PMFSH Past Medical History Medical History Axillary abscess MRSA infection Diabetic retinopathy Left genital labial abscess Hypertension Hyperlipidemia Type 2 diabetes mellitus Complicated by diabetic retinopathy. Surgical History Surgical History History of cataract extraction History of tonsillectomy Family History Family History Other Diabetes mellitus Family history of cardiovascular disease Family history of thyroid disease Social History Social History Social History: Surrogate decision maker: Jyoti Finnegan, daughter. Code status: Do not resuscitate. Smoking status: Never smoker Second hand tobacco smoke exposure: No Alcohol intake: never Substance use: never Substance use type: does not use Do You Feel Safe in your Home?: Yes Lack of Transportation: YES Lack of Food: Never True Current Housing: I Have Housing Concerned About Future Housing: No Difficulty Paying Gas/Electric Bills: No Difficulty Paying for Meds: No Currently Unemployed: No Education: High School Diploma/GED Difficulty w/ Childcare or Family Care: No Living arrangements: with family Additional living arrangements comments: Lives in [place] with her son Shahriar. Her daughter Tameka sees her often. Patient requires Min to moderate assist with ADLs. Ambulates with a walker. 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 HEAD: Normocephalic, atraumatic. ENT: Mucous membranes moist. CHEST: Clear to auscultation. No respiratory distress. HEART: Regular rate and rhythm. Normal peripheral pulses. ABDOMEN: Soft, nontender, nondistended. EXTREMITIES: Normal range of motion. No edema. SKIN: Warm, dry, no rash. NEURO: Alert and oriented x2. PSYCH: Normal mood and affect. Course Course Emergency Course: Admit to hospitalist service for failure to thrive as patient is not able to nurse herself adequately is becoming more confused. Will have Dr. Dang consulted. Vital Signs Vital signs: Vital Signs Temperature 98.1 F 05/06/25 11:44 Pulse Rate 100 05/06/25 11:44 Respiratory Rate 20 05/06/25 11:44 Blood Pressure 181/88 H 05/06/25 11:44 Pulse Oximetry 98 05/06/25 11:44 Oxygen Delivery Room Air 05/06/25 11:44 Temperature 97.4 F L 05/06/25 20:51 Pulse Rate 89 05/06/25 20:51 Respiratory Rate 18 05/06/25 20:51 Blood Pressure 186/77 H 05/06/25 20:51 Pulse Oximetry 98 05/06/25 20:51 Oxygen Delivery Room Air 05/06/25 11:44 Medical Decision Making Vital Signs Vital Signs: Vital Signs Temperature 98.1 F 05/06/25 11:44 Pulse Rate 100 05/06/25 11:44 Respiratory Rate 20 05/06/25 11:44 Blood Pressure 181/88 H 05/06/25 11:44 Pulse Oximetry 98 05/06/25 11:44 Oxygen Delivery Room Air 05/06/25 11:44 Temperature 97.4 F L 05/06/25 20:51 Pulse Rate 89 05/06/25 20:51 Respiratory Rate 18 05/06/25 20:51 Blood Pressure 186/77 H 05/06/25 20:51 Pulse Oximetry 98 05/06/25 20:51 Oxygen Delivery Room Air 05/06/25 11:44 Lab Data 05/06/25 12:02 05/06/25 12:02 Labs: Lab Results 05/06/25 05/06/25 Range/Units 12:02 14:58 WBC 13.5 H (4.5-10.0) K/mm3 RBC 4.37 (4.2-5.4) M/mm3 Hgb 12.2 (12.0-15.0) g/dL Hct 36.6 L (37.0-47.0) % MCV 83.8 (80-100) fl MCH 27.9 (26-34) pg MCHC 33.3 (32-36) g/dl RDW 13.5 (11.5-14.5) % Plt Count 375 (150-375) k/mm3 MPV 9.7 (7.4-10.4) fl Immature Gran % (Auto) 1.0 H (0-0.5) % Neut % (Auto) 80.7 H (45.5-73.1) % Lymph % (Auto) 9.0 L (18.3-44.2) % [place] % (Auto) 8.7 H (2.6-8.5) % Eos % (Auto) 0.1 (0-4.4) % Baso % (Auto) 0.5 (0.2-1.2) % Lymph # (Auto) 1.22 (0.9-3.2) K/mm3 [place] # (Auto) 1.2 H (0.1-0.6) K/mm3 Eos # (Auto) 0.0 (0-0.3) K/mm3 Baso # (Auto) 0.1 (0.0-0.1) K/mm3 Abs Immat Gran (auto) 0.13 H (0.00-0.031) K/mm3 Absolute Neuts (auto) 10.9 H (1.3-6.7) K/mm3 Absolute Nucleated RBC 0.000 (0.0-0.012) K/mm3 Nucleated RBC % 0.0 (0.0-0.2) % Sodium 128 L (137-145) mmol/L Potassium 3.6 (3.4-5.0) mmol/L Chloride 91 L (98-107) mmol/L Carbon Dioxide 26 (22-30) mmol/L Anion Gap 11 (4-12) mmol/L BUN 13 (7-17) mg/dL Creatinine 0.77 (0.7-1.0) mg/dL Estim Creat Clear Calc 33 ml/min Estimated GFR > 60 (59 - ) Glucose 131 H (65-110) mg/dL Calcium 9.9 (8.4-10.2) mg/dL Total Bilirubin 1.4 H (0.2-1.3) mg/dL AST 45 H (14-36) U/L ALT 14 (6-35) U/L Alkaline Phosphatase 276 H (38-126) U/L Total Protein 6.9 (6.3-8.2) g/dL Albumin 3.6 (3.5-5.1) g/dL Urine Color Yellow (Yellow) Urine Appearance Clear (Clear) Urine pH 6.0 (5.0-9.0) Ur Specific [place] 1.013 (1.001-1.035) Urine Protein 2+ H (Negative) mg/dL Urine Glucose (UA) 1+ H (Negative) mg/dL Urine Ketones 2+ H (Negative) mg/dL Ur Blood (Man) Negative (Negative) Urine Nitrate Negative (Negative) Urine Bilirubin Negative (Negative) Urine Urobilinogen 2.0 H (<2.0) mg/dL Leukocyte Esterase Rfl Negative (Negative) ALLEY/UL Urine RBC 3-5 H (0-2) /hpf Urine WBC 0-5 (0-3) /hpf Ur Squamous Epith Cells None seen (Few) /hpf Urine Bacteria None seen /hpf Urine Casts 3-5 Imaging Data Radiologist's impression: ITS Impressions Chest X-Ray 05/06/25 13:46 IMPRESSION: 1. Small right posterior basilar atelectasis and/or effusion persists. 2. Otherwise no acute abnormality. Abdomen X-Ray 05/06/25 13:59 Impression: 1. No acute abnormality. Discharge Plan Discharge Clinical Impression: Adult failure to thrive Patient Disposition: Still a Patient Condition: Stable
[2025-05-06 18:37] VITALS: BP 163/72; PULSE 63; RESP 18; O2SAT 96; BMI 22.3
--- NOTE | 2025-05-06 18:45 | P.HP_ITS ---
H&P: HPI History of Present Illness Date/Time: 05/06/25 18:45 Chief Complaint: Failure to thrive Narrative: 84-year-old female a past medical history of HTN, hyperlipidemia, lymphoma, DMII (currently on medication) presented to the ED with family with increased weakness and confusion noticed by family. They also state she has had poor p.o. intake over the past few days and has been intermittently constipated. She is currently A&Ox2. Family denies any recent falls, fevers, chest pain coughing, nausea and vomiting. Patient has had abdominal pain for about 1 month and underwent a CT abdomen pelvis with contrast 03/29/2025, revealing bulky mesenteric and upper retroperitoneal lymphadenopathy, favoring lymphoma. She is seeing Dr. Dang and is expected to have a biopsy, awaiting scheduling. PET scan on 04/22 demonstrated lymphadenopathy in the chest abdomen and pelvis with increased activity, consistent with lymphoma. Small bilateral pleural effusions, small volume ascites, and diffuse bladder wall thickening. Labs in the ED significant for leukocytosis, hyponatremia, slightly elevated glucose, total bilirubin 1.4, AST 45, alk-phos 276. UA with 2+ protein, glucose +1, 2+ ketones. Chest x-ray with persistent small right posterior basilar atelectasis and/or effusion. No acute abnormality Abdominal x-ray with moderate fecal content, and no dilated bowel loops or free air 1 L NS bolus given in ED Review of Systems Review of Systems: All systems reviewed & are unremarkable except as noted in HPI and below PMFSH Past Medical History Medical History Axillary abscess MRSA infection Diabetic retinopathy Left genital labial abscess Hypertension Hyperlipidemia Type 2 diabetes mellitus Complicated by diabetic retinopathy. Surgical History Surgical History History of cataract extraction History of tonsillectomy Family History Family History Other Diabetes mellitus Family history of cardiovascular disease Family history of thyroid disease Social History Social History Social History: Surrogate decision maker: Jyoti Finnegan, daughter. Code status: Do not resuscitate. Smoking status: Never smoker Second hand tobacco smoke exposure: No Alcohol intake: never Substance use: never Substance use type: does not use Do You Feel Safe in your Home?: Yes Lack of Transportation: YES Lack of Food: Never True Current Housing: I Have Housing Concerned About Future Housing: No Difficulty Paying Gas/Electric Bills: No Difficulty Paying for Meds: No Currently Unemployed: No Education: High School Diploma/GED Difficulty w/ Childcare or Family Care: No Living arrangements: with family Additional living arrangements comments: Lives in [place] with her son Shahriar. Her daughter Tameka sees her often. Patient requires Min to moderate assist with ADLs. Ambulates with a walker. 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 Spiritual care concerns: No Meds Home Medications and Allergies Home Medications ?Medication ?Instructions ?Recorded ?Confirmed ?Type docusate sodium 50 mg capsule 50 mg PO TID constipatio n 11/14/23 05/06/25 History jezdwvce-wdt-menju acid 0.4 1 tablet PO DAILY #30 tabs 12/07/23 05/06/25 Rx mg-lycopene 300 mcg-lutein 250 mcg tablet blood sugar diagnostic (FreeStyle #100 ea 09/11/24 Rx Test strips) escitalopram oxalate 10 mg tablet See Rx Instructions .Route 09/11/24 05/06/25 Rx .COMPLEX #90 tabs lancets (Accu-Chek Softclix #100 ea 09/11/24 05/07/25 Rx Lancets) lisinopril 10 mg tablet See Rx Instructions .Route 0 09/11/24 05/06/25 Rx .COMPLEX #90 tabs blood-glucose meter (Blood Glucose #1 ea 11/09/2404/24 Rx Monitoring kit) blood-glucose sensor (FreeStyle #1 ea 04/09/25 5 Rx Clement 3 Plus Sensor device) nystatin 100,000 unit/gram topical 1 applic topical TI D #60 grams 04/22/25 05/06/25 Rx powder Allergies Allergy/AdvReac Type Severity Reaction Status Date / Time No Known Allergies Allergy Verified 05/06/25 20:34 Vital Signs Vital Signs - 24 hr 05/06/25 11:44 05/06/25 11:56 05/06/25 13:18 Temperature 98.1 F Pulse Rate 100 97 91 Respiratory Rate 20 20 Blood Pressure 181/88 H 156/77 H Pulse Oximetry 98 97 Oxygen Delivery Room Air 05/06/25 18:37 Temperature Pulse Rate 63 Respiratory Rate 18 Blood Pressure 163/72 H Pulse Oximetry 96 Oxygen Delivery Exam 2 Narrative: GENERAL: Chronically ill-appearing and frail, in no acute distress. HEAD: Normocephalic, atraumatic. EYES: PERRLA. Conjunctivae clear. NOSE: Normal no drainage. THROAT: Pharynx clear, no exudate. NECK: Trachea midline. No adenopathy, no masses. RESPIRATORY: Airway patent, respirations nonlabored. CTA. CARDIOVASCULAR: Regular rate and rhythm. Palpable peripheral pulses. Murmur present. BREASTS: Defer GASTROINTESTINAL: Abdomen is soft and mildly tender to right upper quadrant. Bowel sounds normal in all quadrants. GENITOURINARY: Defer MUSCULOSKELETAL: Moves all extremities. No gross deformities. No calf tenderness. SKIN: Warm, dry, normal color. NEURO: A&O X2. Speech clear PSYCHIATRIC: Normal interaction H&P: Results Labs Labs: Short CBC 05/06/25 Range/Units 12:02 WBC 13.5 H (4.5-10.0) K/mm3 Hgb 12.2 (12.0-15.0) g/dL Hct 36.6 L (37.0-47.0) % Plt Count 375 (150-375) k/mm3 [facility] 05/06/25 12:02 Sodium 128 L Potassium 3.6 Chloride 91 L Carbon Dioxide 26 BUN 13 Creatinine 0.77 Glucose 131 H Calcium 9.9 Liver Function 05/06/25 Range/Units 12:02 Total Bilirubin 1.4 H (0.2-1.3) mg/dL AST 45 H (14-36) U/L ALT 14 (6-35) U/L Alkaline Phosphatase 276 H (38-126) U/L Albumin 3.6 (3.5-5.1) g/dL Urine 05/06/25 Range/Units 14:58 Urine Color Yellow (Yellow) Urine Appearance Clear (Clear) Urine pH 6.0 (5.0-9.0) Ur Specific [place] 1.013 (1.001-1.035) Urine Protein 2+ H (Negative) mg/dL Urine Glucose (UA) 1+ H (Negative) mg/dL Assessment and Plan Assessment and plan (1) Lymphoma: Qualifiers: Lymphoma site: unspecified region Lymphoma type: unspecified type Qualified Code(s): C85.90 - Non-Hodgkin lymphoma, unspecified, unspecified site Code(s): C85.90 - Non-Hodgkin lymphoma, unspecified, unspecified site Status: Inactive Assessment and Plan: CT abdomen pelvis with contrast 03/29/2025, revealing bulky mesenteric and upper retroperitoneal lymphadenopathy, favoring lymphoma. PET scan on 04/22 demonstrated lymphadenopathy in the chest abdomen and pelvis with increased activity, consistent with lymphoma. Small bilateral pleural effusions, small volume ascites -Dr. Dang consulted -plan for biopsy on 05/07 (2) Adult failure to thrive: Code(s): R62.7 - Adult failure to thrive Status: Acute Assessment and Plan: Patient with new newly diagnosed lymphoma awaiting biopsy. Recently with poor p.o. intake. 1 L NS bolus in ED. Shown improvement in mentation with hydration. -LR at 125 mL per hour -PT/OT consult -registered dietitian consult (3) Type 2 diabetes mellitus with hyperglycemia: Qualifiers: Diabetes mellitus buttermaker continuous churn insulin use: without [place] [facility] use Quali fied Code(s): E11.65 - Type 2 diabetes mellitus with hyperglycemia Code(s): E11.65 - Type 2 diabetes mellitus with hyperglycemia Status: Chronic Assessment and Plan: Glucose 131 on admit. CGM in place - hypoglycemia protocol - POC blood glucose ACHS - home medication: No home medications -A1c ordered - correct regimen ordered: Low-dose corrective scale Plan Diet: Diabetic-NPO at midnight GI prophylaxis: NA DVT prophylaxis: SCDs lines/drains: PIV Fluids: 1 L NS Code status: Full Hospitalist MIPS Advance Care Plan I have confirmed that the patient's Advanced Care Plan is present, code status is documented, or surrogate decision maker is listed in patient medical record.: Yes Medication Reconciliation I have utilized all available resources to obtain, update and review the patients current medications (includes all prescriptions, OTC, herbals, cannabis, and nutritional supplements).: Yes
[2025-05-06] MEDS: LACTATED RINGERS 1,000 ML 125 ML IV CONT (19:00)
--- NOTE | 2025-05-06 19:00 | ADMGEN ---
This patient, Nusrat Hernández, was admitted to Medical Room 241-01. Patient/family oriented to hospital policies and general routines including ID bracelet, bed and alarms, visiting hours, pain management, procedures, bathroom and other care routines, personal items, smoking policy, room service/diet, and visiting hours. Information on how to activate the Rapid Response Team has been discussed. Patient/Family are encouraged to report perceived risks to care and to ask questions if they do not understand what they are told or what they should do.
[2025-05-06 20:51] VITALS: BP 186/77; PULSE 89; RESP 18; TEMP 36.3; O2SAT 98
[2025-05-06] MEDS: traMADol HCL (*CRX) 50 MG TABLET PO (21:30)
[2025-05-06] MEDS: MICONAZOLE NITRATE 2% CREAM 30 GM TUBE 1 APPLIC TOPICAL (21:44)
--- NOTE | 2025-05-07 01:33 | PC.NURSE ---
CGM agreement not signed: Pt and family agreeable to POC glucose monitoring.
[2025-05-07] MEDS: LACTATED RINGERS 1,000 ML 125 ML IV CONT ×3 (02:59→19:40)
[2025-05-07 05:36] LABS: Hemoglobin A1C 5.9 % (<5.7)
[2025-05-07 05:49] VITALS: BP 153/71; PULSE 87; RESP 17; TEMP 36.6; O2SAT 98
[2025-05-07] MEDS: MICONAZOLE NITRATE 2% CREAM 30 GM TUBE 1 APPLIC TOPICAL ×3 (06:29→21:45)
--- NOTE | 2025-05-07 07:05 | P.PNIM_ITS ---
Progress Note: A&P Assessment and Plan (1) Lymphoma: Qualifiers: Lymphoma site: unspecified region Lymphoma type: unspecified type Qualified Code(s): C85.90 - Non-Hodgkin lymphoma, unspecified, unspecified site Code(s): C85.90 - Non-Hodgkin lymphoma, unspecified, unspecified site Status: Acute Assessment and Plan: CT abdomen pelvis with contrast 03/29/2025, revealing bulky mesenteric and upper retroperitoneal lymphadenopathy, favoring lymphoma. PET scan on 04/22 dem onstrated lymphadenopathy in the chest abdomen and pelvis with increased activity, consistent with lymphoma. Small bilateral pleural effusions, small volume ascites * Dr. Dang consulted * plan for biopsy, hopefully on 05/07 * Keep NPO (2) Adult failure to thrive: Code(s): R62.7 - Adult failure to thrive Status: Acute Assessment and Plan: Patient with new newly diagnosed lymphoma awaiting biopsy. Recently with poor p.o. intake. 1 L NS bolus in ED. Shown improvement in mentation with hydration. * LR at 125 mL per hour * PT/OT consult * registered dietitian consult (3) Type 2 diabetes mellitus with hyperglycemia: Qualifiers: Diabetes mellitus residential insulin use: without residential use Qualified Code(s): E11.65 - Type 2 diabetes mellitus with hyperglycemia Code(s): E11.65 - Type 2 diabetes mellitus with hyperglycemia Status: Chronic Assessment and Plan: * Glucose 131 on admit. CGM in place * hypoglycemia protocol * POC blood glucose ACHS * home medication: No home medications * A1c 5.9 * correct regimen ordered: Low-dose corrective scale Plan Diet: Diabetic-NPO at midnight GI prophylaxis: NA DVT prophylaxis: SCDs lines/drains: PIV Fluids: 1 L NS Code status: Full Subjective Date/time seen: 05/07/25 07:05 Interval history: 84-year-old female a past medical history of HTN, hyperlipidemia, lymphoma, DMII (currently on medication) presented to the ED with family with increased weakness and confusion noticed by family. They also state she has had poor p.o. intake over the past few days and has been intermittently constipated. 05/07/2025 Patient sitting comfortably in bed at time of examination. Denies any chest pain, shortness of breath, nausea/vomiting at this time. Endorses abdominal discomfort, but on exam does not appear to be tenders palpation. Heme/Onc consulted regarding lymphoma, patient to see Dr. Dang today for possible bx. Continue NPO. No other concerns or changes at this time. Review of Systems Review of Systems: All systems reviewed & are unremarkable except as noted in HPI and below Exam 2 Narrative: GENERAL: Chronically ill-appearing and frail, in no acute distress. HEAD: Normocephalic, atraumatic. EYES: PERRLA. Conjunctivae clear. NOSE: Normal no drainage. THROAT: Pharynx clear, no exudate. NECK: Trachea midline. No adenopathy, no masses. RESPIRATORY: Airway patent, respirations nonlabored. CTA. CARDIOVASCULAR: Regular rate and rhythm. Palpable peripheral pulses. Murmur present. BREASTS: Defer GASTROINTESTINAL: Abdomen is soft and mildly tender to right upper quadrant. Bowel sounds normal in all quadrants. GENITOURINARY: Defer MUSCULOSKELETAL: Moves all extremities. No gross deformities. No calf tenderness. SKIN: Warm, dry, normal color. NEURO: A&O X2. Speech clear PSYCHIATRIC: Normal interaction Objective Data Vital Signs Vital Signs: Vital Signs - 24 hr 05/06/25 11:44 05/06/25 11:56 05/06/25 13:18 Temperature 98.1 F Pulse Rate 100 97 91 Respiratory Rate 20 20 Blood Pressure 181/88 H 156/77 H Pulse Oximetry 98 97 Oxygen Delivery Room Air 05/06/25 18:37 05/06/25 20:00 05/06/25 20:51 Temperature 97.4 F L Pulse Rate 63 89 Respiratory Rate 18 18 Blood Pressure 163/72 H 186/77 H Pulse Oximetry 96 98 Oxygen Delivery Room Air 05/07/25 05:49 Temperature 97.8 F Pulse Rate 87 Respiratory Rate 17 Blood Pressure 153/71 H Pulse Oximetry 98 Oxygen Delivery Intake/Output Intake/Output: Intake & Output 05/04/25 05/05/25 05/06/25 05/07/25 23:59 23:59 23:59 23:59 Intake Total 1000 1197.9 Output Total 150 475 Balance 850 722.9 Meds/Results Medications: Active Medications Generic Name Dose Route Start Last Admin Trade Name Freq PRN Reason Stop Dose Admin Acetaminophen 650 mg 05/06/25 16:59 Acetaminophen 325 Mg Tablet PO Q4H PRN Mild Pain (1-3) or Fever Dextrose 12.5 gm 05/06/25 23:58 Dextrose 50% 25 Gm/50 Ml Syringe IV PUSH PRN PRN Hypoglycemia Protocol Docusate Sodium 50 mg 05/07/25 09:00 Docusate Sodium Liq 100 Mg/10 Ml Udc PO TID [facility] Escitalopram Oxalate 10 mg 05/07/25 09:00 Escitalopram Oxalate 10 Mg Tablet BY MOUTH DAILY [facility] Glucagon 1 mg 05/06/25 23:58 Glucagon For Inj 1 Mg Vial IM PRN PRN Hypoglycemia Protocol Glucose 15 gm 05/06/25 23:58 Glucose Oral Gel 15 Gm Of Glucse In 37.5 Gm Tube PO PRN PRN Hypoglycemia Protocol Lactated Ringer's 1,000 mls @ 125 mls/hr 05/06/25 17:00 05/07/25 02:59 Lr - Lactated Ringers Iv IV CONT 125 mls/hr .Q8H KRISHAN Administration Dextrose 1,000 mls @ 100 mls/hr 05/06/25 23:58 Dextrose 5% 1,000 Ml IVPB PRN PRN Hypoglycemia Protocol Insulin Aspart 2 - 5 units 05/07/25 08:00 Insulin Aspart (*Bkc) 100 Units/Ml SUB-Q TIDWM [facility] Protocol Lisinopril 10 mg 05/06/25 23:30 05/07/25 00:56 Lisinopril 10 Mg Tablet BY MOUTH 10 mg DAILY [facility] Administration Miconazole Nitrate 1 applic 05/06/25 22:00 05/07/25 06:29 Miconazole Nitrate 2% Cream 30 Gm Tube TOPICAL 1 applic Q8H [facility] Administration Ondansetron HCl 4 mg 05/06/25 16:59 Ondansetron Inj 4 Mg/2 Ml Vial IV PUSH Q4H PRN Nausea Polyethylene Glycol 17 gm 05/07/25 09:00 Polyethylene Glycol 3350 17 Gm Powd.Pack PO QAM [facility] Tramadol HCl 50 mg 05/06/25 19:31 05/06/25 21:30 Tramadol Hcl (*Crx) 50 Mg Tablet PO 50 mg Q8H PRN Administration Pain Rated 4-6 Radiology Results: ITS Impressions Chest X-Ray 05/06/25 13:46 IMPRESSION: 1. Small right posterior basilar atelectasis and/or effusion persists. 2. Otherwise no acute abnormality. Abdomen X-Ray 05/06/25 13:59 Impression: 1. No acute abnormality. Labs Labs: Laboratory Results - last 24 hr 05/06/25 05/06/25 05/07/25 12:02 14:58 01:23 WBC 13.5 H RBC 4.37 Hgb 12.2 Hct 36.6 L MCV 83.8 MCH 27.9 MCHC 33.3 RDW 13.5 Plt Count 375 MPV 9.7 Immature Gran % (Auto) 1.0 H Neut % (Auto) 80.7 H Lymph % (Auto) 9.0 L Mckean % (Auto) 8.7 H Eos % (Auto) 0.1 Baso % (Auto) 0.5 Lymph # (Auto) 1.22 Mckean # (Auto) 1.2 H Eos # (Auto) 0.0 Baso # (Auto) 0.1 Abs Immat Gran (auto) 0.13 H Absolute Neuts (auto) 10.9 H Absolute Nucleated RBC 0.000 Nucleated RBC % 0.0 Sodium 128 L Potassium 3.6 Chloride 91 L Carbon Dioxide 26 Anion Gap 11 BUN 13 Creatinine 0.77 Estim Creat Clear Calc 33 Estimated GFR > 60 Glucose 131 H POC Capillary Glucose 128 H Hemoglobin A1c Calcium 9.9 Total Bilirubin 1.4 H AST 45 H ALT 14 Alkaline Phosphatase 276 H Total Protein 6.9 Albumin 3.6 Urine Color Yellow Urine Appearance Clear Urine pH 6.0 Ur Specific [place] 1.013 Urine Protein 2+ H Urine Glucose (UA) 1+ H Urine Ketones 2+ H Ur Blood (Man) Negative Urine Nitrate Negative Urine Bilirubin Negative Urine Urobilinogen 2.0 H Leukocyte Esterase Rfl Negative Urine RBC 3-5 H Urine WBC 0-5 Ur Squamous Epith Cells None seen Urine Bacteria None seen Urine Casts 3-5 05/07/25 04:36 WBC RBC Hgb Hct MCV MCH MCHC RDW Plt Count MPV Immature Gran % (Auto) Neut % (Auto) Lymph % (Auto) [place]ke[place] % (Auto) Eos % (Auto) Baso % (Auto) Lymph # (Auto) Mckean # (Auto) Eos # (Auto) Baso # (Auto) Abs Immat Gran (auto) Absolute Neuts (auto) Absolute Nucleated RBC Nucleated RBC % Sodium Potassium Chloride Carbon Dioxide Anion Gap BUN Creatinine Estim Creat Clear Calc Estimated GFR Glucose POC Capillary Glucose Hemoglobin A1c 5.9 H Calcium Total Bilirubin AST ALT Alkaline Phosphatase Total Protein Albumin Urine Color Urine Appearance Urine pH Ur Specific [place] Urine Protein Urine Glucose (UA) Urine Ketones Ur Blood (Man) Urine Nitrate Urine Bilirubin Urine Urobilinogen Leukocyte Esterase Rfl Urine RBC Urine WBC Ur Squamous Epith Cells Urine Bacteria Urine Casts
[2025-05-07 08:00] VITALS: PULSE 95; RESP 16; O2SAT 98
[2025-05-07 08:36] VITALS: BP 164/74; PULSE 95; RESP 16; TEMP 36.1; O2SAT 98
[2025-05-07] MEDS: ESCITALOPRAM OXALATE 10 MG TABLET BY MOUTH (08:38)
[2025-05-07] MEDS: traMADol HCL (*CRX) 50 MG TABLET PO (10:43)
[2025-05-07 11:37] VITALS: BMI 22.3
--- NOTE | 2025-05-07 13:33 | P.CDI_ITS ---
CDI Query Clarification Request BMI: 22.3 Nutritional Diagnostic Statement: Please refer to the comprehensive nutrition assessment for further information. If you agree with diagnosis of Moderate Protein Calorie Malnutrition as related to inadequate protein-energy intake with increased protein-energy needs in setting of chronic disease (lymphoma) as evidenced by minimal oral intake for > 1-2 months; moderate muscle wasting (temporalis) and moderate subcutaneous fat loss (orbital fat pads). Please specify severity if known: * Mild * Moderate * Severe * Other/Unknown <Darlene Cast RN - Last Filed: 05/07/25 13:34> Clarified Diagnosis Clarified Diagnosis: Agree with diagnosis of Moderate Protein Calorie Malnutrition - appreciate dietary recommendations <Ottoniel Ulloa PA-C - Last Filed: 05/07/25 13:41>
[2025-05-07 14:00] VITALS: BP 153/65; PULSE 88; RESP 14; TEMP 36.5; O2SAT 98
--- NOTE | 2025-05-07 18:07 | WPDONCCN ---
Assessment and Plan Assessment and plan (1) Lymphoma: Qualifiers: Lymphoma site: unspecified region Lymphoma type: unspecified type Qualified Code(s): C85.90 - Non-Hodgkin lymphoma, unspecified, unspecified site Code(s): C85.90 - Non-Hodgkin lymphoma, unspecified, unspecified site Status: Acute Assessment and Plan: Patient with a history of diabetes presented with abdominal discomfort fever chills and night sweats in CT scan done on March 29 showed bulky mesenteric and upper abdominal and retroperitoneal lymphadenopathy favors lymphoma. There was also lobular mesenteric mass which is a common limitation of the lymph nodes measures 13 x 8.2 x 4.7 cm. There was enlarged portacaval and left periaortic and right pericaval lymphadenopathy. These findings are highly consistent with lymphoma. I have discussed this case with intervention radiologist and suggested to have left supraclavicle ultrasound-guided lymph node biopsy planned for tomorrow. Most of her symptoms so related to lymphoma and I expect them to improve after treatment based on the type of the lymphoma. She will follow-up in the office to start management. HPI Data of Consult Date/Time: 05/07/25 18:07 Requesting Physician: Elan Sarah MD Primary Care Provider: Jas Padgett DO Consult Narrative Narrative: Nusrat Hernández is a 84 year old female with history of hypertension, type 2 diabetes and hyperlipidemia started having abdominal discomfort off and on for the last couple of months along with night sweats fevers and chills with poor appetite. She lost 10 lb weight in last few weeks. CT abdomen and pelvis done on March 29 showed bulky mesenteric and upper abdominal retroperitoneal lymphadenopathy favors lymphoma. Plan was to perform supraclavicular lymph node biopsy but patient came into the hospital with worsening of the abdominal discomfort tiredness and fatigue and loss of appetite. Labs showed WBC count of 10.3 with hemoglobin of 11.1. Chest x-ray showed small right basilar atelectasis. Abdominal x-ray showed no acute abnormality. She is scheduled to have lymph node biopsy tomorrow. Review of Systems Review of Systems: Twelve point review of system was reviewed [facility] Past Medical History Medical History Axillary abscess MRSA infection Diabetic retinopathy Left genital labial abscess Hypertension Hyperlipidemia Type 2 diabetes mellitus Complicated by diabetic retinopathy. Surgical History Surgical History History of cataract extraction History of tonsillectomy Family History Family History Other Diabetes mellitus Family history of cardiovascular disease Family history of thyroid disease Social History Social History Social History: Surrogate decision maker: Jyoti Finnegan, daughter. Code status: Do not resuscitate. Smoking status: Never smoker Second hand tobacco smoke exposure: No Alcohol intake: never Substance use: never Substance use type: does not use Do You Feel Safe in your Home?: Yes Lack of Transportation: YES Lack of Food: Never True Current Housing: I Have Housing Concerned About Future Housing: No Difficulty Paying Gas/Electric Bills: No Difficulty Paying for Meds: No Currently Unemployed: No Education: High School Diploma/GED Difficulty w/ Childcare or Family Care: No Living arrangements: with family Additional living arrangements comments: Lives in [place] with her son Shahriar. Her daughter Tameka sees her often. Patient requires Min to moderate assist with ADLs. Ambulates with a walker. 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 Spiritual care concerns: No Meds Home Medications and Allergies Home Medications ?Medication ?Instructions ?Recorded ?Confirmed ?Type docusate sodium 50 mg capsule 50 mg PO TID constipation 11/14/23 05/06/25 History vfiwrxor-pko-ekiyz acid 0.4 1 tablet PO DAILY #30 tabs 12/07/23 05/06/25 Rx mg-lycopene 300 mcg-lutein 250 mcg tablet blood sugar diagnostic (FreeStyle #100 ea 09/11/24 05/07/25 Rx Test strips) escitalopram oxalate 10 mg tablet See Rx Instructions .Route 09/11/24 05/06/25 Rx .COMPLEX #90 tabs lancets (Accu-Chek Softclix #100 ea 09/11/24 05/07/25 Rx Lancets) lisinopril 10 mg tablet See Rx Instructions .Route 09/11/24 05/06/25 Rx .COMPLEX #90 tabs blood-glucose meter (Blood Glucose #1 ea 11/09/24 05/07/25 Rx Monitoring kit) blood-glucose sensor (FreeStyle #1 ea 04/09/25 05/07/25 Rx Clement 3 Plus Sensor device) nystatin 100,000 unit/gram topical 1 applic topical TID #60 grams 04/22/25 05/06/25 Rx powder Allergies Allergy/AdvReac Type Severity Reaction Status Date / Time No Known Allergies Allergy Verified 05/06/25 20:34 Vital Signs Vital Signs - 24 hr 05/06/25 18:37 05/06/25 20:00 05/06/25 20:51 Temperature 36.3 C L Pulse Rate 63 89 Respiratory Rate 18 18 Blood Pressure 163/72 H 186/77 H Pulse Oximetry 96 98 Oxygen Delivery Room Air 05/07/25 05:49 05/07/25 08:00 05/07/25 08:36 Temperature 36.6 C 36.1 C L Pulse Rate 87 95 95 Respiratory Rate 17 16 16 Blood Pressure 153/71 H 164/74 H Pulse Oximetry 98 98 98 Oxygen Delivery Room Air 05/07/25 11:50 05/07/25 12:14 05/07/25 14:00 Temperature 36.5 C Pulse Rate 88 Respiratory Rate 14 Blood Pressure 153/65 H Pulse Oximetry 98 Oxygen Delivery Room Air Room Air Exam Narrative: Lungs are clear to auscultation bilaterally Cardiovascular regular rate rhythm no murmurs Abdomen is slightly distended bowel sounds are positive Extremities no edema Results Labs 05/06/25 12:02 05/06/25 12:02
[2025-05-07 20:03] VITALS: BP 175/71; PULSE 94; RESP 16; TEMP 36.3; O2SAT 98
[2025-05-08] MEDS: LACTATED RINGERS 1,000 ML 125 ML IV CONT ×2 (03:51→11:55)
[2025-05-08 04:34] VITALS: BP 178/64; PULSE 88; RESP 16; TEMP 36.2; O2SAT 100
[2025-05-08 05:17] LABS: Hematocrit 31.0 % (37.0-47.0); Hemoglobin 9.9 g/dL (12.0-15.0); Mean Corpuscular HGB Conc 31.9 g/dl (32-36); Mean Corpuscular Hemoglobin 27.4 pg (26-34); Mean Corpuscular Volume 85.9 fl (80-100); Platelet Count Result 314 k/mm3 (150-375); Red Blood Count 3.61 M/mm3 (4.2-5.4); White Blood Count 10.2 K/mm3 (4.5-10.0)
[2025-05-08 05:29] LABS: Anion Gap 9 mmol/L (4-12); Blood Urea Nitrogen 10 mg/dL (7-17); Calcium 8.8 mg/dL (8.4-10.2); Carbon Dioxide 24 mmol/L (22-30); Chloride 95 mmol/L (98-107); Estimated CRCL calculation 37 ml/min; Estimated Glomerular Filt Rate > 60; Glucose 127 mg/dL (65-110); Potassium 3.4 mmol/L (3.4-5.0); Sodium 128 mmol/L (137-145)
[2025-05-08] MEDS: MICONAZOLE NITRATE 2% CREAM 30 GM TUBE 1 APPLIC TOPICAL ×2 (06:54→20:30)
[2025-05-08 09:38] VITALS: O2SAT 96
--- NOTE | 2025-05-08 11:39 | P.PNIM_ITS ---
Progress Note: A&P Assessment and Plan (1) Lymphoma: Qualifiers: Lymphoma site: unspecified region Lymphoma type: unspecified type Qualified Code(s): C85.90 - Non-Hodgkin lymphoma, unspecified, unspecified site Code(s): C85.90 - Non-Hodgkin lymphoma, unspecified, unspecified site Status: Acute Assessment and Plan: CT abdomen pelvis with contrast 03/29/2025, revealing bulky mesenteric and upper retroperitoneal lymphadenopathy, favoring lymphoma. PET scan on 04/22 dem onstrated lymphadenopathy in the chest abdomen and pelvis with increased activity, consistent with lymphoma. Small bilateral pleural effusions, small volume ascites * Dr. Dang consulted * plan for biopsy, hopefully on 05/07 * Keep NPO * Left supraclavicular ultrasound-guided lymph node biopsy today (2) Adult failure to thrive: Code(s): R62.7 - Adult failure to thrive Status: Acute Assessment and Plan: Patient with new newly diagnosed lymphoma awaiting biopsy. Recently with poor p.o. intake. 1 L NS bolus in ED. Shown improvement in mentation with hydration. * LR at 125 mL per hour * PT/OT consult * registered dietitian consult (3) Type 2 diabetes mellitus with hyperglycemia: Qualifiers: Diabetes mellitus supervisor intermediates insulin use: without supervisor intermediates use Qualified Code(s): E11.65 - Type 2 diabetes mellitus with hyperglycemia Code(s): E11.65 - Type 2 diabetes mellitus with hyperglycemia Status: Chronic Assessment and Plan: * Glucose 131 on admit. CGM in place * hypoglycemia protocol * POC blood glucose ACHS * home medication: No home medications * A1c 5.9 * correct regimen ordered: Low-dose corrective scale Plan Diet: Diabetic-NPO at midnight GI prophylaxis: NA DVT prophylaxis: SCDs lines/drains: PIV Fluids: 1 L NS Code status: Full Subjective Date/time seen: 05/08/25 11:39 Interval history: 84-year-old female a past medical history of HTN, hyperlipidemia, lymphoma, DMII (currently on medication) presented to the ED with family with increased weakness and confusion noticed by family. They also state she has had poor p.o. intake over the past few days and has been intermittently constipated. 05/08/2025 Patient sitting comfortably in bed at time of examination. Denies any chest pain, shortness of breath, nausea/vomiting at this time. Still having some generalized abdominal discomfort. Dr. Dang was able to see pt last night - planning for left supraclavicular ultrasound-guided lymph node biopsy. Review of Systems Review of Systems: All systems reviewed & are unremarkable except as noted in HPI and below Exam Narrative: GENERAL: Chronically ill-appearing and frail, in no acute distress. HEAD: Normocephalic, atraumatic. EYES: PERRLA. Conjunctivae clear. NOSE: Normal no drainage. THROAT: Pharynx clear, no exudate. NECK: Trachea midline. No adenopathy, no masses. RESPIRATORY: Airway patent, respirations nonlabored. CTA. CARDIOVASCULAR: Regular rate and rhythm. Palpable peripheral pulses. Murmur present. BREASTS: Defer GASTROINTESTINAL: Abdomen is soft and mildly tender to right upper quadrant. Bowel sounds normal in all quadrants. GENITOURINARY: Defer MUSCULOSKELETAL: Moves all extremities. No gross deformities. No calf tenderness. SKIN: Warm, dry, normal color. NEURO: A&O X2. Speech clear PSYCHIATRIC: Normal interaction Objective Data Vital Signs Vital Signs: Vital Signs - 24 hr 05/07/25 11:50 05/07/25 12:14 05/07/25 14:00 Temperature 97.7 F Pulse Rate 88 Respiratory Rate 14 Blood Pressure 153/65 H Pulse Oximetry 98 Oxygen Delivery Room Air Room Air 05/07/25 20:00 05/07/25 20:03 05/08/25 04:34 Temperature 97.3 F L 97.2 F L Pulse Rate 94 88 Respiratory Rate 16 16 Blood Pressure 175/71 H 178/64 H Pulse Oximetry 98 100 Oxygen Delivery Room Air 05/08/25 09:35 05/08/25 09:38 Temperature Pulse Rate Respiratory Rate Blood Pressure Pulse Oximetry 96 Oxygen Delivery Room Air Room Air Intake/Output Intake/Output: Intake & Output 05/05/25 05/06/25 05/07/25 05/08/25 23:59 23:59 23:59 23:59 Intake Total 1000 3290.8 1000 Output Total 150 775 700 Balance 850 2515.8 300 Meds/Results Medications: Active Medications Generic Name Dose Route Start Last Admin Trade Name Freq PRN Reason Stop Dose Admin Acetaminophen 650 mg 05/06/25 16:59 Acetaminophen 325 Mg Tablet PO Q4H PRN Mild Pain (1-3) or Fever Dextrose 12.5 gm 05/06/25 23:58 Dextrose 50% 25 Gm/50 Ml Syringe IV PUSH PRN PRN Hypoglycemia Protocol Docusate Sodium 50 mg 05/07/25 09:00 05/08/25 09:30 Docusate Sodium Liq 100 Mg/10 Ml Udc PO Not Given TID KRISHAN Escitalopram Oxalate 10 mg 05/07/25 09:00 05/08/25 09:30 Escitalopram Oxalate 10 Mg Tablet BY MOUTH Not Given DAILY KR[facility]AN Glucagon 1 mg 05/06/25 23:58 Glucagon For Inj 1 Mg Vial IM PRN PRN Hypoglycemia Protocol Glucose 15 gm 05/06/25 23:58 Glucose Oral Gel 15 Gm Of Glucse In 37.5 Gm Tube PO PRN PRN Hypoglycemia Protocol Lactated Ringer's 1,000 mls @ 125 mls/hr 05/06/25 17:00 05/08/25 03:51 Lr - Lactated Ringers Iv IV CONT 125 mls/hr .Q8H KRISHAN Administration Dextrose 1,000 mls @ 100 mls/hr 05/06/25 23:58 Dextrose 5% 1,000 Ml IVPB PRN PRN Hypoglycemia Protocol Insulin Aspart 2 - 5 units 05/07/25 08:00 05/08/25 09:29 Insulin Aspart (*Bkc) 100 Units/Ml SUB-Q Not Given TIDWM [facility] Protocol Lisinopril 10 mg 05/06/25 23:30 05/08/25 09:30 Lisinopril 10 Mg Tablet BY MOUTH Not Given DAILY [facility] Miconazole Nitrate 1 applic 05/06/25 22:00 05/08/25 06:54 Miconazole Nitrate 2% Cream 30 Gm Tube TOPICAL 1 applic Q8H KRISHAN Administration Ondansetron HCl 4 mg 05/06/25 16:59 Ondansetron Inj 4 Mg/2 Ml Vial IV PUSH Q4H PRN Nausea Polyethylene Glycol 17 gm 05/07/25 09:00 05/08/25 09:30 Polyethylene Glycol 3350 17 Gm Powd.Pack PO Not Given QAM [facility] Sodium Chloride 500 mg 05/08/25 09:00 05/08/25 09:30 Sodium Chloride 500 Mg Tablet PO Not Given BID [facility] Tramadol HCl 50 mg 05/06/25 19:31 05/07/25 10:43 Tramadol Hcl (*Crx) 50 Mg Tablet PO 50 mg Q8H PRN Administration Pain Rated 4-6 Radiology Results: ITS Impressions Chest X-Ray 05/06/25 13:46 IMPRESSION: 1. Small right posterior basilar atelectasis and/or effusion persists. 2. Otherwise no acute abnormality. Abdomen X-Ray 05/06/25 13:59 Impression: 1. No acute abnormality. Labs Labs: Laboratory Results - last 24 hr 05/07/25 05/07/25 05/07/25 11:41 16:46 20:03 WBC RBC Hgb Hct MCV MCH MCHC RDW Plt Count MPV Sodium Potassium Chloride Carbon Dioxide Anion Gap BUN Creatinine Estim Creat Clear Calc Estimated GFR Glucose POC Capillary Glucose 156 H 158 H 140 H Calcium 05/08/25 05/08/25 04:28 07:31 WBC 10.2 H RBC 3.61 L Hgb 9.9 L Hct 31.0 L MCV 85.9 MCH 27.4 MCHC 31.9 L RDW 13.7 Plt Count 314 MPV 10.1 Sodium 128 L Potassium 3.4 Chloride 95 L Carbon Dioxide 24 Anion Gap 9 BUN 10 Creatinine 0.68 L Estim Creat Clear Calc 37 Estimated GFR > 60 Glucose 127 H POC Capillary Glucose 142 H Calcium 8.8
[2025-05-08] MEDS: MORPHINE SULFATE (*CRX) 4 MG/ML INJ 2 MG IV PUSH (11:55)
[2025-05-08 14:00] VITALS: BP 162/57; PULSE 85; RESP 15; TEMP 36.5; O2SAT 95
--- NOTE | 2025-05-08 14:13 | PCPTNOTE ---
RN requests to allow patient to rst his afternoon. Patient sleeping at this time. RN states patient did not sleep last night. PT will continue to follow.
[2025-05-08] MEDS: SODIUM CHLORIDE 500 MG TABLET PO (16:12)
[2025-05-08 21:04] VITALS: BP 169/68; PULSE 99; RESP 18; TEMP 37.2; O2SAT 99
[2025-05-09] MEDS: MICONAZOLE NITRATE 2% CREAM 30 GM TUBE 1 APPLIC TOPICAL ×2 (05:09→22:32)
[2025-05-09 05:25] LABS: INR 1.2; Prothrombin Time 15.1 Seconds (11.1-14.7)
[2025-05-09 05:26] LABS: Partial Thromboplastin Time 39.8 Seconds (22.3-36.8)
[2025-05-09 05:43] VITALS: BP 172/60; PULSE 90; RESP 20; TEMP 36.9; O2SAT 99
[2025-05-09 08:21] LABS: Hematocrit 31.0 % (37.0-47.0); Hemoglobin 9.8 g/dL (12.0-15.0); Immature Granulocyte Percent A 0.8 % (0-0.5); Lymphocytes Absolute Auto 1.17 K/mm3 (0.9-3.2); Mean Corpuscular HGB Conc 31.6 g/dl (32-36); Mean Corpuscular Hemoglobin 27.3 pg (26-34); Mean Corpuscular Volume 86.4 fl (80-100); Nucleated Red Blood Cells Absolute Auto 0.000 K/mm3 (0.0-0.012); Nucleated Red Blood Cells Perc 0.0 % (0.0-0.2); Platelet Count Result 333 k/mm3 (150-375); Red Blood Count 3.59 M/mm3 (4.2-5.4); White Blood Count 10.2 K/mm3 (4.5-10.0)
[2025-05-09 08:22] LABS: Alanine Aminotransferase 12 U/L (6-35); Albumin Level 2.9 g/dL (3.5-5.1); Alkaline Phosphatase 186 U/L (38-126); Anion Gap 6 mmol/L (4-12); Aspartate Amino Transferase 38 U/L (14-36); Bilirubin,Total 0.9 mg/dL (0.2-1.3); Blood Urea Nitrogen 8 mg/dL (7-17); Calcium 8.9 mg/dL (8.4-10.2); Carbon Dioxide 29 mmol/L (22-30); Chloride 95 mmol/L (98-107); Estimated CRCL calculation 40 ml/min; Estimated Glomerular Filt Rate > 60; Glucose 129 mg/dL (65-110); Potassium 3.4 mmol/L (3.4-5.0); Sodium 130 mmol/L (137-145); Total Protein 5.6 g/dL (6.3-8.2)
[2025-05-09 09:11] VITALS: PULSE 90; RESP 20; O2SAT 99
--- NOTE | 2025-05-09 10:36 | S_PTH ---
PATIENT: Nusrat Kirby LOC: [id number] U#:[id number] AGE/SX: 84/F ROOM: 241 RE05/07/[address]: Mary Lou Bazzi APRN : 1940 BED: 01 DIS: 05/12/2025 SPEC #: [id number] RECD: 05/09/25 11:19 STATUS: KIMANI REShahzad #: [id number] EH: 05/09/25 10:[address]: Ottoniel Ulloa DEPT: [facility] Surgical RECD BY: Zenia Zapata ENTERED: 05/09/25 11:20 SP TYPE: Surgical OTHR DR: MD Jas Adames DO Prashanth Jayaraj, MD Tissues: A - Lymph Node Biopsy Procedures: Unstained Slides Hematoxylin and Eosin Stain Gross and Microscopic Level 4 Flow Cytometry
--- NOTE | 2025-05-09 11:13 | PCOTNOTE ---
Patient reports she just wants to rest after having a biopsy this morning. Encouraged patient to participate but continues to state wanting to rest.
[2025-05-09] MEDS: ESCITALOPRAM OXALATE 10 MG TABLET BY MOUTH (12:25)
[2025-05-09] MEDS: SODIUM CHLORIDE 500 MG TABLET PO (12:25)
[2025-05-09] MEDS: traMADol HCL (*CRX) 50 MG TABLET PO (12:47)
[2025-05-09 13:30] VITALS: BP 176/64; PULSE 96; RESP 16; TEMP 36.8; O2SAT 98
--- NOTE | 2025-05-09 15:08 | P.PNIM_ITS ---
Progress Note: A&P Assessment and Plan (1) Lymphoma: Qualifiers: Lymphoma site: unspecified region Lymphoma type: unspecified type Qualified Code(s): C85.90 - Non-Hodgkin lymphoma, unspecified, unspecified site Code(s): C85.90 - Non-Hodgkin lymphoma, unspecified, unspecified site Status: Acute Assessment and Plan: CT abdomen pelvis with contrast 03/29/2025, revealing bulky mesenteric and upper retroperitoneal lymphadenopathy, favoring lymphoma. PET scan on 04/22 dem onstrated lymphadenopathy in the chest abdomen and pelvis with increased activity, consistent with lymphoma. Small bilateral pleural effusions, small volume ascites * Dr. Dang consulted * Left supraclavicular ultrasound-guided lymph node biopsy completed today * patient will need to follow up with oncology as an outpatient for results and treatment options * patient needs SNF on rehab, will discharge once placement arranged and insurance auth obtained (2) Adult failure to thrive: Code(s): R62.7 - Adult failure to thrive Status: Acute Assessment and Plan: Patient with new newly diagnosed lymphoma awaiting biopsy. Recently with poor p.o. intake. 1 L NS bolus in ED. Shown improvement in mentation with hydration. * s/p LR at 125 mL per hour * PT/OT consult * registered dietitian consult * patient needs SNF on discahrge, very weak, family agreeable, will discharge to SNF once insurance auth obtained (3) Type 2 diabetes mellitus with hyperglycemia: Qualifiers: Diabetes mellitus intermediate insulin use: without meterman use Qualified Code(s): E11.65 - Type 2 diabetes mellitus with hyperglycemia Code(s): E11.65 - Type 2 diabetes mellitus with hyperglycemia Status: Chronic Assessment and Plan: * Glucose 131 on admit. CGM in place * hypoglycemia protocol * POC blood glucose ACHS * home medication: No home medications * A1c 5.9 * correct regimen ordered: Low-dose corrective scale Plan Diet: Diabetic GI prophylaxis: NA DVT prophylaxis: SCDs lines/drains: PIV Code status: Full Subjective Date/time seen: 05/09/25 15:08 Interval history: 84-year-old female a past medical history of HTN, hyperlipidemia, lymphoma, DMII (currently on medication) presented to the ED with family with increased weakness and confusion noticed by family. They also state she has had poor p.o. intake over the past few days and has been intermittently constipated. Patient seen for a follow up visit. Patient had the left supraclavicular ultrasound-guided lymph node biopsy completed today. Patient will need to follow up with oncology as an outpatient for the results. Patient denies acute pain. Patient reports she does not want to go to rehab on discharge, but per CM notes family has requested admission to SNF as patient is very weak. Patient will discharge to rehab once insurance auth is obtained. Review of Systems Review of Systems: All systems reviewed & are unremarkable except as noted in HPI and below Exam Narrative: GENERAL: Chronically ill-appearing and frail, in no acute distress. HEAD: Normocephalic, atraumatic. EYES: PERRLA. Conjunctivae clear. NOSE: Normal no drainage. THROAT: Pharynx clear, no exudate. NECK: Trachea midline. No adenopathy, no masses. RESPIRATORY: Airway patent, respirations nonlabored. CTA. CARDIOVASCULAR: Regular rate and rhythm. Palpable peripheral pulses. Murmur present. GASTROINTESTINAL: Abdomen is soft and mildly tender to right upper quadrant. Bowel sounds normal in all quadrants. GENITOURINARY: Defer MUSCULOSKELETAL: Moves all extremities. No gross deformities. No calf tenderness. SKIN: Warm, dry, normal color. NEURO: A&O X2. Speech clear PSYCHIATRIC: Normal interaction Objective Data Vital Signs Vital Signs: Vital Signs - 24 hr 05/08/25 21:04 05/09/25 05:43 05/09/25 09:11 Temperature 99 F 98.5 F Pulse Rate 99 90 90 Respiratory Rate 18 20 20 Blood Pressure 169/68 H 172/60 H Pulse Oximetry 99 99 99 Oxygen Delivery Room Air 05/09/25 13:30 Temperature 98.3 F Pulse Rate 96 Respiratory Rate 16 Blood Pressure 176/64 H Pulse Oximetry 98 Oxygen Delivery Intake/Output Intake/Output: Intake & Output 05/06/25 05/07/25 05/08/25 05/09/25 23:59 23:59 23:59 23:59 Intake Total 1000 3290.8 2120 490 Output Total 150 775 800 Balance 850 2515.8 1320 490 Meds/Results Medications: Active Medications Generic Name Dose Route Start Last Admin Trade Name Freq PRN Reason Stop Dose Admin Acetaminophen 650 mg 05/06/25 16:59 Acetaminophen 325 Mg Tablet PO Q4H PRN Mild Pain (1-3) or Fever Dextrose 12.5 gm 05/06/25 23:58 Dextrose 50% 25 Gm/50 Ml Syringe IV PUSH PRN PRN Hypoglycemia Protocol Docusate Sodium 50 mg 05/07/25 09:00 05/09/25 12:25 Docusate Sodium Liq 100 Mg/10 Ml Udc PO 50 mg TID KRISHAN Administration Escitalopram Oxalate 10 mg 05/07/25 09:00 05/09/25 12:25 Escitalopram Oxalate 10 Mg Tablet BY MOUTH 10 mg DAILY KRISHAN Administration Glucagon 1 mg 05/06/25 23:58 Glucagon For Inj 1 Mg Vial IM PRN PRN Hypoglycemia Protocol Glucose 15 gm 05/06/25 23:58 Glucose Oral Gel 15 Gm Of Glucse In 37.5 Gm Tube PO PRN PRN Hypoglycemia Protocol Dextrose 1,000 mls @ 100 mls/hr 05/06/25 23:58 Dextrose 5% 1,000 Ml IVPB PRN PRN Hypoglycemia Protocol Insulin Aspart 2 - 5 units 05/07/25 08:00 05/09/25 12:26 Insulin Aspart (*Bkc) 100 Units/Ml SUB-Q Not Given TIDWM [facility] Protocol Lisinopril 10 mg 05/06/25 23:30 05/09/25 12:25 Lisinopril 10 Mg Tablet BY MOUTH 10 mg DAILY KRISHAN Administration Miconazole Nitrate 1 applic 05/06/25 22:00 05/09/25 05:09 Miconazole Nitrate 2% Cream 30 Gm Tube TOPICAL 1 applic Q8H KRISHAN Administration Ondansetron HCl 4 mg 05/06/25 16:59 Ondansetron Inj 4 Mg/2 Ml Vial IV PUSH Q4H PRN Nausea Polyethylene Glycol 17 gm 05/07/25 09:00 05/09/25 12:25 Polyethylene Glycol 3350 17 Gm Powd.Pack PO Not Given QAM [facility] Sodium Chloride 500 mg 05/08/25 09:00 05/09/25 12:25 Sodium Chloride 500 Mg Tablet PO 500 mg BID KRISHAN Administration Tramadol HCl 50 mg 05/06/25 19:31 05/09/25 12:47 Tramadol Hcl (*Crx) 50 Mg Tablet PO 50 mg Q8H PRN Administration Pain Rated 4-6 Radiology Results: ITS Impressions Chest X-Ray 05/06/25 13:46 IMPRESSION: 1. Small right posterior basilar atelectasis and/or effusion persists. 2. Otherwise no acute abnormality. Abdomen X-Ray 05/06/25 13:59 Impression: 1. No acute abnormality. Lymph Node Biopsy Ultrasound 05/09/25 10:59 IMPRESSION: 1. Successful Ultrasound-guided biopsy of a couple enlarged left supraclavicular lymph nodes. Labs Labs: Laboratory Results - last 24 hr 05/08/25 05/08/25 05/09/25 16:42 20:32 04:53 WBC 10.2 H RBC 3.59 L Hgb 9.8 L Hct 31.0 L MCV 86.4 MCH 27.3 MCHC 31.6 L RDW 14.0 Plt Count 333 MPV 10.4 Immature Gran % (Auto) 0.8 H Neut % (Auto) 76.7 H Lymph % (Auto) 11.5 L [place] % (Auto) 10.3 H Eos % (Auto) 0.1 Baso % (Auto) 0.6 Lymph # (Auto) 1.17 [place] # (Auto) 1.1 H Eos # (Auto) 0.0 Baso # (Auto) 0.1 Abs Immat Gran (auto) 0.08 H Absolute Neuts (auto) 7.8 H Absolute Nucleated RBC 0.000 Nucleated RBC % 0.0 PT 15.1 H INR 1.2 APTT 39.8 H Sodium 130 L Potassium 3.4 Chloride 95 L Carbon Dioxide 29 Anion Gap 6 BUN 8 Creatinine 0.63 L Estim Creat Clear Calc 40 Estimated GFR > 60 Glucose 129 H POC Capillary Glucose 119 H 166 H Calcium 8.9 Total Bilirubin 0.9 AST 38 H ALT 12 Alkaline Phosphatase 186 H Total Protein 5.6 L Albumin 2.9 L 05/09/25 05/09/25 07:19 11:20 WBC RBC Hgb Hct MCV MCH MCHC RDW Plt Count MPV Immature Gran % (Auto) Neut % (Auto) Lymph % (Auto) [place] % (Auto) Eos % (Auto) Baso % (Auto) Lymph # (Auto) [place] # (Auto) Eos # (Auto) Baso # (Auto) Abs Immat Gran (auto) Absolute Neuts (auto) Absolute Nucleated RBC Nucleated RBC % PT INR APTT Sodium Potassium Chloride Carbon Dioxide Anion Gap BUN Creatinine Estim Creat Clear Calc Estimated GFR Glucose POC Capillary Glucose 138 H 146 H Calcium Total Bilirubin AST ALT Alkaline Phosphatase Total Protein Albumin Quality VTE Prophylaxis VTE prophylaxis: mechanical ordered
[2025-05-09 20:44] VITALS: BP 180/74; PULSE 89; RESP 16; TEMP 36.7; O2SAT 99
[2025-05-10 04:59] VITALS: BP 186/80; PULSE 83; RESP 18; TEMP 36.5; O2SAT 96
[2025-05-10 05:28] LABS: Hematocrit 29.4 % (37.0-47.0); Hemoglobin 9.7 g/dL (12.0-15.0); Immature Granulocyte Percent A 0.9 % (0-0.5); Lymphocytes Absolute Auto 0.71 K/mm3 (0.9-3.2); Mean Corpuscular HGB Conc 33.0 g/dl (32-36); Mean Corpuscular Hemoglobin 27.6 pg (26-34); Mean Corpuscular Volume 83.5 fl (80-100); Nucleated Red Blood Cells Absolute Auto 0.000 K/mm3 (0.0-0.012); Nucleated Red Blood Cells Perc 0.0 % (0.0-0.2); Platelet Count Result 284 k/mm3 (150-375); Red Blood Count 3.52 M/mm3 (4.2-5.4); White Blood Count 9.7 K/mm3 (4.5-10.0)
[2025-05-10 07:29] LABS: Alanine Aminotransferase 11 U/L (6-35); Albumin Level 2.7 g/dL (3.5-5.1); Alkaline Phosphatase 183 U/L (38-126); Anion Gap 5 mmol/L (4-12); Aspartate Amino Transferase 32 U/L (14-36); Bilirubin,Total 0.8 mg/dL (0.2-1.3); Blood Urea Nitrogen 9 mg/dL (7-17); Calcium 8.9 mg/dL (8.4-10.2); Carbon Dioxide 30 mmol/L (22-30); Chloride 94 mmol/L (98-107); Estimated CRCL calculation 41 ml/min; Estimated Glomerular Filt Rate > 60; Glucose 133 mg/dL (65-110); Potassium 2.9 mmol/L (3.4-5.0); Sodium 129 mmol/L (137-145); Total Protein 5.2 g/dL (6.3-8.2)
--- NOTE | 2025-05-10 08:25 | PCOTNOTE ---
Patient in bed with eyes closed. PCT entering room due to patient had call light on to use the bathroom. Patient then stating No not right now, just give me a minute. Patient continues to decline to get up. attempted ADL in bed and patient declining activity. Will continue to follow.
[2025-05-10 08:55] VITALS: BP 138/81; PULSE 85; RESP 17; O2SAT 96
[2025-05-10] MEDS: ESCITALOPRAM OXALATE 10 MG TABLET BY MOUTH (08:57)
[2025-05-10] MEDS: SODIUM CHLORIDE 500 MG TABLET PO ×2 (08:57→17:04)
--- NOTE | 2025-05-10 10:16 | PCNFU ---
Nutrition Follow-Up Complete: Moderate Protein Calorie Malnutrition as related to inadequate protein-energy intake with increased protein-energy needs in setting of chronic disease (lymphoma) as evidenced by minimal oral intake for > 1-2 months; moderate muscle wasting (temporalis) and moderate subcutaneous fat loss (orbital fat pads). . Goal:Meet estimated nutritional needs Pt slowly progressing towards goal. Continue with same goal Pt current nutrition is Regular. Nutrition recommendation: Add nutrition ice cream cups daily, Ensure daily, vanilla flavor Last recorded weight is 51.9 kg. Bowel Motility: +BM 05/08 Labs Reviewed: Hgb:9.7, HCT:29.4, NA:129, Cr:0.6, Glu:133, A1C:5.9 Meds Noted: Colace, lexapro, novolog Skin: WNL Additional Notes: Pt advanced to a regular diet, intake 50% of meals. Pt reports a fair appetite and intake. Agreeable to nutrition ice cream (300kcals, 9g protein) daily and Ensure hi protein shakes (350kcals, 20g protein) daily, vanilla. Encourage intake of meals and supplements Will monitor weight, labs, skin, diet orders, meds, every 5 days.
[2025-05-10] MEDS: traMADol HCL (*CRX) 50 MG TABLET PO (12:33)
[2025-05-10 13:22] VITALS: BP 149/66; PULSE 88; RESP 16; TEMP 36.2; O2SAT 98
[2025-05-10] MEDS: MICONAZOLE NITRATE 2% CREAM 30 GM TUBE 1 APPLIC TOPICAL ×2 (13:44→22:00)
--- NOTE | 2025-05-10 15:46 | P.PNIM_ITS ---
Progress Note: A&P Assessment and Plan (1) Lymphoma: Qualifiers: Lymphoma site: unspecified region Lymphoma type: unspecified type Qualified Code(s): C85.90 - Non-Hodgkin lymphoma, unspecified, unspecified site Code(s): C85.90 - Non-Hodgkin lymphoma, unspecified, unspecified site Status: Acute Assessment and Plan: CT abdomen pelvis with contrast 03/29/2025, revealing bulky mesenteric and upper retroperitoneal lymphadenopathy, favoring lymphoma. PET scan on 04/22 dem onstrated lymphadenopathy in the chest abdomen and pelvis with increased activity, consistent with lymphoma. Small bilateral pleural effusions, small volume ascites * Dr. Dang consulted * Left supraclavicular ultrasound-guided lymph node biopsy completed today * patient will need to follow up with oncology as an outpatient for results and treatment options * patient needs SNF on rehab, will discharge once placement arranged and insurance auth obtained * discharge to swing bed at [facility] tomorrow (2) Adult failure to thrive: Code(s): R62.7 - Adult failure to thrive Status: Acute Assessment and Plan: Patient with new newly diagnosed lymphoma awaiting biopsy. Recently with poor p.o. intake. 1 L NS bolus in ED. Shown improvement in mentation with hydration. * s/p LR at 125 mL per hour * PT/OT consult * registered dietitian consult * patient needs SNF on discahrge, very weak, family agreeable, will discharge to SNF once insurance auth obtained (3) Type 2 diabetes mellitus with hyperglycemia: Qualifiers: Diabetes mellitus terminal operator insulin use: without terminal operator use Qualified Code(s): E11.65 - Type 2 diabetes mellitus with hyperglycemia Code(s): E11.65 - Type 2 diabetes mellitus with hyperglycemia Status: Chronic Assessment and Plan: * Glucose 131 on admit. CGM in place * hypoglycemia protocol * POC blood glucose ACHS * home medication: No home medications * A1c 5.9 * correct regimen ordered: Low-dose corrective scale (4) Hypokalemia: Code(s): E87.6 - Hypokalemia Status: Acute Assessment and Plan: k 2.9 today PO Kcl 40 meq x 1 dose start on daily K 10 meq BMP in am (5) Hyponatremia: Code(s): E87.1 - Hypo-osmolality and hyponatremia Status: Acute Assessment and Plan: Na 129 appears to be chronic on lab review continue to monitor Plan Diet: Diabetic GI prophylaxis: NA DVT prophylaxis: SCDs lines/drains: PIV Code status: Full Subjective Date/time seen: 05/10/25 15:46 Interval history: 84-year-old female a past medical history of HTN, hyperlipidemia, lymphoma, DMII (currently on medication) presented to the ED with family with increased weakness and confusion noticed by family. They also state she has had poor p.o. intake over the past few days and has been intermittently constipated. Patient seen for a follow up visit. Patient lying in bed, sleeping, in no acute distress. Patient denies acute pain. Patients labs reviewed and K 2.9, Na 129. Sodium level is chronically low. PO potassium chloride 40 meq x 1 dose ordered. Patient started on daily kcl 10 meq PO. Repeat CMP in am Patient participating with PT/OT. Patient needs rehab on discharge. Plan to discharge tomorrow to a swing bed at [place]. Review of Systems Review of Systems: All systems reviewed & are unremarkable except as noted in HPI and below Exam Narrative: GENERAL: Chronically ill-appearing and frail, in no acute distress. HEAD: Normocephalic, atraumatic. EYES: PERRLA. Conjunctivae clear. NOSE: Normal no drainage. NECK: Trachea midline. No adenopathy, no masses. RESPIRATORY: Airway patent, respirations nonlabored. CTA. CARDIOVASCULAR: Regular rate and rhythm. Palpable peripheral pulses. Murmur present. GASTROINTESTINAL: Abdomen is soft and mildly tender to right upper quadrant. Bowel sounds normal in all quadrants. GENITOURINARY: Defer MUSCULOSKELETAL: Moves all extremities. No gross deformities. No calf tenderness. SKIN: Warm, dry, normal color. NEURO: A&O X2. Speech clear PSYCHIATRIC: Normal interaction Objective Data Vital Signs Vital Signs: Vital Signs - 24 hr 05/09/25 20:00 05/09/25 20:44 05/10/25 04:59 Temperature 98.1 F 97.7 F Pulse Rate 89 83 Respiratory Rate 16 18 Blood Pressure 180/74 H 186/80 H Pulse Oximetry 99 96 Oxygen Delivery Room Air 05/10/25 08:50 05/10/25 08:55 05/10/25 13:22 Temperature 97.1 F L Pulse Rate 85 88 Respiratory Rate 17 16 Blood Pressure 138/81 149/66 H Pulse Oximetry 96 98 Oxygen Delivery Room Air Intake/Output Intake/Output: Intake & Output 05/07/25 05/08/25 05/09/25 05/10/25 23:59 23:59 23:59 23:59 Intake Total 3290.8 2120 730 580 Output Total 775 800 Balance 2515.8 1320 730 580 Meds/Results Medications: Active Medications Generic Name Dose Route Start Last Admin Trade Name Freq PRN Reason Stop Dose Admin Acetaminophen 650 mg 05/06/25 16:59 Acetaminophen 325 Mg Tablet PO Q4H PRN Mild Pain (1-3) or Fever Dextrose 12.5 gm 05/06/25 23:58 Dextrose 50% 25 Gm/50 Ml Syringe IV PUSH PRN PRN Hypoglycemia Protocol Docusate Sodium 50 mg 05/07/25 09:00 05/10/25 13:43 Docusate Sodium Liq 100 Mg/10 Ml Udc PO Not Given TID KRISHAN Escitalopram Oxalate 10 mg 05/07/25 09:00 05/10/25 08:57 Escitalopram Oxalate 10 Mg Tablet BY MOUTH 10 mg DAILY KRISHAN Administration Glucagon 1 mg 05/06/25 23:58 Glucagon For Inj 1 Mg Vial IM PRN PRN Hypoglycemia Protocol Glucose 15 gm 05/06/25 23:58 Glucose Oral Gel 15 Gm Of Glucse In 37.5 Gm Tube PO PRN PRN Hypoglycemia Protocol Dextrose 1,000 mls @ 100 mls/hr 05/06/25 23:58 Dextrose 5% 1,000 Ml IVPB PRN PRN Hypoglycemia Protocol Insulin Aspart 2 - 5 units 05/07/25 08:00 05/10/25 12:34 Insulin Aspart (*Bkc) 100 Units/Ml SUB-Q Not Given TIDWM [facility] Protocol Lisinopril 20 mg 05/10/25 09:00 05/10/25 08:57 Lisinopril 20 Mg Tablet PO 20 mg QAM KRISHAN Administration Miconazole Nitrate 1 applic 05/06/25 22:00 05/10/25 13:44 Miconazole Nitrate 2% Cream 30 Gm Tube TOPICAL 1 applic Q8H KRISHAN Administration Ondansetron HCl 4 mg 05/06/25 16:59 Ondansetron Inj 4 Mg/2 Ml Vial IV PUSH Q4H PRN Nausea Polyethylene Glycol 17 gm 05/07/25 09:00 05/10/25 08:58 Polyethylene Glycol 3350 17 Gm Powd.Pack PO Not Given QAM KRISHAN Sodium Chloride 500 mg 05/08/25 09:00 05/10/25 08:57 Sodium Chloride 500 Mg Tablet PO 500 mg BID KRISHAN Administration Tramadol HCl 50 mg 05/06/25 19:31 05/10/25 12:33 Tramadol Hcl (*Crx) 50 Mg Tablet PO 50 mg Q8H PRN Administration Pain Rated 4-6 Radiology Results: ITS Impressions Chest X-Ray 05/06/25 13:46 IMPRESSION: 1. Small right posterior basilar atelectasis and/or effusion persists. 2. Otherwise no acute abnormality. Abdomen X-Ray 05/06/25 13:59 Impression: 1. No acute abnormality. Lymph Node Biopsy Ultrasound 05/09/25 10:59 IMPRESSION: 1. Successful Ultrasound-guided biopsy of a couple enlarged left supraclavicular lymph nodes. Labs Labs: Laboratory Results - last 24 hr 05/09/25 05/09/25 05/10/25 16:27 20:43 04:57 WBC 9.7 RBC 3.52 L Hgb 9.7 L Hct 29.4 L MCV 83.5 MCH 27.6 MCHC 33.0 RDW 13.9 Plt Count 284 MPV 10.5 H Immature Gran % (Auto) 0.9 H Neut % (Auto) 82.2 H Lymph % (Auto) 7.3 L [place] % (Auto) 8.6 H Eos % (Auto) 0.1 Baso % (Auto) 0.9 Lymph # (Auto) 0.71 L [place] # (Auto) 0.8 H Eos # (Auto) 0.0 Baso # (Auto) 0.1 Abs Immat Gran (auto) 0.09 H Absolute Neuts (auto) 8.0 H Absolute Nucleated RBC 0.000 Nucleated RBC % 0.0 Sodium Potassium Chloride Carbon Dioxide Anion Gap BUN Creatinine Estim Creat Clear Calc Estimated GFR Glucose POC Capillary Glucose 161 H 159 H Calcium Total Bilirubin AST ALT Alkaline Phosphatase Total Protein Albumin 05/10/25 05/10/25 05/10/25 06:01 07:58 11:44 WBC RBC Hgb Hct MCV MCH MCHC RDW Plt Count MPV Immature Gran % (Auto) Neut % (Auto) Lymph % (Auto) [place] % (Auto) Eos % (Auto) Baso % (Auto) Lymph # (Auto) [place] # (Auto) Eos # (Auto) Baso # (Auto) Abs Immat Gran (auto) Absolute Neuts (auto) Absolute Nucleated RBC Nucleated RBC % Sodium 129 L Potassium 2.9 L Chloride 94 L Carbon Dioxide 30 Anion Gap 5 BUN 9 Creatinine 0.61 L Estim Creat Clear Calc 41 Estimated GFR > 60 Glucose 133 H POC Capillary Glucose 137 H 162 H Calcium 8.9 Total Bilirubin 0.8 AST 32 ALT 11 Alkaline Phosphatase 183 H Total Protein 5.2 L Albumin 2.7 L Quality VTE Prophylaxis VTE prophylaxis: mechanical ordered
[2025-05-10] MEDS: POTASSIUM CHLORIDE 20 MEQ ER TABLET 40 MEQ PO (17:05)
[2025-05-10 19:28] VITALS: BP 170/80; PULSE 91; RESP 12; TEMP 36.3; O2SAT 97
[2025-05-11 04:50] VITALS: BP 148/61; PULSE 82; RESP 12; TEMP 36.7; O2SAT 95
[2025-05-11 05:15] LABS: Alanine Aminotransferase 10 U/L (6-35); Albumin Level 2.8 g/dL (3.5-5.1); Alkaline Phosphatase 190 U/L (38-126); Anion Gap 7 mmol/L (4-12); Aspartate Amino Transferase 33 U/L (14-36); Bilirubin,Total 0.8 mg/dL (0.2-1.3); Blood Urea Nitrogen 14 mg/dL (7-17); Calcium 8.8 mg/dL (8.4-10.2); Carbon Dioxide 27 mmol/L (22-30); Chloride 95 mmol/L (98-107); Estimated CRCL calculation 35 ml/min; Estimated Glomerular Filt Rate > 60; Glucose 120 mg/dL (65-110); Potassium 3.4 mmol/L (3.4-5.0); Sodium 129 mmol/L (137-145); Total Protein 5.6 g/dL (6.3-8.2)
[2025-05-11] MEDS: MICONAZOLE NITRATE 2% CREAM 30 GM TUBE 1 APPLIC TOPICAL ×3 (06:33→23:25)
[2025-05-11] MEDS: ESCITALOPRAM OXALATE 10 MG TABLET BY MOUTH (08:20)
[2025-05-11] MEDS: traMADol HCL (*CRX) 50 MG TABLET PO ×2 (08:20→16:16)
[2025-05-11] MEDS: POTASSIUM CHLORIDE 10 MEQ ER TABLET PO (08:20)
[2025-05-11] MEDS: SODIUM CHLORIDE 500 MG TABLET PO ×2 (08:21→16:16)
--- NOTE | 2025-05-11 10:46 | P.DS_ITS ---
DS: Admitting Diagnosis Discharge Date 05/11/2025 Admitting Diagnosis Adult failure to thrive DS: Discharge Diagnosis Discharge Diagnosis (1) Lymphoma: Qualifiers: Lymphoma site: unspecified region Lymphoma type: unspecified type Qualified Code(s): C85.90 - Non-Hodgkin lymphoma, unspecified, unspecified site Code(s): C85.90 - Non-Hodgkin lymphoma, unspecified, unspecified site Status: Acute Assessment and Plan: CT abdomen pelvis with contrast 03/29/2025, revealing bulky mesenteric and upper retroperitoneal lymphadenopathy, favoring lymphoma. PET scan on 04/22 demonstrated lymphadenopathy in the chest abdomen and pelvis with increased activity, consistent with lymphoma. Small bilateral pleural effusions, small volume ascites * Dr. Dang consulted * Left supraclavicular ultrasound-guided lymph node biopsy completed today * patient will need to follow up with oncology as an outpatient for results and treatment options * patient needs SNF on rehab, placement arranged and insurance auth obtained * discharge to swing bed at [facility] * pain control, medication adjusted (2) Type 2 diabetes mellitus with hyperglycemia: Qualifiers: Diabetes mellitus terminal gauger insulin use: without terminal gauger use Qualifie d Code(s): E11.65 - Type 2 diabetes mellitus with hyperglycemia Code(s): E11.65 - Type 2 diabetes mellitus with hyperglycemia Status: Chronic Assessment and Plan: * Glucose 131 on admit. CGM in place * hypoglycemia protocol * POC blood glucose ACHS * home medication: No home medications * A1c 5.9 * correct regimen ordered: Low-dose corrective scale (3) Hypokalemia: Code(s): E87.6 - Hypokalemia Status: Acute Assessment and Plan: k 2.9 today s/p PO Kcl 40 meq x 1 dose continue daily K 10 meq (4) Hyponatremia: Code(s): E87.1 - Hypo-osmolality and hyponatremia Status: Acute Assessment and Plan: Na 129 appears to be chronic on lab review continue to monitor DS: Summary Hospital Course Reason for hospitalization: adult failure to thrive, lymphoma Hospital Course: 84-year-old female a past medical history of HTN, hyperlipidemia, lymphoma, DMII (currently on medication) presented to the ED with family with increased weakness and confusion noticed by family. She also has had poor PO intake and has been weaker. Patient was recently diagnosed with lymphoma and was awaiting a biopsy. Oncology was consulted and patient underwent a left supraclavicular ultrasound-guided lymph node biopsy while inpatient. Patient was treated for dehydration and hypokalemia. Patient's hyponatremia appears to be chronic and patient is on PO sodium chloride tablets which she often refuses to take. Patient's hypokalemia was treated with IV and PO potassium. Patient was started on a daily potassium supplement. Patient was evaluated by PT and OT and it was recommended for patient to discharge to rehab prior to going home. Patient was discharged to a swing bed at [facility]. Biopsy results are pending, family has appointments arranged with oncology to obtain the results. Time Spent with Patient Time attestation: Total time spent providing and/or coordinating discharge services: 40 Minutes Exam Narrative: GENERAL: Chronically ill-appearing and frail, in no acute distress. HEAD: Normocephalic, atraumatic. EYES: PERRLA. Conjunctivae clear. NOSE: Normal no drainage. NECK: Trachea midline. No adenopathy, no masses. RESPIRATORY: Airway patent, respirations nonlabored. CTA. CARDIOVASCULAR: Regular rate and rhythm. Palpable peripheral pulses. Murmur present. GASTROINTESTINAL: Abdomen is soft and mildly tender to right upper quadrant. Bowel sounds normal in all quadrants. GENITOURINARY: Defer MUSCULOSKELETAL: Moves all extremities. No gross deformities. No calf tenderness. SKIN: Warm, dry, normal color. NEURO: A&O X2. Speech clear PSYCHIATRIC: Normal interaction DS: Data Data Completed and Pending Pending studies at discharge: Pending at discharge 05/09/25 10:36 Surgical [PTH] Routine Labs on day of discharge: Labs from last 24 hours 05/11/25 05/11/25 05/11/25 08:23 04:26 01:34 Sodium 129 L Potassium 3.4 Chloride 95 L Carbon Dioxide 27 Anion Gap 7 BUN 14 D Creatinine 0.73 Estim Creat Clear Calc 35 Estimated GFR > 60 Glucose 120 H POC Capillary Glucose 132 H 122 H Calcium 8.8 Total Bilirubin 0.8 AST 33 ALT 10 Alkaline Phosphatase 190 H Total Protein 5.6 L Albumin 2.8 L 05/10/25 05/10/25 05/10/25 19:24 16:53 11:44 Sodium Potassium Chloride Carbon Dioxide Anion Gap BUN Creatinine Estim Creat Clear Calc Estimated GFR Glucose POC Capillary Glucose 145 H 136 H 162 H Calcium Total Bilirubin AST ALT Alkaline Phosphatase Total Protein Albumin Imaging Radiologist's impression: Ordering Physician: Harriett Yeboah MD Date of Service: 05/06/25 Procedure(s): XR chest 2V Accession Number(s): [id number] cc: Jas Padgett DO; Harriett Yeboah MD; Juan Lazar MD~ Examination: XR chest 2V Clinical History: weakness Comparison: PET/CT 04/16/2025 Technique: PA and Lateral Findings: Cardiomediastinal silhouette normal size and configuration. Small posterior right basilar atelectasis and/or effusion. No acute bony abnormality. IMPRESSION: 1. Small right posterior basilar atelectasis and/or effusion persists. 2. Otherwise no acute abnormality. Reviewed, dictated and finalized at location R. Ordering Physician: Juan Lazar MD Date of Service: 05/06/25 Procedure(s): XR abdomen/kub 1V Accession Number(s): [id number] cc: Jas Padgett DO; Juan Lazar MD~ EXAMINATION: XR abdomen/kub 1V, 05/06/2025 13:32 CDT HISTORY: constipation COMPARISON: No comparisons available. Technique: 3 view. Findings: Moderate fecal content, no dilated bowel loops No free air. No abnormal calcifications No acute osseous abnormality. Impression: 1. No acute abnormality. Reviewed, dictated and finalized at location P. Discharge Plan Discharge Attending physician on discharge: Ismael Diamond Consulting providers: Ottoniel Ulloa; Demarcus Dang; Maren Burleson; Domenico Byers; Jon Reardon Discharging Clinician: Mary Lou Bazzi Patient Disposition: Hospital Swing Bed [facility] Activity: as tolerated Diet: as tolerated Patient Instructions: Antibiotic Form Patient Language: Thai Stand Alone Forms: General Discharge Information Follow-up/Referrals: Demarcus Dang MD [Physician, Hematology] Referral Note: call for an appt to be seen after discharge to discuss biopsy results Jas Padgett, [Primary Care Provider, Family Practice] Referral Note: follow up with PCP after discharge from [facility] Date of admission: 05/07/25 14:16 Primary Care Provider: Jas Padgett Admitting Provider: Elan Sarah Attending physician on admission: Mary Lou Bazzi Condition: Stable Quality VTE Prophylaxis VTE prophylaxis: mechanical ordered
[2025-05-11] MEDS: ACETAMINOPHEN 325 MG TABLET 650 MG PO (13:02)
[2025-05-11 14:00] VITALS: BP 161/65; PULSE 88; RESP 18; TEMP 36.3; O2SAT 95
[2025-05-11 20:07] VITALS: BP 141/78; PULSE 89; RESP 16; TEMP 36.6; O2SAT 99
[2025-05-11 22:05] VITALS: O2SAT 99
[2025-05-12 04:47] VITALS: BP 181/72; PULSE 90; RESP 16; TEMP 36.4; O2SAT 97
[2025-05-12] MEDS: MICONAZOLE NITRATE 2% CREAM 30 GM TUBE 1 APPLIC TOPICAL (06:10)
[2025-05-12] MEDS: POTASSIUM CHLORIDE 10 MEQ ER TABLET PO (08:12)
[2025-05-12] MEDS: SODIUM CHLORIDE 500 MG TABLET PO (08:12)
[2025-05-12] MEDS: ESCITALOPRAM OXALATE 10 MG TABLET BY MOUTH (08:12)
[2025-05-12] MEDS: traMADol HCL (*CRX) 50 MG TABLET PO (08:13)
== END 2025-05-12 10:15 | disposition swing bed (61) | DRG 824 ==
LOC: ANHED 13:00 → ANH2MED 18:05
PROVIDERS: Nurse Practitioner Adult Health; Physician Assistant; Student in an Organized Health Care Education/Training Program; Admitting Provider General Practice; Emergency Provider Emergency Medicine; PCP Family Medicine; Visit Provider Nurse Practitioner Adult Health
DX: C85.91 Non-Hodgkin lymphoma, unspecified, lymph nodes of head, face, and neck (principal); C85.93 Non-Hodgkin lymphoma, unspecified, intra-abdominal lymph nodes; E44.0 Moderate protein-calorie malnutrition; E87.1 Hypo-osmolality and hyponatremia; R62.7 Adult failure to thrive; E11.65 Type 2 diabetes mellitus with hyperglycemia; E87.6 Hypokalemia; E11.319 Type 2 diabetes mellitus with unspecified diabetic retinopathy without macular edema; I10 Essential (primary) hypertension; E78.5 Hyperlipidemia, unspecified; Z66 Do not resuscitate
CPT/HCPCS: 36415; 38505; 71046; 74018; 76942; 80048; 80053; 81001; 82948; 83036; 85025; 85027; 85610; 85730; 88108; 88184; 88185; 88305; 93005; 96360; 96361; 97110; 97162; 97166; 97530; 97535; 99285; A9270; G0378; J2270; J7030; J7120

== ENCOUNTER 2025-05-12 10:50 | Inpatient (IN) | payer MEDICARE, SELFPAY ==
[2025-05-12 11:06] VITALS: BMI 21.4
--- NOTE | 2025-05-12 11:11 | ADMGEN ---
This patient, Nusrat Hernández, was admitted to 2nd Floor Room 202-1. Patient/family oriented to hospital policies and general routines including ID bracelet, bed and alarms, visiting hours, pain management, procedures, bathroom and other care routines, personal items, smoking policy, room service/diet, and visiting hours. Information on how to activate the Rapid Response Team has been discussed. Patient/Family are encouraged to report perceived risks to care and to ask questions if they do not understand what they are told or what they should do.
[2025-05-12] MEDS: ESCITALOPRAM OXALATE 10 MG TABLET BY MOUTH (12:57)
[2025-05-12] MEDS: traMADol HCL (*CRX) 50 MG TABLET PO ×2 (12:57→21:03)
[2025-05-12 13:22] VITALS: PULSE 98; RESP 17; O2SAT 94
[2025-05-12 16:00] VITALS: BP 174/73; PULSE 88; RESP 14; TEMP 37.1; O2SAT 95
--- NOTE | 2025-05-12 18:20 | PC.NURSE ---
Patient alert and oriented to person. Pleasant and cooperative with nurse. Able to turn self in bed. Incont of urine, pericare and fresh depend on. Patient fed self supper but had emesis.. Nurse assisted her with gown linen change after washing up.
[2025-05-12] MEDS: DOCUSATE SODIUM 100 MG CAPSULE PO (21:03)
[2025-05-13] VITALS: BP 168/72; PULSE 80; RESP 16; TEMP 36.3; O2SAT 97
--- NOTE | 2025-05-13 00:32 | PC.NURSE ---
Patient in bed with SR up x2 and bed alarm on. Call light and belongings within reach. Patient incont of small BM and urine. Pericare was probivided and patient repositioned for comfort.
--- NOTE | 2025-05-13 02:29 | PC.NURSE ---
Resting quietly. SR up x2. call light within reach. No signs of pain or distress.
[2025-05-13 08:00] VITALS: BP 140/63; PULSE 95; RESP 20; TEMP 36.6; O2SAT 95
[2025-05-13] MEDS: ESCITALOPRAM OXALATE 10 MG TABLET BY MOUTH (09:36)
[2025-05-13] MEDS: OPTI-GEN TAB 1 TABLET PO (09:36)
[2025-05-13] MEDS: DOCUSATE SODIUM 100 MG CAPSULE PO (09:37)
[2025-05-13] MEDS: ACETAMINOPHEN 500 MG TABLET 1000 MG PO (12:00)
--- NOTE | 2025-05-13 12:31 | PM.IMHP ---
H&P: HPI History of Present Illness Date/Time: 05/13/25 12:31 Chief Complaint: Failure to Thrive Narrative: 84-year-old female a past medical history of HTN, hyperlipidemia, chronic hyponatremia, lymphoma, insulin DMII here for Rehabilitation. Patient was admitted to [facility] from 05/06-05/12 for failure to thrive and weakness. Patient lived at home with her daughter prior to recent hospitalization and requires skilled care for PT/OT prior to returning home. Patient is being worked up by oncology Dr Demarcus Dang for lymphoma based on a CT scan 03/29 indicating bulky mesenteric and upper retroperitoneal lymphadenopathy, favoring lymphoma, PET Scan 04/22 demonstrated lymphadenopathy in the chest abdomen and pelvis with increased activity, consistent with lymphoma, patient is s/p lymp node biopsy on 05/09 with result pending. Review of Systems Review of Systems: All systems reviewed & are unremarkable except as noted in HPI and below Constitutional: Constitutional: Reports lethargy Cardiovascular: Cardiovascular: Reports no additional cardiovascular complaints Respiratory: Respiratory: Reports no additional respiratory complaints Gastrointestinal: Gastrointestinal: Reports no additional gastrointestinal complaints Psychiatric: Psychiatric: Reports as per HPI [facility] Past Medical History Medical History (Updated 05/13/25 @ 13:05 by Carter Palomino APRN) Chronic hyponatremia Axillary abscess MRSA infection Diabetic retinopathy Left genital labial abscess Hypertension Hyperlipidemia Type 2 diabetes mellitus Complicated by diabetic retinopathy. Surgical History Surgical History History of cataract extraction History of tonsillectomy Family History Family History Other Diabetes mellitus Family history of cardiovascular disease Family history of thyroid disease Social History Social History Social History: Surrogate decision maker: Jyoti Finnegan, daughter. Code status: Do not resuscitate. Smoking status: Never smoker Second hand tobacco smoke exposure: No Alcohol intake: never Substance use: never Substance use type: does not use Do You Feel Safe in your Home?: Yes Lack of Transportation: No Lack of Food: Never True Current Housing: I Have Housing Concerned About Future Housing: No Difficulty Paying Gas/Electric Bills: No Difficulty Paying for Meds: No Currently Unemployed: No Education: High School Diploma/GED Difficulty w/ Childcare or Family Care: No Living arrangements: with family Additional living arrangements comments: Lives in [place] with her son Shahriar. Her daughter Tameka sees her often. Patient requires Min to moderate assist with ADLs. Ambulates with a walker. 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 Spiritual care concerns: No Meds Home Medications and Allergies Home Medications ?Medication ?Instructions ?Recorded ?Confirmed ?Type docusate sodium 50 mg capsule 50 mg PO TID constipation 11/14/23 05/12/25 History veqgpadt-tzk-psrhv acid 0.4 1 tablet PO DAILY #30 tabs 12/07/23 05/12/25 Rx mg-lycopene 300 mcg-lutein 250 mcg tablet blood sugar diagnostic (FreeStyle #100 ea 09/11/24 05/12/25 Rx Test strips) escitalopram oxalate 10 mg tablet See Rx Instructions .Route 09/11/24 05/12/25 Rx .COMPLEX #90 tabs lancets (Accu-Chek Softclix #100 ea 09/11/24 05/12/25 Rx Lancets) blood-glucose meter (Blood Glucose #1 ea 11/09/24 05/12/25 Rx Monitoring kit) blood-glucose sensor (FreeStyle #1 ea 04/09/25 05/12/25 Rx Clement 3 Plus Sensor device) nystatin 100,000 unit/gram topical 1 applic topical TID #60 grams 04/22/25 05/12/25 Rx powder lisinopril 20 mg tablet 20 mg PO QAM #30 tabs 05/11/25 05/12/25 Rx miconazole nitrate 2 % topical 1 applic topical Q8H #15 grams 05/11/25 05/12/25 Rx cream polyethylene glycol 3350 17 gram 17 g PO QAM #30 ea 05/11/25 05/12/25 Rx oral powder packet (Miralax) sodium chloride 1,000 mg soluble 500 mg (1/2 x 1,000 mg) PO BID #15 05/11/25 05/12/25 Rx tablet tabs tramadol 50 mg tablet 50 mg PO Q8HR #14 tabs 05/12/25 05/12/25 Rx Allergies Allergy/AdvReac Type Severity Reaction Status Date / Time No Known Allergies Allergy Verified 05/12/25 11:12 Vital Signs Vital Signs - 24 hr 05/12/25 13:22 05/12/25 16:00 05/13/25 00:00 Temperature 98.7 F 97.4 F L Pulse Rate 98 88 80 Respiratory Rate 17 14 16 Blood Pressure 174/73 H 168/72 H Pulse Oximetry 94 95 97 Oxygen Delivery Room Air Room Air Room Air Exam Const: General: comfortable and no acute distress Eyes: General: appearance normal, both eyes and all related structures Resp: Effort & Inspection: normal respiratory effort Auscultation: clear to auscultation bilaterally Cardio: Rate: regular rate Rhythm: regular rhythm GI: GI Palp: Yes Soft to palpation Skin: General skin exam: normal color Psych: Affect: normal affect Assessment and Plan Assessment and plan (1) Encounter for rehabilitation: Code(s): Z51.89 - Encounter for other specified aftercare Status: Acute Assessment and Plan: PT/OT per therapy recommendations OOB to chair daily OOB with meals (2) Adult failure to thrive: Code(s): R62.7 - Adult failure to thrive Status: Acute Assessment and Plan: Encourage and assist with meals OK for General Diet to increase available food options Glucerna nutritional supplements (3) Insulin dependent diabetes mellitus: Status: Acute Assessment and Plan: POC Glucose AC/HS SSI insulin low dose OK for General Diet to increase available food options Glucerna nutrional supplements (4) Lymphoma: Qualifiers: Lymphoma site: unspecified region Lymphoma type: unspecified type Qualified Code(s): C85.90 - Non-Hodgkin lymphoma, unspecified, unspecified site Code(s): C85.90 - Non-Hodgkin lymphoma, unspecified, unspecified site Status: Acute Assessment and Plan: Oncology Dr. Dang 03/29 - CT ABD/PEL revealing bulky mesenteric and upper retroperitoneal lymphadenopathy, favoring lymphoma 04/22 - PET Scan revealing lymphadenopathy in the chest abdomen and pelvis with increased activity, consistent with lymphoma. Small bilateral pleural effusions, small volume ascites 05/09 - s/p lymph node biopsy, biopsy pending PRN Tylenol and Tramadol available for pain (5) Chronic hyponatremia: Code(s): E87.1 - Hypo-osmolality and hyponatremia Status: Acute Assessment and Plan: Per family patient does not tolerate Na tabs OK for general diet w/ table salt Na 129 on 05/11 Check Labs 05/15 Quality VTE Prophylaxis VTE prophylaxis: pharmacologic ordered
[2025-05-13] MEDS: traMADol HCL (*CRX) 50 MG TABLET PO ×2 (14:34→21:30)
[2025-05-13] MEDS: MICONAZOLE NITRATE 2% CREAM 30 GM TUBE 1 APPLIC TOPICAL ×2 (14:34→21:30)
[2025-05-13 16:00] VITALS: BP 148/61; PULSE 90; RESP 18; TEMP 36.3; O2SAT 96
[2025-05-13 20:00] VITALS: PULSE 90; RESP 18; O2SAT 96
[2025-05-14] VITALS: BP 151/74; PULSE 87; RESP 16; TEMP 36.3; O2SAT 95
[2025-05-14] MEDS: MICONAZOLE NITRATE 2% CREAM 30 GM TUBE 1 APPLIC TOPICAL ×3 (05:48→21:10)
[2025-05-14] MEDS: traMADol HCL (*CRX) 50 MG TABLET PO ×2 (05:48→13:25)
[2025-05-14 08:00] VITALS: BP 167/72; PULSE 93; RESP 20; TEMP 36.7; O2SAT 94
[2025-05-14] MEDS: ENOXAPARIN 30 MG/0.3 ML SYRINGE SUB-Q (08:59)
[2025-05-14] MEDS: SODIUM CHLORIDE 1 GM TABLET 0.5 GM PO ×2 (09:01→17:29)
[2025-05-14] MEDS: OPTI-GEN TAB 1 TABLET PO (09:02)
[2025-05-14] MEDS: ESCITALOPRAM OXALATE 10 MG TABLET BY MOUTH (09:04)
[2025-05-14] MEDS: DOCUSATE SODIUM 100 MG CAPSULE PO ×2 (09:07→17:31)
[2025-05-14] MEDS: ACETAMINOPHEN 500 MG TABLET 1000 MG PO (09:19)
--- NOTE | 2025-05-14 09:30 | PC.NURSE ---
Patient having difficulty taking medication today. Most of patient's pills she was able to swallow, but the larger ones would not go down. Patient spit out part of her tylenol and part of her eye vitamin.
--- NOTE | 2025-05-14 10:55 | PCPTNOTE ---
05/14/25: Attempted to perform PT evaluation this am around 7:15 am and patient was unwilling to participate. She would respond to PT questions/requests by opening her eyes but would not move from supine position. She kept closing her eyes during further attempts to get the patient to cooperate. PT attempted her evaluation again at 10:50 am and the patient's daughter refused PT reporting the patient finally fell asleep and is in too much pain to participate in PT. Pt's daughter was educated on purpose of swing bed rehabilitation and that refusals would mean non-compliance and she would have to be discharged. -Darlene Andrews, PT
--- NOTE | 2025-05-14 14:47 | PC.NURSE ---
Staff from [facility] arrived to pick patient up. Patient ambulated with gait belt and assist to w/c. Personal items sent with patient in a bag. Patient left unit and hospital grounds in w/c accompanied by MD staff. Practice Coordinator called to give report to receiving nurse and nurse is off the floor at the moment. Receiving nurse to call this nurse back.
[2025-05-14 16:00] VITALS: BP 145/66; PULSE 93; RESP 18; TEMP 36.7; O2SAT 94
--- NOTE | 2025-05-14 16:14 | PCPTNOTE ---
05/14/25: PT attempted evaluation again at 15:25 and patient was more alert but still refused to move from bed. Will attempt again on 05/15/25. -Darlene Andrews, PT
[2025-05-14] MEDS: PRESERVISION AREDS2 PO (17:32)
[2025-05-14] MEDS: [UNRECOGNIZED DRUG - OTHER] PO (17:32)
[2025-05-14] MEDS: oxyCODONE HCL (*CRX) 2.5 MG TAB IR PO ×2 (17:32→23:14)
[2025-05-14 20:00] VITALS: PULSE 93; RESP 18; O2SAT 94
[2025-05-15] VITALS: BP 155/66; PULSE 92; RESP 16; TEMP 36.7; O2SAT 95
[2025-05-15 05:44] LABS: Hematocrit 31.3 % (35.0-42.0); Hemoglobin 10.1 g/dL (11.7-13.8); Mean Corpuscular HGB Conc 32.3 g/dL (32-36); Mean Corpuscular Hemoglobin 27.3 pg (27.0-31.0); Mean Corpuscular Volume 84.6 fL (78.0-102.0); Platelet Count Result 319 K/mm3 (150-420); Red Blood Count 3.70 M/mm3 (4.20-5.40); White Blood Count 12.8 K/mm3 (4.8-10.8)
[2025-05-15 06:00] LABS: Anion Gap 10 mmol/L (4-12); Blood Urea Nitrogen 14 mg/dL (7-17); Calcium 9.4 mg/dL (8.4-10.2); Carbon Dioxide 28 mmol/L (22-30); Chloride 94 mmol/L (98-107); Estimated CRCL calculation 35 ml/min; Estimated Glomerular Filt Rate > 60; Glucose 122 mg/dL (65-110); Magnesium 1.9 mg/dL (1.6-2.3); Osmolality Calculated 275 mOsm/kg (285-295); Potassium 3.5 mmol/L (3.4-5.0); Sodium 132 mmol/L (137-145)
[2025-05-15] MEDS: oxyCODONE HCL (*CRX) 2.5 MG TAB IR PO ×4 (06:06→23:34)
[2025-05-15] MEDS: MICONAZOLE NITRATE 2% CREAM 30 GM TUBE 1 APPLIC TOPICAL ×2 (06:06→14:00)
[2025-05-15 08:00] VITALS: BP 120/87; PULSE 96; RESP 20; TEMP 36.5; O2SAT 94
--- NOTE | 2025-05-15 08:54 | P.PNIM_ITS ---
Progress Note: A&P Assessment and Plan (1) Encounter for rehabilitation: Code(s): Z51.89 - Encounter for other specified aftercare Status: Acute Assessment and Plan: PT/OT per therapy recommendations OOB to chair daily OOB with meals 05/15 - Patient has not been participating with therapy recommendations and is currently not meeting therapy goals, family care plan meeting for tomorrow (2) Adult failure to thrive: Code(s): R62.7 - Adult failure to thrive Status: Acute Assessment and Plan: Encourage and assist with meals OK for General Diet to increase available food options Glucerna nutritional supplements (3) Insulin dependent diabetes mellitus: Status: Acute Assessment and Plan: POC Glucose AC/HS - stable 120-160 SSI insulin low dose OK for General Diet to increase available food options Glucerna nutrional supplements (4) Lymphoma: Qualifiers: Lymphoma site: unspecified region Lymphoma type: unspecified type Qualified Code(s): C85.90 - Non-Hodgkin lymphoma, unspecified, unspecified site Code(s): C85.90 - Non-Hodgkin lymphoma, unspecified, unspecified site Status: Acute Assessment and Plan: Oncology Dr. Dang 03/29 - CT ABD/PEL revealing bulky mesenteric and upper retroperitoneal lymphadenopathy, favoring lymphoma 04/22 - PET Scan revealing lymphadenopathy in the chest abdomen and pelvis with increased activity, consistent with lymphoma. Small bilateral pleural effusions, small volume ascites 05/09 - s/p lymph node biopsy: pathology report indicated B-cell non-Hodgkin Lymphoma Family has plans to discuss options with oncologist PRN Tylenol and Oxycodone 2.5 mg available for pain (5) Chronic hyponatremia: Code(s): E87.1 - Hypo-osmolality and hyponatremia Status: Acute Assessment and Plan: Per family patient does not tolerate Na tabs OK for general diet w/ table salt Na 129->132 today Time Spent With Patient Time with patient: 15 - 25 minutes Subjective Date/time seen: 05/15/25 08:54 Interval history: Patient sitting up in bed, breakfast is in front of her but she reports she does not feel like eating. She reports she is tired and just wants to rest. Discussed participating in PT, patient stated she does not feel well enough to do PT, she was encouraged to Participate as she is in a therapy program. Spoke to daughter Felicita over the phone, she understands that patient is not progressing in therapy, there is a care plan scheduled for tomorrow. Felicita has plans to speak with the oncologist this afternoon to review biopsy results and discuss possible treatment options. Review of Systems Review of Systems: All systems reviewed & are unremarkable except as noted in HPI and below Constitutional: Constitutional: Reports lethargy Cardiovascular: Cardiovascular: Reports no additional cardiovascular complaints Respiratory: Respiratory: Reports no additional respiratory complaints Gastrointestinal: Gastrointestinal: Reports no additional gastrointestinal complaints Psychiatric: Psychiatric: Reports as per HPI Exam Const: General: comfortable and no acute distress Eyes: General: appearance normal, both eyes and all related structures Resp: Effort & Inspection: normal respiratory effort Auscultation: clear to auscultation bilaterally Cardio: Rate: regular rate Rhythm: regular rhythm Skin: General skin exam: normal color Psych: Affect: normal affect Objective Data Vital Signs Vital Signs: Vital Signs - 24 hr 05/14/25 16:00 05/14/25 20:00 05/15/25 00:00 Temperature 98.1 F 98.0 F Pulse Rate 93 93 92 Respiratory Rate 18 18 16 Blood Pressure 145/66 H 155/66 H Pulse Oximetry 94 94 95 Oxygen Delivery Room Air Room Air Room Air Intake/Output Intake/Output: Intake & Output 05/12/25 05/13/25 05/14/25 05/15/25 23:59 23:59 23:59 23:59 Intake Total 470 630 790 90 Balance 470 630 790 90 Meds/Results Medications: Active Medications Generic Name Dose Route Start Last Admin Trade Name Freq PRN Reason Stop Dose Admin Acetaminophen 1,000 mg 05/13/25 17:00 05/14/25 09:19 Acetaminophen 500 Mg Tablet PO 1,000 mg Q6H PRN Administration Mild Pain (1-3) or Fever Dextrose 12.5 gm 05/13/25 13:15 Dextrose 50% 25 Gm/50 Ml Syringe IV PUSH PRN PRN Hypoglycemia Protocol Docusate Sodium 100 mg 05/14/25 17:00 05/14/25 17:31 Docusate Sodium 100 Mg Capsule PO 100 mg TID KRISHAN Administration Enoxaparin Sodium 30 mg 05/14/25 09:00 05/14/25 08:59 Enoxaparin 30 Mg/0.3 Ml Syringe SUB-Q 30 mg DAILY KRISHAN Administration Escitalopram Oxalate 10 mg 05/12/25 12:30 05/14/25 09:04 Escitalopram Oxalate 10 Mg Tablet BY MOUTH 10 mg DAILY KRISHAN Administration Glucagon 1 mg 05/13/25 13:15 Glucagon For Inj 1 Mg Vial IM PRN PRN Hypoglycemia Protocol Glucose 15 gm 05/13/25 13:15 Glucose Oral Gel 15 Gm Of Glucse In 37.5 Gm Tube PO PRN PRN Hypoglycemia Protocol Dextrose 1,000 mls @ 100 mls/hr 05/13/25 13:15 Dextrose 5% 1,000 Ml IVPB PRN PRN Hypoglycemia Protocol Insulin Human Lispro 2 - 5 units 05/13/25 17:00 05/15/25 07:44 Insulin Human Lispro (*Bkc) 1,000 Units/10 Ml Vial SUB-Q Not Given TIDWM [facility] Protocol Lisinopril 20 mg 05/12/25 12:30 05/14/25 09:05 Lisinopril 20 Mg Tablet PO 20 mg QAM KRISHAN Administration Miconazole Nitrate 1 applic 05/13/25 14:00 05/15/25 06:06 Miconazole Nitrate 2% Cream 30 Gm Tube TOPICAL 1 applic Q8HR KRISHAN Administration Nonformulary Drug ( 1 each 05/14/25 17:00 05/14/25 17:32 Preservision Areds2+ PO 06/13/25 16:59 1 each Multi Soft Gel) BID KRISHAN Administration Oxycodone HCl 2.5 mg 05/14/25 18:00 05/15/25 06:06 Oxycodone Hcl (*Crx) 2.5 Mg Tab Ir PO 2.5 mg Q6H KRISHAN Administration Polyethylene Glycol 17 gm 05/13/25 09:00 05/14/25 09:08 Polyethylene Glycol 3350 17 Gm Powd.Pack PO Not Given QAM KRISHAN Sodium Chloride 0.5 gm 05/12/25 17:00 05/14/25 17:29 Sodium Chloride 1 Gm Tablet PO 0.5 gm BID KRISHAN Administration Labs Labs: Laboratory Results - last 24 hr 05/14/25 05/14/25 05/14/25 11:38 16:48 19:47 WBC RBC Hgb Hct MCV MCH MCHC RDW Plt Count MPV Sodium Potassium Chloride Carbon Dioxide Anion Gap BUN Creatinine Estim Creat Clear Calc Estimated GFR Glucose POC Capillary Glucose 116 H 88 104 Calculated Osmolality Calcium Phosphorus Magnesium 05/15/25 05:30 WBC 12.8 H RBC 3.70 L Hgb 10.1 L Hct 31.3 L MCV 84.6 MCH 27.3 MCHC 32.3 RDW 14.4 Plt Count 319 MPV 9.3 Sodium 132 L Potassium 3.5 Chloride 94 L Carbon Dioxide 28 Anion Gap 10 BUN 14 Creatinine 0.73 Estim Creat Clear Calc 35 Estimated GFR > 60 Glucose 122 H POC Capillary Glucose Calculated Osmolality 275 L Calcium 9.4 Phosphorus 3.3 Magnesium 1.9 Quality VTE Prophylaxis VTE prophylaxis: pharmacologic ordered
--- NOTE | 2025-05-15 09:20 | PCPTNOTE ---
05/15/25: Attempted to perform PT evaluation again at 9:15 am. Pt refused stating she has too much belly pain and does not feel like doing anything. Pt also reports she does not know how to move forward if she has cancer. -Darlene Andrews, PT
[2025-05-15] MEDS: [UNRECOGNIZED DRUG - OTHER] PO (09:33)
[2025-05-15] MEDS: ESCITALOPRAM OXALATE 10 MG TABLET BY MOUTH (09:33)
[2025-05-15] MEDS: SODIUM CHLORIDE 1 GM TABLET 0.5 GM PO ×2 (09:33→17:00)
[2025-05-15] MEDS: PRESERVISION AREDS2 PO (09:33)
[2025-05-15] MEDS: ENOXAPARIN 30 MG/0.3 ML SYRINGE SUB-Q (09:34)
[2025-05-15 16:00] VITALS: BP 131/62; PULSE 100; RESP 18; TEMP 36.5; O2SAT 98
[2025-05-15 20:00] VITALS: PULSE 91; RESP 18; O2SAT 96
[2025-05-16] VITALS: BP 148/65; PULSE 91; RESP 18; TEMP 36.7; O2SAT 96
[2025-05-16] MEDS: oxyCODONE HCL (*CRX) 2.5 MG TAB IR PO ×3 (06:24→17:53)
[2025-05-16] MEDS: MICONAZOLE NITRATE 2% CREAM 30 GM TUBE 1 APPLIC TOPICAL (06:26)
[2025-05-16 07:45] VITALS: BP 147/73; PULSE 88; RESP 16; TEMP 36.4; O2SAT 95
[2025-05-16 08:30] VITALS: PULSE 88; RESP 16; O2SAT 95
[2025-05-16] MEDS: ENOXAPARIN 30 MG/0.3 ML SYRINGE SUB-Q (09:03)
[2025-05-16] MEDS: DOCUSATE SODIUM 100 MG CAPSULE PO ×2 (09:03→12:31)
[2025-05-16] MEDS: SODIUM CHLORIDE 1 GM TABLET 0.5 GM PO ×2 (09:03→17:53)
[2025-05-16] MEDS: ESCITALOPRAM OXALATE 10 MG TABLET BY MOUTH (09:04)
[2025-05-16] MEDS: PRESERVISION AREDS2 PO (09:04)
[2025-05-16] MEDS: [UNRECOGNIZED DRUG - OTHER] PO (09:04)
--- NOTE | 2025-05-16 09:07 | ECG_ITS ---
Test Date: 2025-05-16 09:42:29 Measurements Intervals [place] Rate: 90 P: 69 ID: [id number] QRS: -30 QRSD: 114 T: 65 QT: 390 QTc: 478 Interpretive Statements SINUS RHYTHM INCOMPLETE RIGHT BUNDLE BRANCH BLOCK INFERIOR INFARCT, AGE INDETERMINATE BORDERLINE ST-T WAVE ABNORMALITY- ANT/HIGH LAT LEADS BASELINE WANDER- I, II, III, AVR, AVF ABNORMAL ECG Compared to ECG 05/06/2025 12:08:59 NO SIGNIFICANT CHANGE Electronically Signed On 05-16-2025 09:43:25 CDT by Domenico Byers D.O.
--- NOTE | 2025-05-16 10:01 | P.PNIM_ITS ---
Progress Note: A&P Assessment and Plan (1) Encounter for rehabilitation: Code(s): Z51.89 - Encounter for other specified aftercare Status: Acute Assessment and Plan: PT/OT per therapy recommendations OOB to chair daily OOB with meals 05/15 - Patient has not been participating with therapy recommendations and is currently not meeting therapy goals, family care plan meeting for tomorrow 05/16 - Daughter would like to take patient home as she is not progressing or attempting therapy, CM assisting with home health needs (2) Adult failure to thrive: Code(s): R62.7 - Adult failure to thrive Status: Acute Assessment and Plan: Encourage and assist with meals OK for General Diet to increase available food options Glucerna nutritional supplements (3) Insulin dependent diabetes mellitus: Status: Acute Assessment and Plan: POC Glucose AC/HS - stable 120-160 SSI insulin low dose OK for General Diet to increase available food options Glucerna nutritional supplements A1C 5.9 on 05/16 (4) Lymphoma: Qualifiers: Lymphoma site: unspecified region Lymphoma type: unspecified type Qualified Code(s): C85.90 - Non-Hodgkin lymphoma, unspecified, unspecified site Code(s): C85.90 - Non-Hodgkin lymphoma, unspecified, unspecified site Status: Acute Assessment and Plan: Oncology Dr. Dang 03/29 - CT ABD/PEL revealing bulky mesenteric and upper retroperitoneal lymphadenopathy, favoring lymphoma 04/22 - PET Scan revealing lymphadenopathy in the chest abdomen and pelvis with increased activity, consistent with lymphoma. Small bilateral pleural effusions, small volume ascites 05/09 - s/p lymph node biopsy: pathology report indicated B-cell non-Hodgkin Lymphoma Family has plans to discuss options with oncologist PRN Tylenol and Oxycodone 2.5 mg available for pain 05/16 - Daughter reports cancer is Stage 4 and she is interested in pursuing a lower dose chemotherapy with the oncologist. Cardiac workup requested for the oncologist. CBC, CMP, Trop, BNP, Lipid Panel, A1C, and EKG obtained. If an echocardiogram is required it will need insurance authorization and the PCP can assist, I left a message with Dr Arellano office to call (5) Chronic hyponatremia: Code(s): E87.1 - Hypo-osmolality and hyponatremia Status: Acute Assessment and Plan: Per family patient does not tolerate Na tabs OK for general diet w/ table salt Na 129->132 today Time Spent With Patient Time with patient: 15 - 25 minutes Subjective Date/time seen: 05/16/25 10:01 Interval history: Patient is sitting up in bed, she has food in front of her but is not really eating. Daughter is present today and we discussed her visit with the oncologist yesterday evening. Daughter reports that patient has stage IV B-cell lymphoma and treatment option with a low-dose chemotherapy was offered which daughter is interested in having her mother Obtained. Daughter reports that the oncologist's office needs a cardiac workup. Informed her that we will order labs EKG during this visit, potentially an echocardiogram on EB obtained, however this can not be ordered as inpatient we need insurance authorization the daughter was informed to continue to work with the primary care doctor's office for outpatient authorization of an echocardiogram. Daughter plans to take patient home on palliative care, case management is assisting. Possible discharge in 1-2 days once home health and equipment is available Review of Systems Review of Systems: All systems reviewed & are unremarkable except as noted in HPI and below Exam Const: General: comfortable and no acute distress Eyes: General: appearance normal, both eyes and all related structures Resp: Effort & Inspection: normal respiratory effort Auscultation: clear to auscultation bilaterally Cardio: Rate: regular rate Rhythm: regular rhythm Skin: General skin exam: normal color Psych: Affect: normal affect Objective Data Vital Signs Vital Signs: Vital Signs - 24 hr 05/15/25 16:00 05/15/25 20:00 05/16/25 00:00 Temperature 97.7 F 98.1 F Pulse Rate 100 91 91 Respiratory Rate 18 18 18 Blood Pressure 131/62 148/65 H Pulse Oximetry 98 96 96 Oxygen Delivery Room Air Room Air Room Air 05/16/25 07:45 05/16/25 08:30 Temperature 97.5 F L Pulse Rate 88 88 Respiratory Rate 16 16 Blood Pressure 147/73 H Pulse Oximetry 95 95 Oxygen Delivery Room Air Room Air Intake/Output Intake/Output: Intake & Output 05/13/25 05/14/25 05/15/25 05/16/25 23:59 23:59 23:59 23:59 Intake Total 630 790 360 250 Balance 630 790 360 250 Meds/Results Medications: Active Medications Generic Name Dose Route Start Last Admin Trade Name Freq PRN Reason Stop Dose Admin Acetaminophen 1,000 mg 05/13/25 17:00 05/14/25 09:19 Acetaminophen 500 Mg Tablet PO 1,000 mg Q6H PRN Administration Mild Pain (1-3) or Fever Dextrose 12.5 gm 05/13/25 13:15 Dextrose 50% 25 Gm/50 Ml Syringe IV PUSH PRN PRN Hypoglycemia Protocol Docusate Sodium 100 mg 05/14/25 17:00 05/16/25 09:03 Docusate Sodium 100 Mg Capsule PO 100 mg TID KRISHAN Administration Enoxaparin Sodium 30 mg 05/14/25 09:00 05/16/25 09:03 Enoxaparin 30 Mg/0.3 Ml Syringe SUB-Q 30 mg DAILY KRISHAN Administration Escitalopram Oxalate 10 mg 05/12/25 12:30 05/16/25 09:04 Escitalopram Oxalate 10 Mg Tablet BY MOUTH 10 mg DAILY KRISHAN Administration Glucagon 1 mg 05/13/25 13:15 Glucagon For Inj 1 Mg Vial IM PRN PRN Hypoglycemia Protocol Glucose 15 gm 05/13/25 13:15 Glucose Oral Gel 15 Gm Of Glucse In 37.5 Gm Tube PO PRN PRN Hypoglycemia Protocol Dextrose 1,000 mls @ 100 mls/hr 05/13/25 13:15 Dextrose 5% 1,000 Ml IVPB PRN PRN Hypoglycemia Protocol Insulin Human Lispro 2 - 5 units 05/13/25 17:00 05/16/25 08:05 Insulin Human Lispro (*Bkc) 1,000 Units/10 Ml Vial SUB-Q Not Given [facility]ID[facility] Protocol Lisinopril 20 mg 05/12/25 12:30 05/16/25 09:03 Lisinopril 20 Mg Tablet PO 20 mg QAM KRISHAN Administration Miconazole Nitrate 1 applic 05/13/25 14:00 05/16/25 06:26 Miconazole Nitrate 2% Cream 30 Gm Tube TOPICAL 1 applic Q8HR KRISHAN Administration Nonformulary Drug ( 1 each 05/14/25 17:00 05/16/25 09:04 Preservision Areds2+ PO 06/13/25 16:59 1 each Multi Soft Gel) BID KRISHAN Administration Oxycodone HCl 2.5 mg 05/14/25 18:00 05/16/25 06:24 Oxycodone Hcl (*Crx) 2.5 Mg Tab Ir PO 2.5 mg Q6H KRISHAN Administration Polyethylene Glycol 17 gm 05/13/25 09:00 05/16/25 09:07 Polyethylene Glycol 3350 17 Gm Powd.Pack PO Not Given QAM KRISHAN Sodium Chloride 0.5 gm 05/12/25 17:00 05/16/25 09:03 Sodium Chloride 1 Gm Tablet PO 0.5 gm BID KRISHAN Administration Labs Labs: Laboratory Results - last 24 hr 05/15/25 05/15/25 05/15/25 12:02 17:00 22:07 POC Capillary Glucose 150 H 154 H 134 H 05/16/25 07:37 POC Capillary Glucose 135 H Quality VTE Prophylaxis VTE prophylaxis: pharmacologic ordered
[2025-05-16 10:02] LABS: Cholesterol 251 mg/dL (0-200); HDL Direct 22 mg/dL; Triglycerides 234 mg/dL (<150)
[2025-05-16 10:06] LABS: Hemoglobin A1C 5.9 % (<5.7)
[2025-05-16 10:13] LABS: Troponin I < 0.012 ng/mL (0.000-0.034)
[2025-05-16 10:35] LABS: NT Pro B Type Natriuretic Pept 575 pg/mL (19.9-100)
[2025-05-16 16:35] VITALS: BP 148/67; PULSE 90; RESP 18; TEMP 36.7; O2SAT 96
[2025-05-16] MEDS: MAG HYDROX/AL HYDROX/SIMETH 30 ML UDC PO (17:58)
[2025-05-16 20:00] VITALS: PULSE 89; RESP 18; O2SAT 95
[2025-05-17] VITALS: BP 136/61; PULSE 89; RESP 16; TEMP 36.5; O2SAT 95
[2025-05-17] MEDS: oxyCODONE HCL (*CRX) 2.5 MG TAB IR PO ×4 (00:39→18:19)
[2025-05-17 05:38] LABS: Hematocrit 30.1 % (35.0-42.0); Hemoglobin 9.6 g/dL (11.7-13.8); Immature Granulocyte Percent A 0.8 % (0.0-0.0); Lymphocytes Absolute Auto 0.98 K/mm3 (1.10-4.50); Mean Corpuscular HGB Conc 31.9 g/dL (32-36); Mean Corpuscular Hemoglobin 27.0 pg (27.0-31.0); Mean Corpuscular Volume 84.8 fL (78.0-102.0); Nucleated Red Blood Cells Absolute Auto 0.00 K/mm3 (0.00-0.00); Nucleated Red Blood Cells Perc 0.0 % (0-0.0); Platelet Count Result 302 K/mm3 (150-420); Red Blood Count 3.55 M/mm3 (4.20-5.40); White Blood Count 8.9 K/mm3 (4.8-10.8)
[2025-05-17 05:56] LABS: Alanine Aminotransferase 8 U/L (6-35); Albumin Level 2.8 g/dL (3.5-5.1); Alkaline Phosphatase 187 U/L (38-126); Anion Gap 7 mmol/L (4-12); Aspartate Amino Transferase 34 U/L (14-36); Bilirubin,Total 0.8 mg/dL (0.2-1.3); Blood Urea Nitrogen 17 mg/dL (7-17); Calcium 9.4 mg/dL (8.4-10.2); Carbon Dioxide 29 mmol/L (22-30); Chloride 95 mmol/L (98-107); Estimated CRCL calculation 41 ml/min; Estimated Glomerular Filt Rate > 60; Glucose 137 mg/dL (65-110); Osmolality Calculated 275 mOsm/kg (285-295); Potassium 3.6 mmol/L (3.4-5.0); Sodium 131 mmol/L (137-145); Total Protein 4.9 g/dL (6.3-8.2)
[2025-05-17] MEDS: MICONAZOLE NITRATE 2% CREAM 30 GM TUBE 1 APPLIC TOPICAL ×2 (06:13→21:07)
[2025-05-17 07:35] VITALS: BP 146/57; PULSE 82; RESP 16; TEMP 36.8; O2SAT 96
--- NOTE | 2025-05-17 07:45 | PC.NURSE ---
During first morning round at 0730 this nurse entered room and when applying blood pressure cuff to left upper arm noted a tightened tourniquet on upper arm. Tourniquet immediately removed. Site noted to be red, no damage noted to area. Distal pulses present. Patient denies any pain. Charge nurse Yumiko notified.
[2025-05-17 08:35] VITALS: PULSE 82; RESP 16; O2SAT 96
[2025-05-17] MEDS: ENOXAPARIN 30 MG/0.3 ML SYRINGE SUB-Q (09:16)
[2025-05-17] MEDS: ESCITALOPRAM OXALATE 10 MG TABLET BY MOUTH (09:16)
[2025-05-17] MEDS: DOCUSATE SODIUM 100 MG CAPSULE PO (09:16)
[2025-05-17] MEDS: SODIUM CHLORIDE 1 GM TABLET 0.5 GM PO ×2 (09:16→18:19)
[2025-05-17] MEDS: PRESERVISION AREDS2 PO (09:17)
[2025-05-17] MEDS: [UNRECOGNIZED DRUG - OTHER] PO (09:17)
[2025-05-17 16:30] VITALS: BP 137/60; PULSE 87; RESP 18; TEMP 36.8; O2SAT 95
--- NOTE | 2025-05-17 22:07 | PC.NURSE ---
Patient resting in bed. Resp even, no SOB observed. Call light and belonging within reach. Encouraged to turn off back. Patient refuses to stay on her side while in bed. Patient incont. Nurse checks on her Q2H.
[2025-05-18] VITALS: BP 142/58; PULSE 83; RESP 20; TEMP 36.6; O2SAT 94
[2025-05-18] MEDS: oxyCODONE HCL (*CRX) 2.5 MG TAB IR PO ×2 (00:15→06:07)
[2025-05-18] MEDS: MICONAZOLE NITRATE 2% CREAM 30 GM TUBE 1 APPLIC TOPICAL (06:07)
[2025-05-18 08:00] VITALS: BP 164/65; PULSE 89; RESP 16; TEMP 36.6; O2SAT 94
--- NOTE | 2025-05-18 08:15 | P.DS_ITS ---
DS: Admitting Diagnosis Discharge Date 05/18/2025 Admitting Diagnosis Failure to Thrive DS: Discharge Diagnosis Discharge Diagnosis (1) Encounter for rehabilitation: Code(s): Z51.89 - Encounter for other specified aftercare Status: Acute Assessment and Plan: PT/OT per therapy recommendations OOB to chair daily OOB with meals 05/15 - Patient has not been participating with therapy recommendations and is currently not meeting therapy goals, family care plan meeting for tomorrow 05/16 - Daughter would like to take patient home as she is not progressing or attempting therapy, CM assisting with home health needs (2) Adult failure to thrive: Code(s): R62.7 - Adult failure to thrive Status: Acute Assessment and Plan: Encourage and assist with meals OK for General Diet to increase available food options Glucerna nutritional supplements (3) Insulin dependent diabetes mellitus: Status: Acute Assessment and Plan: POC Glucose AC/HS - stable 120-160 SSI insulin low dose OK for General Diet to increase available food options Glucerna nutritional supplements A1C 5.9 on 05/16 (4) Lymphoma: Qualifiers: Lymphoma site: unspecified region Lymphoma type: unspecified type Qualified Code(s): C85.90 - Non-Hodgkin lymphoma, unspecified, unspecified site Code(s): C85.90 - Non-Hodgkin lymphoma, unspecified, unspecified site Status: Acute Assessment and Plan: Oncology Dr. Dang 03/29 - CT ABD/PEL revealing bulky mesenteric and upper retroperitoneal lymphadenopathy, favoring lymphoma 04/22 - PET Scan revealing lymphadenopathy in the chest abdomen and pelvis with increased activity, consistent with lymphoma. Small bilateral pleural effusions, small volume ascites 05/09 - s/p lymph node biopsy: pathology report indicated B-cell non-Hodgkin Lymphoma Family has plans to discuss options with oncologist PRN Tylenol and Oxycodone 2.5 mg available for pain 05/16 - Daughter reports cancer is Stage 4 and she is interested in pursuing a lower dose chemotherapy with the oncologist. Cardiac workup requested for the oncologist. CBC, CMP, Trop, BNP, Lipid Panel, A1C, and EKG obtained. If an echocardiogram is required it will need insurance authorization and the PCP can assist, I left a message with Dr Arellano office to call 05/17 - Family would like to take patient home on hospice, CM assisted with a rranging hospice (5) Chronic hyponatremia: Code(s): E87.1 - Hypo-osmolality and hyponatremia Status: Acute Assessment and Plan: Per family patient does not tolerate Na tabs OK for general diet w/ table salt NA 132 DS: Summary Hospital Course Hospital Course: 84-year-old female a past medical history of HTN, hyperlipidemia, chronic hyponatremia, lymphoma, insulin DMII who was admitted to [facility] for Swing Bed Rehab after acute hospitalization at [facility] from 05/06-05/12/25 for generalized weakness and failure to thrive. Patient lives at home with her daughter prior to her hospitalization, she required skilled therapy with PT and OT prior to returning home. Patient was admitted to swing bed on May 13, during her stay she was not participatory with physical occupational therapy. Patient AO x2, which appears to be her baseline. Patient is being worked up by oncology Dr Demarcus Dang for lymphoma based on a CT scan 03/29 indicating bulky mesenteric and upper retroperitoneal lymphadenopathy, favoring lymphoma, PET Scan 04/22 demonstrated lymphadenopathy in the chest abdomen and pelvis with increased activity, consistent with lymphoma, patient is s/p lymph node biopsy on 05/09 which indicated B-cell lymphoma in the pathology report. Patient's family had a discussion with oncologist and treatment options were discussed. After discussion with oncologist about the B-Cell Lymphoma diagnosis, along with her generalized weakness and failure to thrive by not eating much or participating in therapies, family made the decision to take the patient home on hospice. Case management worked with family to get the durable equipment required to bring the patient home on hospice. Status at Discharge Functional status at discharge: wheelchair bound Overall status at discharge: patient is back to baseline Time Spent with Patient Time attestation: Total time spent providing and/or coordinating discharge services: Time spent: Less than 30 minutes Exam Const: General: comfortable and no acute distress Eyes: General: appearance normal, both eyes and all related structures Resp: Effort & Inspection: normal respiratory effort Auscultation: clear to auscultation bilaterally Cardio: Rate: regular rate Rhythm: regular rhythm GI: GI Palp: Yes Soft to palpation and No Tenderness to palpation present (GI) Auscultation: normal bowel sounds Skin: General skin exam: normal color Psych: Affect: normal affect DS: Data Data Completed and Pending Labs on day of discharge: Labs from last 24 hours 05/17/25 05/17/25 05/17/25 20:39 17:00 11:48 POC Capillary Glucose 129 H 125 H 152 H Discharge Plan Discharge Attending physician on discharge: Jesus Tariq Discharging Clinician: Carter Palomino Patient Disposition: Hospice - Home Activity: as tolerated Diet: as tolerated Discharge Instructions: Per Care Coordination: [facility]. They will plan to see you once you are back home and your medical equipment will be set up prior to your return home. Their main phone number is [phone] and the number for [facility], is [phone]. Patient Language: Turkish Stand Alone Forms: General Discharge Information Follow-up/Referrals: Demarcus Dang MD [Physician, Hematology] - Call for Appointment Problems: Lymphoma Jas Padgett DO [Primary Care Provider, Family Practice] - 1 week Discharge Medications: Continued miconazole nitrate 2 % Cream 1 applic topical Q8H Qty: 15 0RF lisinopril 20 mg Tablet 20 mg PO QAM Qty: 30 0RF sodium chloride 1,000 mg tablet,soluble 500 mg PO BID Qty: 15 0RF polyethylene glycol 3350 [Miralax] 17 gram Powder In Packet 17 g PO QAM Qty: 30 0RF docusate sodium 50 mg Capsule 50 mg PO TID (DME) FreeStyle Test Strip See Rx Instructions .Route Qty: 100 2RF Rx Instructions: Daily (DME) lancets [Accu-Chek Softclix Lancets] Misc See Rx Instructions .Route Qty: 100 2RF Rx Instructions: Daily escitalopram oxalate 10 mg tablet See Rx Instructions .ROUTE .COMPLEX Qty: 90 3RF Dose Instruction: 10 MG ORALLY DAILY Rx Instructions: 10 MG ORALLY DAILY (DME) blood-glucose meter [Blood Glucose Monitoring] Kit See Rx Instructions .Route Qty: 1 0RF Rx Instructions: As directed (DME) FreeStyle Clement 3 Plus Sensor Device See Rx Instructions .Route Qty: 1 6RF Rx Instructions: As directed nystatin 100,000 unit/gram powder 1 applic topical TID Qty: 60 3RF [id number]-EF-lycopen-lutein 0.4 mg-300 mcg- 250 mcg Tablet 1 tablet PO DAILY Qty: 30 0RF Discontinued tramadol 50 mg Tablet 50 mg PO Q8HR Qty: 14 0RF Date of admission: 05/12/25 10:50 Primary Care Provider: Jas Padgett Admitting Provider: Jesus Tariq Attending physician on admission: Jesus Tariq Condition: Stable
[2025-05-18] MEDS: SODIUM CHLORIDE 1 GM TABLET 0.5 GM PO (09:16)
[2025-05-18] MEDS: DOCUSATE SODIUM 100 MG CAPSULE PO (09:16)
[2025-05-18] MEDS: [UNRECOGNIZED DRUG - OTHER] PO (09:16)
[2025-05-18] MEDS: PRESERVISION AREDS2 PO (09:16)
[2025-05-18] MEDS: ESCITALOPRAM OXALATE 10 MG TABLET BY MOUTH (09:16)
--- NOTE | 2025-05-18 10:19 | PC.NURSE ---
Patient discharged to home on Hospice. Transported by [facility]. Daughter waiting at residence. Hospice to meet patient at home later
--- NOTE | 2025-05-18 10:27 | PC.NURSE ---
1020 family message left of ambulance here. hospice called and informed of discharge
--- NOTE | 2025-05-20 09:12 | PC.NURSE ---
Discharge call back attempted, no answer
--- NOTE | 2025-05-23 09:57 | PC.NURSE ---
Unable to reach for discharge call back.
== END 2025-05-18 10:10 | disposition hospice, home (50) | DRG 841 ==
PROVIDERS: Nurse Practitioner; Admitting Provider Internal Medicine; PCP Family Medicine; Visit Provider Internal Medicine
DX: C85.90 Non-Hodgkin lymphoma, unspecified, unspecified site (principal); E87.1 Hypo-osmolality and hyponatremia; Z51.5 Encounter for palliative care; R62.7 Adult failure to thrive; R53.1 Weakness; E78.5 Hyperlipidemia, unspecified; E11.319 Type 2 diabetes mellitus with unspecified diabetic retinopathy without macular edema; I10 Essential (primary) hypertension; Z79.4 Long term (current) use of insulin; Z66 Do not resuscitate; Z99.3 Dependence on wheelchair
CPT/HCPCS: 36415; 80048; 80053; 80061; 82948; 83036; 83735; 83880; 84100; 84484; 85025; 85027; 93005; 97110; 97162; 97166; 97530; 97535; A9270; J1650